=== PATIENT | female | born 1945 | race Caucasian/White ===

== ENCOUNTER → 2019-09-23 11:04 | Outpatient (BNVA) | payer BC, MEDICARE, SELFPAY | PROVIDERS: Family Provider Nurse Practitioner; Visit Provider Nurse Practitioner | DX: I10 Essential (primary) hypertension (principal); E04.9 Nontoxic goiter, unspecified; E78.2 Mixed hyperlipidemia; Z12.39 Encounter for other screening for malignant neoplasm of breast | CPT/HCPCS: 81000 ==

== ENCOUNTER → 2019-09-25 09:39 | Outpatient (BNVA) | payer BC, MEDICARE, SELFPAY | PROVIDERS: Family Provider Nurse Practitioner; Visit Provider Nurse Practitioner | DX: I10 Essential (primary) hypertension (principal) | CPT/HCPCS: 80053; 80061; 84443 ==

== ENCOUNTER → 2020-04-13 10:43 | Outpatient (BNVA) | payer MEDICARE, OTHER, SELFPAY | PROVIDERS: Family Provider Nurse Practitioner; Visit Provider Nurse Practitioner Family | DX: I10 Essential (primary) hypertension (principal); E78.2 Mixed hyperlipidemia | CPT/HCPCS: 80053; 80061; 84443; 85025 ==

== ENCOUNTER → 2020-11-01 10:02 | Outpatient (BNVA) | payer MEDICARE, OTHER, SELFPAY | PROVIDERS: Family Provider Nurse Practitioner; PCP Nurse Practitioner; Visit Provider Nurse Practitioner | DX: I10 Essential (primary) hypertension (principal); E04.9 Nontoxic goiter, unspecified; E78.2 Mixed hyperlipidemia | CPT/HCPCS: 80053; 80061; 84443; 85025 ==

== ENCOUNTER → 2021-06-08 10:33 | Outpatient (BNVA) | payer MEDICARE, OTHER, SELFPAY | PROVIDERS: Family Provider Nurse Practitioner; PCP Nurse Practitioner; Visit Provider Nurse Practitioner | DX: R06.02 Shortness of breath (principal); I10 Essential (primary) hypertension; E78.2 Mixed hyperlipidemia | CPT/HCPCS: 80053; 80061; 83735; 85025 ==

== ENCOUNTER → 2021-08-04 13:17 | Outpatient (BNVA) | payer MEDICARE, OTHER, SELFPAY | PROVIDERS: Family Provider Nurse Practitioner; PCP Nurse Practitioner; Visit Provider Internal Medicine | DX: R06.02 Shortness of breath (principal); I10 Essential (primary) hypertension; R07.9 Chest pain, unspecified | CPT/HCPCS: 99203; 99204 ==

== ENCOUNTER → 2021-11-03 14:22 | Outpatient (BNVA) | payer MEDICARE, OTHER, SELFPAY | PROVIDERS: Family Provider Nurse Practitioner; PCP Nurse Practitioner; Visit Provider Internal Medicine | DX: R06.02 Shortness of breath (principal); I10 Essential (primary) hypertension; R07.9 Chest pain, unspecified | CPT/HCPCS: 99213; 99214 ==

== ENCOUNTER 2021-11-28 07:10 | Outpatient (CLI) | payer MEDICARE, OTHER, SELFPAY ==
[2021-11-28 08:00] VITALS: BMI 25.6
--- NOTE | 2021-11-28 08:01 | NMCV_ITS ---
NM néstor perf SPECT r/s* [id number] Aretha Hawley Age: 76 Gender: F : 1945 Exam Date: 11/28/2021 08:58 Ordering Phys: Guzman Sheikh M.D ([email or web address]) Technologist: Ismael Waddell Exam Location: [facility] Indications: SHORTNESS OF BREATH STRESS TEST Please see separate stress test report in [facility] for full findings IMAGE PROTOCOL Rest/Stress 1 Lexiscan Day Radiopharmaceutical Dose (mCi) Administration Site Administered by Rest: Tc-99m 10.6 IV Izaiah Harris, OPERATIONS RESEARCH SCIENTIST Sestamibi Stress:Tc-99m 32.5 IV Izaiah Harris OPERATIONS RESEARCH SCIENTIST Sestamibi Rest: 28-Nov-2021 60 Discovery 630 Stress: 28-Nov-2021 30 Discovery 630 0.4mg Lexiscan. Images obtained in supine and prone position. SPECT RESULTS Technical Quality: Excellent Raw Data Analysis: Image Corrections: No attenuation or motion correction applied Summed Stress Score: 0 Summed Rest Score: 0 Summed Difference Score: 0 PERFUSION FINDINGS SPECT images demonstrate homogeneous tracer distribution throughout the myocardium. FUNCTIONAL RESULTS (calculated via Gated SPECT) Stress Image LV EF (%): 75 Stress EDV (mL):75 TID: 1.22 Stress ESV (mL):19 FUNCTIONAL FINDINGS: There is normal left ventricular systolic function. TID ratio is elevated. IMPRESSIONS 1. Normal myocardial perfusion imaging with no evidence of ischemia 2. LV systolic function is normal Guzman Sheikh MD (Electronically Signed) Final Date: 28 November 2021 11:34 S
--- NOTE | 2021-11-28 08:01 | ECG_ITS ---
[facility] Test Date: 2021-11-28 Pat Name: Aretha Hawley Department: Room: Gender: Female Rose Grading Supervisor: Vivian Pineda : 1945 Requested By: Guzman Sheikh Order Number: [id number] Stephania MD: Guzman Sheikh M.D. Interpretive Statements NAME OF STUDY: LEXISCAN SESTAMIBI STRESS TEST INDICATION: [Shortness of Breath] Procedure: At the baseline, the blood pressure was 183/89 mmHg with a heart rate of 67 bpm. The electrocardiogram showed normal sinus rhythm, intraventricular conduction delay. The Lexiscan was infused over a period of 20 seconds. A total of 0.4 mg of Lexiscan was infused. The stress phase was continued for a total of 5 minutes. Heart rate was at the end of stress phase was 85 bpm and a blood pressure of 150/67 mmHg. The EKG at the peak infusion revealed since normal sinus rhythm with no significant ST-T wave changes. Sestamibi was injected 20 seconds after the Lexiscan infusion. Blood pressure at the end of recovery phase was 152/68 mmHg with a heart rate of 83 bpm. Conclusion: 1. Normal EKG response to Lexiscan infusion 2. No Lexiscan induced chest pain or cardiac arrhythmia. 3. Normal blood pressure and heart rate response. 4. Sestamibi/sestamibi perfusion scan pending; see separate report. Electronically Signed On 01-01-2022 21:09:04 CDT by Gzuman Sheikh M.D. [id number]
[2021-11-28] MEDS: regadenoson 0.4 Mg/5 ml Syringe IVP (09:38)
[2021-11-28 09:45] VITALS: BP 152/89; PULSE 84
== END 2021-11-28 07:11 | disposition home or self-care (01) ==
LOC: CDL 07:18
PROVIDERS: PCP Nurse Practitioner; Visit Provider Internal Medicine
DX: R06.02 Shortness of breath (principal)
CPT/HCPCS: 78452; 93017; A9500; J2785

== ENCOUNTER → 2022-01-18 10:07 | Outpatient (BNVA) | payer MEDICARE, OTHER, SELFPAY | PROVIDERS: PCP Nurse Practitioner; Visit Provider Nurse Practitioner | DX: I10 Essential (primary) hypertension (principal) | CPT/HCPCS: 80053; 80061; 84443; 85025 ==

== ENCOUNTER 2022-03-10 08:39 | Outpatient (CLI) | payer MEDICARE, OTHER, SELFPAY ==
--- NOTE | 2022-03-10 09:15 | US_ITS ---
WS: [id number] ULTRASOUND THYROID TECHNIQUE: Ultrasound of the thyroid. CLINICAL INFORMATION: E04.9 - Nontoxic goiter, unspecified COMPARISON: None. FINDINGS: Thyroid: Right and left thyroid lobes are normal in size and echotexture. A few tiny incidental thyro id cysts likely colloid cysts. No suspicious nodules. Right thyroid lobe: 4.3 cm x 1.2 cm x 1.2 cm Left thyroid lobe: 4.3 cm x 1.1 cm x 1.1 cm. Isthmus: 0.2 mm. Cervical lymphadenopathy: None. US/US thyroid [id number] IMPRESSION: 1. Thyroid is normal in size and echotexture. 2. Bilateral small subcentimeter colloid cysts are visualized. No dominant nod ules to target for biopsy. 3. No other suspicious findings.
== END 2022-03-10 08:40 | disposition home or self-care (01) ==
LOC: RAD 08:39
PROVIDERS: PCP Nurse Practitioner; Visit Provider Nurse Practitioner
DX: E04.9 Nontoxic goiter, unspecified (principal)
CPT/HCPCS: 76536

== ENCOUNTER 2022-03-28 12:35 | Emergency (ER) | payer MEDICARE, OTHER, SELFPAY ==
[2022-03-28] VITALS (19 sets, daily range): BP systolic 143–167; BP diastolic 49–90; PULSE 55–65; RESP 14–20; O2SAT 94–98
--- NOTE | 2022-03-28 | CTR_ITS ---
PROCEDURE INFORMATION: Exam: CTA Head With Contrast, Arteriography Exam date and time: 03/28/2022 12:59 PM Age: 76 years old Clinical indication: Speech disturbance; Aphasia TECHNIQUE: Imaging protocol: Computed tomographic angiography of the head with contrast. Exam focused on the arteries. 3D rendering (Not supervised by radiologist): MIP and/or 3D reconstructed images were created by the technologist. Radiation optimization: All CT scans at this facility use at least one of these dose optimization techniques: automated exposure control; mA and/or kV adjustment per patient size (includes targeted exams where dose is matched to clinical indication); or iterative reconstruction. Contrast material: OMNIPAQUE 350; Contrast volume: 95 ml; Contrast route: INTRAVENOUS (IV); COMPARISON: CT head wo con* [id number] 03/28/2022 12:35 PM RADIATION DOSE METRICS: Total DLP (mGy-cm): 338.27 FINDINGS: ANTERIOR CIRCULATION: Right internal carotid artery: Intracranial segment is patent with no significant stenosis. No aneurysm. Right middle cerebral artery: No occlusion or significant stenosis. No aneurysm. Right anterior cerebral artery: No occlusion or significant stenosis. No aneurysm. Left internal carotid artery: Intracranial segment is patent with no significant stenosis. No aneurysm. Left middle cerebral artery: There is occlusion of the M1 segment of the left MCA and poor opacification of reconstituted distal branches.. Left anterior cerebral artery: No occlusion or significant stenosis. No aneurysm. POSTERIOR CIRCULATION: Right vertebral artery: No occlusion or significant stenosis. No aneurysm. Left vertebral artery: No occlusion or significant stenosis. No aneurysm. Basilar artery: No occlusion or significant stenosis. No aneurysm. Right posterior cerebral artery: No occlusion or significant stenosis. No aneurysm. Left posterior cerebral artery: No occlusion or significant stenosis. No aneurysm. Brain: There is loss of barker-white matter differentiation in the left temporoparietal region, consistent with left MCA distribution infarct. Cerebral ventricles: No ventriculomegaly. Bones/joints: There No acute fracture. Soft tissues: Unremarkable. PROCEDURE INFORMATION: Exam: CTA Neck With Contrast Exam date and time: 03/28/2022 12:59 PM Age: 76 years old Clinical indication: Speech disturbance; Aphasia TECHNIQUE: Imaging protocol: Computed tomographic angiography of the neck with contrast. 3D rendering (Not supervised by radiologist): MIP and/or 3D reconstructed images were created by the technologist. Radiation optimization: All CT scans at this facility use at least one of these dose optimization techniques: automated exposure control; mA and/or kV adjustment per patient size (includes targeted exams where dose is matched to clinical indication); or iterative reconstruction. Contrast material: OMNIPAQUE 350; Contrast volume: 95 ml; Contrast route: INTRAVENOUS (IV); COMPARISON: [place] thyroid [id number] 03/10/2022 8:59 AM RADIATION DOSE METRICS: Total DLP (mGy-cm): 338.27 FINDINGS: Right common carotid artery: No stenosis. No dissection or occlusion. Right internal carotid artery: No stenosis of the extracranial segment. No dissection or occlusion. Right external carotid artery: No occlusion or stenosis of the origin. Left common carotid artery: No stenosis. No dissection or occlusion. Left internal carotid artery: No stenosis of the extracranial segment. No dissection or occlusion. Left external carotid artery: No occlusion or stenosis of the origin. Right vertebral artery: No stenosis. No dissection or occlusion. Left vertebral artery: No stenosis. No dissection or occlusion. Soft tissues: Normal. No significant soft tissue swelling. Bones/joints: No acute fracture. Degenerative changes of the spine seen. Lungs: Biapical scarring noted. CT/CT angio headneck* [id number] IMPRESSION: Left MCA distribution infarct with occlusion of the left M1 segment. IMPRESSION: No stenosis or occlusion. REFERENCES: NASCET CRITERIA. The degree of stenosis in the cervical segment of the internal carotid artery is based on NASCET criteria. Normal is no stenosis. Mild is less than 50% stenosis. Moderate is 50-69% stenosis. Severe is 70% to 99% stenosis. Total occlusion is no detectable patent lumen.
--- NOTE | 2022-03-28 12:36 | CTR_ITS ---
PROCEDURE INFORMATION: Exam: CT Head Without Contrast Exam date and time: 03/28/2022 12:35 PM Age: 76 years old Clinical indication: Speech disturbance and other: Aphasia, ; additional info: Stroke, suspect mca TECHNIQUE: Imaging protocol: Computed tomography of the head without contrast. Radiation optimization: All CT scans at this facility use at least one of these dose optimization techniques: automated exposure control; mA and/or kV adjustment per patient size (includes targeted exams where dose is matched to clinical indication); or iterative reconstruction. COMPARISON: [place] thyroid [id number] 03/10/2022 8:59 AM RADIATION DOSE METRICS: Total DLP (mGy-cm): 1102.34 FINDINGS: Brain: Loss of barker-white matter differentiation in the anterior right frontal lobe is suggested. No hemorrhage, mass effect or midline shift. There is foci of decreased attenuation in the periventricular and subcortical white matter, likely representing chronic small vessel ischemic changes. Mild cerebral volume loss is present. No intra-axial or extra-axial fluid collection seen. Cerebral ventricles: No ventriculomegaly. Paranasal sinuses: Visualized sinuses are unremarkable. No fluid levels. Mastoid air cells: Visualized mastoid air cells are well aerated. Bones/joints: Unremarkable. No acute fracture. Soft tissues: Unremarkable. CT/CT head wo con* [id number] IMPRESSION: Loss of barker-white matter differentiation in the anterior right frontal lobe is suggested, concerning for infarct. Clinical correlation is recommended. Further evaluation with brain MRI should be considered in the adequate clinical setting.
--- NOTE | 2022-03-28 12:37 | ECG_ITS ---
[facility] Test Date: 2022-03-28 Pat Name: Aretha Hawley Department: Room: Gender: Female Engineering Project Manager: : 1945 Requested By: Sylvester Encarnacion Order Number: [id number] Cat MD: Guzman Sheikh M.D. Measurements Intervals [place] Rate: 59 P: 84 MT: 238 QRS: -74 QRSD: 145 T: 90 QT: 478 QTc: 475 Interpretive Statements SINUS BRADYCARDIA WITH FIRST DEGREE AV BLOCK LEFT AXIS DEVIATION [QRS AXIS < -30] LEFT BUNDLE BRANCH BLOCK [120+ ms QRS DURATION, 80+ ms Q/S IN V1/V2, 85+ ms R IN I/aVL/V5/V6] No previous ECG available for comparison Electronically Signed On 03-28-2022 17:46:38 MERCHANDISE MANAGER by Guzman Sheikh M.D. [id number]
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
--- NOTE | 2022-03-28 13:31 | PC.PHAR ---
PT UNABLE TO VERIFY AMS/STROKE - MEDICATIONS VERIFIED USING EXTERNAL MED LIST LAST FILLED
[2022-03-28] MEDS: iohexol 350 mg/mL 500 mL Btl (per mL) IV (13:41)
[2022-03-28] MEDS: sodium chloride 0.9% 50 ML 200 ML IV (14:09)
--- NOTE | 2022-03-28 14:55 | PC.NURSE ---
pt last known well was 1148 confirmed by spouse Stroke alert was called 1212 pt arrived and taken straight to CT. CT taken 1231 resulted 1235 TPA was ready and bolus was started at 1247 with infusion started after 1 minute bolus given TPA was initiated in CT during CTA scan pt wt 142 lb 5.8 ML bolus was given over 1 minute. and infusion started at 52.2 ml/hr. 41.9 ml wasted pt was receiving q15 min neuro checks since time of arrival. no signs of improvement as of 1500. Vital signs established by EMS were WNL, blood glucose WNL
[2022-03-28 15:20] LABS: Basophils % 0.3 %; Eosinophils # 0.2 10^3/uL (0.0-0.8); Eosinophils % 2.1 %; Hematocrit 41.8 % (37.0-47.0); Hemoglobin 12.9 g/dL (11.5-15.3); Lymphocytes # 1.2 10^3/uL (0.8-4.8); Lymphocytes % 10.4 %; Mean Corpuscular HGB Conc 30.9 g/dL (30.0-36.0); Mean Corpuscular Hemoglobin 30.6 pg (28.0-34.0); Mean Corpuscular Volume 99.3 fl (81-99); Mean Platelet Volume 12.1 fL (7.4-10.4); Monocytes # 0.7 10^3/uL (0.2-0.9); Monocytes % 6.3 %; Neutrophils # 9.13 10^3/uL (1.8-7.7); Neutrophils % 80.5 %; Nucleated Red Blood Cells % 0 %; Platelet Count 230 10^3/cmm (130-400); Red Blood Count 4.21 10^6/uL (4.1-5.3); Red Cell Distribution Width 13.9 % (12.1-15.1); White Blood Count 11.3 10^3/uL (4.0-10.0)
--- NOTE | 2022-03-28 15:23 | PC.NURSE ---
report called to Amandeep hart RN. report given to [facility]. pt transported [id number]
[2022-03-28 15:41] LABS: INR 1.32 (0.8-1.2); Partial Thromboplastin Time 22.1 SECONDS (23.9-36.7)
[2022-03-28 15:47] LABS: Alanine Aminotransferase 11 U/L (0-33); Albumin Level 4.1 g/dL (3.5-5.2); Alkaline Phosphatase 94 U/L (35-105); Blood Urea Nitrogen 14 mg/dL (8-23); Calcium 9.1 mg/dL (8.5-10.5); Carbon Dioxide 22 mmol/L (22-29); Chloride 105 mmol/L (98-107); Globulin 2.6 g/dL (1.3-4.6); Glucose 82 mg/dL (65-115); Osmolality Calculated 288 mOsm/kg (285-295); Sodium 139 mmol/L (136-145); Total Protein 6.7 g/dL (6.6-8.7)
[2022-03-28 16:06] LABS: Anion Gap 16.6 (5-19); Aspartate Amino Transferase 23 U/L (0-32); Potassium 4.6 mmol/L (3.5-5.1)
== END 2022-03-28 15:25 | disposition short-term general hospital (02) ==
PROVIDERS: Emergency Provider Emergency Medicine; PCP Nurse Practitioner
DX: R13.0 Aphagia (principal); I63.512 Cerebral infarction due to unspecified occlusion or stenosis of left middle cerebral artery; R29.720 NIHSS score 20
CPT/HCPCS: 70450; 70496; 70498; 80053; 85025; 85610; 85730; 93005; 96365; 99285; J2997; Q9967

== ENCOUNTER 2022-05-16 20:36 | Emergency (ER) | payer MEDICARE, OTHER, SELFPAY ==
--- NOTE | 2022-05-16 20:40 | XRR_ITS ---
PROCEDURE INFORMATION: Exam: XR Chest Exam date and time: 05/16/2022 9:04 PM Age: 76 years old Clinical indication: Pain; Chest pressure; Additional info: Cp TECHNIQUE: Imaging protocol: Radiologic exam of the chest. Views: 1 view. COMPARISON: CT angio headneck* [id number] 03/28/2022 12:59 PM FINDINGS: Lungs: No consolidation. Pleural spaces: No pleural effusion. No pneumothorax. Heart/Mediastinum: Cardiomegaly. Bones/joints: Visualized osseous structures are intact. XR/XR chest 1V portable [id number] IMPRESSION: Cardiomegaly, otherwise no acute findings.
[2022-05-16 20:46] VITALS: BP 138/87; PULSE 84; RESP 25; TEMP 36.4; O2SAT 94; BMI 29.2
--- NOTE | 2022-05-16 20:54 | W.ED.GENADLT ---
HPI - General Adult General: Chief complaint: General Medical Stated complaint: afib with rvr Time Seen by Provider: 05/16/22 20:40 Source: patient and EMS Mode of arrival: EMS Limitations: altered mental status History of Present Illness: 76-year-old female with a history of a stroke she is currently bedbound nonverbal she does have a history of A-fib with RVR per long-term patient was tachycardic into the 130s she had had a Cardizem evening dose yet EMS arrived they did give her 8 mg of Cardizem IV her heart rate is improved is currently in the 90s patient is nonverbal has no complaints here. Review of Systems General: Reports: ROS unobtainable due to mental status PFSH ED PFSH: Medical History (Updated 05/16/22 @ 22:15 by Yulisa Schwarz MD) Environmental and seasonal allergies Essential (primary) hypertension Mixed hyperlipidemia Surgical History History of cholecystectomy History of dilatation and curettage History of tonsillectomy History of tubal ligation Family History Mother Stroke Other Heart disease Hypertension Social History Smoking and tobacco status: never smoked Second hand smoke exposure: No Smoking risk assessment/counseling performed?: No Alcohol intake: never Desire information about alcohol rehabilitation?: No Counseling given: No Desire information about substance/drug rehabilitation?: No Counseling given: No Adopted: No Caregiver/support person: No Lives independently: Yes Household members: spouse Housing: House Marital status: service: No Pets and animals: No History of recent travel: No Current gender identity: Female Physical Exam Const: COMMON NORMALS: negative for patient oriented x3 HENMT: COMMON NORMALS: normocephalic and atraumatic HEAD & SCALP: normocephalic and atraumatic Eye: COMMON NORMALS: Equal, round and reactive pupils present and EOMs intact bilaterally PUPIL: Yes Equal, round and reactive pupils present Neck/C-Spine: COMMON NORMALS: full ROM and supple Chest: COMMONS NORMALS: normal inspection of the chest and normal palpation of entire chest wall Resp: COMMON NORMALS: normal respiratory effort, No retractions, No use of accessory muscles and clear to auscultation bilaterally AUSCULTATION: clear to auscultation bilaterally Cardio: COMMON NORMALS: regular rate and No murmurs present (Cardio) RATE: regular rate RHYTHM: abnormal rhythm irregularly irregular GI: COMMON NORMALS: Normal to inspection, nondistended, normoactive bowel sounds present, Soft to palpation, non-tender and no masses PALPATION: Yes Soft to palpation Extremity: COMMON NORMALS: normal to inspection Neuro: COMMON NORMALS: negative for patient oriented x3 and negative for moves all extremities Psych: COMMON NORMALS: cooperative; negative for mental status grossly normal Skin: COMMON NORMALS: no rashes or lesions noted and no wounds GENERAL SKIN EXAM: no rashes or lesions noted Course Vital Signs: Vital signs: Vital Signs Temperature 97.6 F 05/16/22 20:46 Pulse Rate 80 05/16/22 22:30 Respiratory Rate 16 05/16/22 22:30 Blood Pressure 129/65 05/16/22 22:30 Pulse Oximetry 98 05/16/22 22:30 Oxygen Delivery Me thod 05/16/22 22:07 MDM - General Adult Medical Decision Making Patient presents with A-fib with RVR from the long-term heart rate has been controlled here she has been in the 70s and 80s blood work is normal she is stable for discharge back to the long-term at this time. Lab Data 05/16/22 20:50 05/16/22 20:50 Radiology Impressions Chest X-Ray 05/16/22 20:40 IMPRESSION: Cardiomegaly, otherwise no acute findings. Laboratory Results WBC 15.5 10^3/uL (4.0-10.0) H 05/16/22 20:50 RBC 4.65 10^6/uL (4.1-5.3) 05/16/22 20:50 Hgb 14.0 g/dL (11.5-15.3) 05/16/22 20:50 Hct 43.6 % (37.0-47.0) 05/16/22 20:50 MCV 93.8 fl (81-99) 05/16/22 20:50 MCH 30.1 pg (28.0-34.0) 05/16/22 20:50 MCHC 32.1 g/dL (30.0-36.0) 05/16/22 20:50 RDW 14.6 % (12.1-15.1) 05/16/22 20:50 Plt Count 503 10^3/cmm (130-400) H 05/16/22 20:50 MPV 11.7 fL (7.4-10.4) H 05/16/22 20:50 Neut % (Auto) 74.7 % 05/16/22 20:50 Lymph % (Auto) 17.0 % 05/16/22 20:50 [place] % (Auto) 6.4 % 05/16/22 20:50 Eos % (Auto) 1.1 % 05/16/22 20:50 Baso % (Auto) 0.3 % 05/16/22 20:50 Neut # (Auto) 11.58 10^3/uL (1.8-7.7) H 05/16/22 20:50 Lymph # (Auto) 2.6 10^3/uL (0.8-4.8) 05/16/22 20:50 [place] # (Auto) 1.0 10^3/uL (0.2-0.9) H 05/16/22 20:50 Eos # (Auto) 0.2 10^3/uL (0.0-0.8) 05/16/22 20:50 Baso # (Auto) 0.1 10^3/uL (0.0-0.1) 05/16/22 20:50 Nucleated RBC % (auto) 0 % 05/16/22 20:50 Nucleated RBCs # 0.0 /100WBC 05/16/22 20:50 Sodium 135 mmol/L (136-145) L 05/16/22 20:50 Potassium 4.3 mmol/L (3.5-5.1) 05/16/22 20:50 Chloride 99 mmol/L (98-107) 05/16/22 20:50 Carbon Dioxide 22 mmol/L (22-29) 05/16/22 20:50 Anion Gap 18.3 (5-19) 05/16/22 20:50 BUN 21 mg/dL (8-23) 05/16/22 20:50 Creatinine 0.4 mg/dL (0.5-0.9) L 05/16/22 20:50 GFR Calculation Not Reportable 05/16/22 20:50 Glucose 144 mg/dL (65-115) H 05/16/22 20:50 Calculated Osmolality 286 mOsm/kg (285-295) 05/16/22 20:50 Calcium 9.4 mg/dL (8.5-10.5) 05/16/22 20:50 Total Bilirubin 0.6 mg/dL (0.15-1.2) 05/16/22 20:50 AST 30 U/L (0-32) 05/16/22 20:50 ALT 33 U/L (0-33) 05/16/22 20:50 Alkaline Phosphatase 131 U/L (35-105) H 05/16/22 20:50 Total Protein 7.8 g/dL (6.6-8.7) 05/16/22 20:50 Albumin 3.7 g/dL (3.5-5.2) 05/16/22 20:50 Globulin 4.1 g/dL (1.3-4.6) 05/16/22 20:50 EKG Data EKG 1: I personally reviewed and interpreted this EKG as follows: EKG interpretation date: 05/16/22 EKG interpretation time: 21:01 Interpretation: afib hr [address] elevation qrs 140 qtc 427 Computer generated interpretation: Chest X-Ray 05/16/22 20:40 IMPRESSION: Cardiomegaly, otherwise no acute findings. Discharge Plan Discharge Patient Disposition: Home Clinical Impression: Atrial fibrillation Condition: Stable Prescriptions: No Action mupirocin 2 % ointment 1 applic TOPICAL TID Qty: 22 0RF aspirin [Adult Low Dose Aspirin] 81 mg tablet,delayed release (DR/EC) 81 mg PO .weekly nitroglycerin 0.4 mg tablet, sublingual 0.4 mg sublingual Q5M PRN (Reason: chest pain) Qty: 25 2RF Rx Instructions: do not exceed 3 doses per episode metoprolol succinate 25 mg tablet extended release 24 hr 25 mg PO DAILY 90 Days Qty: 90 1RF simvastatin 40 mg tablet 40 mg PO DAILY Qty: 90 1RF valsartan [Diovan] 40 mg tablet 40 mg PO DAILY Qty: 90 3RF Discharge Orders: Discharge ED (Routine); Ordered 05/16/22 Ordered By: Yulisa Schwarz Referrals: Maria Del Carmen Douglas, DIALS SUPERVISOR-C [Primary Care Provider] - Discharge Diet: Advance as tolerated Discharge Activity: Resume usual activity Patient Instructions: A-fib (Atrial Fibrillation) (ED) Coding Level of Care Code ED Industrial Chemicals Supervisor for Hermelindo Koehler
[2022-05-16 20:57] LABS: Basophils # 0.1 10^3/uL (0.0-0.1); Basophils % 0.3 %; Eosinophils # 0.2 10^3/uL (0.0-0.8); Eosinophils % 1.1 %; Hematocrit 43.6 % (37.0-47.0); Lymphocytes # 2.6 10^3/uL (0.8-4.8); Mean Corpuscular HGB Conc 32.1 g/dL (30.0-36.0); Mean Corpuscular Hemoglobin 30.1 pg (28.0-34.0); Mean Corpuscular Volume 93.8 fl (81-99); Mean Platelet Volume 11.7 fL (7.4-10.4); Monocytes % 6.4 %; Neutrophils # 11.58 10^3/uL (1.8-7.7); Neutrophils % 74.7 %; Nucleated Red Blood Cells % 0 %; Platelet Count 503 10^3/cmm (130-400); Red Blood Count 4.65 10^6/uL (4.1-5.3); Red Cell Distribution Width 14.6 % (12.1-15.1); White Blood Count 15.5 10^3/uL (4.0-10.0)
--- NOTE | 2022-05-16 21:01 | ECG_ITS ---
[facility] Test Date: 2022-05-16 Pat Name: Aretha Hawley Department: Room: Gender: Female Social Media Strategist: : 1945 Requested By: Yulisa Schwarz Order Number: [id number] Stephania MD: Guzman Sheikh M.D. Measurements Intervals [place] Rate: 95 P: 119 AR: 200 QRS: -61 QRSD: 140 T: 87 QT: 374 QTc: 472 Interpretive Statements SINUS RHYTHM WITH FREQUENT SUPRAVENTRICULAR PREMATURE COMPLEXES LEFT AXIS DEVIATION [QRS AXIS < -30] LEFT BUNDLE BRANCH BLOCK [120+ ms QRS DURATION, 80+ ms Q/S IN V1/V2, 85+ ms R IN I/aVL/V5/V6] Compared to ECG 03/28/2022 13:36:58 Sinus bradycardia no longer present First degree AV block no longer present Electronically Signed On 05-16-2022 22:46:03 BUSHING AND BROACH OPERATOR by Guzman Sheikh M.D. [id number]
[2022-05-16 21:23] LABS: Alanine Aminotransferase 33 U/L (0-33); Albumin Level 3.7 g/dL (3.5-5.2); Potassium 4.3 mmol/L (3.5-5.1)
[2022-05-16] MEDS: dilTIAZem 30 mg Tablet PO (21:25)
[2022-05-16 21:30] VITALS: BP 140/67; PULSE 101; RESP 16; O2SAT 98
[2022-05-16 21:40] LABS: Alkaline Phosphatase 131 U/L (35-105); Anion Gap 18.3 (5-19); Aspartate Amino Transferase 30 U/L (0-32); Blood Urea Nitrogen 21 mg/dL (8-23); Calcium 9.4 mg/dL (8.5-10.5); Carbon Dioxide 22 mmol/L (22-29); Chloride 99 mmol/L (98-107); Globulin 4.1 g/dL (1.3-4.6); Glucose 144 mg/dL (65-115); Osmolality Calculated 286 mOsm/kg (285-295); Sodium 135 mmol/L (136-145); Total Bilirubin 0.6 mg/dL (0.15-1.2); Total Protein 7.8 g/dL (6.6-8.7)
[2022-05-16 21:41] LABS: Creatinine Clr Calc Pharmacy 55.8072
[2022-05-16 22:00] VITALS: BP 152/71; PULSE 105; RESP 16; O2SAT 95
[2022-05-16] MEDS: dilTIAZem 5 mg/mL SDV 5 mL 10 MG IVP (22:03)
[2022-05-16 22:07] VITALS: BP 152/71; PULSE 81; RESP 16; O2SAT 98
[2022-05-16 22:30] VITALS: BP 129/65; PULSE 80; RESP 16; O2SAT 98
== END 2022-05-16 22:50 | disposition home or self-care (01) ==
PROVIDERS: Emergency Provider Emergency Medicine; PCP Nurse Practitioner
DX: I48.91 Unspecified atrial fibrillation (principal); Z79.82 Long term (current) use of aspirin; I10 Essential (primary) hypertension; E78.2 Mixed hyperlipidemia
CPT/HCPCS: 36415; 71045; 80053; 85025; 93005; 96374; 99285; J3490

== ENCOUNTER → 2022-06-30 10:00 | Outpatient (BNVA) | payer MEDICARE, OTHER, SELFPAY | PROVIDERS: PCP Nurse Practitioner; Visit Provider Nurse Practitioner Family | DX: I48.91 Unspecified atrial fibrillation (principal); I10 Essential (primary) hypertension; Z79.01 Long term (current) use of anticoagulants | CPT/HCPCS: 93005; 99214 ==

== ENCOUNTER 2022-07-09 17:40 | Emergency (ER) | payer MEDICARE, OTHER, SELFPAY ==
[2022-07-09 17:55] VITALS: BP 156/95; PULSE 137; TEMP 36.6; O2SAT 97
--- NOTE | 2022-07-09 18:24 | PC.NURSE ---
pt resting in bed, unable to answer orientation questions or hold conversation. site where G-tube was, does not appear reddened, swollen, or warm to touch. pt bowel sounds are present. lung sounds are clear
--- NOTE | 2022-07-09 19:25 | ED_ITS ---
HPI - General Adult General: Chief complaint: General Medical Stated complaint: FEEDING TUBE OUT Time Seen by Provider: 07/09/22 17:58 History of Present Illness: 76-year-old female presents from shelter after her gastrostomy tube was traumatically pulled out while turning the pa tient bleeding is controlled. She has minimal pain. No other complaints. Onset (ago): hour(s) Location: abdomen Radiation: non-radiation Severity: mild Quality: other Pain Consistency: other Relieving factors: other Exacerbating factors: other Associated symptoms: Deny dyspnea, fevers/chills or vomiting Review of Systems Resp: Denies: dyspnea GI: Denies: vomiting PFSH ED PFSH: Medical History Atrial fibrillation Environmental and seasonal allergies Essential (primary) hypertension Mixed hyperlipidemia Surgical History History of cholecystectomy History of dilatation and curettage History of tonsillectomy History of tubal ligation Family History Mother Stroke Other Heart disease Hypertension Social History Smoking and tobacco status: never smoked Second hand smoke exposure: No Smoking risk assessment/counseling performed?: No Alcohol intake: never Desire information about alcohol rehabilitation?: No Counseling given: No Desire information about substance/drug rehabilitation?: No Counseling given: No Adopted: No Caregiver/support person: No Lives independently: Yes Household members: spouse Housing: House Marital status: service: No Pets and animals: No Current gender identity: Female Physical Exam Const: COMMON NORMALS: no acute distress HENMT: COMMON NORMALS: normocephalic and atraumatic HEAD & SCALP: normocephalic and atraumatic Eye: COMMON NORMALS: EOMs intact bilaterally Chest: CHEST: Yes Symmetrical chest wall rise Resp: COMMON NORMALS: normal respiratory effort, No use of accessory muscles and clear to auscultation bilaterally AUSCULTATION: clear to auscultation bilaterally Cardio: COMMON NORMALS: regular rate RATE: regular rate GI: COMMON NORMALS: Soft to palpation and non-tender PALPATION: Yes Soft to palpation OTHER: G-tube site bleeding controlled. Small abrasion. No leakage of contents. Course Vital Signs: Vital signs: Vital Signs Temperature 97.9 F 07/09/22 17:55 Pulse Rate 102 H 07/09/22 20:08 Respiratory Rate 18 07/09/22 20:08 Blood Pressure 138/100 07/09/22 20:08 Pulse Oximetry 92 07/09/22 20:08 Oxygen Delivery Me thod 07/09/22 17:55 MDM - General Adult Medical Decision Making Gastrostomy tube was replaced with a 20 Syrian tube. It flushes easily. There is no pain with flushing. No complication. Discharge Plan Discharge Patient Disposition: Home Clinical Impression: Problem with gastrostomy tube Condition: Stable Prescriptions: No Action apixaban 5 mg tablet 5 mg PO BID famotidine 20 mg tablet 20 mg PO BID bisacodyl 10 mg suppository 10 mg MO DAILY PRN Fleet Enema 19-7 gram/118 mL enema 118 ml MO DAILY PRN magnesium hydroxide [Milk of Magnesia] 400 mg/5 mL suspension 15 ml PO DAILY PRN nystatin 100,000 unit/gram cream 1 applic topical BID acetaminophen [Tylenol] 325 mg capsule 650 mg PO BID PRN fluconazole 150 mg tablet 150 mg PO DAILY PRN amiodarone 200 mg tablet 200 mg PO DAILY Qty: 90 1RF Rx Instructions: 400mg BID for 7 days, then 400mg daily for 7 days, then 200mg daily Discharge Orders: Discharge ED (Routine); Ordered 07/09/22 Ordered By: Joni Rucker Referrals: Maria Del Carmen Douglas, FLAME BRAZING MACHINE OPERATOR-C [Primary Care Provider] - Patient Instructions: Opioid Safety, Pain Management Activity Restrictions/Additional Instructions: Gastrostomy tube has been replaced and is working appropriately. Return for any problems. Coding Level of Care Code ED Pipe Fitter Helper for Hermelindo Koehler
--- NOTE | 2022-07-09 19:44 | PC.NURSE ---
Called report to GIOVANI Sebastian at [facility].
[2022-07-09 20:08] VITALS: BP 138/100; PULSE 102; RESP 18; O2SAT 92
== END 2022-07-09 20:10 | disposition home or self-care (01) ==
PROVIDERS: Emergency Provider Emergency Medicine; PCP Nurse Practitioner
DX: K94.20 Gastrostomy complication, unspecified (principal); I10 Essential (primary) hypertension; E78.2 Mixed hyperlipidemia
CPT/HCPCS: 99282

== ENCOUNTER → 2022-07-13 10:58 | Outpatient (BNVA) | payer MEDICARE, OTHER, SELFPAY | PROVIDERS: PCP Nurse Practitioner; Visit Provider Internal Medicine | DX: I48.91 Unspecified atrial fibrillation (principal); R94.31 Abnormal electrocardiogram [ECG] [EKG]; I45.89 Other specified conduction disorders | CPT/HCPCS: 93005 ==

== ENCOUNTER 2022-07-19 18:57 | Outpatient (CLI) | payer MEDICARE, OTHER, SELFPAY ==
[2022-07-19 19:12] LABS: Basophils % 0.1 %; Eosinophils # 0.1 10^3/uL (0.0-0.8); Eosinophils % 0.3 %; Hematocrit 39.3 % (37.0-47.0); Hemoglobin 12.9 g/dL (11.5-15.3); Lymphocytes # 1.6 10^3/uL (0.8-4.8); Lymphocytes % 10.5 %; Mean Corpuscular HGB Conc 32.8 g/dL (30.0-36.0); Mean Corpuscular Hemoglobin 29.7 pg (28.0-34.0); Mean Corpuscular Volume 90.6 fl (81-99); Mean Platelet Volume 11.8 fL (7.4-10.4); Monocytes # 0.8 10^3/uL (0.2-0.9); Monocytes % 5.2 %; Neutrophils # 12.43 10^3/uL (1.8-7.7); Neutrophils % 83.4 %; Nucleated Red Blood Cells % 0 %; Platelet Count 388 10^3/cmm (130-400); Red Blood Count 4.34 10^6/uL (4.1-5.3); Red Cell Distribution Width 15.2 % (12.1-15.1); White Blood Count 14.9 10^3/uL (4.0-10.0)
[2022-07-19 19:32] LABS: Add Urine Microscopic? YES; Bilirubin Urine Neg (Negative); Blood Urine 3+ (Negative); Glucose Urine UA Norm (Normal); Ketones Urine Negative (Negative); Leukocyte Esterase Urine 2+ (Negative); Nitrate Urine Positive (Negative); Protein Urine 1+ (Negative); Specific Gravity, Urine 1.015 (1.005-1.030); Sulfosalicylic Acid Urine Positive (Negative); Urine Appearance Hazy (CLEAR); Urine Color Yellow (Yellow); Urobilinogen Urine Neg (Negative); pH Urine 8 (5-7)
[2022-07-19 19:41] LABS: RBC Urine 50-80 /hpf (0-2); Squamous Epithelial Cell Urine 0-4 /hpf (0-5); WBC Urine 55-80 /hpf (0-5)
[2022-07-19 19:42] LABS: Add Urine Culture? Yes; Amorphous Sediment Urine 1+ /hpf; Bacteria Urine 3+ /hpf; Mucus Urine 2+ /hpf
[2022-07-19 19:58] LABS: Alanine Aminotransferase 10 U/L (0-33); Albumin Level 3.6 g/dL (3.5-5.2); Alkaline Phosphatase 94 U/L (35-105); Blood Urea Nitrogen 10 mg/dL (8-23); Calcium 9.1 mg/dL (8.5-10.5); Carbon Dioxide 23 mmol/L (22-29); Chloride 107 mmol/L (98-107); Globulin 2.7 g/dL (1.3-4.6); Glucose 96 mg/dL (65-115); Osmolality Calculated 291 mOsm/kg (285-295); Sodium 141 mmol/L (136-145); Total Bilirubin 0.5 mg/dL (0.15-1.2); Total Protein 6.3 g/dL (6.6-8.7)
[2022-07-19 20:22] LABS: Anion Gap 15.1 (5-19); Aspartate Amino Transferase 20 U/L (0-32); Potassium 4.1 mmol/L (3.5-5.1)
== END 2022-07-19 18:58 | disposition home or self-care (01) ==
LOC: LAB 18:59
PROVIDERS: PCP Nurse Practitioner; Visit Provider Internal Medicine
DX: Z01.89 Encounter for other specified special examinations (principal)
CPT/HCPCS: 80053; 81001; 85025; 87077; 87086; 87186

== ENCOUNTER → 2022-07-31 13:37 | Outpatient (BNVA) | payer MEDICARE, OTHER, SELFPAY | PROVIDERS: PCP Nurse Practitioner; Visit Provider Nurse Practitioner Family | DX: I48.91 Unspecified atrial fibrillation (principal); I10 Essential (primary) hypertension; Z79.01 Long term (current) use of anticoagulants | CPT/HCPCS: 93005; 99214 ==

== ENCOUNTER → 2022-09-12 10:51 | Outpatient (BNVA) | payer MEDICARE, OTHER, SELFPAY | PROVIDERS: PCP Internal Medicine; Visit Provider Surgery | DX: I63.512 Cerebral infarction due to unspecified occlusion or stenosis of left middle cerebral artery (principal) | CPT/HCPCS: 96372; 99203 ==

== ENCOUNTER → 2022-10-31 15:14 | Outpatient (BNVA) | payer MEDICARE, OTHER, SELFPAY | PROVIDERS: PCP Internal Medicine; Visit Provider Internal Medicine | DX: I48.91 Unspecified atrial fibrillation (principal); R06.02 Shortness of breath; I10 Essential (primary) hypertension; R07.9 Chest pain, unspecified; Z86.73 Personal history of transient ischemic attack (TIA), and cerebral infarction without residual deficits; Z79.01 Long term (current) use of anticoagulants | CPT/HCPCS: 99214 ==

== ENCOUNTER 2022-12-17 16:30 | Inpatient (IN) | payer MEDICARE, OTHER, SELFPAY ==
[2022-12-17] VITALS (8 sets, daily range): BP systolic 147–222; BP diastolic 58–123; PULSE 68–135; RESP 16–24; TEMP 36.6–36.9; O2SAT 94–98
--- NOTE | 2022-12-17 16:33 | XRR_ITS ---
PROCEDURE INFORMATION: Exam: XR Right Hip Exam date and time: 12/17/2022 5:03 PM Age: 77 years old Clinical indication: Injury or trauma; Fall; Blunt trauma (contusions or hematomas); Right; Hip TECHNIQUE: Imaging protocol: Radiologic exam of the right hip. Views: 2 or 3 views hip with pelvis when performed. COMPARISON: US pelv w/transvag [id number] 03/31/2016 8:37 AM FINDINGS: Bones/joints: There is and overriding and angulated right subcapital femur fracture. No dislocation. No additional acute fracture. Soft tissues: Unremarkable. XR/XR hip RT 2-3V wo/w pel* [id number] IMPRESSION: There is and overriding and angulated right subcapital femur fracture.
--- NOTE | 2022-12-17 16:33 | XRR_ITS ---
PROCEDURE INFORMATION: Exam: XR Chest Exam date and time: 12/17/2022 5:00 PM Age: 77 years old Clinical indication: Injury or trauma; Fall; Blunt trauma (contusions or hematomas) TECHNIQUE: Imaging protocol: Radiologic exam of the chest. Views: 1 view. COMPARISON: CR (CHEST, ) 05/16/2022 9:04 PM FINDINGS: Lungs: Unremarkable. No consolidation. Pleural spaces: Unremarkable. No pleural effusion. No pneumothorax. Heart/Mediastinum: Unchanged cardiomegaly. Bones/joints: No acute abnormality. XR/XR chest 1V portable [id number] IMPRESSION: No acute findings.
--- NOTE | 2022-12-17 16:43 | CTR_ITS ---
PROCEDURE INFORMATION: Exam: CT Head Without Contrast Exam date and time: 12/17/2022 4:49 PM Age: 77 years old Clinical indication: Injury or trauma; Fall; Blunt trauma (contusions or hematomas); Additional info: Fell, hit head TECHNIQUE: Imaging protocol: Computed tomography of the head without contrast. Radiation optimization: All CT scans at this facility use at least one of these dose optimization techniques: automated exposure control; mA and/or kV adjustment per patient size (includes targeted exams where dose is matched to clinical indication); or iterative reconstruction. REPORTING DATA: Count of CT and Cardiac NM exams in prior 12 months: This patient has received 2 known CTs and 0 known cardiac nuclear medicine studies in the 12 months prior to the current study. COMPARISON: CT head wo con* [id number] 03/28/2022 12:35 PM RADIATION DOSE METRICS: Total DLP (mGy-cm): 981.41 FINDINGS: Brain: There is hypodensity in the left frontal santiago radiata extending to the basal ganglia and subinsular region as well as the left temporal operculum. Within this region of hypodensity there is some small regions of hypodensity for example on series 2, image 29 suspicious for petechial hemorrhage. There is no significant mass effect present or midline shift. Cerebral ventricles: The left frontal horn of the lateral ventricle has mild ex vacuo expansion. No significant ventriculomegaly. Paranasal sinuses: Scattered paranasal sinus mucosal thickening, without air-fluid level present. Mastoid air cells: Visualized mastoid air cells are well aerated. Bones/joints: Chronic appearing left nasal bone fractures. No acute fracture. Soft tissues: Unremarkable. CT/CT head wo con* [id number] IMPRESSION: New region of hypodensity is seen in the left frontal santiago radiata extending to the basal ganglia and subinsular region suspicious for subacute ischemia. There is regions of hyperdensity in this region which may be petechial hemorrhages or possibly calcification/laminar necrosis. Recommend MRI brain correlation.
--- NOTE | 2022-12-17 16:43 | CTR_ITS ---
PROCEDURE INFORMATION: Exam: CT Cervical Spine Without Contrast Exam date and time: 12/17/2022 4:49 PM Age: 77 years old Clinical indication: Injury or trauma; Fall; Blunt trauma; Additional info: Hit head, cannot clear c spine TECHNIQUE: Imaging protocol: Computed tomography of the cervical spine without contrast. Radiation optimization: All CT scans at this facility use at least one of these dose optimization techniques: automated exposure control; mA and/or kV adjustment per patient size (includes targeted exams where dose is matched to clinical indication); or iterative reconstruction. REPORTING DATA: Count of CT and Cardiac NM exams in prior 12 months: This patient has received 2 known CTs and 0 known cardiac nuclear medicine studies in the 12 months prior to the current study. COMPARISON: CT angio headneck* [id number] 03/28/2022 12:59 PM RADIATION DOSE METRICS: Total DLP (mGy-cm): 441.5 FINDINGS: Bones/joints: Near anatomic alignment. No acute fracture. Multilevel degenerative changes are present. Lungs: Biapical lung nodular scarring is unchanged. Soft tissues: Unremarkable. CT/CT cervical spin wo con* [id number] IMPRESSION: No acute osseous injury.
--- NOTE | 2022-12-17 16:43 | XRR_ITS ---
PROCEDURE INFORMATION: Exam: XR Right Femur Exam date and time: 12/17/2022 5:04 PM Age: 77 years old Clinical indication: Injury or trauma; Fall; Blunt trauma; Hip; Right TECHNIQUE: Imaging protocol: Radiologic exam of the right femur. Views: 2 views. COMPARISON: CR XR hip RT 2-3V wo/w pel* [id number] 12/17/2022 5:03 PM FINDINGS: Bones/joints: There is a angulated right subcapital femur fracture. There is osteopenia. Moderate to severe degenerative changes are noted in the right hip and knee. No additional acute fracture. No knee joint effusion. No dislocation. Soft tissues: Unremarkable. XR/XR femur RT min 2V* [id number] IMPRESSION: There is a angulated right subcapital femur fracture.
--- NOTE | 2022-12-17 16:43 | ECG_ITS ---
[facility] Test Date: 2022-12-17 Pat Name: Aretha Hawley Department: Room: Gender: Female Vending Machine Host/Hostess: : 1945 Requested By: Ollie Philippe Order Number: [id number] Stephania MD: Dong Victoria M.D. Measurements Intervals [place] Rate: 79 P: 100 DC: 200 QRS: -75 QRSD: 160 T: 96 QT: 433 QTc: 497 Interpretive Statements SINUS RHYTHM LEFT AXIS DEVIATION [QRS AXIS < -30] LEFT BUNDLE BRANCH BLOCK [120+ ms QRS DURATION, 80+ ms Q/S IN V1/V2, 85+ ms R IN I/aVL/V5/V6] Compared to ECG 05/16/2022 21:01:58 No significant changes Electronically Signed On 12-18-2022 16:00:36 CDT by Dong Victoria M.D. [id number]
--- NOTE | 2022-12-17 17:21 | W.ED.FALL ---
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 She resides in LTC facility. She is typically nonambulatory by report. She had an unwitnessed fall and was found on the ground. She complains of severe pain from her right hip to her right knee. History is difficult because of expressive aphasia. She is able to answer yes/no questions. She says she did hit her head. She is on apixaban. She answered no when asked whether she had loss of consciousness or dizziness. Review of Systems General: Reports: ROS unobtainable due to medical condition (expressive aphasia and severe pain) PFS ED PFSH: Medical History Atrial fibrillation Environmental and seasonal allergies Essential (primary) hypertension Mixed hyperlipidemia Surgical History History of cholecystectomy History of dilatation and curettage History of tonsillectomy History of tubal ligation Family History Mother Stroke Other Heart disease Hypertension Physical Exam Const: COMMON NORMALS: no limitations, alert and well nourished EXAM LIMITATIONS: no altered mental status HENMT: COMMON NORMALS: normocephalic, atraumatic and external ears normal HEAD & SCALP: normocephalic and atraumatic EXTERNAL EAR: Yes external ears normal MOUTH: no muffled voice Eye: COMMON NORMALS: EOMs intact bilaterally, conjunctivae normal and no scleral icterus CONJUNCTIVA: Yes conjunctivae normal Neck/C-Spine: COMMON NORMALS: no JVD GENERAL: Yes normal visual inspection and Yes trachea midline Chest: CHEST: Yes Symmetrical chest wall rise, No crepitus, No localized rib tenderness with anteroposterior compression, No tenderness, No abrasion and No Ecchymosis present Resp: COMMON NORMALS: normal respiratory effort, No use of accessory muscles and clear to auscultation bilaterally AUSCULTATION: clear to auscultation bilaterally Cardio: COMMON NORMALS: no JVD RATE: tachycardic RHYTHM: abnormal rhythm GI: COMMON NORMALS: Soft to palpation and non-tender PALPATION: Yes Soft to palpation and No Guarding due to palpation present (GI) Extremity: NARRATIVE EXTREMITY EXAM: Right arm has increased tone and has been affected by her stroke. She has minimal use of it. Minimal range of motion of the right upper extremity. No trauma noted. I did as much range of motion as possible and palpated the bones and she did not have any tenderness. Left upper extremity exam was unremarkable. Left lower extremity exam was unremarkable. Pelvis is stable with AP pressure. There is tenderness over the right hip. There is pain with range of motion of the right hip. The right lower extremity is shortened and rotated. There does not seem to be any pain with isolated range of motion of the right knee. Examination below the right knee was unremarkable. Cap refill in the feet is normal and the skin is warm and well-perfused. Neuro: COMMON NORMALS: moves all extremities, no focal motor deficits and no sensory deficits noted SENSORIUM/ORIENTATION: Yes alert SPEECH: speech normal Psych: COMMON NORMALS: mental status grossly normal, Normal thought process present, cooperative, normal affect and speech normal SPEECH: Yes normal speech THOUGHT PROCESS: Normal thought process present Skin: COMMON NORMALS: no rashes or lesions noted, turgor normal and no jaundice GENERAL SKIN EXAM: no rashes or lesions noted and turgor normal Course Vital Signs: Vital signs: Vital Signs Temperature 97.8 F 12/17/22 16:31 Pulse Rate 96 12/17/22 17:41 Respiratory Rate 18 12/17/22 17:43 Blood Pressure 189/84 12/17/22 17:41 Pulse Oximetry 95 12/17/22 17:43 Oxygen Delivery Me thod Room Air 12/17/22 17:41 MDM - Fall Medical Decision Making 1. Suspected right hip fracture. X-ray of the pelvis, hip, femur will be obtained. 2. Reported head injury. No external stigmata of injury on examination. Given that she is elderly, on Eliquis, and has a communication deficit we will proceed with CT scan of the head and cervical spine, as I cannot clear it. 3. Given such a high probability of right hip fracture and going to obtain labs, urine analysis, and have a Todd catheter placed. Additionally, patient has tachycardia on arrival. This is probably related to pain. I will order half a milligram of Dilaudid. EKG obtained after pain medication shows a sinus rhythm, rate 79, first-degree AV block, left axis deviation, left bundle branch block, no excessive ST discordance. Patient has a subcapital right hip fracture with angulation. No fracture of the femur. CT scan of the head was obtained. I spoke to the radiologist. He found some comparison films and did an addendum. He explained that he favors chronic changes from the previous stroke. MRI would be reasonable at some point but does not need to be done emergently. Discussed case with Dr. Tobar, orthopedic surgery. Confirmed that the patient's last anticoagulation was just before 8 AM this morning. It was 15 mg of Xarelto. Patient found to have a urinary tract infection. This may have been the impetus for her to get up and fall. She is allergic to sulfa drugs and cephalosporins. Fosfomycin does not appear to be available for order. I hesitate to put her on ciprofloxacin at her age. We will discuss antibiotic treatment with hospitalist prior to initiation. Patient has a Todd catheter given the right hip fracture. The UTI was present prior to placement of the Todd. Patient will be admitted to the hospitalist team. Lab Data 12/17/22 17:31 12/17/22 17:31 Radiology Impressions Chest X-Ray 12/17/22 16:33 IMPRESSION: No acute findings. Hip/Pelvis X-Ray 12/17/22 16:33 IMPRESSION: There is and overriding and angulated right subcapital femur fracture. Cervical Spine CT 12/17/22 16:43 IMPRESSION: No acute osseous injury. Femur X-Ray 12/17/22 16:43 IMPRESSION: There is a angulated right subcapital femur fracture. Head CT 12/17/22 16:43 IMPRESSION: New region of hypodensity is seen in the left frontal santiago radiata extending to the basal ganglia and subinsular region suspicious for subacute ischemia. There is regions of hyperdensity in this region which may be petechial hemorrhages or possibly calcification/laminar necrosis. Recommend MRI brain correlation. ADDENDUM: 12/17/221812 ADDENDUM: The hypodensity in the left MCA territory is consistent with chronic encephalomalacia given the comparison M1 segment occlusion on the CTA from 03/28/2022. The regions of high density in this region are favored to be calcification or laminar necrosis rather than hemorrhage given the chronicity of the infarct. Further characterization can be performed with a MRI brain for follow up. Findings were discussed with DAVI Love at 12/17/2022 6:10 PM CDT. Knee X-Ray 12/17/22 17:47 IMPRESSION: No acute findings. Pelvis X-Ray 12/17/22 17:47 IMPRESSION: Angulated right femoral neck fracture with mild displacement again seen. No pelvic fracture identified. Laboratory Results WBC 8.70 10^3/uL (3.29-11.43) 12/17/22 17: RBC 4.24 10^6/uL (3.85-5.65) 12/17/22 17: Hgb 13.40 g/dL (11.27-16.99) 12/17/22 17: Hct 41.7 % (36-47) 12/17/22 17:31 MCV 98.3 fl (85-98) H 12/17/22 17: MCH 31.6 pg (27-33) 12/17/22 17: MCHC 32.1 g/dL (30-55) 12/17/22 17: RDW 15.3 % (12.1-15.1) H 12/17/22 17: Plt Count 283 10^3/cmm (157-399) 12/17/22 17:31 MPV 11.8 fL (7.4-10.4) H 12/17/22 17:31 Neut % (Auto) 73.1 % 12/17/22 17: Lymph % (Auto) 19.7 % 12/17/22 17: [place] % (Auto) 5.4 % 12/17/22 17:31 Eos % (Auto) 1.0 % 12/17/22 17: Baso % (Auto) 0.3 % 12/17/22 17: Neut # (Auto) 6.36 10^3/uL (1.8-7.7) 12/17/22 17: Lymph # (Auto) 1.7 10^3/uL (0.8-4.8) 12/17/22 17: [place] # (Auto) 0.5 10^3/uL (0.2-0.9) 12/17/22 17:31 Eos # (Auto) 0.1 10^3/uL (0.0-0.8) 12/17/22 17:31 Baso # (Auto) 0.0 10^3/uL (0.0-0.1) 12/17/22 17:31 Nucleated RBC % (auto) 0 % 12/17/22 17:31 Nucleated RBCs # 0.0 /100WBC 12/17/22 17:31 Sodium 142 mmol/L (136-145) 12/17/22 17:31 Potassium 4.0 mmol/L (3.5-5.1) 12/17/22 17:31 Chloride 104 mmol/L (98-107) 12/17/22 17:31 Carbon Dioxide 24 mmol/L (22-29) 12/17/22 17:31 Anion Gap 18.0 (5-19) 12/17/22 17:31 BUN 12 mg/dL (8-23) 12/17/22 17:31 Creatinine 0.5 mg/dL (0.5-0.9) 12/17/22 17:31 GFR Calculation Not Reportable 12/17/22 17:31 Glucose 121 mg/dL (65-115) H 12/17/22 17:31 Calculated Osmolality 295 mOsm/kg (285-295) 12/17/22 17:31 Calcium 9.1 mg/dL (8.5-10.5) 12/17/22 17:31 Total Bilirubin 0.6 mg/dL (0.15-1.2) 12/17/22 17:31 AST 18 U/L (0-32) 12/17/22 17:31 ALT 12 U/L (0-33) 12/17/22 17:31 Alkaline Phosphatase 93 U/L (35-105) 12/17/22 17:31 Total Protein 7.2 g/dL (6.6-8.7) 12/17/22 17:31 Albumin 4.4 g/dL (3.5-5.2) 12/17/22 17:31 Globulin 2.8 g/dL (1.3-4.6) 12/17/22 17:31 Urine Color Yellow (Yellow) 12/17/22 18:00 Urine Appearance Hazy (CLEAR) A 12/17/22 18:00 Urine pH 5 (5-7) 12/17/22 18:00 Ur Specific [place] 1.020 (1.005-1.030) 12/17/22 18:00 Urine Protein Trace (Negative) 12/17/22 18:00 Urine Glucose (UA) Norm (Normal) 12/17/22 18:00 Urine Ketones 1+ (Negative) H 12/17/22 18:00 Urine Blood 2+ (Negative) H 12/17/22 18:00 Urine Nitrate Positive (Negative) H 12/17/22 18:00 Urine Bilirubin Neg (Negative) 12/17/22 18:00 Urine Urobilinogen 1 mg/dL (Negative) H 12/17/22 18:00 Ur Leukocyte Esterase Trace (Negative) H 12/17/22 18:00 Urine RBC 0-4 /hpf (0-2) H 12/17/22 18:00 Urine WBC 0-4 /hpf (0-5) H 12/17/22 18:00 Ur Squamous Epith Cells Rare /hpf (0-5) 12/17/22 18:00 Amorphous Sediment Not Reportable 12/17/22 18:00 Urine Bacteria 4+ /hpf (NONE) H 12/17/22 18:00 Urine Mucus 1+ /hpf 12/17/22 18:00 Discharge Plan Discharge Patient Disposition: Admitted As Inpatient Clinical Impression: Subcapital fracture of right hip, Anticoagulated by anticoagulation treatment Condition: Stable Coding Level of Care Code ED Scientific Diver for Hermelindo Koehler
[2022-12-17 17:37] LABS: Basophils % 0.3 %; Eosinophils # 0.1 10^3/uL (0.0-0.8); Hematocrit 41.7 % (36-47); Lymphocytes # 1.7 10^3/uL (0.8-4.8); Lymphocytes % 19.7 %; Mean Corpuscular HGB Conc 32.1 g/dL (30-55); Mean Corpuscular Hemoglobin 31.6 pg (27-33); Mean Corpuscular Volume 98.3 fl (85-98); Mean Platelet Volume 11.8 fL (7.4-10.4); Monocytes # 0.5 10^3/uL (0.2-0.9); Monocytes % 5.4 %; Neutrophils # 6.36 10^3/uL (1.8-7.7); Neutrophils % 73.1 %; Nucleated Red Blood Cells % 0 %; Platelet Count 283 10^3/cmm (157-399); Red Blood Count 4.24 10^6/uL (3.85-5.65); Red Cell Distribution Width 15.3 % (12.1-15.1)
[2022-12-17] MEDS: ondansetron 2 mg/ML SDV 2 mL 4 MG IVP (17:38)
[2022-12-17] MEDS: HYDROmorphone 1 mg/mL INJ 1 mL 0.5 MG IVP (17:43)
--- NOTE | 2022-12-17 17:47 | XRR_ITS ---
PROCEDURE INFORMATION: Exam: XR Pelvis Exam date and time: 12/17/2022 6:03 PM Age: 77 years old Clinical indication: Injury or trauma; Blunt trauma (contusions or hematomas); Right; Prior surgery; Surgery date: 6+ months; Surgery type: Pessary. Tubal; Patient HX: Fall with RT hip fracture. Pre op planning. ; Additional info: Requested by orthopedic surgeon prior to surgery TECHNIQUE: Imaging protocol: Radiologic exam of the pelvis. Views: 1 or 2 view. COMPARISON: CR XR hip RT 2-3V wo/w pel* [id number] 12/17/2022 5:03 PM FINDINGS: Bones/joints: Angulated right femoral neck fracture with mild displacement again seen. No pelvic fracture identified. Soft tissues: Unremarkable. XR/XR pelvis 1-2V* [id number] IMPRESSION: Angulated right femoral neck fracture with mild displacement again seen. No pelvic fracture identified.
--- NOTE | 2022-12-17 17:47 | XRR_ITS ---
PROCEDURE INFORMATION: Exam: XR Right Knee Exam date and time: 12/17/2022 6:03 PM Age: 77 years old Clinical indication: Injury or trauma; Blunt trauma; Knee; Right; Patient HX: Fall with RT hip fracture. Pre op planning. ; Additional info: Requested by orthopedic surgeon prior to surgery TECHNIQUE: Imaging protocol: Radiologic exam of the right knee. Views: 3 views. 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 Small knee joint effusion. No visible fracture. Soft tissues: Normal. XR/XR knee RT 3V* [id number] IMPRESSION: No acute findings.
[2022-12-17 17:57] LABS: Alanine Aminotransferase 12 U/L (0-33); Albumin Level 4.4 g/dL (3.5-5.2); Alkaline Phosphatase 93 U/L (35-105); Aspartate Amino Transferase 18 U/L (0-32); Blood Urea Nitrogen 12 mg/dL (8-23); Calcium 9.1 mg/dL (8.5-10.5); Carbon Dioxide 24 mmol/L (22-29); Chloride 104 mmol/L (98-107); Creatinine Clr Calc Pharmacy 48.3568; Globulin 2.8 g/dL (1.3-4.6); Glucose 121 mg/dL (65-115); Osmolality Calculated 295 mOsm/kg (285-295); Sodium 142 mmol/L (136-145); Total Bilirubin 0.6 mg/dL (0.15-1.2); Total Protein 7.2 g/dL (6.6-8.7)
[2022-12-17 18:30] LABS: Blood Urine 2+ (Negative); Glucose Urine UA Norm (Normal); Ketones Urine 1+ (Negative); Nitrate Urine Positive (Negative); Protein Urine Trace (Negative); Urine Appearance Hazy (CLEAR); Urine Color Yellow (Yellow); pH Urine 5 (5-7)
[2022-12-17 18:31] LABS: Add Urine Microscopic? YES; Bilirubin Urine Neg (Negative); Leukocyte Esterase Urine Trace (Negative); Urobilinogen Urine 1 mg/dL (Negative)
[2022-12-17 18:33] LABS: RBC Urine 0-4 /hpf (0-2)
[2022-12-17 18:34] LABS: Bacteria Urine 4+ /hpf; Mucus Urine 1+ /hpf; Squamous Epithelial Cell Urine RARE /hpf (0-5); WBC Urine 0-4 /hpf (0-5)
[2022-12-17 18:35] LABS: Add Urine Culture? Yes
--- NOTE | 2022-12-17 21:05 | PM.HP ---
Providers/Chief Complaint Admitting Physician: Chio Jackson MD Primary Care Provider: Servando Logan DO Chief Complaint: RIGHT HIP PAIN S/P FALL History of Present Illness Aretha Hawley is a 77 year old female with right-sided hemiplegia and hemiparesis expressive aphasia dysphagia atrial fibrillation on Xarelto hypertension neuromuscular dysfunction of the bladder GERD was sent in from the long-term care facility for an unwitnessed fall this afternoon. She is bedbound but as per the ER physician she was found on the floor of the facility by the nursing staff and was noted to have right leg shortening and external rotation. she also reported to have right hip pain, but there is no history of fever cold cough nausea vomiting urinary or bowel complaints. Review of Systems Narrative: As per HPI Medications/Allergies Home Medications Medication Instructions Recorded Confirmed Last Taken Type acetaminophen 325 mg capsule 650 mg PO BID PRN 06/30/22 11/20/22 Unknown History (Tylenol) amiodarone 200 mg tablet 200 mg PO DAILY #90 tabs 06/30/22 11/20/22 Unknown Rx apixaban 5 mg tablet 5 mg PO BID 06/30/22 11/20/22 Unknown History bisacodyl 10 mg rectal suppository 10 mg CA DAILY PRN 06/30/22 11/20/22 Unknown History famotidine 20 mg tablet 20 mg PO BID 06/30/22 11/20/22 Unknown History magnesium hydroxide 400 mg/5 mL 15 ml PO DAILY PRN 06/30/22 11/20/22 Unknown History oral suspension (Milk of Magnesia) nystatin 100,000 unit/gram topical 1 applic topical BID 06/30/22 11/20/22 Unknown History cream sodium phosphates 19 gram-7 118 ml CA DAILY PRN 06/30/22 11/20/22 Unknown History gram/118 mL enema (Fleet Enema) diltiazem HCl 30 mg tablet 30 mg PO TID #180 tabs 07/13/22 11/20/22 Unknown Rx losartan 25 mg tablet 25 mg PO DAILY #90 tabs 10/31/22 11/20/22 Unknown Rx rivaroxaban 15 mg tablet (Xarelto) 15 mg PO DAILY 10/31/22 11/20/22 Unknown History Allergies Allergy/AdvReac Type Severity Reaction Status Date / Time Cephalosporins Allergy trouble Verified 11/20/22 08:08 breathing Iodinated Contrast Media Allergy ALGY-Rash Verified 11/20/22 08:08 Sulfa (Sulfonamide Allergy Unknown Verified 11/20/22 08:08 Antibiotics) PFSH Acute PFSH: Medical History Atrial fibrillation Environmental and seasonal allergies Essential (primary) hypertension Mixed hyperlipidemia Surgical History History of cholecystectomy History of dilatation and curettage History of tonsillectomy History of tubal ligation Family History Mother Stroke Other Heart disease Hypertension Vitals/I&O/Wt Last Vital Signs Temp 97.8 F 12/17/22 16:31 Pulse 105 H 12/17/22 20:53 Resp 24 H 12/17/22 20:53 BP 222/123 12/17/22 20:53 Pulse Ox 97 12/17/22 20:53 O2 Del Method Nasal Cannula 12/17/22 19:10 O2 Flow Rate 2 12/17/22 19:10 Weight last 48 hrs Weight 54.885 kg Physical Exam Narrative: She is alert awake oriented x3, slurred speech but able to understand and answer the questions Chest clear to auscultation bilaterally Cardiovascular normal heart sounds irregular rhythm Abdomen soft nontender nondistended normal bowel sounds Extremities right hip tenderness present restriction of movements seen. Trace bilateral pitting edema present Urinary Catheter Management: Todd: Cath Placed During This Visit: yes Reason for Continuing Indwelling Catheter: Required Immobilization for Trauma or Surgery or Anesthesia Urinary Catheter Date of Insertion: 12/17/22 Urinary Catheter Time of Insertion: 17:55 Data 12/17/22 17:31 12/17/22 17:31 CXR: Radiologist's impression: No acute findings CT Head: Radiologist's impression: MPRESSION: New region of hypodensity is seen in the left frontal santiago radiata extending to the basal ganglia and subinsular region suspicious for subacute ischemia. There is regions of hyperdensity in this region which may be petechial hemorrhages or possibly calcification/laminar necrosis. Recommend MRI brain correlation. ? As per the ER physician radiologist called him again saying he is old changes and does not recommend any MRI to be done at this point Xray Ortho: Radiologist's impression: X-ray right hip IMPRESSION: There is and overriding and angulated right subcapital femur fracture. X-ray pelvis IMPRESSION: Angulated right femoral neck fracture with mild displacement again seen. No pelvic fracture identified. X-ray right knee No acute findings. Ct cervical spine No acute osseous findings ? ? EKG 1: My Interpretation: Normal sinus rhythm Left axis deviation LBBB old Other data: Labs reviewed and acceptable except UA which is consistent with UTI. A&P Assessment and plan (1) Subcapital fracture of right hip: (2) UTI (urinary tract infection): Plan 77-year-old female with history of right hemiplegia with hemiparesis, atrial fibrillation on Xarelto had an unwitnessed fall and was found on the floor by the staff in the nursing facility and found to have positive UA in the ER and right femur fracture. Fall likely secondary to altered mental status and UTI Ortho aware of the patient when she is n.p.o. since midnight for probable surgery in a.m. Altered mental status resolved. Will give IV fluids normal saline at 50 mill per hour IV levofloxacin 500 mg daily first dose now Intermittent compression stockings for DVT prophylaxis. In view of surgery in a.m. will hold Xarelto for now IV Pepcid 20 mg every 12 hours for stress ulcer prophylaxis Will discuss with son Jonh Hawley about advanced directives. She is full code for now. Attestations Medical Necessity Statement*: She needs continued hospitalization for more than 2 midnights for corrective surgery for right femur fracture and postop recovery, IV antibiotics for UTI Time Spent in Patient Care: 30 minutes Coding Level of Care Code Acute Code for g Fwd Diagnoses Subcapital fracture of right hip S72.011A UTI (urinary tract infection) N39.0 Time Spent (min) 30
--- NOTE | 2022-12-17 21:14 | P.CONIM_ITS ---
Patient was seen and examined also reviewed and agree with PAs assessment and plan. Patient has a displaced subcapital femoral neck fracture. Reviewed patient's HPI and agree. Patient is a poor historian reviewing of her records states that she did take anticoagulant this morning however would not recommend delaying patient's surgery any longer we will recommend surgical intervention tomorrow for right hip hemiarthroplasty. Examination right lower extremity is shortened and externally rotated she has a positive logroll examination she does have a residual history of strokes that is persistent affected to the right upper and lower extremities she does have a significantly weakened dorsiflexion noted on examination. Patient to be n.p.o. at midnight. Plan for right hip Delbert cemented through posterior approach tomorrow. Patient does verbalize understanding and agrees with plan. Son also present in the room. They understand the risk benefits complication alternatives with surgery and in order for pain control as well as earlier mobilization would recommend surgical in tervention. Risk of surgery include not limited to make a better make it worse injury to nerves vessels or tendons blood clot, heart attack, stroke, on the table. Understanding risk of surgery patient family agree to proceed with surgical intervention tomorrow. Mirza Tobar DO Providers/Reason For Consult Consulting Physician/Specialty*: Dr. Tobar Reason for Consult*: Right subcapital femur fracture Requesting Physician: DAVE-Dr. Philippe Attending Physician: Chio Jackson MD Primary Care Provider: Servando Logan DO History of Present Illness History of Present Illness Aretha Hawley is a 77 year old female that has right hip pain after fall today. She had an unwitnessed fall and was found on the ground. She has a medical history of multiple past CVAs with chronic right-sided neurological deficits mostly involving her right upper extremity. She also has a history of hypertension, hyperlipidemia and A-fib. Denies any past surgeries of her hip or legs bilaterally. She resides in a long-term care facility and says she sometimes can ambulate with a walker and assistance. She has some expressive aphasia as well. Patient is unsure on what caused her fall. Patient takes Eliquis daily and long-term care facility said her last dose of Eliquis was this morning. Review of Systems General: Reports: 10 or more systems reviewed and unremarkable except in HPI and below Musc: Reports: joint pain (Right hip) Neuro: Reports: weakness in extremities (Chronic right upper extremity neurodeficit) and other (Expressive aphasia) Medications/Allergies Home Medications Medication Instructions Recorded Confirmed Last Taken Type acetaminophen 325 mg capsule 650 mg PO BID PRN 06/30/22 11/20/22 Unknown History (Tylenol) amiodarone 200 mg tablet 200 mg PO DAILY #90 tabs 06/30/22 11/20/22 Unknown Rx apixaban 5 mg tablet 5 mg PO BID 06/30/22 11/20/22 Unknown History bisacodyl 10 mg rectal suppository 10 mg [place] DAILY PRN 06/30/22 11/20/22 Unknown History famotidine 20 mg tablet 20 mg PO BID 06/30/22 11/20/22 Unknown History magnesium hydroxide 400 mg/5 mL 15 ml PO DAILY PRN 06/30/22 11/20/22 Unknown History oral suspension (Milk of Magnesia) nystatin 100,000 unit/gram topical 1 applic topical BID 06/30/22 11/20/22 Unknown History cream sodium phosphates 19 gram-7 118 ml [place] DAILY PRN 06/30/22 11/20/22 Unknown History gram/118 mL enema (Fleet Enema) diltiazem HCl 30 mg tablet 30 mg PO TID #180 tabs 07/13/22 11/20/22 Unknown Rx losartan 25 mg tablet 25 mg PO DAILY #90 tabs 10/31/22 11/20/22 Unknown Rx rivaroxaban 15 mg tablet (Xarelto) 15 mg PO DAILY 10/31/22 11/20/22 Unknown History Allergies Allergy/AdvReac Type Severity Reaction Status Date / Time Cephalosporins Allergy trouble Verified 11/20/22 08:08 breathing Iodinated Contrast Media Allergy ALGY-Rash Verified 11/20/22 08:08 Sulfa (Sulfonamide Allergy Unknown Verified 11/20/22 08:08 Antibiotics) PFSH Acute PFSH: Medical History Atrial fibrillation Environmental and seasonal allergies Essential (primary) hypertension Mixed hyperlipidemia Surgical History History of cholecystectomy History of dilatation and curettage History of tonsillectomy History of tubal ligation Family History Mother Stroke Other Heart disease Hypertension Vitals/I&O/Wt Last Vital Signs Temp 97.8 F 12/17/22 16:31 Pulse 105 H 12/17/22 20:53 Resp 24 H 12/17/22 20:53 BP 222/123 12/17/22 20:53 Pulse Ox 97 12/17/22 20:53 O2 Del Method Nasal Cannula 12/17/22 19:10 O2 Flow Rate 2 12/17/22 19:10 Weight last 48 hrs Weight 121 lb Physical Exam Const: COMMON NORMALS: alert Resp: COMMON NORMALS: normal respiratory effort EFFORT & INSPECTION: No respiratory distress Extremity: NARRATIVE EXTREMITY EXAM: Right hip?tenderness to palpation of greater trochanter of femur. Patient's right leg is shortened, but not externally rotated. Patient can dorsiflex and plantarflex foot and wiggle toes. Her toes are warm and well-perfused she has normal cap refill under 2 seconds. Sensation to foot intact. unable to perform right straight leg raise due to pain. Pedal pulse 2+ Upper extremities bilaterally-upper extremities showed no obvious deformity. She had full range of motion in his left arm and no tenderness to palpation of left shoulder. She was nontender to palpation of right shoulder but had limited range of motion and weakness which is due to previous stroke. Left hip?no obvious deformity and nontender to palpation Neuro: SENSORIUM/ORIENTATION: Yes alert OTHER: Chronic residual right upper extremity and right lower extremity weakness Urinary Catheter Management: Todd: Cath Placed During This Visit: yes Reason for Continuing Indwelling Catheter: Required Immobilization for Trauma or Surgery or Anesthesia Urinary Catheter Date of Insertion: 12/17/22 Urinary Catheter Time of Insertion: 17:55 Data 12/17/22 17:31 12/17/22 17:31 Xray Ortho: Radiologist's impression: Femur X-Ray? 12/17/22 16:43 IMPRESSION: There is a angulated right subcapital femur fracture. Hip/Pelvis X-Ray? 12/17/22 16:33 IMPRESSION: There is and overriding and angulated right subcapital femur fracture. A&P Assessment and plan (1) Subcapital fracture of right hip: Plan Plan: -Hospitalist on board for medical management -Labs and imaging reviewed -Nonweightbearing -N.p.o. after midnight -DVT prophylaxis -Hold Eliquis until surgery -Pain control -Patient will go to the OR tomorrow for right hip hemiarthroplasty Coding Level of Care Code Acute Code for Chg Fwd Diagnoses Subcapital fracture of right hip S72.011A
[2022-12-17] MEDS: famotidine 20 mg/2 mL INJ IVP (21:58)
[2022-12-17] MEDS: sodium chloride 0.9% 1,000 ML 50 ML IV (22:03)
[2022-12-17] MEDS: levofloxacin-dextrose 5 % 500 MG/100 ML PREMIX 100 MG IV (22:05)
[2022-12-17] MEDS: dilTIAZem 30 mg Tablet PO (22:08)
[2022-12-18] VITALS (11 sets, daily range): BP systolic 133–171; BP diastolic 67–86; PULSE 64–73; RESP 12–20; TEMP 36.1–36.8; O2SAT 94–99
[2022-12-18] MEDS: morphine 4 mg/mL SDV 1 mL IVP ×2 (00:16→09:24)
[2022-12-18 04:55] LABS: Basophils % 0.2 %; Eosinophils % 0.1 %; Hematocrit 35.3 % (36-47); Lymphocytes # 1.1 10^3/uL (0.8-4.8); Lymphocytes % 13.3 %; Mean Corpuscular Hemoglobin 31.2 pg (27-33); Mean Corpuscular Volume 97.5 fl (85-98); Mean Platelet Volume 12.1 fL (7.4-10.4); Monocytes # 0.6 10^3/uL (0.2-0.9); Monocytes % 7.3 %; Neutrophils # 6.41 10^3/uL (1.8-7.7); Neutrophils % 78.9 %; Nucleated Red Blood Cells % 0 %; Platelet Count 233 10^3/cmm (157-399); Red Blood Count 3.62 10^6/uL (3.85-5.65); Red Cell Distribution Width 15.3 % (12.1-15.1); White Blood Count 8.13 10^3/uL (3.29-11.43)
[2022-12-18 05:09] LABS: Alanine Aminotransferase 13 U/L (0-33); Albumin Level 3.7 g/dL (3.5-5.2); Alkaline Phosphatase 87 U/L (35-105); Anion Gap 10.1 (5-19); Aspartate Amino Transferase 23 U/L (0-32); Blood Urea Nitrogen 10 mg/dL (8-23); Calcium 8.6 mg/dL (8.5-10.5); Carbon Dioxide 29 mmol/L (22-29); Chloride 106 mmol/L (98-107); Globulin 2.2 g/dL (1.3-4.6); Glucose 98 mg/dL (65-115); Magnesium 1.9 mg/dL (1.7-2.3); Osmolality Calculated 291 mOsm/kg (285-295); Potassium 4.1 mmol/L (3.5-5.1); Sodium 141 mmol/L (136-145); Total Bilirubin 0.8 mg/dL (0.15-1.2); Total Protein 5.9 g/dL (6.6-8.7)
[2022-12-18 05:10] LABS: Creatinine Clr Calc Pharmacy 48.3568
--- NOTE | 2022-12-18 07:38 | PC.PHAR ---
pt is from formerly [facility] [phone]-called [facility] phone line is busy will keep trying to danii mar and tar from [facility]
--- NOTE | 2022-12-18 10:26 | P.PN_ITS ---
Subjective Subjective: Aretha is a 77-year-old white female nursing facility resident who presented with an unwitnessed fall, sustaining a right hip fracture. She was admitted last night, and plans to have surgery today. [facility] relate to me that she is normally mentally aware, but has some word finding difficulty secondary to her stroke. She was able to ambulate in a modified walker, but has significant paralysis on her right side. Her diet is not modified. Medications: Reviewed: Yes Vitals/I&O/Wt Last Vital Signs Temp 98.2 F 12/18/22 08:00 Pulse 71 12/18/22 08:00 Resp 18 12/18/22 09:24 BP 157/69 12/18/22 08:00 Pulse Ox 98 12/18/22 08:00 O2 Del Method Room Air 12/18/22 03:19 O2 Flow Rate 1.5 12/18/22 00:00 12/17/22 12/18/22 12/18/22 22:59 06:59 14:59 Intake Total 100 / 100 Output Total 300 / 300 150 / 450 Balance -300 / -300 -50 / -350 Weight last 48 hrs Weight 54.885 kg Physical Exam Narrative: Will nextGeneral exam demonstrates a white female, complaining of pain but able to carry on a conversation. is in the room. On cardiovascular regular rate and rhythm without murmur Lungs clear Abdomen is soft, no obvious organomegaly exam deferred, Todd noted Extremities no cyanosis clubbing or edema. Right leg shortened Neuro: Right hemiparesis upper extremity affected greater than lower, with slight right facial droop. Urinary Catheter Management: Todd: Cath Placed During This Visit: yes Reason for Continuing Indwelling Catheter: Required Immobilization for Trauma or Surgery or Anesthesia Urinary Catheter Date of Insertion: 12/17/22 Urinary Catheter Time of Insertion: 17:55 Data 12/18/22 04:05 12/18/22 04:05 Micro: Microbiology 12/17/22 18:00 Urine Culture - Preliminary Urine,Clean Catch Gram Negative Rods A&P Assessment and plan (1) Subcapital fracture of right hip: Patient presents with fracture of the right hip, possibly from a mechanical fall at the nursing facility. Surgical repair is expected today N.p.o. currently Early mobilization, therapy following surgery. CBC, CMP tomorrow. Monitor for postoperative anemia, electrolyte abnormalities following surgery (2) UTI (urinary tract infection): Continue levofloxacin Await urine culture. Currently growing gram-negative rods. (3) CVA (cerebral vascular accident): Patient with history of CVA. Resume of her rivaroxaban postoperative (4) Atrial fibrillation: Continue amiodarone and diltiazem Resume rivaroxaban postoperative Telemetry Plan Multiple other medical problems as outlined in past medical history Rivaroxaban will suffice for DVT prophylaxis when resumed postoperatively SCDs will be placed Overall plan will be placement back to nursing facility following surgical recovery Attestations Medical Necessity Statement*: Needs continued hospitalization for definitive treatment of her hip fracture Diagnoses Subcapital fracture of right hip S72.011A UTI (urinary tract infection) N39.0 CVA (cerebral vascular accident) I63.9 Atrial fibrillation I48.91 Time Spent (min) 21
[2022-12-18] MEDS: sodium chloride 0.9% 1,000 ML 30 ML IV (10:54)
[2022-12-18] MEDS: ketorolac 30 mg/mL INJ IVP (10:57)
[2022-12-18] MEDS: acetaminophen 1,000 MG/100 ML PIGGYBACK 400 MG IV (10:57)
[2022-12-18] MEDS: vancomycin 1,000 MG in sodium chloride 0.9% 250 ML 250 MG IV (11:08)
--- NOTE | 2022-12-18 11:09 | ANES.PREANE2 ---
Pre-Anesthetic Assessment Height/Weight: Height 1.57 m Weight 54.885 kg Temp Pulse Resp BP Pulse Ox O2 Del Method O2 Flow Rate 98.2 F 71 18 157/69 98 Room Air 1.5 12/18/22 08:00 12/18/22 08:00 12/18/22 09:24 12/18/22 08:00 12/18/22 08:00 12/18/22 03:19 12/18/22 00:00 Preop Diagnosis: Right femoral neck fracture Operation Date: 12/18/22 10:25 Proposed Procedures p Hemiarthroplasty Hip(Right) - Mirza Tobar DO Familial anesthetic complications: none Was Beta Dada taken within 24 hours: N/A Was Clonidine taken within 24 hours: N/A Last intake: Intake Last Liquid Date 12/17/22 Last Liquid Time 23:55 Social No alcohol and No tobacco Exam alert, oriented x 3, clear to auscultation bilaterally and regular rate & rhythm Airway Submandibular: within normal limits Cervical ROM: within normal limits Mallampati: Class II Dentition: chipped CV/HEM Atrial Fibrillation and Hypertension Conclusion: 1.? Normal EKG response to Lexiscan infusion 2.? No Lexiscan induced chest pain or cardiac arrhythmia. 3.? Normal blood pressure and heart rate response. 4.? Sestamibi/sestamibi perfusion scan pending; see separate report. Electronically Signed On 01-01-2022 21:09:04 CDT by Guzman Portillo Cerebrovascular Accident (Right hemiplegia) and Deficit Anesthetic Plan ASA status: 3 Anesthesia: General Medications/Allergies Home Medications Medication Instructions Recorded Confirmed Last Taken Type bisacodyl 10 mg rectal suppository 10 mg NH DAILY PRN Constipation 06/30/22 12/18/22 Unknown History famotidine 20 mg tablet 20 mg PO BID 06/30/22 12/18/22 Unknown History magnesium hydroxide 400 mg/5 mL 15 ml PO DAILY PRN if no bm in 3 06/30/22 12/18/22 Unknown History oral suspension (Milk of Magnesia) days nystatin 100,000 unit/gram topical 1 applic topical BID PRN to fabio 06/30/22 12/18/22 Unknown History cream area sodium phosphates 19 gram-7 118 ml NH DAILY PRN Constipation 06/30/22 12/18/22 Unknown History gram/118 mL enema (Fleet Enema) diltiazem HCl 30 mg tablet 30 mg PO TID #180 tabs 07/13/22 12/18/22 Unknown Rx rivaroxaban 15 mg tablet (Xarelto) 15 mg PO DAILY@10/31/22 12/18/22 Unknown History acetaminophen 325 mg tablet 650 mg PO BID 12/18/22 12/18/22 Unknown History (Tylenol) amiodarone 100 mg tablet 100 mg PO DAILY@12/18/22 12/18/22 Unknown History bisacodyl 5 mg tablet 10 mg PO DAILY PRN if no bm in 3 12/18/22 12/18/22 Unknown History days hydrocodone 5 mg-acetaminophen 325 1 tab PO Q6H PRN Pain 12/18/22 12/18/22 Unknown History mg tablet Allergies Allergy/AdvReac Type Severity Reaction Status Date / Time Cephalosporins Allergy trouble Verified 11/20/22 08:08 breathing Iodinated Contrast Media Allergy ALGY-Rash Verified 12/18/22 09:37 Sulfa (Sulfonamide Allergy Unknown Verified 12/18/22 09:37 Antibiotics) Current Medications Generic Name Dose Route Start Last Admin Trade Name Freq PRN Reason Stop Dose Admin Diltiazem HCl 30 mg 12/17/22 21:00 12/18/22 09:19 Diltiazem 30 Mg Tablet PO Not Given TID YVONNE Famotidine 20 mg 12/17/22 21:00 12/17/22 21:58 Famotidine 20 Mg/2 Ml Inj IVP 20 mg Q12H YVONNE Administration Sodium Chloride 1,000 mls @ 50 mls/hr 12/17/22 21:00 12/17/22 22:03 Sodium Chloride 0.9% IV 50 mls/hr .Q20H YVONNE Administration Levofloxacin/Dextrose 500 mg in 100 mls @ 100 mls/hr 12/17/22 21:30 12/17/22 23:28 Levaquin-D5w IV Infused Q24H YVONNE Infusion Protocol Sodium Chloride 1,000 mls @ 30 mls/hr 12/18/22 10:30 12/18/22 10:54 Sodium Chloride 0.9% IV 12/19/22 10:29 30 mls/hr .Q24H YVONNE Administration Losartan Potassium 25 mg 12/18/22 09:00 12/18/22 09:19 Losartan 50 Mg Tablet PO Not Given DAILY YVONNE Morphine Sulfate 4 mg 12/17/22 20:15 12/18/22 09:24 Morphine 4 Mg/Ml Sdv 1 Ml IVP 4 mg Q4H PRN Administration SEVERE PAIN PFSH Anesthesia Medical History Atrial fibrillation Environmental and seasonal allergies Essential (primary) hypertension Mixed hyperlipidemia Surgical History History of cholecystectomy History of dilatation and curettage History of tonsillectomy History of tubal ligation Family History Mother Stroke Other Heart disease Hypertension Data Anesthesia 12/18/22 04:05 12/18/22 04:05 Short CBC 12/17/22 12/18/22 Range/Units 17:31 04:05 WBC 8.70 8.13 (3.29-11.43) 10^3/uL Hgb 13.40 11.30 (11.27-16.99) g/dL Hct 41.7 35.3 L (36-47) % MCV 98.3 H 97.5 (85-98) fl Plt Count 283 233 (157-399) 10^3/cmm Neut % (Auto) 73.1 78.9 % Neut # (Auto) 6.36 6.41 (1.8-7.7) 10^3/uL BMP 12/17/22 12/18/22 17:31 04:05 Sodium 142 141 Potassium 4.0 4.1 Chloride 104 106 Carbon Dioxide 24 29 BUN 12 10 Creatinine 0.5 0.4 L Glucose 121 H 98 Calcium 9.1 8.6 Liver Function 12/17/22 12/18/22 Range/Units 17:31 04:05 Total Bilirubin 0.6 0.8 (0.15-1.2) mg/dL AST 18 23 (0-32) U/L ALT 12 13 (0-33) U/L Alkaline Phosphatase 93 87 (35-105) U/L Albumin 4.4 3.7 (3.5-5.2) g/dL Urine 12/17/22 Range/Units 18:00 Urine Color Yellow (Yellow) Urine Appearance Hazy A (CLEAR) Urine pH 5 (5-7) Ur Specific Lucas 1.020 (1.005-1.030) Urine Protein Trace (Negative) Urine Glucose (UA) Norm (Normal) Urine Ketones 1+ H (Negative) Urine Nitrate Positive H (Negative) Urine Bilirubin Neg (Negative) Ur Leukocyte Esterase Trace H (Negative) Urine RBC 0-4 H (0-2) /hpf Urine WBC 0-4 H (0-5) /hpf Blood Bank 12/18/22 06:50 Blood Type A Positive Rho(D) Type Positive Antibody Screen Negative Microbiology 12/17/22 18:00 Urine Culture - Preliminary Urine,Clean Catch Gram Negative Rods Cardiac Studies: Sestamibi Stress Test (Cardiology) 11/28/21
--- NOTE | 2022-12-18 11:11 | W.PM.OPSUD ---
Surgery/Procedure H&P Update DATE OF PROCEDURE: December 18, 2022 DATE H&P PERFORMED: 12/17/22 CHANGES TO PREVIOUS DOCUMENTATION: None. Patient has no change in HPI from consult note yesterday. Spoke with son who is understands and agrees her diagnosis and treatment recommendations at this point time patient has a right displaced femoral neck fracture recommend a right hip hemiarthroplasty. She and her son understand the ins and outs of procedure risk benefits complication alternatives with surgery and through shared decision making with son he agrees that we will proceed with surgical intervention of her right hip hemiarthroplasty all questions answered. PREOP DIAGNOSIS: Right femoral neck fracture PRIMARY INDICATION FOR PROCEDURE: Right displaced femoral neck fracture PLANNED PROCEDURE: Operation Date: 12/18/22 10:25 Proposed Procedures p Hemiarthroplasty Hip(Right) - Mirza Tobar DO
[2022-12-18] MEDS: tranexamic acid 1,000 mg/10mL SDV 1000 MG IV (15:15)
[2022-12-18] MEDS: vancomycin 1,000 MG SDV 1000 MG XX (16:10)
--- NOTE | 2022-12-18 16:30 | XR_ITS ---
WS: [id number] Exam: XR hip RT 2-3V wo/w pel* [id number] Date/Time of Exam: 12/18/2022 4:32 PM Reason For Exam: postop hip rosa Right-sided hemiprosthesis has been placed. Alignment appears satisfactory. Postoperative changes in the adjacent soft tissues. Lateral surgical skin clips are noted. IMPRESSION: 1. RIGHT hip prosthesis in satisfactory position.
--- NOTE | 2022-12-18 16:34 | PM.OP2 ---
Brief Operative Note Date of procedure: 12/18/22 Pre-op diagnosis: Right displaced femoral neck fracture Post-op diagnosis: same Procedure Done: Right hip hemiarthroplasty Surgeon: Mirza Tobar Estimated blood loss (mL): 100 Complications: none Post-op Plan: Hospitalist on board for medical management Patient may weight-bear as tolerated to the operative lower extremity Posterior hip precautions (avoid excess excessive hip flexion past 90 degrees and internal rotation) Take DVT prophylaxis Pain control Ice as needed for pain and swelling Leave Silverlon bandage dressing on for 7 days after that may remove, rinse incision with warm soapy water/shower pat dry keep clean dry and intact and redress with a clean dry dressing. No baths or soap Follow-up in the orthopedic office in 2 weeks from date of surgery Contact the office for any questions or concerns per (fevers, increased drainage or redness around the incision site etc.) Condition: stable Disposition: PACU Coding Level of Care Code Acute Code for [facility]
--- NOTE | 2022-12-18 16:37 | PM.PACU ---
PACU note Narrative: Patient is a 77-year-old female just underwent a right hip hemiarthroplasty. Pt transferred to PACU in stable condition. Dressing is dry. Toes are warm and well-perfused. normal Cap refill under 2 seconds. Unable to do any further exam or assessment due to residual effects of anesthesia. Exam: somnolent, arousable Disposition: back to floor
--- NOTE | 2022-12-18 17:04 | ANE.PACU2 ---
Inpatient post-anesthesia follow up: Airway intact: Yes Vital signs: Temperature 97 F Pulse Rate 73 Respiratory Rate 16 Blood Pressure 170/75 Pulse Oximetry 94 Oxygen Delivery Me thod Simple Mask Oxygen Flow Rate 6 Fraction of Inspir ed Oxygen Hydration adequate: Yes Nausea and vomiting: No Pain level: 3 Mental status: Baseline
--- NOTE | 2022-12-18 18:49 | PM.OP ---
Operative Report Date of procedure: December 18, 2022 Surgeon: Mirza Tobar DO Procedure: Preoperative diagnosis: Right displaced femoral neck fracture Post-op diagnosis: Same Procedure done: Right hip?hemiarthroplasty, cemented Implants: [place] Accolade C 127 degree femoral stem size 3 Bipolar head 45 mm Femoral head -4 mm offset 8mm distal cement spacer Surgeon: Mirza Tobar DO Estimated blood loss: 100 mL IV fluids: 650 mL Urine output: See anesthesia record Complications: None Findings: See operative report Condition: stable Disposition: floor Brief History: Patient was seen in the emergency department and subsequently admitted after fall.? Patient sustained a right displaced femoral neck fracture.? Patient was subsequently admitted by the hospitalist team for medical management and preoperative clearance and optimization and the orthopedic surgery team was consulted for evaluation and treatment recommendations.? At that point time discussed with patient? treatment options.? We talked about nonoperative versus operative intervention talked about the risk benefits complication alternatives to surgical nonsurgical treatment options.? Risks of surgery were discussed and she and son understands and agrees to proceed with procedure.? At this point time would recommend a right hip?hemiarthroplasty.? This will offer patient pain control as well as early weightbearing.? Patient was medically optimized and cleared by the primary team she was then taken to the OR.? Patient understands risk benefits complication alternatives with surgical nonsurgical treatment options.? At this point time patient and son elects to proceed with right hip?hemiarthroplasty.? All questions answered.? Patient understands agrees with current plan.? All questions answered. Procedure: Patient seen evaluated the preoperative holding area.? Consent was reviewed and signed with patient.? ?Pt was seen evaluated by the anesthesia department.? Once cleared for surgery patient patient was taken back to the operative suite.? Patient was then transported onto the OR table.? pt underwent anesthesia per the anesthesia department.? Once appropriately anesthetized patient was then positioned in lateral decubitus position with the right hip up.? Patient was placed on a pegboard appropriately secured to the bed all bony prominences well-padded.? Next the right lower extremity was then prepped and draped in sterile orthopedic fashion.? Final timeout performed.? Patient received appropriate preoperative antibiotics. A standard posterolateral approach was then made over the lateral aspect of the hip.? Sharp scalpel incision was made through skin and subcutaneous tissue I then utilized a Negro elevator to mobilize over the fascia.? The fascia was then split longitudinally with electrocautery.? Next a bursectomy was then performed.? I then placed Hohmann underneath the abductors.? The hip was placed under tension with internal rotation.? I then utilizing electrocautery performed a full-thickness release of the short external rotators and capsule in 1 full thick sleeve for lateral repair.? This was then taken down to the lesser trochanter.? Immediately on capsulotomy hematoma was noticed and displaced femoral neck fracture appreciated.? I then placed a Hohmann above and below the neck.? I then utilized an oscillating saw to freshen the cut this was roughly half of a fingerbreadth above the lesser as patient did fracture slightly lower on the neck.? Once this was performed this access was removed with rongeur.? ?I then utilized a corkscrew to remove the head.? This was then subsequently sized and measured to be a 45 mm head size.? I then thoroughly irrigated the acetabulum.? A Hohmann was placed anteriorly and thorough inspection of the acetabulum no significant arthritic changes were noted.? I then utilized a rongeur and Bovie to remove the pulvinar.? Once this was performed I then subsequently took my trial 45 mm head and trialed this which had excellent fit and appropriate suction fit noted.? This was then subsequently removed. Once this was performed I irrigated the socket, and made sure this was clear of any debris rapt retractor was placed over the anterior wall of the acetabulum. The pulmonary was then excised with electrocautery and rongeur. And then turned my attention towards the femoral preparation.? I utilized Bovie and rongeur to remove the soft tissue off of the saddle.? Once this was done a box osteotome followed by a canal finder and? lateralizing rattail rasp was used to appropriately lateralized in the canal.? Next I then subsequently broached to a size 3 Accolade C. Miguel femoral stem which had appropriate fixation.? I was able to trial with this and this appeared to be appropriate length with ability to add slight offset if needed once cemented.? Once this was done I then removed the size 3 femoral stem and then subsequently proceeded with standard cementation technique.? Cement was mixed on the back table the final implant was opened and appropriately measurement on distal cement plug to accommodate the cement mantle and femoral stem.? This was set and impacted, however during impaction it was found this was going to be too tight as patient did have a very tight canal unfortunately the fenestrated and small cement plug would not fit this was subsequently removed the cement was let to get slightly hard and determined this would need to be placed without a cement restrictor distally. Next I utilized the cement brush thoroughly irrigated the canal and then dry the canal tampon.? Once cement was appropriately mixed and ready for cementation informed anesthesia and they optimize patient's oxygenation cement was then impacted using cement gun and then was subsequently pressurized.?? The femoral stem size3 was then impacted in place with appropriate anteversion and held into place and all excess cement was removed and allowed to cure once cured I then trialed a standard size head which at that point there was which had excellent leg lengths as well as appropriate shuck, and excellent stability in all planes of motion with no evidence of instability.? At this point this was determined to being my final femoral head size.? This was subsequently dislocated the trial head was then removed the final implant of bipolar head 45 mm with a -4 mm offset was then opened.? The trunnion was then cleaned and dried and this was impacted in place with excellent fixation.? I then reduced the hip this had excellent stability and appropriate leg lengths.? The wound bed was then thoroughly irrigated.? I then utilizing #5 Ethibond suture performed my repair of the capsule and short external rotators through bone tunnels.? ?Wound bed was then thoroughly irrigated,1 gram vanco powder placed in wound bed.? IT band was closed with strata fix suture and the deep subcutaneous and subcutaneous layers were closed with 0 strata fix and 2-0 strata fix.? Skin was then closed reapproximated with freddie.? Silverlon dressing applied.? Patient placed in abduction pillow posterior hip precautions.? pt? was awakened from anesthesia and taken to PACU in stable condition Disposition: Patient taken to PACU in stable condition will receive appropriate discharge directions as well as pain medication DVT prophylaxis postoperatively.? Patient? will return to the floor postoperatively.? Patient will be weightbearing as tolerated to the right lower extremity.? Posterior hip precautions. Abduction pillow in place.? DVT prophylaxis, pain medication, postoperative antibiotics and TXA.? Patient will work with PT/OT and discharge services for discharge planning.? Patient understands agrees with current plan.? All questions answered.? ?patient will? see me in the office in 2 weeks.
[2022-12-18] MEDS: nystatin cream 30 gm 1 APPLIC TOPICAL (18:59)
[2022-12-18] MEDS: mupirocin oint 22 gm 1 APPLIC NASAL (18:59)
[2022-12-18] MEDS: iron polysaccharide complex 150 mg Capsule PO (19:00)
[2022-12-18] MEDS: calcium carb-vit d 600mg/400unit 1 Tablet 1 EACH PO (19:00)
[2022-12-18] MEDS: docusate sodium 100 mg Capsule PO (19:00)
[2022-12-18] MEDS: chlorhexidine gluconate 0.12% Btl 473 mL 30 ML MUCOUS MEM ×2 (19:00→20:50)
[2022-12-18] MEDS: dilTIAZem 30 mg Tablet PO (20:49)
[2022-12-18] MEDS: famotidine 20 mg/2 mL INJ IVP (20:50)
[2022-12-18] MEDS: levofloxacin-dextrose 5 % 500 MG/100 ML PREMIX 100 MG IV (20:50)
[2022-12-19] VITALS (8 sets, daily range): BP systolic 104–151; BP diastolic 63–76; PULSE 65–83; RESP 12–18; TEMP 36.6–37.5; O2SAT 90–99
[2022-12-19 06:12] LABS: Basophils % 0.3 %; Eosinophils # 0.1 10^3/uL (0.0-0.8); Eosinophils % 1.3 %; Hematocrit 34.3 % (36-47); Lymphocytes # 0.8 10^3/uL (0.8-4.8); Lymphocytes % 8.9 %; Mean Corpuscular HGB Conc 32.4 g/dL (30-55); Mean Corpuscular Hemoglobin 32.1 pg (27-33); Mean Corpuscular Volume 99.1 fl (85-98); Mean Platelet Volume 12.4 fL (7.4-10.4); Monocytes # 0.6 10^3/uL (0.2-0.9); Neutrophils # 7.73 10^3/uL (1.8-7.7); Neutrophils % 83.1 %; Nucleated Red Blood Cells % 0 %; Platelet Count 203 10^3/cmm (157-399); Red Blood Count 3.46 10^6/uL (3.85-5.65); Red Cell Distribution Width 15.7 % (12.1-15.1); White Blood Count 9.31 10^3/uL (3.29-11.43)
[2022-12-19 06:29] LABS: Anion Gap 11.9 (5-19); Blood Urea Nitrogen 13 mg/dL (8-23); Calcium 8.9 mg/dL (8.5-10.5); Carbon Dioxide 27 mmol/L (22-29); Chloride 106 mmol/L (98-107); Creatinine Clr Calc Pharmacy 48.3568; Glucose 89 mg/dL (65-115); Osmolality Calculated 292 mOsm/kg (285-295); Potassium 3.9 mmol/L (3.5-5.1); Sodium 141 mmol/L (136-145)
--- NOTE | 2022-12-19 08:26 | P.PN_ITS ---
Patient seen and examined in addition to CRYS. Agree with PADeliciaC's assessment and plan. Patient continued to progress with therapy. We will follow patient on an additional day. Son at bedside. All questions answered. No other issues overnight. Mirza Tobar DO Subjective Subjective: Patient is a 77-year-old female that is 1 day postop right hip hemiarthroplasty. No acute events overnight. Poor historian secondary to anesthesia. Vitals/I&O/Wt Last Vital Signs Temp 98.2 F 12/19/22 08:00 Pulse 83 12/19/22 08:00 Resp 18 12/19/22 08:00 BP 136/69 12/19/22 08:00 Pulse Ox 92 12/19/22 08:00 O2 Del Method Nasal Cannula 12/19/22 08:00 O2 Flow Rate 2 12/19/22 00:00 12/18/22 12/19/22 12/19/22 22:59 06:59 14:59 Intake Total 1311 / 1661 Output Total 200 / 200 100 / 300 Balance 1111 / 1461 -100 / 1361 Weight last 48 hrs Weight 121 lb Physical Exam Const: COMMON NORMALS: alert Resp: COMMON NORMALS: normal respiratory effort EFFORT & INSPECTION: No respiratory distress Extremity: NARRATIVE EXTREMITY EXAM: Right hip?dressing is dry and intact. Patient can dorsiflex and plantarflex foot and wiggle toes. Her toes are warm and well-perfused she has normal cap refill under 2 seconds. Pedal pulse 2+. Rest of exam is limited due to patient's mental status. Neuro: SENSORIUM/ORIENTATION: Yes alert OTHER: Chronic residual right upper extremity and right lower extremity weakness Urinary Catheter Management: Todd: Cath Placed During This Visit: yes Reason for Continuing Indwelling Catheter: Perioperative Use in Selected Surgeries Urinary Catheter Date of Insertion: 12/17/22 Urinary Catheter Time of Insertion: 17:55 Data 12/19/22 05:41 12/19/22 05:41 Micro: Microbiology 12/17/22 18:00 Urine Culture - Preliminary Urine,Clean Catch Gram Negative Rods Xray Ortho: Radiologist's impression: [id number] [address] XRay Report Signed Patient: Aretha Hawley Unit #: [id number] : 1945 Age/Sex: 77 / F ADM Date: 12/17/22 [facility]: [facility] Room/Bed: 270-[address]: Rashid Varela MD Ordering Provider/Ordering MD: Mirza Tobar Date of Service: 12/18/22 Procedure(s): XR hip RT 2-3V wo/w pel* [id number] Accession Number(s): [id number] Report Number: [id number] WS: [id number] Exam: XR hip RT 2-3V wo/w pel* [id number] Date/Time of Exam: 12/18/2022 4:32 PM Reason For Exam: postop hip rosa Right-sided hemiprosthesis has been placed. Alignment appears satisfactory. Postoperative changes in the adjacent soft tissues. Lateral surgical skin clips are noted. IMPRESSION: 1. RIGHT hip prosthesis in satisfactory position. Dictated By: Abdulaziz Powell DO Signed By: Abdulaziz Powell DO Signed Date/Time: 12/19/22826 DD/ 5 A&P Assessment and plan (1) Subcapital fracture of right hip: (2) Status post hip hemiarthroplasty: Plan Plan: Status 1 day post op Right hip hemiarthroplasty -Hospitalist on board for medical management -Labs and imaging reviewed -Weightbearing as tolerated. -Posterior hip precautions -DVT prophylaxis -Restart Blood thinner -Pain control -PT/OT Attestations Medical Necessity Statement*: Ongoing care for right hip hemiarthroplasty Coding Level of Care Code Acute Code for [facility] Fwd Diagnoses Subcapital fracture of right hip S72.011A Status post hip hemiarthroplasty Z96.649
[2022-12-19] MEDS: mupirocin oint 22 gm 1 APPLIC NASAL ×2 (08:35→17:08)
[2022-12-19] MEDS: multivitamin therapeutic Tablet 1 TAB PO (08:36)
[2022-12-19] MEDS: nystatin cream 30 gm 1 APPLIC TOPICAL ×2 (08:36→17:08)
[2022-12-19] MEDS: HYDROcodone-acetaminophen 5-325 mg Tablet 1 TAB PO ×2 (08:36→17:10)
[2022-12-19] MEDS: dilTIAZem 30 mg Tablet PO ×3 (08:36→20:48)
[2022-12-19] MEDS: amiodarone 200 mg Tablet 100 MG PO (08:36)
[2022-12-19] MEDS: iron polysaccharide complex 150 mg Capsule PO ×2 (08:36→17:08)
[2022-12-19] MEDS: calcium carb-vit d 600mg/400unit 1 Tablet 1 EACH PO ×2 (08:37→17:08)
[2022-12-19] MEDS: docusate sodium 100 mg Capsule PO ×2 (08:37→17:08)
[2022-12-19] MEDS: losartan 50 mg Tablet 25 MG PO (08:37)
--- NOTE | 2022-12-19 09:13 | PM.PN ---
Subjective Subjective: Aretha is alert and communicative this morning. She denies any severe pain. Her hip fracture was repaired late afternoon. Medications: Reviewed: Yes Vitals/I&O/Wt Last Vital Signs Temp 98.2 F 12/19/22 08:00 Pulse 83 12/19/22 08:00 Resp 18 12/19/22 08:00 BP 136/69 12/19/22 08:37 Pulse Ox 92 12/19/22 08:00 O2 Del Method Nasal Cannula 12/19/22 08:00 O2 Flow Rate 2 12/19/22 00:00 12/18/22 12/19/22 12/19/22 22:59 06:59 14:59 Intake Total 1311 / 1661 120 / 120 Output Total 200 / 200 100 / 300 Balance 1111 / 1461 -100 / 1361 120 / 120 Weight last 48 hrs Weight 54.885 kg Physical Exam Narrative: General exam no distress Neck supple Cardiovascular regular rate and rhythm Lungs clear Abdomen is soft, no obvious organomegaly Extremities no cyanosis clubbing or edema. Dressing right hip clean and dry. Can wiggle toes on right Neuro: Right hemiparesis upper extremity affected greater than lower, with slight right facial droop. Urinary Catheter Management: Todd: Cath Placed During This Visit: yes Reason for Continuing Indwelling Catheter: Perioperative Use in Selected Surgeries Urinary Catheter Date of Insertion: 12/17/22 Urinary Catheter Time of Insertion: 17:55 Data 12/19/22 05:41 12/19/22 05:41 Micro: Microbiology 12/17/22 18:00 Urine Culture - Preliminary Urine,Clean Catch Gram Negative Rods A&P Assessment and plan (1) Subcapital fracture of right hip: Patient presents with fracture of the right hip, possibly from a mechanical fall at the nursing facility. ORIF performed December 18 No evidence of severe postoperative anemia Therapy evaluation today Exploring whether inpatient rehabilitation is a possibility CBC will be repeated tomorrow to monitor for postoperative anemia Resume her Xarelto today. Discussed with surgeon. Discontinue fluids today BMP tomorrow (2) UTI (urinary tract infection): Continue levofloxacin Await urine culture. Currently growing gram-negative rods. (3) CVA (cerebral vascular accident): Patient with history of CVA. Resume rivaroxaban today (4) Atrial fibrillation: Continue amiodarone and diltiazem Resume rivaroxaban Continue telemetry Plan Multiple other medical problems as outlined in past medical history Rivaroxaban, SCDs for DVT prophylaxis Exploring possibility of inpatient Attestations Medical Necessity Statement*: Please continue hospitalization for close monitoring following hip fracture surgery, monitoring for postoperative anemia, reinitiation of rivaroxaban, continue antibiotic for UTI awaiting culture Diagnoses Subcapital fracture of right hip S72.011A UTI (urinary tract infection) N39.0 CVA (cerebral vascular accident) I63.9 Atrial fibrillation I48.91 Time Spent (min) 22
[2022-12-19] MEDS: famotidine 20 mg/2 mL INJ IVP ×2 (11:25→20:48)
[2022-12-19] MEDS: rivaroxaban 10 mg Tablet 15 MG PO (11:25)
[2022-12-19] MEDS: meropenem 1,000 MG in sodium chloride 0.9% (plus) 50 ML 100 MG IV ×2 (14:37→23:15)
[2022-12-19] MEDS: vancomycin 1,000 MG in sodium chloride 0.9% 250 ML 250 MG IV (15:20)
[2022-12-19] MEDS: sodium chloride 0.9% 1,000 ML 50 ML IV (15:22)
[2022-12-19] MEDS: chlorhexidine gluconate 0.12% Btl 473 mL 30 ML MUCOUS MEM (20:48)
[2022-12-20] MEDS: HYDROcodone-acetaminophen 5-325 mg Tablet 1 TAB PO ×2 (03:25→09:39)
[2022-12-20 03:47] VITALS: BP 155/70; PULSE 78; RESP 16; TEMP 37.2; O2SAT 93
[2022-12-20 05:36] LABS: Basophils % 0.3 %; Eosinophils # 0.2 10^3/uL (0.0-0.8); Eosinophils % 2.4 %; Hematocrit 28.9 % (36-47); Lymphocytes # 0.7 10^3/uL (0.8-4.8); Lymphocytes % 9.4 %; Mean Corpuscular HGB Conc 32.5 g/dL (30-55); Mean Corpuscular Hemoglobin 32.3 pg (27-33); Mean Corpuscular Volume 99.3 fl (85-98); Mean Platelet Volume 12.4 fL (7.4-10.4); Monocytes # 0.5 10^3/uL (0.2-0.9); Monocytes % 6.4 %; Neutrophils # 5.68 10^3/uL (1.8-7.7); Neutrophils % 81.2 %; Nucleated Red Blood Cells % 0 %; Platelet Count 181 10^3/cmm (157-399); Red Blood Count 2.91 10^6/uL (3.85-5.65); Red Cell Distribution Width 15.4 % (12.1-15.1)
[2022-12-20] MEDS: meropenem 1,000 MG in sodium chloride 0.9% (plus) 50 ML 100 MG IV (05:44)
[2022-12-20 05:56] LABS: Anion Gap 10.7 (5-19); Blood Urea Nitrogen 15 mg/dL (8-23); Calcium 8.5 mg/dL (8.5-10.5); Carbon Dioxide 27 mmol/L (22-29); Chloride 107 mmol/L (98-107); Glucose 95 mg/dL (65-115); Osmolality Calculated 293 mOsm/kg (285-295); Potassium 3.7 mmol/L (3.5-5.1); Sodium 141 mmol/L (136-145)
[2022-12-20 05:57] LABS: Creatinine Clr Calc Pharmacy 48.3568
[2022-12-20 07:39] VITALS: BP 120/64; PULSE 69; RESP 16; TEMP 36.5; O2SAT 96
--- NOTE | 2022-12-20 09:11 | PM.DCS ---
Discharge Providers Date of Admission: 12/17/22 20:43 Date of Discharge: December 20, 2022 Attending Provider at Admission: Chio Jackson MD Attending Provider at Discharge: Rashid Varela MD Primary Care Provider: Servando Logan DO Diagnoses at Discharge Discharge Diagnosis (1) Subcapital fracture of right hip: Status: Acute (2) Status post hip hemiarthroplasty: Status: Acute Reason for Visit Reason for Visit: RIGHT HIP PAIN S/P FALL Hospital Course Hospital Course Aretha is a 77-year-old white female with history of CVA March 28 he was residing at a senior living. She came in with history of unwitnessed fall, and sustained a hip fracture on the right. She was evaluated and taken to the OR for repair on December 18, and right hemiarthroplasty of the hip was performed without difficulty or complication. Postprocedure she did well. She did have minimal drop in her hemoglobin consistent with acute postoperative blood loss anemia. By December 20 it was thought she was stable enough to be discharged to inpatient rehabilitation. Discharge hemoglobin was 9.4. Discharge neurologic exam was unchanged from admission, with right upper extremity paresis, right lower extremity partial paresis, slight right facial droop, some word finding difficulty but overall alert and oriented. This exam is also unchanged from her baseline at the nursing facility. She was given an opportunity to ask questions, and agreed with the plan. She was diagnosed with an ESBL UTI while in the hospital, present on admission, and received meropenem for 2 days and was transitioned to ertapenem at discharge. There was plans to give her 10 days of IV treatment overall, so 8 more days of ertapenem. Physical Exam Narrative: General exam no distress Neck is supple Cardiovascular regular rate and rhythm with a 2/6 systolic murmur Lungs clear Abdomen is soft Extremities no cyanosis clubbing or edema. Right hip fracture repair site dressing clean and dry, no significant bruising. Urinary Catheter Management: Todd: Cath Placed During This Visit: yes, but has since been removed by the nurse Reason for Continuing Indwelling Catheter: Decision to DC Catheter Urinary Catheter Date of Insertion: 12/17/22 Urinary Catheter Time of Insertion: 17:55 Date Urinary Catheter Removed: 12/19/22 Time Urinary Catheter Discontinued: 14:51 Discharge Data Studies Completed and Pending Completed Studies During Hospitalization Category Date Time Status CT cervical spin wo con* [id number] Stat Cat Scan 12/17/22 16:[address] head wo con* [id number] Stat Cat Scan 12/17/22 16:43 Completed CXRP [XR chest 1V portable [id number]] Stat Exams 12/17/22 16:33 Completed XR femur RT min 2V* [id number] Stat Exams 12/17/22 16:43 Completed XR hip RT 2-3V wo/w pel* [id number] Routine Exams 12/18/22 16:30 Completed XR hip RT 2-3V wo/w pel* [id number] Stat Exams 12/17/22 16:33 Completed XR knee RT 3V* [id number] Stat Exams 12/17/22 17:47 Completed XR pelvis 1-2V* [id number] Stat Exams 12/17/22 17:47 Completed Radiology Impressions Chest X-Ray 12/17/22 16:33 IMPRESSION: No acute findings. Cervical Spine CT 12/17/22 16:43 IMPRESSION: No acute osseous injury. Femur X-Ray 12/17/22 16:43 IMPRESSION: There is a angulated right subcapital femur fracture. Head CT 12/17/22 16:43 IMPRESSION: New region of hypodensity is seen in the left frontal santiago radiata extending to the basal ganglia and subinsular region suspicious for subacute ischemia. There is regions of hyperdensity in this region which may be petechial hemorrhages or possibly calcification/laminar necrosis. Recommend MRI brain correlation. ADDENDUM: 12/17/221812 ADDENDUM: The hypodensity in the left MCA territory is consistent with chronic encephalomalacia given the comparison M1 segment occlusion on the CTA from 03/28/2022. The regions of high density in this region are favored to be calcification or laminar necrosis rather than hemorrhage given the chronicity of the infarct. Further characterization can be performed with a MRI brain for follow up. Findings were discussed with DAVI Love at 12/17/2022 6:10 PM CDT. Knee X-Ray 12/17/22 17:47 IMPRESSION: No acute findings. Pelvis X-Ray 12/17/22 17:47 IMPRESSION: Angulated right femoral neck fracture with mild displacement again seen. No pelvic fracture identified. Laboratory Results WBC 7.00 10^3/uL (3.29-11.43) 12/20/22 05:09 RBC 2.91 10^6/uL (3.85-5.65) L 12/20/22 05:09 Hgb 9.40 g/dL (11.27-16.99) L 12/20/22 05:09 Hct 28.9 % (36-47) L 12/20/22 05:09 MCV 99.3 fl (85-98) H 12/20/22 05:09 MCH 32.3 pg (27-33) 12/20/22 05:09 MCHC 32.5 g/dL (30-55) 12/20/22 05:09 RDW 15.4 % (12.1-15.1) H 12/20/22 05:09 Plt Count 181 10^3/cmm (157-399) 12/20/22 05:09 MPV 12.4 fL (7.4-10.4) H 12/20/22 05:09 Neut % (Auto) 81.2 % 12/20/22 05:09 Lymph % (Auto) 9.4 % 12/20/22 05:09 [place] % (Auto) 6.4 % 12/20/22 05:09 Eos % (Auto) 2.4 % 12/20/22 05:09 Baso % (Auto) 0.3 % 12/20/22 05:09 Neut # (Auto) 5.68 10^3/uL (1.8-7.7) 12/20/22 05:09 Lymph # (Auto) 0.7 10^3/uL (0.8-4.8) L 12/20/22 05:09 [place] # (Auto) 0.5 10^3/uL (0.2-0.9) 12/20/22 05:09 Eos # (Auto) 0.2 10^3/uL (0.0-0.8) 12/20/22 05:09 Baso # (Auto) 0.0 10^3/uL (0.0-0.1) 12/20/22 05:09 Nucleated RBC % (auto) 0 % 12/20/22 05:09 Nucleated RBCs # 0.0 /100WBC 12/20/22 05:09 Sodium 141 mmol/L (136-145) 12/20/22 05:09 Potassium 3.7 mmol/L (3.5-5.1) 12/20/22 05:09 Chloride 107 mmol/L (98-107) 12/20/22 05:09 Carbon Dioxide 27 mmol/L (22-29) 12/20/22 05:09 Anion Gap 10.7 (5-19) 12/20/22 05:09 BUN 15 mg/dL (8-23) 12/20/22 05:09 Creatinine 0.4 mg/dL (0.5-0.9) L 12/20/22 05:09 GFR Calculation Not Reportable 12/20/22 05:09 Glucose 95 mg/dL (65-115) 12/20/22 05:09 Calculated Osmolality 293 mOsm/kg (285-295) 12/20/22 05:09 Calcium 8.5 mg/dL (8.5-10.5) 12/20/22 05:09 Magnesium 1.9 mg/dL (1.7-2.3) 12/18/22 04:05 Total Bilirubin 0.8 mg/dL (0.15-1.2) 12/18/22 04:05 AST 23 U/L (0-32) 12/18/22 04:05 ALT 13 U/L (0-33) 12/18/22 04:05 Alkaline Phosphatase 87 U/L (35-105) 12/18/22 04:05 Total Protein 5.9 g/dL (6.6-8.7) L 12/18/22 04:05 Albumin 3.7 g/dL (3.5-5.2) 12/18/22 04:05 Globulin 2.2 g/dL (1.3-4.6) 12/18/22 04:05 Urine Color Yellow (Yellow) 12/17/22 18:00 Urine Appearance Hazy (CLEAR) A 12/17/22 18:00 Urine pH 5 (5-7) 12/17/22 18:00 Ur Specific [place] 1.020 (1.005-1.030) 12/17/22 18:00 Urine Protein Trace (Negative) 12/17/22 18:00 Urine Glucose (UA) Norm (Normal) 12/17/22 18:00 Urine Ketones 1+ (Negative) H 12/17/22 18:00 Urine Blood 2+ (Negative) H 12/17/22 18:00 Urine Nitrate Positive (Negative) H 12/17/22 18:00 Urine Bilirubin Neg (Negative) 12/17/22 18:00 Urine Urobilinogen 1 mg/dL (Negative) H 12/17/22 18:00 Ur Leukocyte Esterase Trace (Negative) H 12/17/22 18:00 Urine RBC 0-4 /hpf (0-2) H 12/17/22 18:00 Urine WBC 0-4 /hpf (0-5) H 12/17/22 18:00 Ur Squamous Epith Cells Rare /hpf (0-5) 12/17/22 18:00 Amorphous Sediment Not Reportable 12/17/22 18:00 Urine Bacteria 4+ /hpf (NONE) H 12/17/22 18:00 Urine Mucus 1+ /hpf 12/17/22 18:00 Blood Type A Positive 12/18/22 06:50 Rho(D) Type Positive 12/18/22 06:50 Antibody Screen Negative 12/18/22 06:50 Vitals Last Vital Signs Temp 97.7 F 12/20/22 07:39 Pulse 69 12/20/22 07:39 Resp 16 12/20/22 07:39 BP 120/64 12/20/22 07:39 Pulse Ox 96 12/20/22 07:39 O2 Del Method Room Air 12/20/22 03:47 O2 Flow Rate 2 12/19/22 20:00 Discharge Plan Discharge Patient Disposition: Xfer Inpatient Rehab Fac Condition: Stable Prescriptions: New tramadol 50 mg Tablet 50 mg PO Q4H PRN (Reason: Mild Pain) Qty: 1 0RF oxycodone 5 mg Tablet 5 mg PO Q6H PRN (Reason: Mod to severe pain , 2nd line) Qty: 1 0RF docusate sodium 100 mg Capsule 100 mg PO BID Qty: 60 0RF ertapenem 1 gram recon soln 1 g IV DAILY 8 Days Qty: 8 0RF Continued Xarelto 15 mg tablet 15 mg PO DAILY@08 Rx Instructions: must administer with evening meal famotidine 20 mg tablet 20 mg PO BID bisacodyl 10 mg suppository 10 mg SD DAILY PRN (Reason: Constipation) Rx Instructions: give rectally if no results from mom Fleet Enema 19-7 gram/118 mL enema 118 ml SD DAILY PRN (Reason: Constipation) Rx Instructions: give fleets if no results from mom and dulcolax magnesium hydroxide [Milk of Magnesia] 400 mg/5 mL suspension 15 ml PO DAILY PRN (Reason: if no bm in 3 days) nystatin 100,000 unit/gram cream 1 applic topical BID PRN (Reason: to fabio area) diltiazem HCl 30 mg tablet 30 mg PO TID Qty: 180 2RF Tylenol 325 mg Tablet 650 mg PO BID Almyra 5-325 mg Tablet 1 tab PO Q6H PRN (Reason: Pain) amiodarone 100 mg Tablet 100 mg PO DAILY@08 Discontinued bisacodyl 5 mg Tablet 10 mg PO DAILY PRN (Reason: if no bm in 3 days) Discharge Orders: Discharge Order (Routine); Ordered 12/20/22 Ordered By: Rashid Varela Referrals: Mirza Tobar DO [Physician] - 01/02/23 8:30 am Servando Logan DO [Primary Care Provider] - Discharge Diet: Advance as tolerated and Usual diet Discharge Activity: Limit activity as instructed Activity Restrictions/Additional Instructions: Orthopedic discharge instructions: Patient may weight-bear as tolerated to the operative lower extremity Posterior hip precautions (avoid excess excessive hip flexion past 90 degrees and internal rotation) Take DVT prophylaxis (blood thinner) as prescribed (i.e. eliquis) Take pain medication as prescribed Take antinausea medication as needed Supplement with Citracal vitamin D for bone health and healing Ice as needed for pain and swelling Leave Silverlon bandage dressing on for 7 days after that may remove, rinse incision with warm soapy water/shower pat dry keep clean dry and intact and redress with a clean dry dressing. No baths or soap Follow-up in the orthopedic office in 2 weeks from date of surgery Contact the office for any questions or concerns per (fevers, increased drainage or redness around the incision site etc.) Discharged to inpatient rehabilitation. Further follow-up plans as arranged by them on discharge, other than the orthopedic follow-up as noted above. Discharge Attestations Time Spent in Discharge Care*: greater than 30 min Quality Metrics Clinical Quality Measures [ No reported AMI, CVA or VTE this stay] Coding Level of Care Code 77660 Total time (in minutes) for Discharge: 34 Diagnoses Subcapital fracture of right hip S72.011A Status post hip hemiarthroplasty Z96.649
[2022-12-20] MEDS: amiodarone 200 mg Tablet 100 MG PO (09:26)
[2022-12-20] MEDS: iron polysaccharide complex 150 mg Capsule PO (09:27)
[2022-12-20] MEDS: calcium carb-vit d 600mg/400unit 1 Tablet 1 EACH PO (09:27)
[2022-12-20] MEDS: multivitamin therapeutic Tablet 1 TAB PO (09:27)
[2022-12-20 09:28] VITALS: BP 120/64
[2022-12-20] MEDS: losartan 50 mg Tablet 25 MG PO (09:28)
[2022-12-20] MEDS: docusate sodium 100 mg Capsule PO (09:28)
[2022-12-20] MEDS: rivaroxaban 10 mg Tablet 15 MG PO (09:29)
[2022-12-20] MEDS: dilTIAZem 30 mg Tablet PO (09:29)
[2022-12-20] MEDS: famotidine 20 mg/2 mL INJ IVP (09:32)
[2022-12-20] MEDS: nystatin cream 30 gm 1 APPLIC TOPICAL (09:38)
[2022-12-20] MEDS: chlorhexidine gluconate 0.12% Btl 473 mL 30 ML MUCOUS MEM (09:38)
[2022-12-20] MEDS: mupirocin oint 22 gm 1 APPLIC NASAL (09:39)
[2022-12-20] MEDS: ertapenem 1,000 MG in sodium chloride 0.9% (plus) 100 ML 200 MG IV (09:43)
--- NOTE | 2022-12-20 11:21 | PC.NURSE ---
This nurse called report to [facility] at [facility]. Nayeli requested that pt be transferred with IV in the left AC due to pt receiving IV antibiotics at their facility for the next week. First dose of ertopenem has been given today. Discharge pending transport.
--- NOTE | 2022-12-20 11:40 | PC.SOCIAL ---
IMM Update pg 2 of IMM updated and reviewed w/ patient. Copy provided and copy dated, initialed and placed in chart.
[2022-12-20 12:00] VITALS: BP 118/70; PULSE 89; RESP 18; TEMP 36.6; O2SAT 95
[2022-12-20 12:31] VITALS: PULSE 93; RESP 14; O2SAT 92
--- NOTE | 2022-12-20 12:43 | PC.SOCIAL ---
IMM Update pg 2 of IMM updated and reviewed w/ patient. Copy provided and copy dated, initialed and placed in chart.
== END 2022-12-20 13:24 | DRG 522 ==
LOC: ER 18:39 → MEDSURG 20:44
PROVIDERS: Student in an Organized Health Care Education/Training Program; Admitting Provider Internal Medicine; Emergency Provider Emergency Medicine; PCP Internal Medicine; Visit Provider Internal Medicine
PROC: 0SRR0J9 Replacement of Right Hip Joint, Femoral Surface with Synthetic Substitute, Cemented, Open Approach (ICD-10-PCS; CPT 27125; principal; 2022-12-18 09:40)
DX: S72.011A Unspecified intracapsular fracture of right femur, initial encounter for closed fracture (principal); N39.0 Urinary tract infection, site not specified; I69.951 Hemiplegia and hemiparesis following unspecified cerebrovascular disease affecting right dominant side; D62 Acute posthemorrhagic anemia; W18.30XA Fall on same level, unspecified, initial encounter; Y92.129 Unspecified place in nursing home as the place of occurrence of the external cause; B96.20 Unspecified Escherichia coli [E. coli] as the cause of diseases classified elsewhere; I69.992 Facial weakness following unspecified cerebrovascular disease; I69.920 Aphasia following unspecified cerebrovascular disease; Z79.01 Long term (current) use of anticoagulants; Z79.891 Long term (current) use of opiate analgesic; I48.91 Unspecified atrial fibrillation; K21.9 Gastro-esophageal reflux disease without esophagitis; Z74.01 Bed confinement status; I10 Essential (primary) hypertension; E78.2 Mixed hyperlipidemia
CPT/HCPCS: 36415; 51702; 51798; 70450; 71045; 72125; 72170; 73502; 73552; 73562; 80048; 80053; 81001; 83735; 85025; 86850; 86900; 87077; 87086; 87186; 93005; 96361; 96374; 96375; 97110; 97116; 97162; 97530; 99285; C1776; J0131; J1170; J1335; J1885; J1956; J2185; J2270; J2405; J2704; J3010; J3370; J3490; J7030; J7050; L3924

== ENCOUNTER → 2023-01-18 09:55 | Outpatient (BNVA) | payer MEDICARE, OTHER, SELFPAY | PROVIDERS: PCP Internal Medicine; Visit Provider Physician Assistant | DX: Z96.641 Presence of right artificial hip joint | CPT/HCPCS: 73502; 99024 ==

== ENCOUNTER → 2023-01-22 08:58 | Outpatient (BNVA) | payer MEDICARE, OTHER, SELFPAY | PROVIDERS: PCP Internal Medicine; Visit Provider Nurse Practitioner Family | DX: I10 Essential (primary) hypertension (principal); I48.91 Unspecified atrial fibrillation; Z86.73 Personal history of transient ischemic attack (TIA), and cerebral infarction without residual deficits; Z79.01 Long term (current) use of anticoagulants | CPT/HCPCS: 99214 ==

== ENCOUNTER → 2023-04-05 09:30 | Outpatient (BNVA) | payer MEDICARE, OTHER, SELFPAY | PROVIDERS: PCP Internal Medicine; Visit Provider Physician Assistant | DX: Z96.641 Presence of right artificial hip joint (principal) | CPT/HCPCS: 73502; 99213 ==

== ENCOUNTER → 2023-04-24 10:30 | Outpatient (BNVA) | payer MEDICARE, OTHER, MEDICAID, SELFPAY | PROVIDERS: PCP Internal Medicine; Visit Provider Physician Assistant | DX: M17.11 Unilateral primary osteoarthritis, right knee | CPT/HCPCS: 20610; 73562; 99213; J3301 ==

== ENCOUNTER 2023-04-25 14:33 | Inpatient (IN) | payer MEDICARE, OTHER, MEDICAID, SELFPAY ==
[2023-04-25 14:37] VITALS: BP 116/69; PULSE 72; RESP 18; TEMP 37; O2SAT 98; BMI 21.7
--- NOTE | 2023-04-25 14:39 | ECG_ITS ---
[facility] Test Date: 2023-04-25 Pat Name: Aretha Hawley Department: Room: Gender: Female [employer] Matcher: : 1945 Requested By: Yulisa Schwarz Order Number: [id number] Stephania MD: Guzman Sheikh M.D. Measurements Intervals [place] Rate: 82 P: 0 WI: 0 QRS: -62 QRSD: 158 T: 91 QT: 421 QTc: 492 Interpretive Statements ATRIAL FIBRILLATION LEFT AXIS DEVIATION [QRS AXIS < -30] LEFT BUNDLE BRANCH BLOCK [120+ ms QRS DURATION, 80+ ms Q/S IN V1/V2, 85+ ms R IN I/aVL/V5/V6 Compared to ECG 12/17/2022 17:22:54 Sinus rhythm no longer present Electronically Signed On 04-26-2023 11:06:29 ENVIR[employer]MENTAL PROTECTION OFFICER by Guzman Sheikh M.D. [email or web address]
--- NOTE | 2023-04-25 14:43 | XR_ITS ---
WS: [id number] Exam: XR chest 1V portable [id number] Date/Time of Exam: 04/25/2023 2:45 PM Reason For Exam: sob Comparison 12/17/2022. The lungs are clear and fully expanded. Cardiac enlargement slightly increased since previous study. No pleural effusions. Bony structures are intact. The mediastinum is normal in contour. IMPRESSION: 1. No acute cardiopulmonary finding. 2. Cardiac enlargement which has increased slightly since the prior study.
--- NOTE | 2023-04-25 14:43 | CTR_ITS ---
PROCEDURE INFORMATION: Exam: CT Head Without Contrast Exam date and time: 04/25/2023 3:52 PM Age: 77 years old Clinical indication: Altered mental status/memory loss; Additional info: Right side weakness TECHNIQUE: Imaging protocol: Computed tomography of the head without contrast. Radiation optimization: All CT scans at this facility use at least one of these dose optimization techniques: automated exposure control; mA and/or kV adjustment per patient size (includes targeted exams where dose is matched to clinical indication); or iterative reconstruction. COMPARISON: CT head wo con* [id number] 12/17/2022 4:49 PM RADIATION DOSE METRICS: Total DLP (mGy-cm): 1050 FINDINGS: Brain: Encephalomalacia in the left basal ganglia and temporal lobe. There are mild periventricular and subcortical lucencies consistent with chronic microvascular ischemic changes.The barker-white differentiation is maintained. No hemorrhage. No edema. Cerebral ventricles: No ventriculomegaly. Paranasal sinuses: Visualized sinuses are unremarkable. No fluid levels. Mastoid air cells: Visualized mastoid air cells are well aerated. Bones/joints: Unremarkable. No acute fracture. Soft tissues: Unremarkable. CT/CT head wo con* [id number] IMPRESSION: No acute intracranial abnormality. Chronic microvascular ischemic changes.
--- NOTE | 2023-04-25 14:55 | ED_ITS ---
HPI - Weakness 2 General: Chief complaint: Weakness Stated complaint: Stroke like Symptoms Time Seen by Provider: 04/25/23 14:36 Source: patient and EMS Mode of arrival: EMS Limitations: no limitations History of Present Illness: 77-year-old female has a history of stro ke in the past that caused right-sided deficits she is here from the retirement states that she typically is able to ambulate and has some strength in her right leg. Her son and EMS retirement noticed today she is slurring her speech much more than normal and she is not able to move her right leg or ambulate at all. Her last known normal was yesterday. Denies any fever denies any falls denies any head injury. Associated symptoms: Denies chest pain, chills, fever(s), headache(s), nausea or vomiting Review of Systems 2 Const: Denies: fever(s), chills, body aches or change in appetite Eyes: Denies: blurry vision or eye discomfort ENMT: Denies: throat pain or dental pain Card: Denies: chest pain Resp: Denies: dyspnea GI: Denies: abdominal pain, nausea, vomiting or diarrhea Musc: Denies: neck pain or back pain Skin/Breast: Denies: rash Neuro: Reports: weakness in extremities and Slurred speech present; Denies: headache(s) PFSH ED 2 PFSH: Medical History Subcapital fracture of right hip Atrial fibrillation Essential (primary) hypertension Environmental and seasonal allergies Mixed hyperlipidemia Surgical History History of cholecystectomy History of dilatation and curettage History of tubal ligation History of tonsillectomy Family History Mother Stroke Other Heart disease Hypertension Physical Exam 2 Const: COMMON NORMALS: patient oriented x3 HENMT: COMMON NORMALS: normocephalic and atraumatic HEAD & SCALP: n ormocephalic and atraumatic Eye: COMMON NORMALS: Equal, round and reactive pupils present and EOMs intact bilaterally PUPIL: Yes Equal, round and reactive pupils present Neck/C-Spine: COMMON NORMALS: full ROM and supple Chest: COMMONS NORMALS: normal inspection of the chest and normal palpation of entire chest wall Resp: COMMON NORMALS: normal respiratory effort, No retractions, No use of accessory muscles and clear to auscultation bilaterally AUSCULTATION: clear to auscultation bilaterally Cardio: COMMON NORMALS: regular rate, regular rhythm and No murmurs present (Cardio) RATE: regular rate RHYTHM: regular rhythm GI: COMMON NORMALS: Normal to inspection, nondistended, normoactive bowel sounds present, Soft to palpation, non-tender and no masses PALPATION: Yes Soft to palpation Extremity: COMMON NORMALS: normal to inspection and full ROM Neuro: COMMON NORMALS: patient oriented x3 OTHER: Right-sided weakness to arm and leg she does have slurred speech some word finding difficulty Psych: COMMON NORMALS: mental status grossly normal, Normal thought process present and cooperative THOUGHT PROCESS: Normal thought process present Skin: COMMON NORMALS: no rashes or lesions noted and no wounds GENERAL SKIN EXAM: no rashes or lesions noted Course 2 Vital Signs: Vital signs: Vital Signs Temperature 98.6 F 04/25/23 14:37 Pulse Rate 67 04/25/23 15:10 Respiratory Rate 18 04/25/23 15:10 Blood Pressure 125/55 04/25/23 15:10 Pulse Oximetry 96 04/25/23 15:10 Oxygen Delivery Me thod Room Air 04/25/23 15:10 MDM - Weakness Medical Decision Making Patient presents here with right-sided weakness slurred speech the possible stroke she has had an old stroke her last known normal was yesterday she is not a tPA candidate. She also has a UTI could be exacerbating her symptoms spoke to the hospitalist and will admit at this time. Medical Records I reviewed the patient's medical records. Lab Data 04/25/23 14:40 04/25/23 14:[address] 04/25/23 14:43 IMPRESSION: No acute intracranial abnormality. Chronic microvascular ischemic changes. Laboratory Results WBC 8.11 10^3/uL (3.29-11.43) 04/25/23 14:40 RBC 4.88 10^6/uL (3.85-5.65) 04/25/23 14:40 Hgb 14.40 g/dL (11.27-16.99) 04/25/23 14:40 Hct 44.4 % (36-47) 04/25/23 14:40 MCV 91.0 fl (85-98) 04/25/23 14:40 MCH 29.5 pg (27-33) 04/25/23 14:40 MCHC 32.4 g/dL (30-55) 04/25/23 14:40 RDW 15.6 % (12.1-15.1) H 04/25/23 14:40 Plt Count 351 10^3/cmm (157-399) 04/25/23 14:40 MPV 12.8 fL (7.4-10.4) H 04/25/23 14:40 Neut % (Auto) 84.8 % 04/25/23 14:40 Lymph % (Auto) 10.7 % 04/25/23 14:40 [place] % (Auto) 4.2 % 04/25/23 14:40 Eos % (Auto) 0.0 % 04/25/23 14:40 Baso % (Auto) 0.1 % 04/25/23 14:40 Neut # (Auto) 6.87 10^3/uL (1.8-7.7) 04/25/23 14:40 Lymph # (Auto) 0.9 10^3/uL (0.8-4.8) 04/25/23 14:40 [place] # (Auto) 0.3 10^3/uL (0.2-0.9) 04/25/23 14:40 Eos # (Auto) 0.0 10^3/uL (0.0-0.8) 04/25/23 14:40 Baso # (Auto) 0.0 10^3/uL (0.0-0.1) 04/25/23 14:40 Nucleated RBC % (auto) 0 % 04/25/23 14:40 Nucleated RBCs # 0.0 /100WBC 04/25/23 14:40 PT 17.80 SECONDS (12.1-14.9) H 04/25/23 14:40 INR 1.42 (0.8-1.2) H 04/25/23 14:40 Sodium 139 mmol/L (136-145) 04/25/23 14:40 Potassium 4.6 mmol/L (3.5-5.1) 04/25/23 14:40 Chloride 101 mmol/L (98-107) 04/25/23 14:40 Carbon Dioxide 27 mmol/L (22-29) 04/25/23 14:40 Anion Gap 15.6 (5-19) 04/25/23 14:40 BUN 19 mg/dL (8-23) 04/25/23 14:40 Creatinine 0.4 mg/dL (0.5-0.9) L 04/25/23 14:40 GFR Calculation Not Reportable 04/25/23 14:40 Glucose 118 mg/dL (65-115) H 04/25/23 14:40 Calculated Osmolality 291 mOsm/kg (285-295) 04/25/23 14:40 Calcium 10.8 mg/dL (8.5-10.5) H 04/25/23 14:40 Magnesium 2.1 mg/dL (1.7-2.3) 04/25/23 14:40 Total Bilirubin 0.4 mg/dL (0.15-1.2) 04/25/23 14:40 AST 17 U/L (0-32) 04/25/23 14:40 ALT 12 U/L (0-33) 04/25/23 14:40 Alkaline Phosphatase 130 U/L (35-105) H 04/25/23 14:40 Troponin T Baseline 10 ng/L (0-10) 04/25/23 14:40 Total Protein 7.8 g/dL (6.6-8.7) 04/25/23 14:40 Albumin 4.5 g/dL (3.5-5.2) 04/25/23 14:40 Globulin 3.3 g/dL (1.3-4.6) 04/25/23 14:40 TSH 0.91 uIU/mL (0.27-4.20) 04/25/23 14:40 Urine Color Yellow (Yellow) 04/25/23 16:18 Urine Appearance Hazy (CLEAR) A 04/25/23 16:18 Urine pH 5 (5-7) 04/25/23 16:18 Ur Specific [place] 1.015 (1.005-1.030) 04/25/23 16:18 Urine Protein Neg (Negative) 04/25/23 16:18 Urine Glucose (UA) Norm (Normal) 04/25/23 16:18 Urine Ketones Negative (Negative) 04/25/23 16:18 Urine Blood Neg (Negative) 04/25/23 16:18 Urine Nitrate Positive (Negative) H 04/25/23 16:18 Urine Bilirubin Neg (Negative) 04/25/23 16:18 Urine Urobilinogen Norm mg/dL (Negative) 04/25/23 16:18 Ur Leukocyte Esterase Negative (Negative) 04/25/23 16:18 Urine RBC 0-4 /hpf (0-2) H 04/25/23 16:18 Urine WBC 10-15 /hpf (0-5) H 04/25/23 16:18 Ur Squamous Epith Cells 5-10 /hpf (0-5) H 04/25/23 16:18 Amorphous Sediment Not Reportable 04/25/23 16:18 Urine Bacteria 4+ /hpf (NONE) H 04/25/23 16:18 Urine Mucus 1+ /hpf 04/25/23 16:18 All radiology interpretation(s) finalized by discharge EKG Data EKG 1: I personally reviewed and interpreted this EKG as follows: EKG interpretation date: 04/25/23 EKG interpretation time: 14:39 Interpretation: afib hr [address] or t wave abnormalities qrs 158 qtc 459 Discharge Plan Discharge Patient Disposition: Admitted As Inpatient Clinical Impression: CVA (cerebral vascular accident), UTI (urinary tract infection) Condition: Stable Prescriptions: No Action Xarelto 15 mg tablet 15 mg PO DAILY@19 Rx Instructions: must administer with evening meal baclofen 5 mg tablet 2.5 mg PO Q8H famotidine 20 mg tablet 20 mg PO BID bisacodyl 10 mg suppository 10 mg KS DAILY PRN (Reason: Constipation) Rx Instructions: give rectally if no results from mom Fleet Enema 19-7 gram/118 mL enema 118 ml KS DAILY PRN (Reason: Constipation) Rx Instructions: give fleets if no results from mom and dulcolax magnesium hydroxide [Milk of Magnesia] 400 mg/5 mL suspension 15 ml PO DAILY PRN (Reason: if no bm in 3 days) ascorbic acid (vitamin C) 500 mg capsule 500 mg PO DAILY@08 cyanocobalamin (vitamin B-12) 1,000 mcg capsule 1,000 mcg PO DAILY@08 ergocalciferol (vitamin D2) 1,250 mcg (50,000 unit) capsule 1,250 mcg PO Q7D Rx Instructions: on mon ferrous sulfate 325 mg (65 mg iron) tablet 325 mg PO DAILY@08 losartan 25 mg tablet 25 mg PO DAILY Senna-S 8.6-50 mg Tablet 1 tab PO BID Tylenol Ex Str Rapid Release 500 mg Tablet 1,000 mg PO Q6H PRN (Reason: Pain) diltiazem HCl 120 mg capsule,extended release 24hr 120 mg PO DAILY@08 bisacodyl 5 mg Tablet,Delayed Release (Dr/Ec) 10 mg PO DAILY PRN (Reason: if no bm in 3 days) hydrocodone-acetaminophen 5-325 mg Tablet 1 tab PO Q8H PRN (Reason: Pain) amiodarone 100 mg Tablet 100 mg PO DAILY@08 Referrals: Servando Logan DO [Primary Care Provider] - Coding Level of Care Code ED Public Stenographer for Hermelindo Koehler NIH stroke score NIHSS Level Of Consciousness - 1a: 0 Level Of Consciousness Questions - 1b: Both Correct Level Of Consciousness Commands - 1c: Both Correct Best Gaze - 2: Normal Visual Uriarte - 3: No Visual Loss Facial Palsy - 4: Minor Paralysis Motor Arm Right - 5: No Movement Motor Arm Left - 5: No Drift Motor Leg Right - 6: No Movement Motor Leg Left - 6: No Drift Limb Ataxia - 7: Absent Sensory - 8: Mild To Moderate Loss Best Language - 9: Mild/Moderate Aphasia Dysarthia - 10: Mild/Moderate Dysarthia Extinction And Inattention - 11: 0 Score Total Score: 12
[2023-04-25 14:56] LABS: Basophils % 0.1 %; Hematocrit 44.4 % (36-47); Lymphocytes # 0.9 10^3/uL (0.8-4.8); Lymphocytes % 10.7 %; Mean Corpuscular HGB Conc 32.4 g/dL (30-55); Mean Corpuscular Hemoglobin 29.5 pg (27-33); Mean Platelet Volume 12.8 fL (7.4-10.4); Monocytes # 0.3 10^3/uL (0.2-0.9); Monocytes % 4.2 %; Neutrophils # 6.87 10^3/uL (1.8-7.7); Neutrophils % 84.8 %; Nucleated Red Blood Cells % 0 %; Platelet Count 351 10^3/cmm (157-399); Red Blood Count 4.88 10^6/uL (3.85-5.65); Red Cell Distribution Width 15.6 % (12.1-15.1); White Blood Count 8.11 10^3/uL (3.29-11.43)
[2023-04-25 15:10] VITALS: BP 125/55; PULSE 67; RESP 18; O2SAT 96
[2023-04-25 15:17] LABS: INR 1.42 (0.8-1.2)
--- NOTE | 2023-04-25 15:27 | PC.PHAR ---
pt is from [facility] [phone]-annita evans at [facility] states she will fax mar and tar-mar and tar sent with pt was missing pages
[2023-04-25 15:28] LABS: Troponin(5th) Baseline 10 ng/L (0-10)
[2023-04-25 15:47] LABS: Alanine Aminotransferase 12 U/L (0-33); Albumin Level 4.5 g/dL (3.5-5.2); Alkaline Phosphatase 130 U/L (35-105); Anion Gap 15.6 (5-19); Aspartate Amino Transferase 17 U/L (0-32); Blood Urea Nitrogen 19 mg/dL (8-23); Calcium 10.8 mg/dL (8.5-10.5); Carbon Dioxide 27 mmol/L (22-29); Chloride 101 mmol/L (98-107); Globulin 3.3 g/dL (1.3-4.6); Glucose 118 mg/dL (65-115); Magnesium 2.1 mg/dL (1.7-2.3); Osmolality Calculated 291 mOsm/kg (285-295); Potassium 4.6 mmol/L (3.5-5.1); Sodium 139 mmol/L (136-145); Thyroid Stimulating Hormone 0.91 uIU/mL (0.27-4.20); Total Bilirubin 0.4 mg/dL (0.15-1.2); Total Protein 7.8 g/dL (6.6-8.7)
--- NOTE | 2023-04-25 16:43 | ECG_ITS ---
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 Measurements Intervals [place] Rate: 66 P: 84 NJ: 243 QRS: -62 QRSD: 157 T: 103 QT: 449 QTc: 471 Interpretive Statements SINUS RHYTHM WITH FIRST DEGREE AV BLOCK LEFT AXIS DEVIATION [QRS AXIS < -30] LEFT BUNDLE BRANCH BLOCK [120+ ms QRS DURATION, 80+ ms Q/S IN V1/V2, 85+ ms R IN I/aVL/V5/V6] Compared to ECG 04/25/2023 14:39:57 First degree AV block now present Atrial fibrillation no longer present Electronically Signed On 04-26-2023 11:08:00 MINI SHIFTER by Guzman Sheikh M.D. [id number]
[2023-04-25 16:45] LABS: Add Urine Microscopic? YES; Bilirubin Urine Neg (Negative); Blood Urine Neg (Negative); Glucose Urine UA Norm (Normal); Ketones Urine Negative (Negative); Leukocyte Esterase Urine Negative (Negative); Nitrate Urine Positive (Negative); Protein Urine Neg (Negative); Specific Gravity, Urine 1.015 (1.005-1.030); Urine Appearance Hazy (CLEAR); Urine Color Yellow (Yellow); Urobilinogen Urine Norm (Negative); pH Urine 5 (5-7)
[2023-04-25 16:52] LABS: Add Urine Culture? Yes; Bacteria Urine 4+ /hpf; Mucus Urine 1+ /hpf; RBC Urine 0-4 /hpf (0-2)
[2023-04-25] MEDS: levofloxacin-dextrose 5 % 750 MG/150 ML PREMIX 100 MG IV (17:20)
--- NOTE | 2023-04-25 17:57 | P.HP_ITS ---
Providers/Chief Complaint 2 Primary Care Provider: Servando Logan DO Chief Complaint: Stroke like Symptoms History of Present Illness Aretha Hawley is a 77 year old female patient came from group home, full code, previous history of right-sided weakness from old stroke, presented today for left-sided weakness jaw pain which is radiating all the way down to her left leg, she is not able to move her left side at all, as per the son who is at the bedside after Dr. Tobar's appointment patient was doing fine she was able to use fork to feed herself when he dropped her off at the group home, today when he went to see her patient was not able to move her left side at all, he was experiencing word finding difficulty more than usual, at baseline she uses a wheelchair and a walker, uses her left side to feed herself, at baseline she does get word fine difficulty on and off, patient did not experience nausea, vomiting or chest pain. In the ER she was diagnosed with UTI Left-sided weakness She has received antibiotics, I will do serial troponin along echo will request MRI of the temporomandibular joint along MRI head Patient was not able to tell me her date of , she could not tell me name of the president, however she was able to tell me name of her son and she knew she was in the hospital She is not able to lift her bilateral lower extremities against gravity She is able to move her left arm to some extent Able to answer simple questions Review of Systems 2 Const: Denies: fever(s) Eyes: Denies: change in vision ENMT: Denies: throat pain Card: Denies: chest pain Resp: Denies: dyspnea GI: Denies: abdominal pain : Denies: flank pain Musc: Denies: neck pain Medications/Allergies Home Medications Medication Instructions Recorded Confirmed Last Taken Type bisacodyl 10 mg rectal suppository 10 mg RI DAILY PRN Constipation 06/30/22 04/25/23 Unknown History famotidine 20 mg tablet 20 mg PO BID 06/30/22 04/25/23 04/25/23 06:24 History magnesium hydroxide 400 mg/5 mL 15 ml PO DAILY PRN if no bm in 3 06/30/22 04/25/23 Unknown History oral suspension (Milk of Magnesia) days sodium phosphates 19 gram-7 118 ml RI DAILY PRN Constipation 06/30/22 04/25/23 Unknown History gram/118 mL enema (Fleet Enema) rivaroxaban 15 mg tablet (Xarelto) 15 mg PO DAILY@10/31/22 04/25/23 04/24/23 History amiodarone 100 mg tablet 100 mg PO DAILY@12/18/22 04/25/23 04/25/23 History hydrocodone 5 mg-acetaminophen 325 1 tab PO Q8H PRN Pain 12/18/22 04/25/23 04/25/23 12:41 History mg tablet ascorbic acid (vitamin C) 500 mg 500 mg PO DAILY@01/18/23 04/25/23 04/25/23 History capsule cyanocobalamin (vitamin B-12) 1,000 mcg PO DAILY@01/18/23 04/25/23 04/25/23 History 1,000 mcg capsule ergocalciferol (vitamin D2) 1,250 1,250 mcg PO Q7D 01/18/23 04/25/23 04/23/23 History mcg (50,000 unit) capsule ferrous sulfate 325 mg (65 mg 325 mg PO DAILY@01/18/23 04/25/23 04/25/23 History iron) tablet baclofen 5 mg tablet 2.5 mg PO Q8H 04/05/23 04/25/23 04/25/23 History losartan 25 mg tablet 25 mg PO DAILY 04/24/23 04/25/23 04/25/23 History acetaminophen 500 mg tablet 1,000 mg PO Q6H PRN Pain 04/25/23 04/25/23 Unknown History bisacodyl 5 mg tablet,delayed 10 mg PO DAILY PRN if no bm in 3 04/25/23 04/25/23 Unknown History release days diltiazem HCl 120 mg 120 mg PO DAILY@04/25/23 04/25/23 04/25/23 History capsule,extended release 24 hr sennosides 8.6 mg-docusate sodium 1 tab PO BID hold if loose stools 04/25/23 04/25/23 04/25/23 History 50 mg tablet (Senna-S) Allergies Allergy/AdvReac Type Severity Reaction Status Date / Time Cephalosporins Allergy trouble Verified 04/24/23 10:40 breathing Iodinated Contrast Media Allergy ALGY-Rash Verified 04/24/23 10:40 Sulfa (Sulfonamide Allergy Unknown Verified 04/24/23 10:40 Antibiotics) PFSH Acute 2 PFSH: Medical History Subcapital fracture of right hip Atrial fibrillation Essential (primary) hypertension Environmental and seasonal allergies Mixed hyperlipidemia Surgical History History of cholecystectomy History of dilatation and curettage History of tubal ligation History of tonsillectomy Family History Mother Stroke Other Heart disease Hypertension Vitals/I&O/Wt Last Vital Signs Temp 98.6 F 04/25/23 14:37 Pulse 67 04/25/23 15:10 Resp 18 04/25/23 15:10 BP 125/55 04/25/23 15:10 Pulse Ox 96 04/25/23 15:10 O2 Del Method Room Air 04/25/23 15:10 Weight last 48 hrs Weight 53.977 kg Physical Exam 2 Narrative: Chronic right-sided weakness Patient is able to move left upper extremity to some extent Answering questions which are simple yes and no Not able to tell me her date of or name of the present Knows the name of her son who is at the bedside Cannot lift her lower extremities bilaterally against gravity Pupils are symmetrical Dry mucous membranes Dysarthria present Word finding difficulty A-fib with RVR Normotensive Clinically looks dehydrated Left-sided facial weakness Variable S1-S2 Currently on room air Data 04/25/23 14:40 04/25/23 14:40 A&P Assessment and plan (1) Essential (primary) hypertension: (2) Atrial fibrillation: (3) Anticoagulated by anticoagulation treatment: (4) Enlarged thyroid: (5) UTI (urinary tract infection): (6) Left acute arterial ischemic stroke, MCA (middle cerebral artery): (7) CVA (cerebral vascular accident): (8) Left-sided weakness: (9) Jaw pain: Plan Jaw pain Left-sided weakness Will request head MRI to rule out acute CVA Patient is on Xarelto not a tPA candidate Continue AV andressa blocking agent along antihypertensive regimen Will also request MRI of the temporomandibular joint to rule out avascular necrosis of TMJ Patient is stating that she is not able to chew food I will request PT, speech evaluation, OT Considering left-sided pain and jaw pain I will also rule out ACS, serial troponin and EKG along echo Patient is full code . Diet DVT prophylaxis covered due to anticoagulating agent UTI: Start meropenem considering history of ESBL Son at the bedside: Updated Patient will most likely return to group home once workup has been completed Patient unable to provide much detail most of the information taken from the son who is at the bedside Spoke with Dr. Rodriguez Review of previous records revealed patient had diagnosis of stroke last March she had her hip fracture intervention done December 18 with right hemiarthroplasty she has history of ESBL UTI Attestations 2 Medical Necessity Statement*: Anticipating less than 2 midnights for workup of CVA Diagnoses Essential (primary) hypertension I10 Atrial fibrillation I48.91 Anticoagulated by anticoagulation treatment Z79.01 Enlarged thyroid E04.9 UTI (urinary tract infection) N39.0 Left acute arterial ischemic stroke, MCA (middle cerebral artery) I63.512 CVA (cerebral vascular accident) I63.9 Left-sided weakness R53.1 Jaw pain R68.84
[2023-04-25 18:01] VITALS: BP 139/53; PULSE 69; RESP 16; O2SAT 97
[2023-04-25 18:06] LABS: Troponin 5 2HR 9.89 ng/L (0-10); Troponin 5 2HR Delta -0.11 ABS# (0-10)
--- NOTE | 2023-04-25 18:34 | USCV_ITS ---
Aretha Hawley Age: 77 Gender: F : 1945 Exam Date: 04/25/2023 21:43 Ordering Phys: Estefania Astudillo MD Technologist: JAVON [place] [facility] [place] UA. Patient is unresponsive in 251-2. BP: 139 / 53 HR: 49 Rhythm: Sinus Technical Quality: Adequate MEASUREMENTS (Male / Female) Normal Values 2D ECHO LV Diastolic Diameter PLAX 3.7 cm 4.2 - 5.9 / 3.9 - 5.3 cm LV Systolic Diameter PLAX 2.1 cm IVS Diastolic Thickness 1.1 cm 0.6 - 1.0 / 0.6 - 0.9 cm IVS Systolic Thickness 1.4 cm LVPW Diastolic Thickness 1.4 cm 0.6 - 1.0 / 0.6 - 0.9 cm LVPW Systolic Thickness 1.7 cm LVOT Diameter 1.8 cm LV Ejection Fraction 2D Teich 73.8 % LV Ejection Fraction MOD 2C 61.5 % LV Ejection Fraction 2C AL 60.5 % LA Diameter 3.1 cm LA Width 3.6 cm LA Height 5.7 cm RA Width 3.8 cm RA Height 4.8 cm Aorta at Sinotubular Diameter 3.1 cm IVC Diameter 0.9 cm M-MODE Aortic Annulus Diameter 2.9 cm LA Ao Ratio MM 1.2 MV E Point Septal Separation 0.3 cm DOPPLER AV Peak Velocity 171.0 cm/s LVOT Peak Velocity 87.0 cm/s AV Area Cont Eq vti 1.3 cm squared AV Area Cont Eq pk 1.2 cm squared MV Peak Velocity 94.0 cm/s MV Area PHT 3.0 cm squared Mitral E to A Ratio 1.6 MV E' Velocity 43.5 cm/s Mitral E to MV E' Ratio 8.7 Mitral E to LV E' Lateral Ratio 9.4 Mitral E to LV E' Septal Ratio 8.3 TR Peak Velocity 263.0 cm/s TR Peak Gradient 27.7 mmHg TV Peak E Velocity 34.0 cm/s Right Atrial Pressure 5.0 mmHg Pulmonary Artery Systolic Pressu 32.7 mmHg PV Peak Velocity 113.0 cm/s RV Acceleration Time 0.1 s RV Ejection Time 0.4 s RV AcT/ET 0.1 FINDINGS Left Ventricle Left ventricle is normal in size. LV systolic function is normal with EF of 55-60%. No regional wall motion abnormalities Right Ventricle Normal in size and function Right Atrium Normal in size Left Atrium Dilated Mitral Valve Structurally normal mitral valve. Mild mitral regurgitation. Aortic Valve Structurally normal aortic valve. Mild aortic regurgitation. No significant stenosis. Tricuspid Valve Mild tricuspid regurgitation. Pulmonary artery systolic pressure is normal Pulmonic Valve Mild pulmonic regurgitation. Pericardium Normal Aorta Normal in size IVC Apepars to be normal CONCLUSIONS LV systolic function is normal with EF of 55-60% Left atrium dilation Mild mitral regurgitation Mild aortic regurgitation Mild tricuspid regurgitation Mild pulmonic regurgitation. No comparison studies are available. Guzman Sheikh MD (Electronically Signed) Final Date: 26 April 2023 12:23 S
--- NOTE | 2023-04-25 19:05 | PC.NURSE ---
report called to Sonali on Med-Surg. no further questions at this time
[2023-04-25 19:14] VITALS: BP 139/53; PULSE 69; RESP 16; O2SAT 97
[2023-04-25 20:00] VITALS: BP 114/56; PULSE 64; RESP 17; TEMP 36.4; O2SAT 96
[2023-04-25] MEDS: meropenem 500 MG in sodium chloride 0.9% (plus) 50 ML 100 MG IV (20:02)
[2023-04-25] MEDS: sodium chloride 0.9% 1,000 ML 30 ML IV (20:02)
[2023-04-25 20:55] LABS: Troponin 5 6HR 10.03 ng/L (0-10); Troponin 5 6HR Delta 0.03 ng/L (0-12)
[2023-04-25 21:40] LABS: Glucose Point of Care 121 mg/dL (70-110)
[2023-04-26] VITALS (8 sets, daily range): BP systolic 115–153; BP diastolic 65–75; PULSE 62–72; RESP 15–17; TEMP 36.4–36.7; O2SAT 92–96; BMI 21.7
[2023-04-26 00:59] LABS: Troponin 5 6HR 10.96 ng/L (0-10); Troponin 5 6HR Delta 0.96 ng/L (0-12)
[2023-04-26 01:58] LABS: Glucose Point of Care 119 mg/dL (70-110)
[2023-04-26] MEDS: meropenem 500 MG in sodium chloride 0.9% (plus) 50 ML 100 MG IV ×3 (03:23→22:27)
[2023-04-26 05:30] LABS: Hematocrit 38.8 % (36-47); Lymphocytes # 0.7 10^3/uL (0.8-4.8); Lymphocytes % 11.2 %; Mean Corpuscular HGB Conc 31.2 g/dL (30-55); Mean Corpuscular Hemoglobin 29.7 pg (27-33); Mean Corpuscular Volume 95.3 fl (85-98); Mean Platelet Volume 12.9 fL (7.4-10.4); Monocytes # 0.4 10^3/uL (0.2-0.9); Monocytes % 6.9 %; Neutrophils # 4.73 10^3/uL (1.8-7.7); Neutrophils % 81.7 %; Nucleated Red Blood Cells % 0 %; Platelet Count 250 10^3/cmm (157-399); Red Blood Count 4.07 10^6/uL (3.85-5.65); Red Cell Distribution Width 15.9 % (12.1-15.1); White Blood Count 5.79 10^3/uL (3.29-11.43)
[2023-04-26 05:51] LABS: Blood Urea Nitrogen 20 mg/dL (8-23); Calcium 9.3 mg/dL (8.5-10.5); Carbon Dioxide 23 mmol/L (22-29); Chloride 107 mmol/L (98-107); Glucose 95 mg/dL (65-115); Magnesium 2.1 mg/dL (1.7-2.3); Osmolality Calculated 290 mOsm/kg (285-295); Sodium 139 mmol/L (136-145)
[2023-04-26 05:53] LABS: Anion Gap 13.4 (5-19); Potassium 4.4 mmol/L (3.5-5.1)
[2023-04-26 06:51] LABS: Glucose Point of Care 101 mg/dL (70-110)
--- NOTE | 2023-04-26 09:41 | CT_ITS ---
WS: [id number] CT FACIAL BONES HISTORY: JAw pain TECHNIQUE: Images obtained from the supraorbital location through the mandible. Soft tissue and bone windows are reviewed. Coronal and sagittal reformats have also been submitted. DLP: 601.[address] scans at [facility] use at least one of these dose optimization techniques: automated e xposure control; mA and/or kV adjustment per patient size (includes targeted exams where dose is matc hed to clinical indication); or iterative reconstruction. COMPARISON: None available. No acute fracture or dislocation involving the mandible. There is no bone or soft tissue destruction. There is no mass identified. There is narrowing of the LEFT temporomandibular joint with a small ero deidre involving the head of the mandibular condyle on the LEFT. Additional irregularity involving the roof of the glenoid fossa. Very slight erosion involving the cortical surface of the RIGHT mandibular head but not as advanced as on the LEFT. There is no soft tissue along the internal or external auditory canals. Mastoid air cells are clear. Visualized sinuses are clear. Encephalomalacia noted in the LEFT basal ganglia with ex vacuo dilatati on of the lateral ventricle from a prior infarct. Degenerative disc disease in the upper cervical spi ne. IMPRESSION: 1. 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 Erosions involving the head of the L EFT mandibular condyle with cortical irregularity involving the roof of the glenoid. 2. No fracture. 3. Minimal erosive changes involving the RIGHT mandibular condyle head.
--- NOTE | 2023-04-26 10:05 | P.PN_ITS ---
Subjective 2 Subjective: Patient was working with PT this morning Awaiting MRI head and CT scan of temporomandibular joint Echo report is pending No events overnight Discontinue IV fluids Continue p.o. diet Negative delta troponin Vitals/I&O/Wt Last Vital Signs Temp 97.6 F 04/26/23 07:08 Pulse 68 04/26/23 07:08 Resp 15 04/26/23 07:08 BP 150/70 04/26/23 07:08 Pulse Ox 96 04/26/23 09:32 O2 Del Method Room Air 04/26/23 09:32 04/25/23 04/26/23 04/26/23 22:59 06:59 14:59 Intake Total 200 / 200 50 / 250 240 / 240 Balance 200 / 200 50 / 250 240 / 240 Weight last 48 hrs Weight 56.501 kg Weight 53.977 kg Weight 53.977 kg Physical Exam 2 Narrative: Awake and alert Fatigued and lethargic Right-sided chronic weakness Patient is able to work with PT, still has moderate to severe weakness of left arm and leg Dysarthria still present Patient able to answer simple questions She is not obtunded Able to comprehend questions Currently on room air S1, S2 Data 04/26/23 04:47 04/26/23 04:47 A&P Assessment and plan (1) Essential (primary) hypertension: (2) Atrial fibrillation: (3) Jaw pain: (4) UTI (urinary tract infection): (5) Left acute arterial ischemic stroke, MCA (middle cerebral artery): (6) CVA (cerebral vascular accident): Plan I would continue meropenem for considering ESBL UTI history MRI head and CT scan of temporomandibular joint pending Echo report is pending After chest pain Troponins with negative delta Discharge later today versus tomorrow She may resume PT at the alf OT and speech evaluation pending Continue p.o. diet History of A-fib continue amiodarone and Xarelto Attestations 2 Medical Necessity Statement*: Discharge later today versus tomorrow Diagnoses Essential (primary) hypertension I10 Atrial fibrillation I48.91 Jaw pain R68.84 UTI (urinary tract infection) N39.0 Left acute arterial ischemic stroke, MCA (middle cerebral artery) I63.512 CVA (cerebral vascular accident) I63.9
[2023-04-26] MEDS: losartan 50 mg Tablet 25 MG PO (10:07)
[2023-04-26] MEDS: dilTIAZem ER (24HR) 120 mg Capsule PO (10:07)
[2023-04-26] MEDS: amiodarone 200 mg Tablet 100 MG PO (10:07)
--- NOTE | 2023-04-26 10:15 | MR_ITS ---
WS: [id number] MRI HEAD WITHOUT CONTRAST TECHNIQUE: Sagittal T1, T2 axial, T2 axial FLAIR, axial and coronal T1 images, axial susceptibility w eighted imaging, axial diffusion weighted images, and coronal T2 images were obtained. CLINICAL INFORMATION: cva COMPARISON: CT 04/25/2023 FINDINGS: Focal area of restricted diffusion within the RIGHT santiago radiata extending into the posterior limb RIGHT internal capsule compatible with acute ischemia. This measures approximately 9 x 5 mm. Mild ass ociated edema. No significant mass effect or midline shift. No other foci of restricted diffusion. Large chronic infarct in the LEFT santiago radiata extending into the LEFT basal ganglia and inferior L EFT frontal lobe with associated encephalomalacia and gliosis. Associated hemosiderin. Ex vacuo dilat ation LEFT lateral ventricle. Additional small chronic infarcts in the LEFT parietal lobe. Tiny lacun ar infarcts in the RIGHT basal ganglia and RIGHT midbrain. Small vessel changes in the kevin. Normal posterior fossa. Normal vascular flow voids at the skull base. No extra-axial fluid collection s. Paranasal sinuses well aerated. Normal posterior nasopharynx. Normal parapharyngeal fat. Paranasal sinuses are well aerated. Mastoid air cells are well aerated. Normal posterior nasopharynx. Normal o ptic chiasm and pituitary infundibulum. IMPRESSION: 1. Acute ischemia in the RIGHT santiago radiata extending into the RIGHT posterior limb internal capsu le measuring 9 x 5 mm. No significant mass effect or midline shift. 2. Large chronic infarct in the LEFT santiago radiata extending into the LEFT basal ganglia and inferi or LEFT frontal lobe with encephalomalacia and gliosis. Associated hemosiderin. 3. Numerous chronic lacunar infarcts described above. 4. Moderate small vessel changes with moderate parenchymal volume loss. 5. No other acute findings. Notified Estefania Astudillo MD at 04/26/2023 11:13 AM.
[2023-04-26 10:31] LABS: Erythrocyte Sedimentation Rate 13 mm/hr (0-15)
[2023-04-26] MEDS: rivaroxaban 10 mg Tablet 15 MG PO (18:23)
[2023-04-27] VITALS: BP 127/66; PULSE 62; RESP 16; TEMP 36.5; O2SAT 95
[2023-04-27 00:49] LABS: Glucose Point of Care 112 mg/dL (70-110)
[2023-04-27 04:00] VITALS: BP 143/64; PULSE 64; RESP 17; TEMP 36.6; O2SAT 95
[2023-04-27] MEDS: meropenem 500 MG in sodium chloride 0.9% (plus) 50 ML 100 MG IV ×2 (04:05→12:50)
[2023-04-27 05:00] VITALS: BMI 22.1
[2023-04-27 05:03] LABS: Hematocrit 37.4 % (36-47); Lymphocytes # 0.8 10^3/uL (0.8-4.8); Lymphocytes % 12.8 %; Mean Corpuscular HGB Conc 32.1 g/dL (30-55); Mean Corpuscular Hemoglobin 29.6 pg (27-33); Mean Corpuscular Volume 92.1 fl (85-98); Mean Platelet Volume 12.9 fL (7.4-10.4); Monocytes # 0.4 10^3/uL (0.2-0.9); Monocytes % 6.1 %; Neutrophils # 5.04 10^3/uL (1.8-7.7); Neutrophils % 80.8 %; Nucleated Red Blood Cells % 0 %; Platelet Count 255 10^3/cmm (157-399); Red Blood Count 4.06 10^6/uL (3.85-5.65); Red Cell Distribution Width 15.9 % (12.1-15.1); White Blood Count 6.24 10^3/uL (3.29-11.43)
[2023-04-27 05:26] LABS: Anion Gap 11.2 (5-19); Blood Urea Nitrogen 17 mg/dL (8-23); Calcium 9.3 mg/dL (8.5-10.5); Carbon Dioxide 26 mmol/L (22-29); Chloride 108 mmol/L (98-107); Glucose 104 mg/dL (65-115); Osmolality Calculated 294 mOsm/kg (285-295); Potassium 4.2 mmol/L (3.5-5.1); Sodium 141 mmol/L (136-145)
[2023-04-27 07:40] LABS: Glucose Point of Care 100 mg/dL (70-110)
[2023-04-27 07:59] VITALS: BP 134/71; PULSE 58; RESP 16; TEMP 36.7; O2SAT 95
[2023-04-27 08:11] VITALS: BP 134/71
[2023-04-27] MEDS: amiodarone 200 mg Tablet 100 MG PO (08:11)
[2023-04-27] MEDS: losartan 50 mg Tablet 25 MG PO (08:11)
[2023-04-27] MEDS: dilTIAZem ER (24HR) 120 mg Capsule PO (08:11)
[2023-04-27 10:44] LABS: Glucose Point of Care 94 mg/dL (70-110)
--- NOTE | 2023-04-27 10:54 | P.DS_ITS ---
Discharge Providers Date of Admission: 04/26/23 17:01 Date of Discharge: April 27, 2023 Attending Provider at Admission: Estefania Astudillo MD Attending Provider at Discharge: Estefania Astudillo MD Primary Care Provider: Servando Logan DO Diagnoses at Discharge Discharge Diagnosis (1) Essential (primary) hypertension: Status: Chronic (2) Atrial fibrillation: Status: Acute (3) Jaw pain: Status: Acute (4) UTI (urinary tract infection): Status: Acute (5) Left acute arterial ischemic stroke, MCA (middle cerebral artery): Status: Acute (6) CVA (cerebral vascular accident): Status: Acute Reason for Visit Reason for Visit: Stroke like Symptoms Hospital Course Hospital Course *Female who was admitted for management of evaluation of her new onset of left sided weakness, she has old infarct with right-sided weakness she was able to use her left hand to eat this has changed recently, that was the reason for her to get evaluated in the ER, she was also diagnosed with UTI with E. coli she has history of ESBL she was kept on meropenem during hospitalization E. coli urine culture is sensitive to cephalosporins and nitrofurantoin it is not ESBL she has been treated with IV antibiotics in the past I will give her Macrobid at discharge, she remained afebrile no significant leukocytosis, troponin did not show significant delta, echo unremarkable, she was complaining of left jaw pain which is likely neuropathic in nature MRI did show infarct which correlates with her symptoms, family does know that neck stroke could take away her ability to eat on her own which could be detrimental to take her life, she has been Full code by the son who is medical DPOA She will be discharged back to her facility She is on dysphagia level 6 diet soft and bite-size Please note she is already on amiodarone diltiazem and Xarelto for her history of A-fib She is only able to answer simple questions Physical Exam Narrative: Awake and alert Left-sided weakness Old right-sided weakness Able to eat dysphagia diet Able to answer simple questions Currently on room air Hemodynamically stable Discharge Data Studies Completed and Pending Completed Studies During Hospitalization Category Date Time Status CT facial bones wo con* [id number] Urgent Cat Scan 04/26/23 09:[address] head wo con* [id number] Stat Cat Scan 04/25/23 14:43 Completed XR chest 1V portable [id number] Stat Exams 04/25/23 14:43 Completed MR head wo con* [id number] Routine MRI 04/26/23 10:15 Completed CV. echo complete* [id number] Routine Ultrasound 04/25/23 18:34 Completed Radiology Impressions Head CT 04/25/23 14:43 IMPRESSION: No acute intracranial abnormality. Chronic microvascular ischemic changes. Laboratory Results WBC 6.24 10^3/uL (3.29-11.43) 04/27/23 04:10 RBC 4.06 10^6/uL (3.85-5.65) 04/27/23 04:10 Hgb 12.00 g/dL (11.27-16.99) 04/27/23 04:10 Hct 37.4 % (36-47) 04/27/23 04:10 MCV 92.1 fl (85-98) 04/27/23 04:10 MCH 29.6 pg (27-33) 04/27/23 04:10 MCHC 32.1 g/dL (30-55) 04/27/23 04:10 RDW 15.9 % (12.1-15.1) H 04/27/23 04:10 Plt Count 255 10^3/cmm (157-399) 04/27/23 04:10 MPV 12.9 fL (7.4-10.4) H 04/27/23 04:10 Neut % (Auto) 80.8 % 04/27/23 04:10 Lymph % (Auto) 12.8 % 04/27/23 04:10 [place] % (Auto) 6.1 % 04/27/23 04:10 Eos % (Auto) 0.0 % 04/27/23 04:10 Baso % (Auto) 0.0 % 04/27/23 04:10 Neut # (Auto) 5.04 10^3/uL (1.8-7.7) 04/27/23 04:10 Lymph # (Auto) 0.8 10^3/uL (0.8-4.8) 04/27/23 04:10 [place] # (Auto) 0.4 10^3/uL (0.2-0.9) 04/27/23 04:10 Eos # (Auto) 0.0 10^3/uL (0.0-0.8) 04/27/23 04:10 Baso # (Auto) 0.0 10^3/uL (0.0-0.1) 04/27/23 04:10 Nucleated RBC % (auto) 0 % 04/27/23 04:10 Nucleated RBCs # 0.0 /100WBC 04/27/23 04:10 ESR 13 mm/hr (0-15) 04/26/23 04:47 PT 17.80 SECONDS (12.1-14.9) H 04/25/23 14:40 INR 1.42 (0.8-1.2) H 04/25/23 14:40 Sodium 141 mmol/L (136-145) 04/27/23 04:10 Potassium 4.2 mmol/L (3.5-5.1) 04/27/23 04:10 Chloride 108 mmol/L (98-107) H 04/27/23 04:10 Carbon Dioxide 26 mmol/L (22-29) 04/27/23 04:10 Anion Gap 11.2 (5-19) 04/27/23 04:10 BUN 17 mg/dL (8-23) 04/27/23 04:10 Creatinine 0.4 mg/dL (0.5-0.9) L 04/27/23 04:10 GFR Calculation Not Reportable 04/27/23 04:10 Glucose 104 mg/dL (65-115) 04/27/23 04:10 POC Glucose 94 mg/dL (70-110) 04/27/23 10:31 Calculated Osmolality 294 mOsm/kg (285-295) 04/27/23 04:10 Calcium 9.3 mg/dL (8.5-10.5) 04/27/23 04:10 Magnesium 2.1 mg/dL (1.7-2.3) 04/26/23 04:47 Total Bilirubin 0.4 mg/dL (0.15-1.2) 04/25/23 14:40 AST 17 U/L (0-32) 04/25/23 14:40 ALT 12 U/L (0-33) 04/25/23 14:40 Alkaline Phosphatase 130 U/L (35-105) H 04/25/23 14:40 Troponin T Baseline 10 ng/L (0-10) 04/25/23 14:40 Troponin T 120 Minute 9.89 ng/L (0-10) 04/25/23 17:06 Delta Troponin T -0.11 ABS# (0-10) L 04/25/23 17:06 Troponin T Hi Sens 6Hr 10.96 ng/L (0-10) H 04/26/23 00:38 Troponin T Hi Sens 6Hr Delta 0.96 ng/L (0-12) 04/26/23 00:38 Total Protein 7.8 g/dL (6.6-8.7) 04/25/23 14:40 Albumin 4.5 g/dL (3.5-5.2) 04/25/23 14:40 Globulin 3.3 g/dL (1.3-4.6) 04/25/23 14:40 TSH 0.91 uIU/mL (0.27-4.20) 04/25/23 14:40 Urine Color Yellow (Yellow) 04/25/23 16:18 Urine Appearance Hazy (CLEAR) A 04/25/23 16:18 Urine pH 5 (5-7) 04/25/23 16:18 Ur Specific Free Soil 1.015 (1.005-1.030) 04/25/23 16:18 Urine Protein Neg (Negative) 04/25/23 16:18 Urine Glucose (UA) Norm (Normal) 04/25/23 16:18 Urine Ketones Negative (Negative) 04/25/23 16:18 Urine Blood Neg (Negative) 04/25/23 16:18 Urine Nitrate Positive (Negative) H 04/25/23 16:18 Urine Bilirubin Neg (Negative) 04/25/23 16:18 Urine Urobilinogen Norm mg/dL (Negative) 04/25/23 16:18 Ur Leukocyte Esterase Negative (Negative) 04/25/23 16:18 Urine RBC 0-4 /hpf (0-2) H 04/25/23 16:18 Urine WBC 10-15 /hpf (0-5) H 04/25/23 16:18 Ur Squamous Epith Cells 5-10 /hpf (0-5) H 04/25/23 16:18 Amorphous Sediment Not Reportable 04/25/23 16:18 Urine Bacteria 4+ /hpf (NONE) H 04/25/23 16:18 Urine Mucus 1+ /hpf 04/25/23 16:18 Vitals Last Vital Signs Temp 98.0 F 04/27/23 07:59 Pulse 58 L 04/27/23 07:59 Resp 16 04/27/23 07:59 BP 134/71 04/27/23 08:11 Pulse Ox 95 04/27/23 07:59 O2 Del Method Room Air 04/27/23 07:59 Discharge Plan Discharge Patient Disposition: Xfer SNF Condition: Stable Prescriptions: New nitrofurantoin macrocrystal 100 mg capsule 100 mg PO BID 7 Days Qty: 14 0RF Rx Instructions: must administer with a meal/food Continued Xarelto 15 mg tablet 15 mg PO DAILY@19 Rx Instructions: must administer with evening meal baclofen 5 mg tablet 2.5 mg PO Q8H famotidine 20 mg tablet 20 mg PO BID bisacodyl 10 mg suppository 10 mg [place] DAILY PRN (Reason: Constipation) Rx Instructions: give rectally if no results from mom Fleet Enema 19-7 gram/118 mL enema 118 ml [place] DAILY PRN (Reason: Constipation) Rx Instructions: give fleets if no results from mom and dulcolax magnesium hydroxide [Milk of Magnesia] 400 mg/5 mL suspension 15 ml PO DAILY PRN (Reason: if no bm in 3 days) ascorbic acid (vitamin C) 500 mg capsule 500 mg PO DAILY@08 cyanocobalamin (vitamin B-12) 1,000 mcg capsule 1,000 mcg PO DAILY@08 ergocalciferol (vitamin D2) 1,250 mcg (50,000 unit) capsule 1,250 mcg PO Q7D Rx Instructions: on sun ferrous sulfate 325 mg (65 mg iron) tablet 325 mg PO DAILY@08 losartan 25 mg tablet 25 mg PO DAILY Senna-S 8.6-50 mg Tablet 1 tab PO BID Tylenol Ex Str Rapid Release 500 mg Tablet 1,000 mg PO Q6H PRN (Reason: Pain) diltiazem HCl 120 mg capsule,extended release 24hr 120 mg PO DAILY@08 bisacodyl 5 mg Tablet,Delayed Release (Dr/Ec) 10 mg PO DAILY PRN (Reason: if no bm in 3 days) hydrocodone-acetaminophen 5-325 mg Tablet 1 tab PO Q8H PRN (Reason: Pain) amiodarone 100 mg Tablet 100 mg PO DAILY@08 Discharge Orders: Discharge Order (Routine); Ordered 04/27/23 Ordered By: Estefania Astudillo Referrals: [facility] [Outside] Servando Logan DO [Primary Care Provider] - Discharge Diet: Cardiac Patient Instructions: Opioid Safety Discharge Attestations Time Spent in Discharge Care*: greater than 30 min Quality Metrics Clinical Quality Measures [ No reported AMI, CVA or VTE this stay] Coding Level of Care Code Acute Code for Chg Fwd Diagnoses Essential (primary) hypertension I10 Atrial fibrillation I48.91 Jaw pain R68.84 UTI (urinary tract infection) N39.0 Left acute arterial ischemic stroke, MCA (middle cerebral artery) I63.512 CVA (cerebral vascular accident) I63.9
[2023-04-27 11:41] VITALS: BP 152/66; PULSE 66; RESP 17; O2SAT 95
[2023-04-27 16:39] VITALS: BP 152/66; PULSE 66; RESP 17; O2SAT 95
[2023-04-28 02:03] LABS: SARS Covid-2 Antigen negative (Negative)
== END 2023-04-27 16:00 | disposition skilled nursing facility (03) | DRG 65 ==
LOC: ER 17:09 → MEDSURG 04-26 00:38
PROVIDERS: Admitting Provider Internal Medicine; Emergency Provider Emergency Medicine; PCP Internal Medicine; Visit Provider Internal Medicine
DX: I63.512 Cerebral infarction due to unspecified occlusion or stenosis of left middle cerebral artery (principal); G81.94 Hemiplegia, unspecified affecting left nondominant side; N39.0 Urinary tract infection, site not specified; I69.351 Hemiplegia and hemiparesis following cerebral infarction affecting right dominant side; R47.81 Slurred speech; B96.20 Unspecified Escherichia coli [E. coli] as the cause of diseases classified elsewhere; I48.91 Unspecified atrial fibrillation; Z79.01 Long term (current) use of anticoagulants; I10 Essential (primary) hypertension; E78.2 Mixed hyperlipidemia; G62.9 Polyneuropathy, unspecified; R68.84 Jaw pain
CPT/HCPCS: 20610; 36415; 36416; 70450; 70486; 70551; 71045; 73562; 80048; 80053; 81001; 82962; 83735; 84443; 84484; 85025; 85610; 85651; 87077; 87086; 87186; 87426; 92523; 92610; 93005; 93306; 97162; 97166; 97530; 97535; 99213; G0378; J1956; J2185; J3301; J7030

== ENCOUNTER → 2023-05-08 14:13 | Outpatient (BNVA) | payer MEDICARE, OTHER, MEDICAID, SELFPAY | PROVIDERS: PCP Internal Medicine; Visit Provider Internal Medicine | DX: R06.02 Shortness of breath (principal); I10 Essential (primary) hypertension; R07.9 Chest pain, unspecified; I48.91 Unspecified atrial fibrillation; Z86.73 Personal history of transient ischemic attack (TIA), and cerebral infarction without residual deficits | CPT/HCPCS: 99214 ==

== ENCOUNTER → 2023-07-24 14:20 | Outpatient (BNVA) | payer MEDICARE, OTHER, MEDICAID, SELFPAY | PROVIDERS: PCP Internal Medicine; Visit Provider Internal Medicine | DX: R06.02 Shortness of breath (principal); I10 Essential (primary) hypertension; R07.9 Chest pain, unspecified; I48.91 Unspecified atrial fibrillation; Z86.73 Personal history of transient ischemic attack (TIA), and cerebral infarction without residual deficits; Z79.01 Long term (current) use of anticoagulants | CPT/HCPCS: 99214 ==

== ENCOUNTER → 2023-11-07 13:04 | Outpatient (BNVA) | payer MEDICARE, OTHER, MEDICAID, SELFPAY | PROVIDERS: PCP Internal Medicine; Visit Provider Internal Medicine | DX: R06.02 Shortness of breath (principal); I10 Essential (primary) hypertension; R07.9 Chest pain, unspecified; I48.91 Unspecified atrial fibrillation; Z86.73 Personal history of transient ischemic attack (TIA), and cerebral infarction without residual deficits | CPT/HCPCS: 99214 ==

== ENCOUNTER 2023-12-01 12:23 | Emergency (ER) | payer MEDICARE, OTHER, MEDICAID, SELFPAY ==
[2023-12-01] VITALS (7 sets, daily range): BP systolic 139–166; BP diastolic 57–70; PULSE 61–78; RESP 18; TEMP 36.7; O2SAT 95–98
--- NOTE | 2023-12-01 12:32 | CTR_ITS ---
PROCEDURE INFORMATION: Exam: CT Maxillofacial With Contrast; Mandible Exam date and time: 12/01/2023 1:48 PM Age: 78 years old Clinical indication: Mass, lump, or swelling; Mouth; Additional info: Dental infection TECHNIQUE: Imaging protocol: Computed tomography maxillofacial with intravenous contrast. Exam focused on the mandible. Radiation optimization: All CT scans at this facility use at least one of these dose optimization techniques: automated exposure control; mA and/or kV adjustment per patient size (includes targeted exams where dose is matched to clinical indication); or iterative reconstruction. Contrast material: OMNIPAQUE 350; Contrast volume: 80 ml; Contrast route: INTRAVENOUS (IV); COMPARISON: CT facial bones wo con* [id number] 04/26/2023 10:29 AM RADIATION DOSE METRICS: Total DLP (mGy-cm): 482.2 FINDINGS: Bones: Mild curvature of the cervical spine convex to the right. There is mild degenerative disease at the anterior C1-C2 articulation. Posterior osteophyte disc complex at C3-C4, C4-C5 and C5-C6 with mild bony canal stenosis. Paranasal sinuses: Mild mucosal disease of the left sphenoid sinus and right maxillary sinus. Soft tissues: Mild soft swelling of the right cheek. CT/CT facial bones w con [id number] IMPRESSION: No soft tissue abscess.
--- NOTE | 2023-12-01 12:32 | CTR_ITS ---
PROCEDURE INFORMATION: Exam: CT Head Without Contrast Exam date and time: 12/01/2023 1:48 PM Age: 78 years old Clinical indication: Altered mental status/memory loss; Confusion or disorientation; Additional info: AMS, facial weakness TECHNIQUE: Imaging protocol: Computed tomography of the head without contrast. Radiation optimization: All CT scans at this facility use at least one of these dose optimization techniques: automated exposure control; mA and/or kV adjustment per patient size (includes targeted exams where dose is matched to clinical indication); or iterative reconstruction. COMPARISON: MR head wo con* [id number] 04/26/2023 10:39 AM RADIATION DOSE METRICS: Total DLP (mGy-cm): 1117.4 FINDINGS: Brain: Chronic encephalomalacia of the right periventricular white matter. Redemonstrated the chronic infarct in the left coronary radiata extending into the left basal ganglia and inferior left frontal lobe with encephalomalacia and calcifications. No recent infarct, intracranial bleed or mass effect. Cerebral ventricles: No ventriculomegaly. Paranasal sinuses: Mild mucosal disease of the right maxillary sinus and left sphenoid sinus. Mastoid air cells: Visualized mastoid air cells are well aerated. Bones: Unremarkable. No acute fracture. Soft tissues: Unremarkable. CT/CT head wo con* [id number] IMPRESSION: No large territorial infarct or intracranial bleed.
[2023-12-01 13:04] LABS: Basophils % 0.1 %; Eosinophils # 0.1 10^3/uL (0.0-0.8); Eosinophils % 1.4 %; Hematocrit 39.4 % (36-47); Lymphocytes # 1.2 10^3/uL (0.8-4.8); Lymphocytes % 17.3 %; Mean Corpuscular HGB Conc 32.5 g/dL (30-55); Mean Corpuscular Hemoglobin 32.4 pg (27-33); Mean Corpuscular Volume 99.7 fl (85-98); Mean Platelet Volume 12.5 fL (7.4-10.4); Monocytes # 0.6 10^3/uL (0.2-0.9); Monocytes % 8.5 %; Neutrophils # 5.14 10^3/uL (1.8-7.7); Neutrophils % 72.6 %; Nucleated Red Blood Cells % 0 %; Platelet Count 244 10^3/cmm (157-399); Red Blood Count 3.95 10^6/uL (3.85-5.65); Red Cell Distribution Width 14.1 % (12.1-15.1); White Blood Count 7.09 10^3/uL (3.29-11.43)
--- NOTE | 2023-12-01 13:22 | W.ED.GENADLT ---
HPI - General Adult General: Chief complaint: General Medical Stated complaint: right facial swelling; AMS Time Seen by Provider: 12/01/23 12:27 History of Present Illness: 78-year-old presents to the emergency room from residential. She has a history of dementia she has previously had multiple strokes she has permanent right-sided deficits show her previous stroke. Staff reports she is worsened from her baseline. She is difficult time remembering her son's name. She denies any chest pain (with her dementia uncertain of veracity) she does have some swelling on right side of her face. No recent falls or trauma. Last known well was around 630 last night. Associated symptoms: Deny chest pain, dyspnea or rash Related Data Home Medications Medication Instructions Recorded Confirmed bisacodyl 10 mg rectal suppository 10 mg UT DAILY PRN Constipation 06/30/22 07/24/23 famotidine 20 mg tablet 20 mg PO BID 06/30/22 11/07/23 magnesium hydroxide 400 mg/5 mL 15 ml PO DAILY PRN if no bm in 3 06/30/22 11/07/23 oral suspension (Milk of Magnesia) days sodium phosphates 19 gram-7 118 ml UT DAILY PRN Constipation 06/30/22 11/07/23 gram/118 mL enema (Fleet Enema) rivaroxaban 15 mg tablet (Xarelto) 15 mg PO DAILY@10/31/22 11/07/23 amiodarone 100 mg tablet 100 mg PO DAILY@12/18/22 11/07/23 hydrocodone 5 mg-acetaminophen 325 1 tab PO Q8H PRN Pain 12/18/22 07/24/23 mg tablet ascorbic acid (vitamin C) 500 mg 500 mg PO DAILY@01/18/23 11/07/23 capsule cyanocobalamin (vitamin B-12) 1,000 mcg PO DAILY@01/18/23 11/07/23 1,000 mcg capsule ergocalciferol (vitamin D2) 1,250 1,250 mcg PO Q7D 01/18/23 11/07/23 mcg (50,000 unit) capsule ferrous sulfate 325 mg (65 mg 325 mg PO DAILY@01/18/23 11/07/23 iron) tablet baclofen 5 mg tablet 2.5 mg PO Q8H 04/05/23 11/07/23 acetaminophen 500 mg tablet 1,000 mg PO Q6H PRN Pain 04/25/23 11/07/23 bisacodyl 5 mg tablet,delayed 10 mg PO DAILY PRN if no bm in 3 04/25/23 11/07/23 release days diltiazem HCl 120 mg 120 mg PO DAILY@08 04/25/23 11/07/23 capsule,extended release 24 hr sennosides 8.6 mg-docusate sodium 1 tab PO BID hold if loose stools 04/25/23 11/07/23 50 mg tablet (Senna-S) meloxicam 7.5 mg tablet 7.5 mg PO DAILY 11/07/23 11/07/23 Previous Rx's Medication Instructions Recorded atorvastatin 20 mg tablet 20 mg PO DAILY #90 tabs 05/08/23 losartan 50 mg tablet 75 mg (1.5 x 50 mg) PO DAILY #135 11/07/23 tabs Allergies Allergy/AdvReac Type Severity Reaction Status Date / Time Cephalosporins Allergy trouble Verified 11/07/23 13:19 breathing Iodinated Contrast Media Allergy ALGY-Rash Verified 11/07/23 13:19 Sulfa (Sulfonamide Allergy Unknown Verified 11/07/23 13:19 Antibiotics) Review of Systems General: Reports: Other (Denies all questions in regard to review of systems, has underlying dementi) Const: Denies: fever(s) or chills Card: Denies: chest pain Resp: Denies: dyspnea GI: Denies: abdominal pain : Denies: dysuria, urinary frequency or urinary urgency Musc: Denies: neck pain or back pain Skin/Breast: Denies: rash PFSH ED PFSH: Medical History Jaw pain Left-sided weakness UTI (urinary tract infection) Anticoagulated by anticoagulation treatment CVA (cerebral vascular accident) Left acute arterial ischemic stroke, MCA (middle cerebral artery) Enlarged thyroid Subcapital fracture of right hip Atrial fibrillation Essential (primary) hypertension Environmental and seasonal allergies Mixed hyperlipidemia Surgical History History of cholecystectomy History of dilatation and curettage History of tubal ligation History of tonsillectomy Family History Mother Stroke Other Heart disease Hypertension Social History Smoking and tobacco/nicotine status: never used tobacco/nicotine Physical Exam Const: COMMON NORMALS: no acute distress GENERAL APPEARANCE: cooperative and comfortable ORIENTATION/CONSCIOUSNESS: Yes awake HENMT: COMMON NORMALS: normocephalic and hearing grossly normal bilaterally HEAD & SCALP: normocephalic OTHER: Right facial swelling no palpable masses. Slight of food debris at the gumline but no swelling. No cervical lymphadenopathy Resp: COMMON NORMALS: normal respiratory effort, No retractions, No use of accessory muscles and clear to auscultation bilaterally AUSCULTATION: clear to auscultation bilaterally Cardio: COMMON NORMALS: regular rate, regular rhythm and No murmurs present (Cardio) RATE: regular rate RHYTHM: regular rhythm GI: COMMON NORMALS: Soft to palpation and No hepatosplenomegaly present AUSCULTATION: Yes normoactive bowel sounds PALPATION: Yes Soft to palpation, No Tenderness to palpation present (GI), No Guarding due to palpation present (GI) and Yes No hepatosplenomegaly present Extremity: COMMON NORMALS: normal to inspection, capillary refill normal, no clubbing, cyanosis or edema, no calf tenderness and no pedal edema Skin: COMMON NORMALS: no rashes or lesions noted GENERAL SKIN EXAM: no rashes or lesions noted Course Vital Signs: Vital signs: Vital Signs Temperature 98.0 F 12/01/23 12:24 Pulse Rate 61 12/01/23 15:30 Respiratory Rate 18 12/01/23 13:39 Blood Pressure 152/63 12/01/23 15:30 Pulse Oximetry 95 12/01/23 15:30 Oxygen Delivery Me thod Room Air 12/01/23 14:00 [facility] - General Adult Medical Decision Making Patient seen and evaluated for chief complaint of some left-sided facial swelling we did do a CT of the face with contrast there is no abscess or abnormality noted not finding specific with exam either. CT of the head was negative. Discussed Dr. Mccarthy at this time call. Her last known well is nearly 20 hours ago. She is outside the window for any interventions with thrombolytics. Patient is difficult to score because of her previous CVA. Discussed with the family. They do not wish to pursue any further they recognize that there really are not significant treatment options available. She is not a candidate for thrombectomy either. Will discharge patient back to the residential with continued previous care. Other labs unremarkable. Lab Data 12/01/23 12:55 12/01/23 12:[address] 12/01/23 12:32 IMPRESSION: No soft tissue abscess. Head CT 12/01/23 12:32 IMPRESSION: No large territorial infarct or intracranial bleed. Laboratory Results WBC 7.09 10^3/uL (3.29-11.43) 12/01/23 12:55 RBC 3.95 10^6/uL (3.85-5.65) 12/01/23 12:55 Hgb 12.80 g/dL (11.27-16.99) 12/01/23 12:55 Hct 39.4 % (36-47) 12/01/23 12:55 MCV 99.7 fl (85-98) H 12/01/23 12:55 MCH 32.4 pg (27-33) 12/01/23 12:55 MCHC 32.5 g/dL (30-55) 12/01/23 12:55 RDW 14.1 % (12.1-15.1) 12/01/23 12:55 Plt Count 244 10^3/cmm (157-399) 12/01/23 12:55 MPV 12.5 fL (7.4-10.4) H 12/01/23 12:55 Neut % (Auto) 72.6 % 12/01/23 12:55 Lymph % (Auto) 17.3 % 12/01/23 12:55 [place] % (Auto) 8.5 % 12/01/23 12:55 Eos % (Auto) 1.4 % 12/01/23 12:55 Baso % (Auto) 0.1 % 12/01/23 12:55 Neut # (Auto) 5.14 10^3/uL (1.8-7.7) 12/01/23 12:55 Lymph # (Auto) 1.2 10^3/uL (0.8-4.8) 12/01/23 12:55 [place] # (Auto) 0.6 10^3/uL (0.2-0.9) 12/01/23 12:55 Eos # (Auto) 0.1 10^3/uL (0.0-0.8) 12/01/23 12:55 Baso # (Auto) 0.0 10^3/uL (0.0-0.1) 12/01/23 12:55 Nucleated RBC % (auto) 0 % 12/01/23 12:55 Nucleated RBCs # 0.0 /100WBC 12/01/23 12:55 Sodium 145 mmol/L (136-145) 12/01/23 12:55 Potassium 3.7 mmol/L (3.5-5.1) 12/01/23 12:55 Chloride 107 mmol/L (98-107) 12/01/23 12:55 Carbon Dioxide 28 mmol/L (22-29) 12/01/23 12:55 Anion Gap 13.7 (5-19) 12/01/23 12:55 BUN 13 mg/dL (8-23) 12/01/23 12:55 Creatinine 0.5 mg/dL (0.5-0.9) 12/01/23 12:55 GFR Calculation Not Reportable 12/01/23 12:55 Glucose 106 mg/dL (65-115) 12/01/23 12:55 Calculated Osmolality 301 mOsm/kg (285-295) H 12/01/23 12:55 Calcium 9.6 mg/dL (8.5-10.5) 12/01/23 12:55 Total Bilirubin 0.6 mg/dL (0.15-1.2) 12/01/23 12:55 AST 15 U/L (0-32) 12/01/23 12:55 ALT 11 U/L (0-33) 12/01/23 12:55 Alkaline Phosphatase 114 U/L (35-105) H 12/01/23 12:55 Total Protein 7.2 g/dL (6.6-8.7) 12/01/23 12:55 Albumin 4.3 g/dL (3.5-5.2) 12/01/23 12:55 Globulin 2.9 g/dL (1.3-4.6) 12/01/23 12:55 Urine Color Yellow (Yellow) 12/01/23 12:55 Urine Appearance Clear (CLEAR) 12/01/23 12:55 Urine pH 7.0 (5-7) 12/01/23 12:55 Ur Specific [place] 1.004 (1.005-1.030) L 12/01/23 12:55 Urine Protein Negative (Negative) 12/01/23 12:55 Urine Glucose (UA) Negative (Normal) 12/01/23 12:55 Urine Ketones Negative (Negative) 12/01/23 12:55 Urine Blood Negative (Negative) 12/01/23 12:55 Urine Nitrate Negative (Negative) 12/01/23 12:55 Urine Bilirubin Negative (Negative) 12/01/23 12:55 Urine Urobilinogen 0.2 mg/dL (Negative) 12/01/23 12:55 Ur Leukocyte Esterase Trace (Negative) A 12/01/23 12:55 Urine RBC 0-2 /hpf (0-2) 12/01/23 12:55 Urine WBC 0-5 /hpf (0-5) 12/01/23 12:55 Ur Squamous Epith Cells 0-5 /hpf (0-5) 12/01/23 12:55 Amorphous Sediment Not Reportable 12/01/23 12:55 Urine Bacteria 4+ /hpf (NONE) H 12/01/23 12:55 Hyaline Casts 0-4 /lpf H 12/01/23 12:55 All radiology interpretation(s) finalized by discharge Discharge Plan Discharge Patient Disposition: Home Clinical Impression: Dementia, Hx of completed stroke Condition: Stable Prescriptions: No Action Xarelto 15 mg tablet 15 mg PO DAILY@19 Rx Instructions: must administer with evening meal atorvastatin 20 mg tablet 20 mg PO DAILY Qty: 90 3RF baclofen 5 mg tablet 2.5 mg PO Q8H meloxicam 7.5 mg tablet 7.5 mg PO DAILY losartan 50 mg tablet 75 mg PO DAILY Qty: 135 3RF famotidine 20 mg tablet 20 mg PO BID bisacodyl 10 mg suppository 10 mg UT DAILY PRN (Reason: Constipation) Rx Instructions: give rectally if no results from mom Fleet Enema 19-7 gram/118 mL enema 118 ml UT DAILY PRN (Reason: Constipation) Rx Instructions: give fleets if no results from mom and dulcolax magnesium hydroxide [Milk of Magnesia] 400 mg/5 mL suspension 15 ml PO DAILY PRN (Reason: if no bm in 3 days) ascorbic acid (vitamin C) 500 mg capsule 500 mg PO DAILY@08 cyanocobalamin (vitamin B-12) 1,000 mcg capsule 1,000 mcg PO DAILY@08 ergocalciferol (vitamin D2) 1,250 mcg (50,000 unit) capsule 1,250 mcg PO Q7D Rx Instructions: on mon ferrous sulfate 325 mg (65 mg iron) tablet 325 mg PO DAILY@08 Senna-S 8.6-50 mg Tablet 1 tab PO BID acetaminophen 500 mg Tablet 1,000 mg PO Q6H PRN (Reason: Pain) diltiazem HCl 120 mg capsule,extended release 24hr 120 mg PO DAILY@08 bisacodyl 5 mg Tablet,Delayed Release (Dr/Ec) 10 mg PO DAILY PRN (Reason: if no bm in 3 days) hydrocodone-acetaminophen 5-325 mg Tablet 1 tab PO Q8H PRN (Reason: Pain) amiodarone 100 mg Tablet 100 mg PO DAILY@08 Discharge Orders: Discharge ED (Routine); Ordered 12/01/23 Ordered By: Alexi Kohli Referrals: Servando Logan, [Primary Care Provider] - Discharge Diet: Usual diet Discharge Activity: Resume usual activity Patient Instructions: Opioid Safety, Pain Management Activity Restrictions/Additional Instructions: Thank you for choosing [facility] for your healthcare needs today. It is very important that you follow up as instructed or that you return to the Emergency Department should you have concerns or if your condition changes or worsens in any way. You are seen in the emergency room for possible stroke. CT did not show anything and we did discuss your case with the on-call neurologist do not recommend any further evaluation. Recommend return to the emergency room continuing routine care continue rehab. Coding Level of Care Code ED [facility] Supervisor for Hermelindo Koehler
[2023-12-01 13:24] LABS: Alanine Aminotransferase 11 U/L (0-33); Albumin Level 4.3 g/dL (3.5-5.2); Alkaline Phosphatase 114 U/L (35-105); Anion Gap 13.7 (5-19); Aspartate Amino Transferase 15 U/L (0-32); Blood Urea Nitrogen 13 mg/dL (8-23); Calcium 9.6 mg/dL (8.5-10.5); Carbon Dioxide 28 mmol/L (22-29); Chloride 107 mmol/L (98-107); Globulin 2.9 g/dL (1.3-4.6); Glucose 106 mg/dL (65-115); Osmolality Calculated 301 mOsm/kg (285-295); Potassium 3.7 mmol/L (3.5-5.1); Sodium 145 mmol/L (136-145); Total Bilirubin 0.6 mg/dL (0.15-1.2); Total Protein 7.2 g/dL (6.6-8.7)
[2023-12-01] MEDS: diphenhydrAMINE 50 mg/mL SDV 1mL 25 MG IVP (13:36)
[2023-12-01] MEDS: methylPREDNISolone sod succ 40 mg/mL INJ IVP (13:36)
[2023-12-01] MEDS: iohexol 350 mg/mL 500 mL Btl (per mL) IV (13:54)
[2023-12-01 15:25] LABS: Charge for UA Resulting for Rev
[2023-12-01 15:28] LABS: Bilirubin Urine Negative (Negative); Blood Urine Negative (Negative); Glucose Urine UA Negative (Normal); Ketones Urine Negative (Negative); Leukocyte Esterase Urine Trace (Negative); Nitrate Urine Negative (Negative); Protein Urine Negative (Negative); Specific Gravity, Urine 1.004 (1.005-1.030); Urine Appearance Clear (CLEAR); Urine Color Yellow (Yellow); Urobilinogen Urine 0.2 mg/dL (Negative)
[2023-12-01 15:30] LABS: Bacteria Urine 4+ /hpf; Hyaline Casts Urine 0-4 /lpf; RBC Urine 0-2 /hpf (0-2); Squamous Epithelial Cell Urine 0-5 /hpf (0-5); WBC Urine 0-5 /hpf (0-5)
--- NOTE | 2023-12-01 16:45 | PC.NURSE ---
pt educated on transfer process back to [place]. Ride has been set up. PT denied any further needs at this time
--- NOTE | 2023-12-01 17:30 | PC.NURSE ---
report called to thais at [facility].
--- NOTE | 2023-12-01 18:17 | PC.NURSE ---
Offered PT food and drink. pt requested coffee, denies food at this time. denies other needs
--- NOTE | 2023-12-01 18:35 | PC.NURSE ---
arrived and stated if there is anyway this patient can sit in a wheelchair we will refuse transport. pt has been waiting for transport multiple hours in er bed. contacted and informed them PT has dementia and we are unable to put her in a taxi, pt also has severe right side deficits from previous stroke and very limited ROM and strength. This nurse does not feel PT is appropriate for wheelchair placement and taxi transfer
== END 2023-12-01 18:52 | disposition home or self-care (01) ==
PROVIDERS: Emergency Provider Family Medicine; PCP Internal Medicine
DX: F03.90 Unspecified dementia, unspecified severity, without behavioral disturbance, psychotic disturbance, mood disturbance, and anxiety (principal); Z86.73 Personal history of transient ischemic attack (TIA), and cerebral infarction without residual deficits; I10 Essential (primary) hypertension; E78.2 Mixed hyperlipidemia
CPT/HCPCS: 70450; 70487; 80053; 81003; 81015; 85025; 87040; 96374; 96375; 99285; J1200; J2919; Q9967

== ENCOUNTER → 2024-03-05 08:55 | Outpatient (BNVA) | payer MEDICARE, MEDICAID, SELFPAY | PROVIDERS: PCP Internal Medicine; Visit Provider Nurse Practitioner Women's Health | DX: N95.0 Postmenopausal bleeding (principal); L90.0 Lichen sclerosus et atrophicus; N39.0 Urinary tract infection, site not specified | CPT/HCPCS: 81000; 87086 ==

== ENCOUNTER → 2024-05-14 15:05 | Outpatient (BNVA) | payer MEDICARE, OTHER, MEDICAID, SELFPAY | PROVIDERS: PCP Internal Medicine; Visit Provider Internal Medicine | DX: R06.02 Shortness of breath (principal); I10 Essential (primary) hypertension; R07.9 Chest pain, unspecified; I48.91 Unspecified atrial fibrillation; Z86.73 Personal history of transient ischemic attack (TIA), and cerebral infarction without residual deficits | CPT/HCPCS: 99214 ==

== ENCOUNTER 2024-11-12 15:11 | Emergency (ER) | payer MEDICARE, OTHER, MEDICAID, SELFPAY ==
[2024-11-12] VITALS (7 sets, daily range): BP systolic 115–161; BP diastolic 48–80; PULSE 56–73; RESP 16; TEMP 36.8; O2SAT 93–98; BMI 21.9
--- NOTE | 2024-11-12 15:18 | W.ED.GENADLT ---
Documented by User: Alexi Kohli DO 11/13/24 06:03 HPI - General Adult General: Chief complaint: Vaginal Bleeding Stated complaint: VAG BLEEDING Time Seen by Provider: 11/12/24 15:15 History of Present Illness: 79-year-old female presents emergency room with vaginal bleeding times last 3 weeks. 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 No other reported difficulties. Her vital signs are stable. She has a history of atrial fibrillation and is on Xarelto. Associated symptoms: Deny chest pain, dyspnea or rash Related Data Home Medications ?Medication ?Instructions ?Recorded ?Confirmed famotidine 20 mg tablet 20 mg PO BID 06/30/22 06/03/24 magnesium hydroxide 400 mg/5 mL 15 ml PO DAILY PRN if no bm in 3 06/30/22 06/03/24 oral suspension (Milk of Magnesia) days sodium phosphates 19 gram-7 118 ml ID DAILY PRN Constipation 06/30/22 06/03/24 gram/118 mL enema (Fleet Enema) rivaroxaban 15 mg tablet (Xarelto) 15 mg PO DAILY@10/31/22 06/03/24 amiodarone 100 mg tablet 100 mg PO DAILY@12/18/22 06/03/24 cyanocobalamin (vitamin B-12) 1,000 mcg PO DAILY@01/18/23 06/03/24 1,000 mcg capsule ergocalciferol (vitamin D2) 1,250 1,250 mcg PO Q7D 01/18/23 06/03/24 mcg (50,000 unit) capsule baclofen 5 mg tablet 2.5 mg PO Q8H 04/05/23 06/03/24 acetaminophen 500 mg tablet 1,000 mg PO Q6H PRN Pain 04/25/23 06/03/24 bisacodyl 5 mg tablet,delayed 10 mg PO DAILY PRN if no bm in 3 04/25/23 06/03/24 release days diltiazem HCl 120 mg 120 mg PO DAILY@04/25/23 06/03/24 capsule,extended release 24 hr sennosides 8.6 mg-docusate sodium 1 tab PO BID hold if loose stools 04/25/23 06/03/24 50 mg tablet (Senna-S) meloxicam 7.5 mg tablet 7.5 mg PO DAILY 11/07/23 06/03/24 calcium carbonate (Tums) 200 mg PO ONCE 03/05/24 06/03/24 Previous Rx's ?Medication ?Instructions ?Recorded atorvastatin 20 mg tablet 20 mg PO DAILY #90 tabs 05/08/23 losartan 50 mg tablet 75 mg (1.5 x 50 mg) PO DAILY #135 11/07/23 tabs nitrofurantoin 100 mg PO DAILY #60 caps 03/05/24 monohydrate/macrocrystals 100 mg capsule (Macrobid) Allergies Allergy/AdvReac Type Severity Reaction Status Date / Time Cephalosporins Allergy trouble Verified 06/03/24 08:02 breathing Iodinated Contrast Media Allergy ALGY-Rash Verified 06/03/24 08:02 Sulfa (Sulfonamide Allergy Unknown Verified 06/03/24 08:02 Antibiotics) Review of Systems Const: Denies: fever(s) or chills Card: Denies: chest pain Resp: Denies: dyspnea GI: Denies: abdominal pain : Denies: dysuria, urinary frequency or urinary urgency Musc: Denies: neck pain or back pain Skin/Breast: Denies: rash PFSH ED PFSH: Medical History Jaw pain Left-sided weakness UTI (urinary tract infection) Anticoagulated by anticoagulation treatment CVA (cerebral vascular accident) Left acute arterial ischemic stroke, MCA (middle cerebral artery) Enlarged thyroid Subcapital fracture of right hip Atrial fibrillation Essential (primary) hypertension Environmental and seasonal allergies Mixed hyperlipidemia Surgical History H/O: hysterectomy History of cholecystectomy History of dilatation and curettage History of tubal ligation History of tonsillectomy Family History Mother Stroke Other Heart disease Hypertension Social History Smoking and tobacco/nicotine status: never used tobacco/nicotine Physical Exam Const: ORIENTATION/CONSCIOUSNESS: Yes awake HENMT: COMMON NORMALS: normocephalic, atraumatic and hearing grossly normal bilaterally HEAD & SCALP: normocephalic and atraumatic Resp: COMMON NORMALS: normal respiratory effort, No retractions, No use of accessory muscles and clear to auscultation bilaterally AUSCULTATION: clear to auscultation bilaterally Cardio: COMMON NORMALS: regular rate, regular rhythm and No murmurs present (Cardio) RATE: regular rate RHYTHM: regular rhythm GI: COMMON NORMALS: Soft to palpation and No hepatosplenomegaly present AUSCULTATION: Yes normoactive bowel sounds PALPATION: Yes Soft to palpation, No Tenderness to palpation present (GI), No Guarding due to palpation present (GI) and Yes No hepatosplenomegaly present : OTHER: On exam grossly there does not appear to be any blood coming from the vaginal vault there is blood from the urinary meatus. Appears to be a hematoma at the ureteral meatus Extremity: COMMON NORMALS: normal to inspection, capillary refill normal, no clubbing, cyanosis or edema, no calf tenderness and no pedal edema Skin: COMMON NORMALS: no rashes or lesions noted GENERAL SKIN EXAM: no rashes or lesions noted Course Vital Signs: Vital signs: Vital Signs Temperature 98.3 F 11/12/24 15:15 Pulse Rate 63 11/12/24 21:20 Respiratory Rate 16 11/12/24 15:15 Blood Pressure 135/52 11/12/24 21:20 Pulse Oximetry 95 11/12/24 21:20 Oxygen Delivery Me thod Room Air 11/12/24 15:15 MDM - General Adult Medical Decision Making Old history as stated patient had has had hysterectomy. long-term reporting vaginal bleeding x 3 weeks. Ultrasound appears to have cervix but confirms hysterectomy. CT shows retained urine. On gross exam vaginal introitus blood seems to be coming more from the urinary meatus rather than vaginal source. CT confirms patient has had hysterectomy. Care signed out to Dr. Castrejon at change of shift. See final notes for diagnosis and disposition. Urine output only 100 after Todd. Urine is nonbloody. On vulvar exam there is like a hematoma at the meatus also some blood in the vaginal vault. Unsure if the source is cervix versus this hematoma at the meatus as patient resists any invasive exam. Lab Data 11/12/24 15:51 11/12/24 15:51 Radiology Impressions Pelvic/Transvag US 11/12/24 16:01 IMPRESSION: 1. No acute findings. 2. Nonvisualized ovaries. 3. Hysterectomy with possible retained cervix. With a history of vaginal bleeding, direct visualization of the cervix is recommended. Pelvis CT 11/12/24 16:50 IMPRESSION: 1. No acute findings. 2. Hysterectomy with probable retained cervix. 3. Nonvisualized ovaries. Correlation with prior surgical history. Laboratory Results WBC 8.14 10^3/uL (3.29-11.43) 11/12/24 15:51 RBC 3.62 10^6/uL (3.85-5.65) L 11/12/24 15:51 Hgb 11.50 g/dL (11.27-16.99) 11/12/24 15:51 Hct 36.4 % (36-47) 11/12/24 15:51 MCV 100.6 fl (85-98) H 11/12/24 15:51 MCH 31.8 pg (27-33) 11/12/24 15:51 MCHC 31.6 g/dL (30-55) 11/12/24 15:51 RDW 14.0 % (12.1-15.1) 11/12/24 15:51 Plt Count 318 10^3/cmm (157-399) 11/12/24 15:51 MPV 11.9 fL (7.4-10.4) H 11/12/24 15:51 Neut % (Auto) 68.5 % 11/12/24 15:51 Lymph % (Auto) 21.1 % 11/12/24 15:51 [place] % (Auto) 8.2 % 11/12/24 15:51 Eos % (Auto) 1.6 % 11/12/24 15:51 Baso % (Auto) 0.2 % 11/12/24 15:51 Neut # (Auto) 5.57 10^3/uL (1.8-7.7) 11/12/24 15:51 Lymph # (Auto) 1.7 10^3/uL (0.8-4.8) 11/12/24 15:51 [place] # (Auto) 0.7 10^3/uL (0.2-0.9) 11/12/24 15:51 Eos # (Auto) 0.1 10^3/uL (0.0-0.8) 11/12/24 15:51 Baso # (Auto) 0.0 10^3/uL (0.0-0.1) 11/12/24 15:51 Nucleated RBC % (auto) 0 % 11/12/24 15:51 Nucleated RBCs # 0.0 /100WBC 11/12/24 15:51 Sodium 138 mmol/L (136-145) 11/12/24 15:51 Potassium 4.1 mmol/L (3.5-5.1) 11/12/24 15:51 Chloride 103 mmol/L (98-107) 11/12/24 15:51 Carbon Dioxide 25 mmol/L (22-29) 11/12/24 15:51 Anion Gap 14.1 (5-19) 11/12/24 15:51 BUN 17 mg/dL (8-23) 11/12/24 15:51 Creatinine 0.5 mg/dL (0.5-0.9) 11/12/24 15:51 GFR Calculation Not Reportable 11/12/24 15:51 Glucose 101 mg/dL (65-115) 11/12/24 15:51 Calculated Osmolality 288 mOsm/kg (285-295) 11/12/24 15:51 Calcium 9.2 mg/dL (8.5-10.5) 11/12/24 15:51 Total Bilirubin 0.4 mg/dL (0.15-1.2) 11/12/24 15:51 AST 19 U/L (0-32) 11/12/24 15:51 ALT 14 U/L (0-33) 11/12/24 15:51 Alkaline Phosphatase 91 U/L (35-105) 11/12/24 15:51 Total Protein 6.6 g/dL (6.6-8.7) 11/12/24 15:51 Albumin 4.0 g/dL (3.5-5.2) 11/12/24 15:51 Globulin 2.6 g/dL (1.3-4.6) 11/12/24 15:51 Urine Color Yellow (Yellow) 11/12/24 16:50 Urine Appearance Clear (CLEAR) 11/12/24 16:50 Urine pH 5.0 (5-7) 11/12/24 16:50 Ur Specific [place] 1.012 (1.005-1.030) 11/12/24 16:50 Urine Protein Negative (Negative) 11/12/24 16:50 Urine Glucose (UA) Negative (Normal) 11/12/24 16:50 Urine Ketones Negative (Negative) 11/12/24 16:50 Urine Blood Non-haemolysed trace (Negative) 11/12/24 16:50 Urine Nitrate Positive (Negative) A 11/12/24 16:50 Urine Bilirubin Negative (Negative) 11/12/24 16:50 Urine Urobilinogen 1.0 mg/dL (Negative) 11/12/24 16:50 Ur Leukocyte Esterase Trace (Negative) A 11/12/24 16:50 Urine RBC 0-2 /hpf (0-2) 11/12/24 16:50 Urine WBC 0-5 /hpf (0-5) 11/12/24 16:50 Ur Squamous Epith Cells 0-5 /hpf (0-5) 11/12/24 16:50 Amorphous Sediment Not Reportable 11/12/24 16:50 Urine Bacteria 1+ /hpf (NONE) H 11/12/24 16:50 Hyaline Casts 1.21 /lpf 11/12/24 16:50 Discharge Plan Discharge Patient Disposition: Home Clinical Impression: Vulvar bleeding, Urethral bleeding Condition: Stable Prescriptions: No Action Xarelto 15 mg tablet 15 mg PO DAILY@19 Rx Instructions: must administer with evening meal atorvastatin 20 mg tablet 20 mg PO DAILY Qty: 90 3RF baclofen 5 mg tablet 2.5 mg PO Q8H meloxicam 7.5 mg tablet 7.5 mg PO DAILY losartan 50 mg tablet 75 mg PO DAILY Qty: 135 3RF calcium carbonate [Tums] 200 mg calcium (500 mg) tablet,chewable 200 mg PO ONCE nitrofurantoin monohyd/m-cryst [Macrobid] 100 mg capsule 100 mg PO DAILY Qty: 60 1RF Rx Instructions: must administer with a meal/food famotidine 20 mg tablet 20 mg PO BID Fleet Enema 19-7 gram/118 mL enema 118 ml ID DAILY PRN (Reason: Constipation) Rx Instructions: give fleets if no results from mom and dulcolax magnesium hydroxide [Milk of Magnesia] 400 mg/5 mL suspension 15 ml PO DAILY PRN (Reason: if no bm in 3 days) cyanocobalamin (vitamin B-12) 1,000 mcg capsule 1,000 mcg PO DAILY@08 ergocalciferol (vitamin D2) 1,250 mcg (50,000 unit) capsule 1,250 mcg PO Q7D Rx Instructions: on mon Senna-S 8.6-50 mg Tablet 1 tab PO BID acetaminophen 500 mg Tablet 1,000 mg PO Q6H PRN (Reason: Pain) diltiazem HCl 120 mg capsule,extended release 24hr 120 mg PO DAILY@08 bisacodyl 5 mg Tablet,Delayed Release (Dr/Ec) 10 mg PO DAILY PRN (Reason: if no bm in 3 days) amiodarone 100 mg Tablet 100 mg PO DAILY@08 Discharge Orders: Discharge ED (Routine); Ordered 11/12/24 Ordered By: Dariusz Castrejon Referrals: Vinnie Ramirez MD [Physician, PLAYER SERVICES REPRESENTATIVE] Referral Note: bleeding increased last 3 days Clinical Impression: Vulvar bleeding Servando Logan DO [Primary Care Provider, Internal Medicine] Patient Instructions: Patient Portal & Shey Instructions Activity Restrictions/Additional Instructions: Use feminine pads or diapers, follow-up with NATURAL RESOURCES PROFESSOR as soon as possible. I am unsure who your NATURAL RESOURCES PROFESSOR is so I placed a referral into Dr. Ramirez. You can also call the clinic and notify them of need for sooner evaluation. Print Language: Sammarinese Coding Level of Care Code ED Medical Laboratory Technical Officer for [facility] F[facility] Documented by User: Dariusz Castrejon MD 11/12/24 20:22 HPI - General Adult General: Chief complaint: Vaginal Bleeding Stated complaint: VAG BLEEDING Time Seen by Provider: 11/12/24 15:15 Related Data Home Medications ?Medication ?Instructions ?Recorded ?Confirmed famotidine 20 mg tablet 20 mg PO BID 06/30/22 06/03/24 magnesium hydroxide 400 mg/5 mL 15 ml PO DAILY PRN if no bm in 3 06/30/22 06/03/24 oral suspension (Milk of Magnesia) days sodium phosphates 19 gram-7 118 ml ID DAILY PRN Constipation 03/24/23 02/25/25 gram/118 mL enema (Fleet Enema) rivaroxaban 15 mg tablet (Xarelto) 15 mg PO DAILY@19 10/31/22 06/03/24 amiodarone 100 mg tablet 100 mg PO DAILY@08 12/18/22 06/03/24 cyanocobalamin (vitamin B-12) 1,000 mcg PO DAILY@08 01/18/23 06/03/24 1,000 mcg capsule ergocalciferol (vitamin D2) 1,250 1,250 mcg PO Q7D 01/18/23 06/03/24 mcg (50,000 unit) capsule baclofen 5 mg tablet 2.5 mg PO Q8H 04/05/23 06/03/24 acetaminophen 500 mg tablet 1,000 mg PO Q6H PRN Pain 04/25/23 06/03/24 bisacodyl 5 mg tablet,delayed 10 mg PO DAILY PRN if no bm in 3 04/25/23 06/03/24 release days diltiazem HCl 120 mg 120 mg PO DAILY@04/25/23 06/03/24 capsule,extended release 24 hr sennosides 8.6 mg-docusate sodium 1 tab PO BID hold if loose stools 04/25/23 06/03/24 50 mg tablet (Senna-S) meloxicam 7.5 mg tablet 7.5 mg PO DAILY 11/07/23 06/03/24 calcium carbonate (Tums) 200 mg PO ONCE 03/05/24 06/03/24 Previous Rx's ?Medication ?Instructions ?Recorded atorvastatin 20 mg tablet 20 mg PO DAILY #90 tabs 05/08/23 losartan 50 mg tablet 75 mg (1.5 x 50 mg) PO DAILY #135 11/07/23 tabs nitrofurantoin 100 mg PO DAILY #60 caps 03/05/24 monohydrate/macrocrystals 100 mg capsule (Macrobid) Allergies Allergy/AdvReac Type Severity Reaction Status Date / Time Cephalosporins Allergy trouble Verified 06/03/24 08:02 breathing Iodinated Contrast Media Allergy ALGY-Rash Verified 06/03/24 08:02 Sulfa (Sulfonamide Allergy Unknown Verified 06/03/24 08:02 Antibiotics) PFS ED PFSH: Medical History Jaw pain Left-sided weakness UTI (urinary tract infection) Anticoagulated by anticoagulation treatment CVA (cerebral vascular accident) Left acute arterial ischemic stroke, MCA (middle cerebral artery) Enlarged thyroid Subcapital fracture of right hip Atrial fibrillation Essential (primary) hypertension Environmental and seasonal allergies Mixed hyperlipidemia Surgical History H/O: hysterectomy History of cholecystectomy History of dilatation and curettage History of tubal ligation History of tonsillectomy Family History Mother Stroke Other Heart disease Hypertension Social History Smoking and tobacco/nicotine status: never used tobacco/nicotine Course Vital Signs: Vital signs: Vital Signs Temperature 98.3 F 11/12/24 15:15 Pulse Rate 63 11/12/24 21:20 Respiratory Rate 16 11/12/24 15:15 Blood Pressure 135/52 11/12/24 21:20 Pulse Oximetry 95 11/12/24 21:20 Oxygen Delivery Me thod Room Air 11/12/24 15:15 MDM - General Adult Medical Decision Making CT shows retained urine. On gross exam vaginal introitus blood seems to be coming more from the urinary meatus rather than vaginal source. CT confirms patient has had hysterectomy. Care signed out to Dr. Castrejon at change of shift. See final notes for diagnosis and disposition. Urine output only 100 after Todd. Urine is nonbloody. On vulvar exam there is like a hematoma at the meatus also some blood in the vaginal vault. Unsure if the source is cervix versus this hematoma at the meatus as patient resists any invasive exam. Medical Records I reviewed the patient's medical records. Lab Data I reviewed the patient's lab results. 11/12/24 15:51 11/12/24 15:51 Radiology Impressions Pelvic/Transvag US 11/12/24 16:01 IMPRESSION: 1. No acute findings. 2. Nonvisualized ovaries. 3. Hysterectomy with possible retained cervix. With a history of vaginal bleeding, direct visualization of the cervix is recommended. Pelvis CT 11/12/24 16:50 IMPRESSION: 1. No acute findings. 2. Hysterectomy with probable retained cervix. 3. Nonvisualized ovaries. Correlation with prior surgical history. Laboratory Results WBC 8.14 10^3/uL (3.29-11.43) 11/12/24 15:51 RBC 3.62 10^6/uL (3.85-5.65) L 11/12/24 15:51 Hgb 11.50 g/dL (11.27-16.99) 11/12/24 15:51 Hct 36.4 % (36-47) 11/12/24 15:51 MCV 100.6 fl (85-98) H 11/12/24 15:51 MCH 31.8 pg (27-33) 11/12/24 15:51 MCHC 31.6 g/dL (30-55) 11/12/24 15:51 RDW 14.0 % (12.1-15.1) 11/12/24 15:51 Plt Count 318 10^3/cmm (157-399) 11/12/24 15:51 MPV 11.9 fL (7.4-10.4) H 11/12/24 15:51 Neut % (Auto) 68.5 % 11/12/24 15:51 Lymph % (Auto) 21.1 % 11/12/24 15:51 [place] % (Auto) 8.2 % 11/12/24 15:51 Eos % (Auto) 1.6 % 11/12/24 15:51 Baso % (Auto) 0.2 % 11/12/24 15:51 Neut # (Auto) 5.57 10^3/uL (1.8-7.7) 11/12/24 15:51 Lymph # (Auto) 1.7 10^3/uL (0.8-4.8) 11/12/24 15:51 [place] # (Auto) 0.7 10^3/uL (0.2-0.9) 11/12/24 15:51 Eos # (Auto) 0.1 10^3/uL (0.0-0.8) 11/12/24 15:51 Baso # (Auto) 0.0 10^3/uL (0.0-0.1) 11/12/24 15:51 Nucleated RBC % (auto) 0 % 11/12/24 15:51 Nucleated RBCs # 0.0 /100WBC 11/12/24 15:51 Sodium 138 mmol/L (136-145) 11/12/24 15:51 Potassium 4.1 mmol/L (3.5-5.1) 11/12/24 15:51 Chloride 103 mmol/L (98-107) 11/12/24 15:51 Carbon Dioxide 25 mmol/L (22-29) 11/12/24 15:51 Anion Gap 14.1 (5-19) 11/12/24 15:51 BUN 17 mg/dL (8-23) 11/12/24 15:51 Creatinine 0.5 mg/dL (0.5-0.9) 11/12/24 15:51 GFR Calculation Not Reportable 11/12/24 15:51 Glucose 101 mg/dL (65-115) 11/12/24 15:51 Calculated Osmolality 288 mOsm/kg (285-295) 11/12/24 15:51 Calcium 9.2 mg/dL (8.5-10.5) 11/12/24 15:51 Total Bilirubin 0.4 mg/dL (0.15-1.2) 11/12/24 15:51 AST 19 U/L (0-32) 11/12/24 15:51 ALT 14 U/L (0-33) 11/12/24 15:51 Alkaline Phosphatase 91 U/L (35-105) 11/12/24 15:51 Total Protein 6.6 g/dL (6.6-8.7) 11/12/24 15:51 Albumin 4.0 g/dL (3.5-5.2) 11/12/24 15:51 Globulin 2.6 g/dL (1.3-4.6) 11/12/24 15:51 Urine Color Yellow (Yellow) 11/12/24 16:50 Urine Appearance Clear (CLEAR) 11/12/24 16:50 Urine pH 5.0 (5-7) 11/12/24 16:50 Ur Specific [place] 1.012 (1.005-1.030) 11/12/24 16:50 Urine Protein Negative (Negative) 11/12/24 16:50 Urine Glucose (UA) Negative (Normal) 11/12/24 16:50 Urine Ketones Negative (Negative) 11/12/24 16:50 Urine Blood Non-haemolysed trace (Negative) 11/12/24 16:50 Urine Nitrate Positive (Negative) A 11/12/24 16:50 Urine Bilirubin Negative (Negative) 11/12/24 16:50 Urine Urobilinogen 1.0 mg/dL (Negative) 11/12/24 16:50 Ur Leukocyte Esterase Trace (Negative) A 11/12/24 16:50 Urine RBC 0-2 /hpf (0-2) 11/12/24 16:50 Urine WBC 0-5 /hpf (0-5) 11/12/24 16:50 Ur Squamous Epith Cells 0-5 /hpf (0-5) 11/12/24 16:50 Amorphous Sediment Not Reportable 11/12/24 16:50 Urine Bacteria 1+ /hpf (NONE) H 11/12/24 16:50 Hyaline Casts 1.21 /lpf 11/12/24 16:50 All radiology interpretation(s) finalized by discharge Discharge Plan Discharge Patient Disposition: Home Clinical Impression: Vulvar bleeding, Urethral bleeding Condition: Stable Prescriptions: No Action Xarelto 15 mg tablet 15 mg PO DAILY@19 Rx Instructions: must administer with evening meal atorvastatin 20 mg tablet 20 mg PO DAILY Qty: 90 3RF baclofen 5 mg tablet 2.5 mg PO Q8H meloxicam 7.5 mg tablet 7.5 mg PO DAILY losartan 50 mg tablet 75 mg PO DAILY Qty: 135 3RF calcium carbonate [Tums] 200 mg calcium (500 mg) tablet,chewable 200 mg PO ONCE nitrofurantoin monohyd/m-cryst [Macrobid] 100 mg capsule 100 mg PO DAILY Qty: 60 1RF Rx Instructions: must administer with a meal/food famotidine 20 mg tablet 20 mg PO BID Fleet Enema 19-7 gram/118 mL enema 118 ml ID DAILY PRN (Reason: Constipation) Rx Instructions: give fleets if no results from mom and dulcolax magnesium hydroxide [Milk of Magnesia] 400 mg/5 mL suspension 15 ml PO DAILY PRN (Reason: if no bm in 3 days) cyanocobalamin (vitamin B-12) 1,000 mcg capsule 1,000 mcg PO DAILY@08 ergocalciferol (vitamin D2) 1,250 mcg (50,000 unit) capsule 1,250 mcg PO Q7D Rx Instructions: on sun Senna-S 8.6-50 mg Tablet 1 tab PO BID acetaminophen 500 mg Tablet 1,000 mg PO Q6H PRN (Reason: Pain) diltiazem HCl 120 mg capsule,extended release 24hr 120 mg PO DAILY@08 bisacodyl 5 mg Tablet,Delayed Release (Dr/Ec) 10 mg PO DAILY PRN (Reason: if no bm in 3 days) amiodarone 100 mg Tablet 100 mg PO DAILY@08 Discharge Orders: Discharge ED (Routine); Ordered 11/12/24 Ordered By: Dariusz Castrejon Referrals: Vinnie Ramirez MD [Physician, PLAYER SERVICES REPRESENTATIVE] Referral Note: bleeding increased last 3 days Clinical Impression: Vulvar bleeding Servando Logan DO [Primary Care Provider, Internal Medicine] Patient Instructions: Patient Portal & Shey Instructions Activity Restrictions/Additional Instructions: Use feminine pads or diapers, follow-up with NATURAL RESOURCES PROFESSOR as soon as possible. I am unsure who your NATURAL RESOURCES PROFESSOR is so I placed a referral into Dr. Ramirez. You can also call the clinic and notify them of need for sooner evaluation. Print Language: Sammarinese Coding Level of Care Code ED Medical Laboratory Technical Officer for Hermel[facility] Koehler
--- OUTSIDE RECORDS SUMMARY | 2024-11-12 15:26 | XMS_ITS | Continuity of Care Document ---
Author Organization [facility] ([facility]) Address [address] [place] [address] Insurance Providers Payer Plan Claims Address Claims Phone Policy Number Group Number Relation Employer Guarantor Name Guarantor Guarantor Address Guarantor Phone GENER IC PAYOR [id number] Self Aretha Hawley [address] [place] [address] MEDIC ARE tel:[phone] Self Aretha Hawley [address] [place] [address] [place] are [address], [place] [address] tel:[phone] Self Aretha Hawley [address] [place] [address] Problems Condition ICD9 code ICD10 code SNOMED code Start Date End Date S tatus 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 04/27/2023 Active Dysphagia following cerebral infarction I69.391 04/25/2022 Activ e 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.351 04/25/2022 Active History of falling Z91.81 01/04/2023 Ac tive Cerebral edema G93.6 04/25/2022 Active Dysphagia, oropharyngeal phase R13.12 04/26/2022 Active Depression, unspecified F32.A 03/08/2023 Active Other chronic pain G89.29 04/19/2023 Ac tive Unilateral primary osteoarthritis, right knee M17.11 06/07/2023 Active Other muscle spasm M62.838 02/01/2023 Ac tive 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/2023 Active Lichen sclerosus et atrophicus L90.0 03/05/2024 Active Presence of right artificial hip joint Z96.641 01/04/2023 Acti ve Constipation, unspecified K59.00 02/01/2023 Active Personal history of urinary (tract) infections Z87.440 02/01/2023 Active Do not resuscitate Z66 12/02/2023 Ac tive 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 04/25/2022 Activ e Unspecified atrial fibrillation I48.91 04/25/2022 Active group home (current) use of anticoagulants Z79.01 05/19/2022 Active Essential (primary) hypertension I10 04/25/2022 Active Neuromuscular dysfunction of bladder, unspecified N31.9 05/09/2022 A ctive Vitamin D deficiency, unspecified E55.9 02/01/2023 Active Deficiency of other specified B group vitamins E53.8 02/01/2023 Active Gastro-esophageal reflux disease without esophagitis K21.9 07/11/2022 Active Results Test Value / Unit Interpretation Reference Ran ge COVID-19 Test Viral Antigen null flavor [null] See note NEG COVID-19 Test Viral Antigen COVID-19 Test Viral Antigen null flavor [null] See note NEG COVID-19 Test Viral Antigen COVID-19 Test Viral Antigen null flavor [null] See note NEG COVID-19 Test Viral Antigen COVID-19 Test Viral Antigen null flavor [null] See note NEG COVID-19 Test Viral Antigen COVID-19 Test Viral Antigen null flavor [null] See note NEG COVID-19 Test Viral Antigen COVID-19 Test Viral Antigen null flavor [null] See note NEG COVID-19 Test Viral Antigen Allergies, adverse reactions, alerts Substance Reaction Date Status Type CT contrast 04/25/2022 Non Drug Sulfa (Sulfonamide Antibiotics) 04/25/2022 Non Drug Immunizations Vaccine Route Date Status COVID-19 Vaccine Unassigned Route of Administration Completed COVID-19 Vaccine Unassigned Route of Administration Completed COVID-19 Vaccine Unassigned Route of Administration Completed COVID-19 Vaccine Unassigned Route of Administration Refused COVID-19 Vaccine Unassigned Route of Administration Refused COVID-19 Vaccine Unassigned Route of Administration Refused Influenza Vaccine Unassigned Route of Administration 1 Refused Influenza Vaccine Unassigned Route of Administration 1 Refused Pneumococcal Vaccine Unassigned Route of Administratio n 02/01/2023 Completed Medications Medication Instructions Route Dosage Frequency Start Date Stop Date Indications Status acetaminophen 500 mg tablet (acetaminophen) 2, oral, Every 6 Hours - PRN, Clinical Indication: pain oral 1.0 6.0 h 2022 Active amiodarone 100 mg tablet (amiodarone) 1, oral, Once A Day oral 1.0 1.0 d 2022 Active atorvastatin 20 mg tablet (atorvastatin) 1, oral, Once A Day oral 1.0 1.0 d 2023 Active baclofen 5 mg tablet (baclofen) 1/2 tab, oral, Three Times A Day oral 1.0 8.0 h 2023 Active bisacodyl 5 mg tablet,delayed release (DR/EC) (bisacodyl) 2, oral, As Needed, Give 2 tabs PO if no BM in 3 days oral 1.0 1.0 d 2022 Active clobetasol 0.05 % cream (clobetasol) as directed, topical, Twice A Day, apply to affected area bid x12 weeks then two times weekly topical 1.0 12.0 h 05/14 Active cyanocobalamin (vitamin B-12) 1,000 mcg tablet (cyanocobalamin (vitamin B-12)) 1, oral, Once A Day oral 1.0 1.0 d 2022 Active diltiazem HCl 120 mg capsule,extended release 24 hr (diltiazem HCl) 1, oral, Once A Day oral 1.0 1.0 d 2022 Active Dulcolax (bisacodyl) (bisacodyl) 10 mg suppository (Dulcolax (bisacodyl) (bisacodyl)) 1 suppository, rectal, Once A Day - PRN, Give rectally if no results from MOM rectal 1.0 1.0 d 2022 Active ergocalciferol (vitamin D2) 1,250 mcg (50,000 unit) capsule (ergocalciferol (vitamin D2)) 1, oral, Once a Day on Sun oral 1.0 1.0 d 2022 Active famotidine 20 mg tablet (famotidine) 1 tab, oral, Twice A Day - PRN oral 1.0 12.0 h 2023 Active Fleet Enema (sodium phosphates) 19-7 gram/118 mL enema (Fleet Enema (sodium phosphates)) 1 application, rectal, Once A Day - PRN, Give fleets if no results from MOM and Dulcolax rectal 1.0 1.0 d 2022 Active losartan 100 mg tablet (losartan) 1, oral, Once A Day oral 1.0 1.0 d 05/12 Active Macrobid (nitrofurantoin monohyd/m-cryst) 100 mg capsule (Macrobid (nitrofurantoin monohyd/m-cryst) ) 1 cap, oral, Once A Day, Clinical Indication: UTI Prevention oral 1.0 1.0 d 05/10 Active meloxicam 7.5 mg tablet (meloxicam) 1, oral, Once A Day oral 1.0 1.0 d 2023 Active Milk of Magnesia (magnesium hydroxide) 400 mg/5 mL suspension (Milk of Magnesia (magnesium hydroxide)) 15 ml per tube, oral, Once A Day - PRN, if no BM in 3 daysDO NOT GIVE TO RENAL PATIENTS--GO TO DULCOLAX ORDERS oral 1.0 1.0 d 2022 Active sennosides-docus ate sodium 8.6-50 mg tablet (sennosides-docu sate sodium) 1, oral, Twice A Day, Hold if loose stools oral 1.0 12.0 h 2022 Active Tums (calcium carbonate) 200 mg calcium (500 mg) tablet,chewable (Tums (calcium carbonate)) 2 tabs, oral, Once A Day - PRN, give 2 tums daily oral 1.0 1.0 d 2023 Active Xarelto (rivaroxaban) 15 mg tablet (Xarelto (rivaroxaban)) 1 tab, oral, Once A Day oral 1.0 1.0 d 2022 Unspecified atrial fibrillation Active amoxicillin-pot clavulanate 875-125 mg tablet (amoxicillin-pot clavulanate) 1, oral, Twice A Day, uti oral 1.0 12.0 h 03/16 Active clobetasol 0.05 % cream (clobetasol) as directed, topical, Twice A Day, apply to affected area bid x12 weeks topical 1.0 12.0 h 03/05 Active famotidine 20 mg tablet (famotidine) 1 tab per tube, oral, Twice A Day oral 1.0 12.0 h 02/25 Active Tums (calcium carbonate) 200 mg calcium (500 mg) tablet,chewable (Tums (calcium carbonate)) 2 tabs, oral, Once A Day, give 2 tums daily oral 1.0 1.0 d 02/25 Active losartan 50 mg tablet (losartan) 1, oral, Once A Day oral 1.0 1.0 d 2024 Active clobetasol 0.05 % cream (clobetasol) as directed, topical, Once A Day on Sun, Sun, apply to vagina area two times weekly topical 1.0 1.0 d 06/20 Active clobetasol 0.05 % cream (clobetasol) as directed, topical, Every Shift, apply to vagina area q shift and at least an hour prior to applying nystain ointment topical 1.0 8.0 h 06/20 Active nystatin 100,000 unit/gram cream (nystatin) as directed, topical, Every Shift, Apply to red areas of groin at least an hour after applying clobetasol cream topical 1.0 8.0 h 2024 Active Vital Signs Date Vital Result Comment 03/18/2024 08:11 AM Heart Rate 65 /min 03/17/2024 08:35 AM Heart Rate 78 /min 03/16/2024 07:55 AM Heart Rate 72 /min 03/15/2024 08:12 AM Heart Rate 70 /min 03/14/2024 08:42 AM Heart Rate 76 /min 03/13/2024 07:20 AM Heart Rate 72 /min 03/12/2024 10:13 AM Temperature 98.7 [degF] Oxygen Saturation 98 % Respiratory Rate 17 /min Heart Rate 70 /min Blood Pressure Systolic 121 mm[Hg] Blood Pressure Diastolic 73 mm[Hg] 03/12/2024 08:29 AM Heart Rate 70 /min 03/11/2024 08:13 AM Heart Rate 52 /min 03/10/2024 09:20 AM Heart Rate 53 /min 03/09/2024 03:00 PM Body Weight 108.8 [lb_av] Body Mass Index 19.9 kg/m2 03/05/2024 09:59 AM Temperature 97.5 [degF] Oxygen Saturation 98 % Respiratory Rate 14 /min Blood Pressure Systolic 153 mm[Hg] Blood Pressure Diastolic 84 mm[Hg] 02/27/2024 09:03 AM Temperature 96.9 [degF] Oxygen Saturation 97 % Respiratory Rate 16 /min Blood Pressure Systolic 121 mm[Hg] Blood Pressure Diastolic 63 mm[Hg] 02/20/2024 09:12 AM Temperature 97.8 [degF] Oxygen Saturation 98 % Respiratory Rate 19 /min Blood Pressure Systolic 146 mm[Hg] Blood Pressure Diastolic 85 mm[Hg] 02/13/2024 10:26 AM Temperature 97.9 [degF] Oxygen Saturation 97 % Respiratory Rate 17 /min Blood Pressure Systolic 130 mm[Hg] Blood Pressure Diastolic 70 mm[Hg] 02/08/2024 12:35 PM Body Weight 110.2 [lb_av] Body Mass Index 20.15 kg/m2 02/06/2024 11:10 AM Temperature 97.8 [degF] Oxygen Saturation 99 % Respiratory Rate 16 /min Blood Pressure Systolic 144 mm[Hg] Blood Pressure Diastolic 74 mm[Hg] 01/30/2024 07:48 AM Temperature 97.6 [degF] Oxygen Saturation 96 % Respiratory Rate 18 /min Blood Pressure Systolic 145 mm[Hg] Blood Pressure Diastolic 69 mm[Hg] 01/23/2024 09:26 AM Temperature 97.5 [degF] Oxygen Saturation 100 % Respiratory Rate 16 /min Blood Pressure Systolic 163 mm[Hg] Blood Pressure Diastolic 85 mm[Hg] 01/17/2024 09:09 PM Temperature 97.8 [degF] Oxygen Saturation 97 % Respiratory Rate 16 /min 01/16/2024 10:13 AM Temperature 98.5 [degF] Oxygen Saturation 96 % Respiratory Rate 16 /min Blood Pressure Systolic 156 mm[Hg] Blood Pressure Diastolic 87 mm[Hg] 01/09/2024 08:35 AM Blood Pressure Systolic 179 mm[Hg] Blood Pressure Diastolic 84 mm[Hg] 01/08/2024 10:51 AM Body Weight 111 [lb_av] Body Mass Index 20.3 kg/m2 04/25/2022 08:23 PM Body Height 62 [in_us] 03/19/2024 09:13 AM Heart Rate 69 /min 03/19/2024 07:44 PM Body Weight 106.6 [lb_av] Body Mass Index 19.5 kg/m2 03/21/2024 10:48 AM Heart Rate 71 /min 03/20/2024 07:58 AM Heart Rate 68 /min 03/22/2024 12:46 PM Heart Rate 67 /min 03/23/2024 11:33 AM Heart Rate 62 /min 03/24/2024 09:50 AM Heart Rate 64 /min 03/26/2024 07:59 AM Heart Rate 67 /min 03/25/2024 08:02 AM Heart Rate 66 /min 03/27/2024 08:41 AM Heart Rate 69 /min 03/26/2024 11:10 AM Body Weight 105 [lb_av] Body Mass Index 19.2 kg/m2 03/26/2024 10:56 AM Temperature 98.3 [degF] Oxygen Saturation 97 % Respiratory Rate 16 /min Heart Rate 67 /min Blood Pressure Systolic 136 mm[Hg] Blood Pressure Diastolic 60 mm[Hg] 03/28/2024 10:06 AM Heart Rate 66 /min 03/29/2024 07:10 AM Heart Rate 70 /min 03/30/2024 08:44 AM Heart Rate 76 /min 03/31/2024 08:30 AM Heart Rate 72 /min 04/01/2024 09:02 AM Heart Rate 68 /min 04/02/2024 08:42 AM Temperature 97.8 [degF] Oxygen Saturation 95 % Respiratory Rate 20 /min Heart Rate 61 /min Blood Pressure Systolic 123 mm[Hg] Blood Pressure Diastolic 54 mm[Hg] 04/02/2024 07:57 AM Heart Rate 61 /min 04/03/2024 07:38 AM Heart Rate 70 /min 04/04/2024 10:27 AM Heart Rate 60 /min 04/05/2024 10:51 AM Heart Rate 60 /min 04/06/2024 09:43 AM Heart Rate 65 /min 04/07/2024 09:03 AM Heart Rate 61 /min 04/08/2024 07:30 AM Heart Rate 64 /min 04/09/2024 12:36 PM Body Weight 108 [lb_av] Body Mass Index 19.75 kg/m2 04/09/2024 09:39 AM Temperature 98.3 [degF] Oxygen Saturation 97 % Respiratory Rate 17 /min Heart Rate 66 /min Blood Pressure Systolic 123 mm[Hg] Blood Pressure Diastolic 73 mm[Hg] 04/09/2024 08:01 AM Heart Rate 66 /min 04/10/2024 08:36 AM Heart Rate 70 /min 04/11/2024 09:22 AM Heart Rate 62 /min 04/12/2024 08:08 AM Heart Rate 68 /min 04/13/2024 09:23 AM Heart Rate 70 /min 04/14/2024 07:58 AM Heart Rate 62 /min 04/15/2024 08:03 AM Heart Rate 66 /min 04/16/2024 09:27 AM Body Weight 206 [lb_av] Body Mass Index 37.67 kg/m2 04/16/2024 09:18 AM Temperature 97.5 [degF] Oxygen Saturation 98 % Respiratory Rate 20 /min Heart Rate 60 /min Blood Pressure Systolic 117 mm[Hg] Blood Pressure Diastolic 64 mm[Hg] 04/16/2024 08:06 AM Heart Rate 60 /min 04/17/2024 09:29 AM Heart Rate 65 /min 04/18/2024 09:15 AM Heart Rate 68 /min 04/19/2024 07:31 AM Heart Rate 64 /min 04/20/2024 08:29 AM Heart Rate 63 /min 04/21/2024 07:38 AM Heart Rate 73 /min 04/22/2024 07:44 AM Heart Rate 62 /min 04/23/2024 09:47 AM Body Weight 105.2 [lb_av] Body Mass Index 19.24 kg/m2 04/23/2024 09:31 AM Temperature 96.9 [degF] Oxygen Saturation 97 % Respiratory Rate 14 /min Heart Rate 58 /min Blood Pressure Systolic 112 mm[Hg] Blood Pressure Diastolic 96 mm[Hg] 04/24/2024 09:14 AM Heart Rate 61 /min 04/25/2024 08:47 AM Heart Rate 66 /min 04/26/2024 08:13 AM Heart Rate 68 /min 04/27/2024 08:20 AM Heart Rate 52 /min 04/28/2024 08:25 AM Heart Rate 94 /min 04/29/2024 07:37 AM Heart Rate 74 /min 04/30/2024 03:23 PM Body Weight 105.8 [lb_av] Body Mass Index 19.35 kg/m2 04/30/2024 09:53 AM Temperature 98 [degF] Oxygen Saturation 98 % Respiratory Rate 17 /min Heart Rate 62 /min Blood Pressure Systolic 125 mm[Hg] Blood Pressure Diastolic 66 mm[Hg] 04/30/2024 07:10 AM Heart Rate 66 /min 05/01/2024 07:36 AM Heart Rate 77 /min 05/02/2024 07:39 AM Heart Rate 69 /min 05/03/2024 08:59 AM Heart Rate 65 /min 05/04/2024 12:45 PM Heart Rate 62 /min 05/05/2024 08:45 AM Heart Rate 55 /min 05/06/2024 12:32 PM Heart Rate 64 /min 05/07/2024 02:26 PM Temperature 97.3 [degF] Oxygen Saturation 99 % Respiratory Rate 16 /min Heart Rate 59 /min Blood Pressure Systolic 100 mm[Hg] Blood Pressure Diastolic 56 mm[Hg] 05/07/2024 11:06 AM Body Weight 106 [lb_av] Body Mass Index 19.39 kg/m2 05/07/2024 11:05 AM Heart Rate 59 /min 05/08/2024 08:04 AM Heart Rate 66 /min 05/09/2024 08:37 AM Heart Rate 70 /min 05/10/2024 02:30 PM Body Weight 105.4 [lb_av] Body Mass Index 19.28 kg/m2 05/10/2024 08:07 AM Heart Rate 70 /min 05/11/2024 08:48 AM Heart Rate 77 /min 05/12/2024 08:51 AM Heart Rate 66 /min 05/13/2024 07:58 AM Heart Rate 60 /min 05/14/2024 07:52 AM Heart Rate 68 /min 05/14/2024 05:03 PM Temperature 98.6 [degF] Oxygen Saturation 99 % Respiratory Rate 18 /min Heart Rate 67 /min Blood Pressure Systolic 136 mm[Hg] Blood Pressure Diastolic 75 mm[Hg] 05/15/2024 07:23 AM Heart Rate 70 /min 05/16/2024 08:10 AM Heart Rate 73 /min 05/17/2024 09:00 AM Heart Rate 83 /min 05/18/2024 09:40 AM Heart Rate 59 /min 05/19/2024 07:30 AM Heart Rate 64 /min 05/20/2024 07:39 AM Heart Rate 64 /min 05/21/2024 11:15 AM Body Weight 106.8 [lb_av] Body Mass Index 19.53 kg/m2 05/21/2024 08:28 AM Temperature 96.9 [degF] Oxygen Saturation 100 % Respiratory Rate 16 /min Heart Rate 63 /min Blood Pressure Systolic 139 mm[Hg] Blood Pressure Diastolic 77 mm[Hg] 05/21/2024 08:27 AM Heart Rate 63 /min 05/22/2024 08:51 AM Heart Rate 62 /min 05/23/2024 08:30 AM Heart Rate 73 /min 05/24/2024 06:48 AM Heart Rate 75 /min 05/25/2024 07:50 AM Heart Rate 70 /min 05/26/2024 07:50 AM Heart Rate 64 /min 05/27/2024 07:58 AM Heart Rate 66 /min 05/28/2024 10:07 AM Body Weight 106.8 [lb_av] Body Mass Index 19.53 kg/m2 05/28/2024 09:41 AM Temperature 98.6 [degF] Oxygen Saturation 97 % Respiratory Rate 16 /min Heart Rate 58 /min Blood Pressure Systolic 145 mm[Hg] Blood Pressure Diastolic 90 mm[Hg] 05/28/2024 07:32 AM Heart Rate 58 /min 05/29/2024 07:00 AM Heart Rate 67 /min 05/30/2024 09:34 AM Heart Rate 64 /min 05/31/2024 01:41 PM Heart Rate 62 /min 06/01/2024 08:14 AM Heart Rate 78 /min 06/02/2024 08:07 AM Heart Rate 70 /min 06/04/2024 09:54 AM Temperature 97.2 [degF] Oxygen Saturation 100 % Respiratory Rate 14 /min Heart Rate 50 /min Blood Pressure Systolic 134 mm[Hg] Blood Pressure Diastolic 80 mm[Hg] 06/04/2024 09:03 AM Body Weight 107.2 [lb_av] Body Mass Index 19.6 kg/m2 06/04/2024 08:13 AM Heart Rate 68 /min 06/05/2024 07:57 AM Heart Rate 67 /min 06/06/2024 08:37 AM Heart Rate 69 /min 06/07/2024 10:48 AM Body Weight 107 [lb_av] Body Mass Index 19.57 kg/m2 06/07/2024 09:25 AM Heart Rate 70 /min 06/08/2024 10:30 AM Heart Rate 66 /min 06/09/2024 07:35 AM Heart Rate 72 /min 06/10/2024 08:46 AM Heart Rate 60 /min 06/11/2024 11:16 AM Temperature 98.3 [degF] Oxygen Saturation 98 % Respiratory Rate 16 /min Heart Rate 60 /min Blood Pressure Systolic 107 mm[Hg] Blood Pressure Diastolic 56 mm[Hg] 06/11/2024 08:15 AM Heart Rate 68 /min 06/12/2024 07:42 AM Heart Rate 68 /min 06/13/2024 09:10 AM Heart Rate 68 /min 06/14/2024 11:46 AM Heart Rate 72 /min 06/15/2024 08:19 AM Heart Rate 61 /min 06/16/2024 07:50 AM Heart Rate 66 /min 06/17/2024 09:12 AM Heart Rate 66 /min 06/18/2024 08:11 AM Temperature 97 [degF] Oxygen Saturation 100 % Respiratory Rate 16 /min Heart Rate 63 /min Blood Pressure Systolic 153 mm[Hg] Blood Pressure Diastolic 85 mm[Hg] 06/18/2024 07:42 AM Heart Rate 63 /min 06/19/2024 07:06 AM Heart Rate 74 /min 06/20/2024 08:47 AM Heart Rate 72 /min 06/21/2024 07:42 AM Heart Rate 68 /min 06/22/2024 08:26 AM Heart Rate 65 /min 06/23/2024 07:34 AM Heart Rate 67 /min 06/24/2024 08:02 AM Heart Rate 72 /min 06/25/2024 08:48 AM Heart Rate 59 /min 06/25/2024 10:33 AM Temperature 98 [degF] Oxygen Saturation 94 % Respiratory Rate 20 /min Heart Rate 59 /min Blood Pressure Systolic 136 mm[Hg] Blood Pressure Diastolic 60 mm[Hg] 06/26/2024 08:33 AM Heart Rate 64 /min 06/27/2024 08:40 AM Heart Rate 66 /min 06/28/2024 07:22 AM Heart Rate 70 /min 06/29/2024 07:49 AM Heart Rate 62 /min 06/30/2024 07:23 AM Heart Rate 67 /min 07/01/2024 08:38 AM Heart Rate 67 /min 07/02/2024 09:58 AM Temperature 98 [degF] Oxygen Saturation 94 % Respiratory Rate 19 /min Heart Rate 64 /min Blood Pressure Systolic 120 mm[Hg] Blood Pressure Diastolic 64 mm[Hg] 07/03/2024 09:38 AM Heart Rate 72 /min 07/04/2024 09:26 AM Heart Rate 75 /min 07/05/2024 08:04 AM Heart Rate 75 /min 07/06/2024 09:23 AM Heart Rate 81 /min 07/07/2024 10:37 AM Heart Rate 68 /min 07/08/2024 05:20 PM Body Weight 107 [lb_av] Body Mass Index 19.57 kg/m2 07/08/2024 10:32 AM Heart Rate 61 /min 07/09/2024 07:50 AM Heart Rate 61 /min 07/09/2024 10:23 AM Temperature 98.2 [degF] Oxygen Saturation 96 % Respiratory Rate 16 /min Heart Rate 64 /min Blood Pressure Systolic 130 mm[Hg] Blood Pressure Diastolic 63 mm[Hg] 07/10/2024 09:31 AM Heart Rate 86 /min 07/11/2024 10:17 AM Heart Rate 70 /min 07/12/2024 08:26 AM Heart Rate 68 /min 07/13/2024 07:36 AM Heart Rate 57 /min 07/14/2024 08:23 AM Heart Rate 64 /min 07/15/2024 07:12 AM Heart Rate 63 /min 07/16/2024 08:57 AM Temperature 98.2 [degF] Oxygen Saturation 97 % Respiratory Rate 18 /min Heart Rate 64 /min Blood Pressure Systolic 140 mm[Hg] Blood Pressure Diastolic 76 mm[Hg] 07/17/2024 08:45 AM Heart Rate 67 /min 07/18/2024 08:23 AM Heart Rate 64 /min 07/19/2024 08:18 AM Heart Rate 65 /min 07/20/2024 08:28 AM Heart Rate 61 /min 07/21/2024 08:15 AM Heart Rate 74 /min 07/22/2024 12:30 PM Heart Rate 70 /min 07/23/2024 06:58 AM Heart Rate 72 /min 07/23/2024 11:13 AM Blood Pressure Systolic 136 mm[Hg] Blood Pressure Diastolic 71 mm[Hg] 07/23/2024 11:12 AM Temperature 98 [degF] Oxygen Saturation 98 % Respiratory Rate 16 /min 07/24/2024 09:12 AM Heart Rate 70 /min 07/25/2024 08:06 AM Heart Rate 68 /min 07/26/2024 07:52 AM Heart Rate 56 /min 07/27/2024 08:46 AM Heart Rate 68 /min 07/28/2024 07:39 AM Heart Rate 71 /min 07/29/2024 07:43 AM Heart Rate 74 /min 07/30/2024 08:05 AM Heart Rate 70 /min 07/30/2024 12:54 PM Temperature 97.7 [degF] Respiratory Rate 18 /min 07/31/2024 08:24 AM Heart Rate 64 /min 08/01/2024 08:05 AM Heart Rate 76 /min 08/02/2024 08:07 AM Heart Rate 80 /min 08/03/2024 08:32 AM Heart Rate 77 /min 08/04/2024 08:00 AM Heart Rate 74 /min 08/05/2024 08:31 AM Heart Rate 72 /min 08/06/2024 08:41 AM Heart Rate 68 /min 08/06/2024 12:37 PM Temperature 96.9 [degF] Oxygen Saturation 97 % Respiratory Rate 16 /min Heart Rate 58 /min Blood Pressure Systolic 129 mm[Hg] Blood Pressure Diastolic 72 mm[Hg] 08/07/2024 09:26 AM Heart Rate 60 /min 08/07/2024 03:06 PM Body Weight 107 [lb_av] Body Mass Index 19.57 kg/m2 08/08/2024 07:43 AM Heart Rate 87 /min 08/09/2024 07:14 AM Heart Rate 60 /min 08/10/2024 06:36 AM Heart Rate 65 /min 08/11/2024 08:00 AM Heart Rate 70 /min Social History No smoking Hx information available Encounters Type CPT Code Date Location Provider Indication s encounter report 04/25/2022 03:50 PM Micaela Fernandezft DO 01 Advance Directives Directive Description Verification Date Supporting Document(s) Resuscitation
--- OUTSIDE RECORDS SUMMARY | 2024-11-12 15:26 | XMS_ITS | Clinical Summary ---
Author Organization [facility] Address [address] [place] [address] Phone Care Team Providers Care Solar Energy Engineer Name Role Phone Unavailable Primary Care Provider Unavailabl e Allergies No known active allergies Medications acetaminophen (TYLENOL) 500 mg tablet Take 2 Tablets (1,000 mg) by mouth every 6 hours as needed for Pain. 01/04/2023 Active magnesium hydroxide (MILK OF MAGNESIA) 400 mg/5 mL suspension Take 30 mL by mouth 1 time daily as needed for Constipation . 01/04/2023 Active oxyCODONE (ROXICODONE) 5 mg tabletIndicatio ns:Closed fracture of neck of right femur, initial encounter (CMS/[facility]) Take 1 Tablet (5 mg) by mouth 3 times daily as needed for Pain, Severe. Max Daily Amount: 15 mg 20 Tablet 01/04/2023 Active amiodarone (CORDARONE) 100 mg Tablet Take 1 Tablet (100 mg) by mouth daily. 30 Tablet 01/04/2023 Active ascorbic acid, vitamin C, (VITAMIN C) 500 mg tablet Take 1 Tablet (500 mg) by mouth daily. 30 Tablet 01/04/2023 Active baclofen (LIORESAL) 5 mg tablet Take 0.5 Tablets (2.5 mg) by mouth every 8 hours. 90 Tablet 01/04/2023 Active cyanocobalamin 1,000 mcg Tablet Take 1 Tablet (1,000 mcg) by mouth daily. 30 Tablet 01/04/2023 Active diltiaZEM (CARDIZEM CD) 120 mg Controlled Delivery 24 hour capsule Take 1 Capsule (120 mg) by mouth daily. 30 Capsule 01/04/2023 Active ergocalciferol (VITAMIN D2) 50,000 unit capsule Take 1 Capsule (50,000 Units) by mouth every 7 days. 4 Capsule 01/09/2023 Active famotidine (PEPCID) 20 mg tablet Take 1 Tablet (20 mg) by mouth 2 times daily. 60 Tablet 01/04/2023 Active ferrous sulfate 325 mg (65 mg iron) tablet Take 1 Tablet (325 mg) by mouth daily. 30 Tablet 01/04/2023 Active rivaroxaban (XARELTO) 15 mg Tablet Take 1 Tablet (15 mg) by mouth daily with supper. 30 Tablet 01/04/2023 Active sennosides-docu sate sodium (SENNA-S) 8.6-50 mg tablet Take 1 Tablet by mouth 2 times daily. Hold for loose stools 60 Tablet 01/04/2023 Active Active Problems Problem Noted Date Diagnosed Date ABLA (acute blood loss anemia) 01/04/2023 Vitamin D deficiency 01/04/2023 Vitamin B12 deficiency (non anemic) 01/04/2023 Closed fracture of neck of right femur after fal l 12/17/22 12/21/2022 Acute postoperative pain of left hip 12/20/2022 S/P Rt hip hemiarthroplasty 12/20/2022 H/O: CVA (cerebrovascular accident), LEFT 2022 A-fib 12/20/2022 Aphasia as late effect of cerebrovascular accide nt (CVA) 12/20/2022 Right hemiparesis 12/20/2022 Spasticity 12/20/2022 Neurogenic bladder 12/20/2022 GERD (gastroesophageal reflux disease) Current use of anticoagulant therapy 12/20/2022 Essential hypertension 12/20/2022 Social History Tobacco Use Types Packs/Day Years Used Date Smoking Tobacco: Unknown Alcohol Use Standard Drinks/Week Comments Never 0 (1 standard drink = 0.6 oz pur e alcohol) Comments Unknown Sex and Gender Information Value Date Recorded Sex Assigned at Not on file Legal Sex Female 11:53 AM CDT Gender Identity Not on file Sexual Orientation Not on file Last Filed Vital Signs Vital Sign Reading Time Taken Comments Blood Pressure 162/80 01/04/2023 9:33 AM CDT was up to the bathroom Pulse 64 01/04/2023 9:33 AM CDT Temperature 36.5 C (97.7 F) 01/04/2023 4:50 AM CDT Respiratory Rate 16 01/04/2023 4:50 AM CDT Oxygen Saturation 98% 01/04/2023 9:3 3 AM CDT Inhaled Oxygen Concentration - - Weight 55.5 kg (122 lb 4.8 oz) 01/03/2023 4:25 AM CDT Height 157.5 cm (5' 2 ) 12/20/2022 3:00 PM CDT Body Mass Index 22.37 12/20/2022 3:00 PM CDT Plan of Treatment Health Maintenance Due Date Last Done Comments DTAP/TDAP/TD VACCINES (1 - Tdap) 1964 PNEUMOCOCCAL VACCINE 50+ YEARS (1 of 1 - PCV) 11/01/18 96 ZOSTER VACCINE (1 of 2) 11/02/1995 OSTEOPOROSIS SCREENING 2010 RSV VACCINE (60+ or ) (1 - 1-dose 75+ series) 2020 INFLUENZA VACCINE (#1) 2024 Insurance MEDICARE PART A AND B GENERIC PAYOR Advance Directives For more information, please contact: [phone] * Full Code (Latest Code Status on File) Date Activated Date Inactivated Comments 12/20/2022 3:55 PM 01/04/2023 4:55 PM
--- OUTSIDE RECORDS SUMMARY | 2024-11-12 15:26 | XMS_ITS ---
Author Organization Unknown Vital Signs BpStanding BpSitting BpSupine Date Temperature HeartRate Weight Hei ght Spo2 Respiration Bmi HeadCircumference FieldCount TimeRecorded NeckCircumferen ce WaistCircumference Pulse 129/72 08/07 00:00 :00 96.9 106,16. 00 5,2 97 16 19.6 00:00 60 122/78 11/03 00:00 :00 97.5 5,2 95 19 00:00 82 137/71 10/13 00:00 :00 97 109,0.0 0 5,2 97 20 19.9 00:00 72 127/71 10/31 00:00 :00 98 113,0.0 0 5,2 98 17 20.7 00:00 80 121/73 03/18 00:00 :00 98.7 108,0.0 0 5,2 98 17 19.8 00:00 65 136/60 06/30 00:00 :00 98 106,16. 00 5,2 94 20 19.6 00:00 67 100/56 05/12 00:00 :00 97.3 105,0.0 0 5,2 99 16 19.2 00:00 66 107/56 06/12 00:00 :00 98.3 106,16. 00 5,2 98 16 19.6 00:00 68
--- OUTSIDE RECORDS SUMMARY | 2024-11-12 15:27 | XMS_ITS | Patient Health Record ---
Author Organization [facility] Address [address] [place] [address] Care Team Providers Care After School Program Teacher Name Role Phone Servando Logan DO Primary Care Provider Yovana Stanton Unavailable [phone] Allergies Allergen (clinical drug ingredient) Drug/Non Drug Allergy documented on EMR Reaction Allergy Type Onset Date Status Iodine CT contrast Drug Allergy Activ e Substance with sulfonamide structure and antibacterial mechanism of action (substance) Sulfa Antibiotics allergy Drug Allergy Active Reason For Referral No Information Medications Medication SIG (Take, Route, Frequency, Duration) Notes Start Date End Date Status dilTIAZem HCl 30 MG Tablet as directed Orally tid Active Eliquis 5 MG Tablet 1 tablet Orally Twic e a day Active Famotidine 20 MG Tablet 1 tablet at bedt mireya as needed Orally Twice a day Active Dulcolax 10 MG Suppository 1 suppository as needed Rectal Once a day Active Nystatin 180850 UNIT/GM Cream 1 application as needed Externally Twice a day Active Amiodarone HCl 200 MG Tablet 1 tablet Orally Once a day A ctive Social History Tobacco Use: Social History Observation Description Date Details (start date - stop date) Never Smoker NA - NA Social History Drugs/Alcohol: Social Info Question Answer Notes Alcohol Screen (Audit-C) Did you have a drink containing alcohol in the past year? No Points 0 Interpretation Negative Drugs Have you used drugs other than those for medical reasons in the past 12 months? No Tobacco Use: Social Info Question Answer Notes xTobacco Use/Smoking Are you a nonsmoker Additional Details Category Social Info Options Details Drugs/Alcohol: Do you smoke marijuana? De nies Do you drink alcohol? No Problems Problem Type SNOMED Code ICD Code Onset Dates Problem Status W/U Status Risk Notes Problem Neurogenic dysfunction of the urinary bladder (847716193) Neuromuscular dysfunction of bladder, unspecified (N31.9) Active confirmed Problem History of cerebrovascular accident without residual deficits (138976477) History of CVA (cerebrovascular accident) (Z86.73) Active confirmed Problem Recurrent urinary tract infection (071006118) Recurrent urinary tract infection (N39.0) Active confirmed Problem Incomplete emptying of bladder (351677390) Incomplete emptying of bladder (R33.9) Active confirmed Plan Of Treatment No Information Insurance Providers Payer Name Payer Address Payer Phone Subscriber Number Group Number Insured Name Patient Relationship to Insured Coverage Start Date Coverage End Date [place] Medicare [address] [place] [phone] [id number] Aretha Hawley Self - patient is the insured [facility] [address] [address] [place] [address] [id number] Aretha Hawley Self - patient is the insured 0 Medical (General) History Medical History History ICD Code hemiplegia CVA Atrial fibrillation hypertension neuromuscular dysfunction of the bladder GERD chronic bladder infections Hospitalization History Reason Date(Month/Year) CVA
--- OUTSIDE RECORDS SUMMARY | 2024-11-12 15:27 | XMS_ITS | Patient Health Record ---
Author Organization [facility] Address [address] [place] [address] Care Team Providers Care Grounds And Nursery Specialist Name Role Phone Servando Logan Primary Care Provider MICHELLE Mcgowan Unavailable [phone] Allergies Allergen (clinical drug ingredient) Drug/Non Drug Allergy documented on EMR Reaction Allergy Type Onset Date Status Iodine CT contrast Drug Allergy Activ e Substance with sulfonamide structure and antibacterial mechanism of action (substance) Sulfa Antibiotics allergy Drug Allergy Active Reason For Referral No Information Medications Medication SIG (Take, Route, Fr equency, Duration) Notes Start Date End Date Status Dulcolax 10 MG 1 suppository as nee ded Rectal Once a day Active Nystatin 128555 UNIT/GM 1 application as needed Externally Twice a day Active Eliquis 5 MG 1 tablet Orally Twice a day Active Famotidine 20 MG 1 tablet at bedtime as needed Orally Twice a day Active Amiodarone HCl 200 MG 1 tablet Orally Once a day Active dilTIAZem HCl 30 MG as directed Orally tid Active Problems Problem Type SNOMED Code ICD Code Onset Dates Problem Status W/U Status Risk Notes Problem Neurogenic dysfunction of the urinary bladder (329482591) Neuromuscular dysfunction of bladder, unspecified (N31.9) Active confirmed Problem Recurrent urinary tract infection (681051277) Recurrent urinary tract infection (N39.0) Active confirmed Problem Incomplete emptying of bladder (164274678) Incomplete emptying of bladder (R33.9) Active confirmed Problem History of cerebrovascular accident without residual deficits (136368587) History of CVA (cerebrovascular accident) (Z86.73) Active confirmed Plan Of Treatment No Information Insurance Providers Payer Name Payer Address Payer Phone Subscriber Number Group Number Insured Name Patient Relationship to Insured Coverage Start Date Coverage End Date [place] Medicare [address] [place]LL [id number] Aretha Hawley Self - patient is the insured [facility] [address] [address] [place] [address] [id number] HawleyAretha Self - patient is the insured 0 Medical (General) History Medical History History ICD Code hemiplegia CVA Atrial fibrillation hypertension neuromuscular dysfunction of the bladder GERD chronic bladder infections Hospitalization History Reason Date(Month/Year) CVA
--- NOTE | 2024-11-12 16:01 | USR_ITS ---
PROCEDURE INFORMATION: Exam: US Pelvis, Complete, Non-Obstetric Exam date and time: 11/12/2024 4:16 PM Age: 79 years old Clinical indication: Other: Bleeding; Prior surgery; Surgery date: 6+ months; Surgery type: PT chart states that she had a hysterectomy; Additional info: Vaginal bleeding TECHNIQUE: Imaging protocol: Transabdominal pelvic nonobstetric ultrasound. Complete exam. Real time ultrasound with image documentation. COMPARISON: CR XR hip RT 2-3V wo/w pel* [id number] 04/05/2023 9:35 AM FINDINGS: Uterus: Not visualized, surgically absent by history. Possible retained cervix. Right ovary/adnexa: Not visualized. Left ovary/adnexa: Not visualized. Intraperitoneal space: No intraperitoneal fluid. Urinary bladder: Distended and unremarkable. US/US pelv w/transvag [id number] IMPRESSION: 1. No acute findings. 2. Nonvisualized ovaries. 3. Hysterectomy with possible retained cervix. With a history of vaginal bleeding, direct visualization of the cervix is recommended.
[2024-11-12 16:25] LABS: Hematocrit 36.4 % (36-47); Hemoglobin 11.50 g/dL (11.27-16.99); Mean Corpuscular HGB Conc 31.6 g/dL (30-55); Mean Corpuscular Hemoglobin 31.8 pg (27-33); Mean Corpuscular Volume 100.6 fl (85-98); Nucleated Red Blood Cells % 0 %; Platelet Count 318 10^3/cmm (157-399); Red Blood Count 3.62 10^6/uL (3.85-5.65); White Blood Count 8.14 10^3/uL (3.29-11.43)
[2024-11-12 16:49] LABS: Alanine Aminotransferase 14 U/L (0-33); Albumin Level 4.0 g/dL (3.5-5.2); Alkaline Phosphatase 91 U/L (35-105); Anion Gap 14.1 (5-19); Aspartate Amino Transferase 19 U/L (0-32); Blood Urea Nitrogen 17 mg/dL (8-23); Calcium 9.2 mg/dL (8.5-10.5); Carbon Dioxide 25 mmol/L (22-29); Chloride 103 mmol/L (98-107); Creatinine Clr Calc Pharmacy 46.6582; Globulin 2.6 g/dL (1.3-4.6); Glucose 101 mg/dL (65-115); Osmolality Calculated 288 mOsm/kg (285-295); Potassium 4.1 mmol/L (3.5-5.1); Sodium 138 mmol/L (136-145); Total Protein 6.6 g/dL (6.6-8.7)
--- NOTE | 2024-11-12 16:50 | CTR_ITS ---
PROCEDURE INFORMATION: Exam: CT Pelvis With Contrast Exam date and time: 11/12/2024 5:37 PM Age: 79 years old Clinical indication: Other: Vaginal bleeding; Limited HX from PT due to dementia/prev stroke; Additional info: Postmenopausal vaginal bleeding TECHNIQUE: Imaging protocol: Computed tomography of the pelvis with contrast. Radiation optimization: All CT scans at this facility use at least one of these dose optimization techniques: automated exposure control; mA and/or kV adjustment per patient size (includes targeted exams where dose is matched to clinical indication); or iterative reconstruction. Contrast material: OMNIPAQUE 350; Contrast volume: 80 ml; Contrast route: INTRAVENOUS (IV); COMPARISON: CR XR hip RT 2-3V wo/w pel* [id number] 04/05/2023 9:35 AM RADIATION DOSE METRICS: Total DLP (mGy-cm): 280 FINDINGS: Intestine: Visualized small and large intestine are unremarkable. Appendix: The appendix is not visualized. No secondary signs of appendicitis. Intraperitoneal space: Unremarkable. No free air. No significant fluid collection. Lymph nodes: Unremarkable. No enlarged lymph nodes. Reproductive: Hysterectomy. Suspected retained cervix. No visible lesion in the region of the cervix or vagina. The ovaries are not definitely visualized. Urinary bladder: Normal. No mass. Bones/joints: Right hip arthroplasty. Degenerative changes in the lumbar spine. No fracture. Surgical scar in the right hip. Soft tissues: Unremarkable. CT/CT pelvis w con* [id number] IMPRESSION: 1. No acute findings. 2. Hysterectomy with probable retained cervix. 3. Nonvisualized ovaries. Correlation with prior surgical history.
[2024-11-12 17:04] LABS: Glucose Urine UA Negative (Normal); Nitrate Urine Positive (Negative); Specific Gravity, Urine 1.012 (1.005-1.030)
[2024-11-12 17:07] LABS: Add Urine Microscopic? YES
[2024-11-12] MEDS: methylPREDNISolone sod succ 40 mg/mL INJ IVP (17:09)
[2024-11-12] MEDS: diphenhydrAMINE 50 mg/mL SDV 1mL 25 MG IVP (17:10)
[2024-11-12 17:15] LABS: UA Slide Review UA Slide Review Perf
[2024-11-12] MEDS: iohexol 350 mg/mL 500 mL Btl (per mL) IV (17:49)
== END 2024-11-12 21:21 | disposition home or self-care (01) ==
PROVIDERS: Family Medicine; Emergency Provider Emergency Medicine; PCP Internal Medicine
DX: N93.9 Abnormal uterine and vaginal bleeding, unspecified (principal); I10 Essential (primary) hypertension; Z86.73 Personal history of transient ischemic attack (TIA), and cerebral infarction without residual deficits
CPT/HCPCS: 36415; 51702; 72193; 76830; 76856; 80053; 81001; 85025; 96374; 96375; 99285; J1200; J2919

== ENCOUNTER → 2024-12-02 15:25 | Outpatient (BNVA) | payer MEDICARE, OTHER, MEDICAID, SELFPAY | PROVIDERS: PCP Internal Medicine; Visit Provider Nurse Practitioner Women's Health | DX: R30.0 Dysuria (principal) | CPT/HCPCS: 87077; 87086; 87184 ==

== ENCOUNTER 2024-12-31 16:19 | Inpatient (IN) | payer MEDICARE, OTHER, MEDICAID, SELFPAY ==
[2024-12-31] VITALS (16 sets, daily range): BP systolic 118–147; BP diastolic 44–87; PULSE 66–87; RESP 16–25; TEMP 36.6–37; O2SAT 92–100; BMI 21.9; BMI 21.0
--- NOTE | 2024-12-31 16:24 | W.ED.RECABL ---
HPI - Recheck/Abnormal Lab/Rx General: Chief Complaint: Recheck/Abnormal Lab/Rx Stated Complaint: low hgb History of Present Illness: 79-year-old female with a history of stroke with residual right sided hemiparesis, atrial fibrillation, hypertension who presents emergency room from intermediate by ambulance with concern for anemia. Labs were drawn and her hemoglobin was down to 7. Per report she has been having rectal bleeding and the source has not been able to be determined after extensive workup. Apparently looking back on notes she has been having vaginal bleeding and is post hysterectomy and postmenopausal and it was thought to be caused by lichen sclerosus. She has been feeling weak and lightheaded. Related Data Home Medications ?Medication ?Instructions ?Recorded ?Confirmed famotidine 20 mg tablet 20 mg PO BID 06/30/22 01/01/25 magnesium hydroxide 400 mg/5 mL 15 ml PO DAILY PRN if no bm in 3 06/30/22 01/01/25 oral suspension (Milk of Magnesia) days sodium phosphates 19 gram-7 118 ml MD DAILY PRN Constipation 06/30/22 01/01/25 gram/118 mL enema (Fleet Enema) amiodarone 100 mg tablet 100 mg PO DAILY@12/18/22 01/01/25 cyanocobalamin (vitamin B-12) 1,000 mcg PO DAILY@01/18/23 01/01/25 1,000 mcg capsule ergocalciferol (vitamin D2) 1,250 1,250 mcg PO Q7D 01/18/23 01/01/25 mcg (50,000 unit) capsule baclofen 5 mg tablet 2.5 mg PO Q8H 04/05/23 01/01/25 acetaminophen 500 mg tablet 1,000 mg PO Q6H PRN Pain 04/25/23 01/01/25 bisacodyl 5 mg tablet,delayed 10 mg PO DAILY PRN if no bm in 04/25/23 01/01/25 release days diltiazem HCl 120 mg 120 mg PO DAILY@04/25/23 01/01/25 capsule,extended release 24 hr sennosides 8.6 mg-docusate sodium 1 tab PO BID hold if loose stools 04/25/23 01/01/25 50 mg tablet (Senna-S) calcium carbonate (Tums) 400 mg PO DAILY PRN Indigestion 03/05/24 01/01/25 bisacodyl 10 mg rectal suppository 10 mg MD DAILY PRN Constipation 01/01/25 01/01/25 (Dulcolax (bisacodyl)) clobetasol 0.05 % topical cream 1 applic topical QID PRN Skin 01/01/25 01/01/25 Irritation cocoa butter-shark liver oil See Rx Instructions .Route .COMPLEX 01/01/25 01/01/25 rectal suppository estradiol 0.01% (0.1 mg/gram) See Rx Instructions .Route .COMPLEX 01/01/25 01/01/25 vaginal cream levofloxacin 500 mg tablet 500 mg PO DAILY 01/01/25 01/01/25 losartan 50 mg tablet 50 mg PO DAILY 01/01/25 01/01/25 nystatin 100,000 unit/gram topical See Rx Instructions .Route .COMPLEX 01/01/25 01/01/25 cream polyethylene glycol 3350 17 17 g PO DAILY 01/01/25 01/01/25 gram/dose oral powder (Miralax) Previous Rx's ?Medication ?Instructions ?Recorded atorvastatin 20 mg tablet 20 mg PO DAILY #90 tabs 05/08/23 Allergies Allergy/AdvReac Type Severity Reaction Status Date / Time Cephalosporins Allergy trouble Verified 12/02/24 15:19 breathing Iodinated Contrast Media Allergy ALGY-Rash Verified 12/02/24 15:19 Sulfa (Sulfonamide Allergy Unknown Verified 12/02/24 15:19 Antibiotics) Review of Systems Narrative: Constitutional symptoms: Negative except as documented in HPI. Skin symptoms: Negative except as documented in HPI. Eye symptoms: Negative except as documented in HPI. ENMT symptoms: Negative except as documented in HPI. Respiratory symptoms: Negative except as documented in HPI. Cardiovascular symptoms: Negative except as documented in HPI. Gastrointestinal symptoms: Negative except as documented in HPI. Genitourinary symptoms: Negative except as documented in HPI. Musculoskeletal symptoms: Negative except as documented in HPI. Neurologic symptoms: Negative except as documented in HPI. Psychiatric symptoms: Negative except as documented in HPI. Endocrine symptoms: Negative except as documented in HPI. [facility] ED PFSH: Medical History (Updated 12/31/24 @ 23:06 by Mitzy Hurtado MD) Jaw pain Left-sided weakness UTI (urinary tract infection) Anticoagulated by anticoagulation treatment CVA (cerebral vascular accident) Left acute arterial ischemic stroke, MCA (middle cerebral artery) Enlarged thyroid Subcapital fracture of right hip Atrial fibrillation Essential (primary) hypertension Environmental and seasonal allergies Mixed hyperlipidemia Surgical History H/O: hysterectomy History of cholecystectomy History of dilatation and curettage History of tubal ligation History of tonsillectomy Family History Mother Stroke Other Heart disease Hypertension Social History Smoking and tobacco/nicotine status: never used tobacco/nicotine Physical Exam Narrative: EXAM NARRATIVE: General: Alert, no acute distress. Skin: Warm, dry. Head: Normocephalic, atraumatic. Neck: Supple, trachea midline. Eye: Extraocular movements are intact. Ears, nose, mouth and throat: mucosa moist. Cardiovascular: Regular, Normal peripheral perfusion. Respiratory: Lungs are clear to auscultation, respirations are non-labored, breath sounds are equal, Symmetrical chest wall expansion. Gastrointestinal: Soft, Nontender, Non distended Musculoskeletal: Normal ROM, no deformity. Neurological: Alert and oriented, right-sided hemiparesis Psychiatric: Cooperative, appropriate mood & affect. Course Vital Signs: Vital signs: Vital Signs Temperature 97.8 F 01/01/25 08:06 Pulse Rate 62 01/01/25 08:06 Respiratory Rate 17 01/01/25 08:06 Blood Pressure 127/67 01/01/25 08:06 Pulse Oximetry 95 01/01/25 08:06 Oxygen Delivery Me thod Room Air 01/01/25 04:00 MDM - Recheck/Abnormal Lab/Rx Medical Decision Making Medical decision making: Differential diagnosis including but not limited to and based on the above HPI, review of systems and physical exam: In this patient from intermediate with chronic bleeding and reports of anemia I will repeat lab work, type and screen and get coags. Orders placed to evaluate differential diagnosis based on the above differential, HPI and physical exam Lab Review: Laboratory results were reviewed and interpreted by myself the emergency room physician. Hemoglobin is significantly down from previous at 6.5. This is a microcytic anemia with MCV of 103. Platelets are up a little at 426. Urinalysis has minimal hematuria. CT of the abdomen pelvis without contrast: Right nephrolithiasis without obstructive uropathy. No other acute disease seen in the abdomen and pelvis. This was reviewed and interpreted by myself the emergency room physician. I also reviewed the radiology report. I reviewed the patient's medical record. Reexamination: I did examine the exterior vaginal vault and urethra. I do not see any masses around or near the urethra. She does appear to have some dried blood in the vaginal vault. Unclear if this is the source. I spoke at length with her son. He says she will have episodes of bleeding and it is usually when she goes to the bathroom to urinate. [facility] reported to him that when she goes to urinate sometimes there will be a pool of blood in the bedpan. No reports of any black tarry stools. He also tells me she has been to urology who did a cystoscopy and said the bladder looked normal. They were going to do a CT scan and so that has been done here. She is allergic to contrast so this was a noncontrast renal study. I attempted transfer to [facility] in [place] at the family's request. Dr. Tomlin the hospitalist on-call there refused transfer. Despite the fact that the patient had been seen by physicians there and the family is requesting transfer. Consultation: I spoke with Dr. Hurtado who is on-call for the hospitalist service. Ultimately she accepted the patient for admission. Assessment and plan: Anemia ?2 units packed red blood cells ordered and started in the emergency room. -I discussed the patient with the hospitalist on-call who is admitting the patient. - Discussed findings and plan with family and patient. Answered any questions. - All laboratory values were reviewed and interpreted personally by myself, the ER physician - All imaging was reviewed and interpreted personally by myself, the ER physician. - Evaluation and treatment of this problem were appropriate in the emergency setting Lab Data 01/01/25 05:14 01/01/25 05:14 Radiology Impressions Abdomen/Pelvis CT 12/31/24 17:25 IMPRESSION: 1. Right nephrolithiasis without obstructive uropathy. 2. No other acute disease in the abdomen or pelvis. 3. Right lung opacity which can be further evaluated with chest radiograph or chest CT. 4. Increased volume of fecal material throughout the colon. ADDENDUM: 12/31/24 9666 Addendum: Findings were discussed with Dr. Hurtado at 12/31/2024 11:53 PM CDT. Laboratory Results WBC 8.48 10^3/uL (3.29-11.43) 12/31/24 16:20 RBC 2.03 10^6/uL (3.85-5.65) L 12/31/24 16:20 Hgb 6.50 g/dL (11.27-16.99) L* 12/31/24 16:20 Hct 20.9 % (36-47) L 12/31/24 16:20 MCV 103.0 fl (85-98) H 12/31/24 16:20 MCH 32.0 pg (27-33) 12/31/24 16:20 MCHC 31.1 g/dL (30-55) 12/31/24 16:20 RDW 14.6 % (12.1-15.1) 12/31/24 16:20 Plt Count 426 10^3/cmm (157-399) H 12/31/24 16:20 MPV 11.1 fL (7.4-10.4) H 12/31/24 16:20 Neut % (Auto) 69.1 % 12/31/24 16:20 Lymph % (Auto) 19.6 % 12/31/24 16:20 [place] % (Auto) 9.1 % 12/31/24 16:20 Eos % (Auto) 1.7 % 12/31/24 16:20 Baso % (Auto) 0.1 % 12/31/24 16:20 Neut # (Auto) 5.87 10^3/uL (1.8-7.7) 12/31/24 16:20 Lymph # (Auto) 1.7 10^3/uL (0.8-4.8) 12/31/24 16:20 [place] # (Auto) 0.8 10^3/uL (0.2-0.9) 12/31/24 16:20 Eos # (Auto) 0.1 10^3/uL (0.0-0.8) 12/31/24 16:20 Baso # (Auto) 0.0 10^3/uL (0.0-0.1) 12/31/24 16:20 Nucleated RBC % (auto) 0 % 12/31/24 16:20 Nucleated RBCs # 0.0 /100WBC 12/31/24 16:20 PT 13.10 SECONDS (12.1-14.9) 12/31/24 16:20 INR 0.93 (0.8-1.2) 12/31/24 16:20 APTT 22.4 SECONDS (23.9-36.7) L 12/31/24 16:20 Sodium 137 mmol/L (136-145) 12/31/24 16:20 Potassium 4.0 mmol/L (3.5-5.1) 12/31/24 16:20 Chloride 103 mmol/L (98-107) 12/31/24 16:20 Carbon Dioxide 25 mmol/L (22-29) 12/31/24 16:20 Anion Gap 13.0 (5-19) 12/31/24 16:20 BUN 14 mg/dL (8-23) 12/31/24 16:20 Creatinine 0.5 mg/dL (0.5-0.9) 12/31/24 16:20 GFR Calculation Not Reportable 12/31/24 16:20 Glucose 99 mg/dL (65-115) 12/31/24 16:20 Calculated Osmolality 285 mOsm/kg (285-295) 12/31/24 16:20 Calcium 8.8 mg/dL (8.5-10.5) 12/31/24 16:20 Total Bilirubin 0.2 mg/dL (0.15-1.2) 12/31/24 16:20 AST 19 U/L (0-32) 12/31/24 16:20 ALT 11 U/L (0-33) 12/31/24 16:20 Alkaline Phosphatase 93 U/L (35-105) 12/31/24 16:20 Total Protein 6.4 g/dL (6.6-8.7) L 12/31/24 16:20 Albumin 3.9 g/dL (3.5-5.2) 12/31/24 16:20 Globulin 2.5 g/dL (1.3-4.6) 12/31/24 16:20 Vitamin B12 > 2000 pg/mL (232-1245) H 12/31/24 16:20 Folate 9.2 ng/mL (4.8-37.3) 12/31/24 16:20 Urine Color Yellow (Yellow) 12/31/24 16:55 Urine Appearance Clear (CLEAR) 12/31/24 16:55 Urine pH 5.5 (5-7) 12/31/24 16:55 Ur Specific [place] 1.019 (1.005-1.030) 12/31/24 16:55 Urine Protein Negative (Negative) 12/31/24 16:55 Urine Glucose (UA) Negative (Normal) 12/31/24 16:55 Urine Ketones Negative (Negative) 12/31/24 16:55 Urine Blood 1+ (Negative) A 12/31/24 16:55 Urine Nitrate Negative (Negative) 12/31/24 16:55 Urine Bilirubin Negative (Negative) 12/31/24 16:55 Urine Urobilinogen 1.0 mg/dL (Negative) 12/31/24 16:55 Ur Leukocyte Esterase Negative (Negative) 12/31/24 16:55 Urine RBC 11-20 /hpf (0-2) H 12/31/24 16:55 Urine WBC 0-5 /hpf (0-5) 12/31/24 16:55 Ur Squamous Epith Cells 0-5 /hpf (0-5) 12/31/24 16:55 Amorphous Sediment Not Reportable 12/31/24 16:55 Urine Bacteria None seen /hpf (NONE) 12/31/24 16:55 Hyaline Casts 0.40 /lpf 12/31/24 16:55 Blood Type A Positive 12/31/24 16:20 Rho(D) Type Rh positive 12/31/24 16:20 Antibody Screen Negative 12/31/24 16:20 Crossmatch See Detail 12/31/24 16:20 All radiology interpretation(s) finalized by discharge Discharge Plan Discharge Patient Disposition: Admitted As Inpatient Admit Provider: Mitzy Hurtado Clinical Impression: Anemia Condition: Stable Coding Level of Care Code ED Staff Training And Development Manager for Hermelindo Koehler
--- OUTSIDE RECORDS SUMMARY | 2024-12-31 16:24 | XMS_ITS | Continuity of Care Document ---
Author Organization [employer] [facility] ([facility]) Address [address] [place] [address] Insurance Providers Payer Plan Claims Address Claims Phone Policy Number Group Number Relation Employer Guarantor Name Guarantor Guarantor Address Guarantor Phone GENER IC PAYOR [id number] Self Aretha Hawley [address] [place] [address] MEDIC ARE tel:[phone] Self Aretha Hawley [address] [place] [address] [place] Medic are [address], [place] [address] tel:[phone] Self Aretha Hawley [address] [place] [address] Problems Condition ICD9 code ICD10 code SNOMED [...] e Unspecified atrial fibrillation I48.91 04/25/2022 Active snf (current) use of anticoagulants Z79.01 05/19/2022 Active Essential (primary) hypertension I10 04/25/2022 Active Neuromuscular dysfunction of bladder, unspecified N31.9 05/09/2022 A ctive Vitamin D deficiency, unspecified E55.9 02/01/2023 Active Deficiency of other specified B group vitamins E53.8 02/01/2023 Active Gastro-esophageal reflux disease without esophagitis K21.9 07/11/2022 Active 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 Refere nce Range COVID-19 Test Viral Antigen null flavor [null] 01/28/2024 05:00 PM See note NEG COVID-19 Test Viral Antigen COVID-19 Test Viral Antigen null flavor [null] 01/21/2024 05:00 PM See note NEG COVID-19 Test Viral Antigen COVID-19 Test Viral Antigen null flavor [null] 01/14/2024 05:00 PM See note NEG COVID-19 Test Viral Antigen COVID-19 Test Viral Antigen null flavor [null] 01/07/2024 05:00 PM See note NEG COVID-19 Test Viral Antigen COVID-19 Test Viral Antigen null flavor [null] 12/31/2023 05:00 PM See note NEG COVID-19 Test Viral Antigen COVID-19 Test Viral Antigen null flavor [null] 12/24/2023 05:00 PM See note NEG COVID-19 Test Viral Antigen [...] Unassigned Route of Administratio n 02/01/2023 Completed COVID-19 Vaccine Unassigned Route of Administration Refused Medications Medication Instructions Route Dosage Frequency Start [...] in 3 days oral 1.0 1.0 d 12/23 Active clobetasol 0.05 % cream (clobetasol) as [...] Once A Day oral 1.0 1.0 d 09/28/ 2023 Active Dulcolax (bisacodyl) (bisacodyl) 10 mg suppository (Dulcolax (bisacodyl) (bisacodyl)) 1 suppository, rectal, Once A Day - PRN, Give rectally if no results from MOM rectal 1.0 1.0 d 2022 Active ergocalciferol (vitamin D2) 1,250 mcg (50,000 unit) capsule (ergocalciferol (vitamin D2)) 1, oral, Once a Day on Mon oral 1.0 1.0 d 2022 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 famotidine 20 mg tablet (famotidine) 1 [...] Once A Day oral 1.0 1.0 d 12/29 Active Milk of Magnesia (magnesium hydroxide) 400 [...] Once A Day oral 1.0 1.0 d 12/25 Unspecified atrial fibrillation Active amoxicillin-pot clavulanate 875-125 [...] cream topical 1.0 8.0 h 2024 Active Miralax (polyethylene glycol 3350) 17 gram/dose powder (Miralax (polyethylene glycol 3350)) 17 gram, oral, Once A Day, Administer 17 gram in 8 oz juice or water daily oral 1.0 1.0 d 2024 Active Preparation H (phenyleph-min oil-petrolatum) 0.25-14-74.9 % ointment (Preparation H (phenyleph-min oil-petrolatum)) as directed, rectal, Every Shift - PRN, Apply as needed for hemorrhoids rectal 1.0 8.0 h 2024 Active cephalexin 500 mg capsule (cephalexin) 1, oral, Twice A Day oral 1.0 12.0 h 12/20 Active Estrace (estradiol) 0.01 % (0.1 mg/gram) cream (Estrace (estradiol)) apply on uretha, vaginal, At Bedtime vaginal 1.0 2024 Active cephalexin 500 mg capsule (cephalexin) 1, oral, Twice A Day oral 1.0 12.0 h 12/22 Active cephalexin 500 mg capsule (cephalexin) 1, oral, Twice A Day oral 1.0 12.0 h 12/19 Active bisacodyl 5 mg tablet,delayed release (DR/EC) (bisacodyl) 2, oral, Once A Day - PRN, Give 2 tabs PO if no BM in 3 days oral 1.0 1.0 d 2024 Active cephalexin 500 mg capsule (cephalexin) 1 cap, oral, Twice A Day oral 1.0 12.0 h 12/30 Active levofloxacin 500 mg tablet (levofloxacin) 1, oral, Once A Day oral 1.0 1.0 d 01/02 Active Vital Signs Date Vital Result Comment 03/18/2024 08:11 AM Heart Rate (8867-4) 65 /min 03/17/2024 08:35 AM Heart Rate (8867-4) 78 /min 03/16/2024 07:55 AM Heart Rate (8867-4) 72 /min 03/15/2024 08:12 AM Heart Rate (8867-4) 70 /min 03/14/2024 08:42 AM Heart Rate (8867-4) 76 /min 03/13/2024 07:20 AM Heart Rate (8867-4) 72 /min 03/12/2024 10:13 AM Temperature (8310-5) 98.7 [degF] Oxygen Saturation (46137-5) 98 % Respiratory Rate (9279-1) 17 /min Heart Rate (8867-4) 70 /min Blood Pressure Systolic (8480-6) 121 mm[Hg] Blood Pressure Diastolic (8462-4) 73 mm[Hg] 03/12/2024 08:29 AM Heart Rate (8867-4) 70 /min 03/11/2024 08:13 AM Heart Rate (8867-4) 52 /min 03/10/2024 09:20 AM Heart Rate (8867-4) 53 /min 03/09/2024 03:00 PM Body Weight (21787-5) 108.8 [lb_av ] Body Mass Index (50759-9) 19.9 kg/m2 03/05/2024 09:59 AM Temperature (8310-5) 97.5 [degF] Oxygen Saturation (66666-2) 98 % Respiratory Rate (9279-1) 14 /min Blood Pressure Systolic (8480-6) 153 mm[Hg] Blood Pressure Diastolic (8462-4) 84 mm[Hg] 02/27/2024 09:03 AM Temperature (8310-5) 96.9 [degF] Oxygen Saturation (86303-2) 97 % Respiratory Rate (9279-1) 16 /min Blood Pressure Systolic (8480-6) 121 mm[Hg] Blood Pressure Diastolic (8462-4) 63 mm[Hg] 02/20/2024 09:12 AM Temperature (8310-5) 97.8 [degF] Oxygen Saturation (42829-4) 98 % Respiratory Rate (9279-1) 19 /min Blood Pressure Systolic (8480-6) 146 mm[Hg] Blood Pressure Diastolic (8462-4) 85 mm[Hg] 02/13/2024 10:26 AM Temperature (8310-5) 97.9 [degF] Oxygen Saturation (62344-6) 97 % Respiratory Rate (9279-1) 17 /min Blood Pressure Systolic (8480-6) 130 mm[Hg] Blood Pressure Diastolic (8462-4) 70 mm[Hg] 02/08/2024 12:35 PM Body Weight (86093-9) 110.2 [lb_av ] Body Mass Index (81198-3) 20.15 kg/m2 02/06/2024 11:10 AM Temperature (8310-5) 97.8 [degF] Oxygen Saturation (16494-3) 99 % Respiratory Rate (9279-1) 16 /min Blood Pressure Systolic (8480-6) 144 mm[Hg] Blood Pressure Diastolic (8462-4) 74 mm[Hg] 01/30/2024 07:48 AM Temperature (8310-5) 97.6 [degF] Oxygen Saturation (75049-6) 96 % Respiratory Rate (9279-1) 18 /min Blood Pressure Systolic (8480-6) 145 mm[Hg] Blood Pressure Diastolic (8462-4) 69 mm[Hg] 01/23/2024 09:26 AM Temperature (8310-5) 97.5 [degF] Oxygen Saturation (00580-7) 100 % Respiratory Rate (9279-1) 16 /min Blood Pressure Systolic (8480-6) 163 mm[Hg] Blood Pressure Diastolic (8462-4) 85 mm[Hg] 01/17/2024 09:09 PM Temperature (8310-5) 97.8 [degF] Oxygen Saturation (25372-3) 97 % Respiratory Rate (9279-1) 16 /min 01/16/2024 10:13 AM Temperature (8310-5) 98.5 [degF] Oxygen Saturation (82667-9) 96 % Respiratory Rate (9279-1) 16 /min Blood Pressure Systolic (8480-6) 156 mm[Hg] Blood Pressure Diastolic (8462-4) 87 mm[Hg] 01/09/2024 08:35 AM Blood Pressure Systolic (8480-6) 1 79 mm[Hg] Blood Pressure Diastolic (8462-4) 84 mm[Hg] 01/08/2024 10:51 AM Body Weight (93566-8) 111 [lb_av] Body Mass Index (35234-5) 20.3 kg/m2 04/25/2022 08:23 PM Body Height (8302-2) 62 [in_us] 03/19/2024 09:13 AM Heart Rate (8867-4) 69 /min 03/19/2024 07:44 PM Body Weight (58686-5) 106.6 [lb_av ] Body Mass Index (11338-2) 19.5 kg/m2 03/21/2024 10:48 AM Heart Rate (8867-4) 71 /min 03/20/2024 07:58 AM Heart Rate (8867-4) 68 /min 03/22/2024 12:46 PM Heart Rate (8867-4) 67 /min 03/23/2024 11:33 AM Heart Rate (8867-4) 62 /min 03/24/2024 09:50 AM Heart Rate (8867-4) 64 /min 03/26/2024 07:59 AM Heart Rate (8867-4) 67 /min 03/25/2024 08:02 AM Heart Rate (8867-4) 66 /min 03/27/2024 08:41 AM Heart Rate (8867-4) 69 /min 03/26/2024 11:10 AM Body Weight (60251-4) 105 [lb_av] Body Mass Index (96745-0) 19.2 kg/m2 03/26/2024 10:56 AM Temperature (8310-5) 98.3 [degF] Oxygen Saturation (40609-3) 97 % Respiratory Rate (9279-1) 16 /min Heart Rate (8867-4) 67 /min Blood Pressure Systolic (8480-6) 136 mm[Hg] Blood Pressure Diastolic (8462-4) 60 mm[Hg] 03/28/2024 10:06 AM Heart Rate (8867-4) 66 /min 03/29/2024 07:10 AM Heart Rate (8867-4) 70 /min 03/30/2024 08:44 AM Heart Rate (8867-4) 76 /min 03/31/2024 08:30 AM Heart Rate (8867-4) 72 /min 04/01/2024 09:02 AM Heart Rate (8867-4) 68 /min 04/02/2024 08:42 AM Temperature (8310-5) 97.8 [degF] Oxygen Saturation (86323-5) 95 % Respiratory Rate (9279-1) 20 /min Heart Rate (8867-4) 61 /min Blood Pressure Systolic (8480-6) 123 mm[Hg] Blood Pressure Diastolic (8462-4) 54 mm[Hg] 04/02/2024 07:57 AM Heart Rate (8867-4) 61 /min 04/03/2024 07:38 AM Heart Rate (8867-4) 70 /min 04/04/2024 10:27 AM Heart Rate (8867-4) 60 /min 04/05/2024 10:51 AM Heart Rate (8867-4) 60 /min 04/06/2024 09:43 AM Heart Rate (8867-4) 65 /min 04/07/2024 09:03 AM Heart Rate (8867-4) 61 /min 04/08/2024 07:30 AM Heart Rate (8867-4) 64 /min 04/09/2024 12:36 PM Body Weight (13601-8) 108 [lb_av] Body Mass Index (35491-4) 19.75 kg/m2 04/09/2024 09:39 AM Temperature (8310-5) 98.3 [degF] Oxygen Saturation (02697-0) 97 % Respiratory Rate (9279-1) 17 /min Heart Rate (8867-4) 66 /min Blood Pressure Systolic (8480-6) 123 mm[Hg] Blood Pressure Diastolic (8462-4) 73 mm[Hg] 04/09/2024 08:01 AM Heart Rate (8867-4) 66 /min 04/10/2024 08:36 AM Heart Rate (8867-4) 70 /min 04/11/2024 09:22 AM Heart Rate (8867-4) 62 /min 04/12/2024 08:08 AM Heart Rate (8867-4) 68 /min 04/13/2024 09:23 AM Heart Rate (8867-4) 70 /min 04/14/2024 07:58 AM Heart Rate (8867-4) 62 /min 04/15/2024 08:03 AM Heart Rate (8867-4) 66 /min 04/16/2024 09:27 AM Body Weight (62799-6) 206 [lb_av] Body Mass Index (43625-5) 37.67 kg/m2 04/16/2024 09:18 AM Temperature (8310-5) 97.5 [degF] Oxygen Saturation (08509-1) 98 % Respiratory Rate (9279-1) 20 /min Heart Rate (8867-4) 60 /min Blood Pressure Systolic (8480-6) 117 mm[Hg] Blood Pressure Diastolic (8462-4) 64 mm[Hg] 04/16/2024 08:06 AM Heart Rate (8867-4) 60 /min 04/17/2024 09:29 AM Heart Rate (8867-4) 65 /min 04/18/2024 09:15 AM Heart Rate (8867-4) 68 /min 04/19/2024 07:31 AM Heart Rate (8867-4) 64 /min 04/20/2024 08:29 AM Heart Rate (8867-4) 63 /min 04/21/2024 07:38 AM Heart Rate (8867-4) 73 /min 04/22/2024 07:44 AM Heart Rate (8867-4) 62 /min 04/23/2024 09:47 AM Body Weight (64428-5) 105.2 [lb_av ] Body Mass Index (14288-6) 19.24 kg/m2 04/23/2024 09:31 AM Temperature (8310-5) 96.9 [degF] Oxygen Saturation (62948-1) 97 % Respiratory Rate (9279-1) 14 /min Heart Rate (8867-4) 58 /min Blood Pressure Systolic (8480-6) 112 mm[Hg] Blood Pressure Diastolic (8462-4) 96 mm[Hg] 04/24/2024 09:14 AM Heart Rate (8867-4) 61 /min 04/25/2024 08:47 AM Heart Rate (8867-4) 66 /min 04/26/2024 08:13 AM Heart Rate (8867-4) 68 /min 04/27/2024 08:20 AM Heart Rate (8867-4) 52 /min 04/28/2024 08:25 AM Heart Rate (8867-4) 94 /min 04/29/2024 07:37 AM Heart Rate (8867-4) 74 /min 04/30/2024 03:23 PM Body Weight (48634-6) 105.8 [lb_av ] Body Mass Index (44505-4) 19.35 kg/m2 04/30/2024 09:53 AM Temperature (8310-5) 98 [degF] Oxygen Saturation (49252-3) 98 % Respiratory Rate (9279-1) 17 /min Heart Rate (8867-4) 62 /min Blood Pressure Systolic (8480-6) 125 mm[Hg] Blood Pressure Diastolic (8462-4) 66 mm[Hg] 04/30/2024 07:10 AM Heart Rate (8867-4) 66 /min 05/01/2024 07:36 AM Heart Rate (8867-4) 77 /min 05/02/2024 07:39 AM Heart Rate (8867-4) 69 /min 05/03/2024 08:59 AM Heart Rate (8867-4) 65 /min 05/04/2024 12:45 PM Heart Rate (8867-4) 62 /min 05/05/2024 08:45 AM Heart Rate (8867-4) 55 /min 05/06/2024 12:32 PM Heart Rate (8867-4) 64 /min 05/07/2024 02:26 PM Temperature (8310-5) 97.3 [degF] Oxygen Saturation (78300-6) 99 % Respiratory Rate (9279-1) 16 /min Heart Rate (8867-4) 59 /min Blood Pressure Systolic (8480-6) 100 mm[Hg] Blood Pressure Diastolic (8462-4) 56 mm[Hg] 05/07/2024 11:06 AM Body Weight (18994-6) 106 [lb_av] Body Mass Index (72524-7) 19.39 kg/m2 05/07/2024 11:05 AM Heart Rate (8867-4) 59 /min 05/08/2024 08:04 AM Heart Rate (8867-4) 66 /min 05/09/2024 08:37 AM Heart Rate (8867-4) 70 /min 05/10/2024 02:30 PM Body Weight (84367-9) 105.4 [lb_av ] Body Mass Index (13500-3) 19.28 kg/m2 05/10/2024 08:07 AM Heart Rate (8867-4) 70 /min 05/11/2024 08:48 AM Heart Rate (8867-4) 77 /min 05/12/2024 08:51 AM Heart Rate (8867-4) 66 /min 05/13/2024 07:58 AM Heart Rate (8867-4) 60 /min 05/14/2024 07:52 AM Heart Rate (8867-4) 68 /min 05/14/2024 05:03 PM Temperature (8310-5) 98.6 [degF] Oxygen Saturation (42938-6) 99 % Respiratory Rate (9279-1) 18 /min Heart Rate (8867-4) 67 /min Blood Pressure Systolic (8480-6) 136 mm[Hg] Blood Pressure Diastolic (8462-4) 75 mm[Hg] 05/15/2024 07:23 AM Heart Rate (8867-4) 70 /min 05/16/2024 08:10 AM Heart Rate (8867-4) 73 /min 05/17/2024 09:00 AM Heart Rate (8867-4) 83 /min 05/18/2024 09:40 AM Heart Rate (8867-4) 59 /min 05/19/2024 07:30 AM Heart Rate (8867-4) 64 /min 05/20/2024 07:39 AM Heart Rate (8867-4) 64 /min 05/21/2024 11:15 AM Body Weight (95060-5) 106.8 [lb_av ] Body Mass Index (05367-0) 19.53 kg/m2 05/21/2024 08:28 AM Temperature (8310-5) 96.9 [degF] Oxygen Saturation (95422-0) 100 % Respiratory Rate (9279-1) 16 /min Heart Rate (8867-4) 63 /min Blood Pressure Systolic (8480-6) 139 mm[Hg] Blood Pressure Diastolic (8462-4) 77 mm[Hg] 05/21/2024 08:27 AM Heart Rate (8867-4) 63 /min 05/22/2024 08:51 AM Heart Rate (8867-4) 62 /min 05/23/2024 08:30 AM Heart Rate (8867-4) 73 /min 05/24/2024 06:48 AM Heart Rate (8867-4) 75 /min 05/25/2024 07:50 AM Heart Rate (8867-4) 70 /min 05/26/2024 07:50 AM Heart Rate (8867-4) 64 /min 05/27/2024 07:58 AM Heart Rate (8867-4) 66 /min 05/28/2024 10:07 AM Body Weight (65143-1) 106.8 [lb_av ] Body Mass Index (95671-2) 19.53 kg/m2 05/28/2024 09:41 AM Temperature (8310-5) 98.6 [degF] Oxygen Saturation (95571-3) 97 % Respiratory Rate (9279-1) 16 /min Heart Rate (8867-4) 58 /min Blood Pressure Systolic (8480-6) 145 mm[Hg] Blood Pressure Diastolic (8462-4) 90 mm[Hg] 05/28/2024 07:32 AM Heart Rate (8867-4) 58 /min 05/29/2024 07:00 AM Heart Rate (8867-4) 67 /min 05/30/2024 09:34 AM Heart Rate (8867-4) 64 /min 05/31/2024 01:41 PM Heart Rate (8867-4) 62 /min 06/01/2024 08:14 AM Heart Rate (8867-4) 78 /min 06/02/2024 08:07 AM Heart Rate (8867-4) 70 /min 06/04/2024 09:54 AM Temperature (8310-5) 97.2 [degF] Oxygen Saturation (50512-7) 100 % Respiratory Rate (9279-1) 14 /min Heart Rate (8867-4) 50 /min Blood Pressure Systolic (8480-6) 134 mm[Hg] Blood Pressure Diastolic (8462-4) 80 mm[Hg] 06/04/2024 09:03 AM Body Weight (12764-9) 107.2 [lb_av ] Body Mass Index (93495-8) 19.6 kg/m2 06/04/2024 08:13 AM Heart Rate (8867-4) 68 /min 06/05/2024 07:57 AM Heart Rate (8867-4) 67 /min 06/06/2024 08:37 AM Heart Rate (8867-4) 69 /min 06/07/2024 10:48 AM Body Weight (74815-4) 107 [lb_av] Body Mass Index (48004-1) 19.57 kg/m2 06/07/2024 09:25 AM Heart Rate (8867-4) 70 /min 06/08/2024 10:30 AM Heart Rate (8867-4) 66 /min 06/09/2024 07:35 AM Heart Rate (8867-4) 72 /min 06/10/2024 08:46 AM Heart Rate (8867-4) 60 /min 06/11/2024 11:16 AM Temperature (8310-5) 98.3 [degF] Oxygen Saturation (21065-7) 98 % Respiratory Rate (9279-1) 16 /min Heart Rate (8867-4) 60 /min Blood Pressure Systolic (8480-6) 107 mm[Hg] Blood Pressure Diastolic (8462-4) 56 mm[Hg] 06/11/2024 08:15 AM Heart Rate (8867-4) 68 /min 06/12/2024 07:42 AM Heart Rate (8867-4) 68 /min 06/13/2024 09:10 AM Heart Rate (8867-4) 68 /min 06/14/2024 11:46 AM Heart Rate (8867-4) 72 /min 06/15/2024 08:19 AM Heart Rate (8867-4) 61 /min 06/16/2024 07:50 AM Heart Rate (8867-4) 66 /min 06/17/2024 09:12 AM Heart Rate (8867-4) 66 /min 06/18/2024 08:11 AM Temperature (8310-5) 97 [degF] Oxygen Saturation (22199-9) 100 % Respiratory Rate (9279-1) 16 /min Heart Rate (8867-4) 63 /min Blood Pressure Systolic (8480-6) 153 mm[Hg] Blood Pressure Diastolic (8462-4) 85 mm[Hg] 06/18/2024 07:42 AM Heart Rate (8867-4) 63 /min 06/19/2024 07:06 AM Heart Rate (8867-4) 74 /min 06/20/2024 08:47 AM Heart Rate (8867-4) 72 /min 06/21/2024 07:42 AM Heart Rate (8867-4) 68 /min 06/22/2024 08:26 AM Heart Rate (8867-4) 65 /min 06/23/2024 07:34 AM Heart Rate (8867-4) 67 /min 06/24/2024 08:02 AM Heart Rate (8867-4) 72 /min 06/25/2024 08:48 AM Heart Rate (8867-4) 59 /min 06/25/2024 10:33 AM Temperature (8310-5) 98 [degF] Oxygen Saturation (45191-2) 94 % Respiratory Rate (9279-1) 20 /min Heart Rate (8867-4) 59 /min Blood Pressure Systolic (8480-6) 136 mm[Hg] Blood Pressure Diastolic (8462-4) 60 mm[Hg] 06/26/2024 08:33 AM Heart Rate (8867-4) 64 /min 06/27/2024 08:40 AM Heart Rate (8867-4) 66 /min 06/28/2024 07:22 AM Heart Rate (8867-4) 70 /min 06/29/2024 07:49 AM Heart Rate (8867-4) 62 /min 06/30/2024 07:23 AM Heart Rate (8867-4) 67 /min 07/01/2024 08:38 AM Heart Rate (8867-4) 67 /min 07/02/2024 09:58 AM Temperature (8310-5) 98 [degF] Oxygen Saturation (77241-6) 94 % Respiratory Rate (9279-1) 19 /min Heart Rate (8867-4) 64 /min Blood Pressure Systolic (8480-6) 120 mm[Hg] Blood Pressure Diastolic (8462-4) 64 mm[Hg] 07/03/2024 09:38 AM Heart Rate (8867-4) 72 /min 07/04/2024 09:26 AM Heart Rate (8867-4) 75 /min 07/05/2024 08:04 AM Heart Rate (8867-4) 75 /min 07/06/2024 09:23 AM Heart Rate (8867-4) 81 /min 07/07/2024 10:37 AM Heart Rate (8867-4) 68 /min 07/08/2024 05:20 PM Body Weight (01749-2) 107 [lb_av] Body Mass Index (81960-2) 19.57 kg/m2 07/08/2024 10:32 AM Heart Rate (8867-4) 61 /min 07/09/2024 07:50 AM Heart Rate (8867-4) 61 /min 07/09/2024 10:23 AM Temperature (8310-5) 98.2 [degF] Oxygen Saturation (80072-6) 96 % Respiratory Rate (9279-1) 16 /min Heart Rate (8867-4) 64 /min Blood Pressure Systolic (8480-6) 130 mm[Hg] Blood Pressure Diastolic (8462-4) 63 mm[Hg] 07/10/2024 09:31 AM Heart Rate (8867-4) 86 /min 07/11/2024 10:17 AM Heart Rate (8867-4) 70 /min 07/12/2024 08:26 AM Heart Rate (8867-4) 68 /min 07/13/2024 07:36 AM Heart Rate (8867-4) 57 /min 07/14/2024 08:23 AM Heart Rate (8867-4) 64 /min 07/15/2024 07:12 AM Heart Rate (8867-4) 63 /min 07/16/2024 08:57 AM Temperature (8310-5) 98.2 [degF] Oxygen Saturation (05731-8) 97 % Respiratory Rate (9279-1) 18 /min Heart Rate (8867-4) 64 /min Blood Pressure Systolic (8480-6) 140 mm[Hg] Blood Pressure Diastolic (8462-4) 76 mm[Hg] 07/17/2024 08:45 AM Heart Rate (8867-4) 67 /min 07/18/2024 08:23 AM Heart Rate (8867-4) 64 /min 07/19/2024 08:18 AM Heart Rate (8867-4) 65 /min 07/20/2024 08:28 AM Heart Rate (8867-4) 61 /min 07/21/2024 08:15 AM Heart Rate (8867-4) 74 /min 07/22/2024 12:30 PM Heart Rate (8867-4) 70 /min 07/23/2024 06:58 AM Heart Rate (8867-4) 72 /min 07/23/2024 11:13 AM Blood Pressure Systolic (8480-6) 1 36 mm[Hg] Blood Pressure Diastolic (8462-4) 71 mm[Hg] 07/23/2024 11:12 AM Temperature (8310-5) 98 [degF] Oxygen Saturation (26620-8) 98 % Respiratory Rate (9279-1) 16 /min 07/24/2024 09:12 AM Heart Rate (8867-4) 70 /min 07/25/2024 08:06 AM Heart Rate (8867-4) 68 /min 07/26/2024 07:52 AM Heart Rate (8867-4) 56 /min 07/27/2024 08:46 AM Heart Rate (8867-4) 68 /min 07/28/2024 07:39 AM Heart Rate (8867-4) 71 /min 07/29/2024 07:43 AM Heart Rate (8867-4) 74 /min 07/30/2024 08:05 AM Heart Rate (8867-4) 70 /min 07/30/2024 12:54 PM Temperature (8310-5) 97.7 [degF] Respiratory Rate (9279-1) 18 /min 07/31/2024 08:24 AM Heart Rate (8867-4) 64 /min 08/01/2024 08:05 AM Heart Rate (8867-4) 76 /min 08/02/2024 08:07 AM Heart Rate (8867-4) 80 /min 08/03/2024 08:32 AM Heart Rate (8867-4) 77 /min 08/04/2024 08:00 AM Heart Rate (8867-4) 74 /min 08/05/2024 08:31 AM Heart Rate (8867-4) 72 /min 08/06/2024 08:41 AM Heart Rate (8867-4) 68 /min 08/06/2024 12:37 PM Temperature (8310-5) 96.9 [degF] Oxygen Saturation (57507-6) 97 % Respiratory Rate (9279-1) 16 /min Heart Rate (8867-4) 58 /min Blood Pressure Systolic (8480-6) 129 mm[Hg] Blood Pressure Diastolic (8462-4) 72 mm[Hg] 08/07/2024 09:26 AM Heart Rate (8867-4) 60 /min 08/07/2024 03:06 PM Body Weight (84225-6) 107 [lb_av] Body Mass Index (53894-2) 19.57 kg/m2 08/08/2024 07:43 AM Heart Rate (8867-4) 87 /min 08/09/2024 07:14 AM Heart Rate (8867-4) 60 /min 08/10/2024 06:36 AM Heart Rate (8867-4) 65 /min 08/11/2024 08:00 AM Heart Rate (8867-4) 70 /min 12/03/2024 01:28 PM Temperature (8310-5) 97.2 [degF] Oxygen Saturation (79278-8) 98 % Respiratory Rate (9279-1) 16 /min Heart Rate (8867-4) 60 /min Blood Pressure Systolic (8480-6) 133 mm[Hg] Blood Pressure Diastolic (8462-4) 71 mm[Hg] 12/05/2024 07:21 AM Heart Rate (8867-4) 62 /min 11/26/2024 10:15 AM Temperature (8310-5) 97.9 [degF] Oxygen Saturation (26013-5) 98 % Respiratory Rate (9279-1) 17 /min Blood Pressure Systolic (8480-6) 134 mm[Hg] Blood Pressure Diastolic (8462-4) 76 mm[Hg] 12/06/2024 06:28 AM Heart Rate (8867-4) 71 /min 12/11/2024 10:05 AM Heart Rate (8867-4) 74 /min 10/14/2024 08:23 PM Temperature (8310-5) 98.2 [degF] Oxygen Saturation (97612-9) 94 % Respiratory Rate (9279-1) 17 /min Blood Pressure Systolic (8480-6) 115 mm[Hg] Blood Pressure Diastolic (8462-4) 75 mm[Hg] 12/12/2024 02:12 PM Heart Rate (8867-4) 65 /min 10/29/2024 10:16 AM Temperature (8310-5) 96.8 [degF] Oxygen Saturation (91397-8) 96 % Respiratory Rate (9279-1) 16 /min Blood Pressure Systolic (8480-6) 110 mm[Hg] Blood Pressure Diastolic (8462-4) 68 mm[Hg] 12/08/2024 08:08 AM Body Weight (85263-5) 111.6 [lb_av ] Body Mass Index (27755-4) 20.41 kg/m2 12/10/2024 03:51 PM Temperature (8310-5) 98 [degF] Oxygen Saturation (56388-9) 99 % Respiratory Rate (9279-1) 18 /min Heart Rate (8867-4) 69 /min Blood Pressure Systolic (8480-6) 135 mm[Hg] Blood Pressure Diastolic (8462-4) 82 mm[Hg] 11/19/2024 02:44 PM Temperature (8310-5) 98 [degF] Oxygen Saturation (07386-5) 99 % Respiratory Rate (9279-1) 18 /min Blood Pressure Systolic (8480-6) 123 mm[Hg] Blood Pressure Diastolic (8462-4) 62 mm[Hg] 12/09/2024 09:22 AM Heart Rate (8867-4) 55 /min 12/04/2024 07:28 AM Heart Rate (8867-4) 68 /min 11/05/2024 11:37 AM Temperature (8310-5) 97 [degF] Oxygen Saturation (78496-9) 96 % Respiratory Rate (9279-1) 17 /min Blood Pressure Systolic (8480-6) 120 mm[Hg] Blood Pressure Diastolic (8462-4) 76 mm[Hg] 10/15/2024 11:34 AM Temperature (8310-5) 96.4 [degF] Oxygen Saturation (13723-8) 98 % Respiratory Rate (9279-1) 18 /min Blood Pressure Systolic (8480-6) 140 mm[Hg] Blood Pressure Diastolic (8462-4) 59 mm[Hg] 11/12/2024 11:19 AM Temperature (8310-5) 97.3 [degF] Oxygen Saturation (73862-2) 99 % Respiratory Rate (9279-1) 17 /min Blood Pressure Systolic (8480-6) 152 mm[Hg] Blood Pressure Diastolic (8462-4) 97 mm[Hg] 11/07/2024 08:10 AM Body Weight (31032-8) 109.8 [lb_av ] Body Mass Index (17173-5) 20.08 kg/m2 10/22/2024 12:12 PM Temperature (8310-5) 97.1 [degF] Oxygen Saturation (11736-7) 98 % Respiratory Rate (9279-1) 17 /min Blood Pressure Systolic (8480-6) 138 mm[Hg] Blood Pressure Diastolic (8462-4) 64 mm[Hg] 12/08/2024 07:09 AM Heart Rate (8867-4) 64 /min 12/07/2024 12:47 PM Heart Rate (8867-4) 68 /min 10/07/2024 05:00 PM Body Weight (58755-3) 109 [lb_av] Body Mass Index (16519-3) 19.93 kg/m2 12/13/2024 08:09 AM Heart Rate (8867-4) 64 /min 12/14/2024 08:19 AM Heart Rate (8867-4) 62 /min 12/15/2024 07:48 AM Heart Rate (8867-4) 66 /min 12/16/2024 09:15 AM Heart Rate (8867-4) 68 /min 12/17/2024 03:29 PM Temperature (8310-5) 98.4 [degF] Oxygen Saturation (66942-6) 99 % Respiratory Rate (9279-1) 18 /min Heart Rate (8867-4) 70 /min Blood Pressure Systolic (8480-6) 138 mm[Hg] Blood Pressure Diastolic (8462-4) 82 mm[Hg] 12/18/2024 08:24 AM Heart Rate (8867-4) 72 /min 12/19/2024 04:03 PM Heart Rate (8867-4) 75 /min 12/20/2024 07:57 AM Heart Rate (8867-4) 78 /min 12/21/2024 07:28 AM Heart Rate (8867-4) 80 /min 12/22/2024 08:13 AM Heart Rate (8867-4) 75 /min 12/23/2024 08:33 AM Heart Rate (8867-4) 78 /min 12/24/2024 09:04 AM Heart Rate (8867-4) 75 /min 12/24/2024 05:46 PM Temperature (8310-5) 97.8 [degF] Oxygen Saturation (64317-2) 99 % Respiratory Rate (9279-1) 20 /min Blood Pressure Systolic (8480-6) 142 mm[Hg] Blood Pressure Diastolic (8462-4) 85 mm[Hg] 12/25/2024 06:48 AM Heart Rate (8867-4) 72 /min 12/26/2024 02:19 PM Heart Rate (8867-4) 75 /min 12/27/2024 09:08 AM Heart Rate (8867-4) 66 /min 12/28/2024 08:31 AM Heart Rate (8867-4) 72 /min 12/29/2024 07:21 AM Heart Rate (8867-4) 76 /min 12/30/2024 07:47 AM Heart Rate (8867-4) 68 /min 12/31/2024 08:38 AM Temperature (8310-5) 97.8 [degF] Oxygen Saturation (24389-3) 97 % Respiratory Rate (9279-1) 16 /min Blood Pressure Systolic (8480-6) 108 mm[Hg] Blood Pressure Diastolic (8462-4) 58 mm[Hg] 12/31/2024 08:37 AM Heart Rate (8867-4) 62 /min Social History No smoking Hx information available Encounters Type CPT Code Date Location Provider Indication s encounter report 04/25/2022 03:50 PM Micaela cannon N Logan DO 01 Advance Directives Directive Description Verification Date Supporting Document(s) Resuscitation
--- OUTSIDE RECORDS SUMMARY | 2024-12-31 16:24 | XMS_ITS | Continuity of Care Document ---
Author Organization [facility] Address [address] [place] [address] Care Team Providers Care Print Designer Name Role Phone Dr. Servando Logan DO Attending Physician Medications Medication Frequency Instructions Diagnosis Start Date End Date Last Administered acetaminophen 500 mg tablet Every 6 Hours - PRN 2, oral, Every 6 Hours - PRN, Clinical Indication: pain 023 05/23/2024 07:03 PM amiodarone 100 mg tablet Once A Day 1, oral, Once A Day 023 12/26/2024 06:32 AM atorvastatin 20 mg tablet Once A Day 1, oral, Once A Day 024 12/25/2024 06:51 PM baclofen 5 mg tablet Three Times A Day /2 tab, oral, Three Times A Day 024 12/26/2024 01:38 PM bisacodyl 5 mg tablet,delayed release (/EC) Once A Day - PRN 2, oral, Once A Day - PRN, Give 2 tabs PO if no BM in 3 days 025 cephalexin 500 mg capsule Twice A Day 1 cap, oral, Twice A Day 025 clobetasol 0.05 % cream Every Shift as directed, topical, Every Shift, apply to vagina area q shift and at least an hour prior to applying nystain ointment 025 12/26/2024 06:32 AM cyanocobalamin (vitamin B-12) 1,000 mcg tablet Once A Day 1, oral, Once A Day 023 12/26/2024 06:32 AM diltiazem HCl 120 mg capsule,extended release 24 hr Once A Day 1, oral, Once A Day 023 12/26/2024 02:20 PM Dulcolax (bisacodyl) (bisacodyl) 10 mg suppository Once A Day - PRN 1 suppository, rectal, Once A Day - PRN, Give rectally if no results from MOM 023 12/18/2024 10:30 PM ergocalciferol (vitamin D2) 1,250 mcg (50,000 unit) capsule Once a Day on Mon 1, oral, Once a Day on Mon 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) 023 12/22/2024 08:14 AM Estrace (estradiol) 0.01 % (0.1 mg/gram) cream At Bedtime apply on uretha, vaginal, At Bedtime 025 12/25/2024 07:45 PM famotidine 20 mg tablet Twice A Day - PRN 1 tab, oral, Twice A Day - PRN 024 12/11/2024 01:48 PM Fleet Enema (sodium phosphates) 19-7 gram/118 mL enema Once A Day - PRN 1 application, rectal, Once A Day - PRN, Give fleets if no results from MOM and Dulcolax 023 12/13/2024 08:05 PM losartan 50 mg tablet Once A Day 1, oral, Once A Day 025 12/26/2024 06:32 AM meloxicam 7.5 mg tablet Once A Day 1, oral, Once A Day 024 12/26/2024 06:32 AM Milk of Magnesia (magnesium hydroxide) 400 mg/5 mL suspension Once A Day - PRN 15 ml per tube, oral, Once A Day - PRN, if no BM in 3 days DO NOT GIVE TO RENAL PATIENTS--GO TO DULCOLAX ORDERS 023 03/15/2024 12:18 PM Miralax (polyethylene glycol 3350) 17 gram/dose powder Once A Day 17 gram, oral, Once A Day, Administer 17 gram in 8 oz juice or water daily 025 12/26/2024 06:32 AM nystatin 100,000 unit/gram cream Every Shift as directed, topical, Every Shift, Apply to red areas of groin at least an hour after applying clobetasol cream 025 12/26/2024 06:32 AM Preparation H (phenyleph-min oil-petrolatum) 0.25-14-74.9 % ointment Every Shift - PRN as directed, rectal, Every Shift - PRN, Apply as needed for hemorrhoids 025 11/06/2024 11:06 AM sennosides-docusa te sodium 8.6-50 mg tablet Twice A Day 1, oral, Twice A Day, Hold if loose stools 023 12/26/2024 06:32 AM Tums (calcium carbonate) 200 mg calcium (500 mg) tablet,chewable Once A Day - PRN 2 tabs, oral, Once A Day - PRN, give 2 tums daily 024 bisacodyl 5 mg tablet,delayed release (DR/EC) As Needed 2, oral, As Needed, Give 2 tabs PO if no BM in 3 days 023 202412/12/2024 02:08 PM cephalexin 500 mg capsule Twice A Day 1, oral, Twice A Day 025 202412/19/2024 06:47 AM cephalexin 500 mg capsule Twice A Day 1, oral, Twice A Day 025 202412/22/2024 06:39 PM Xarelto (rivaroxaban) 15 mg tablet Once A Day 1 tab, oral, Once A Day I48.91 : Unspecified atrial fibrillation 023 202412/25/2024 06:48 AM Problems Code Type Problem ICD Code Effective Date Status ICD-10 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 I69.354 04/27/2023 Active ICD-10 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 04/25/2022 Active ICD-10 Dysphagia following cerebral infarction I69.391 04/25/2022 Active ICD-10 Hemiplegia 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 I69.351 04/25/2022 Active ICD-10 History of falling Z91.81 01/04/2023 Active ICD-10 Cerebral edema G93.6 04/25/2022 Active ICD-10 Unspecified atrial fibrillation I48.91 04/09 Active 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 Z79.0 1 05/19/2022 Active ICD-10 Essential (primary) hypertension I10 Active ICD-10 Other chronic pain G89.29 04/19/2023 Active ICD-10 Unilateral primary o steoarthritis, right knee M17.11 06/07/2023 Active ICD-10 Other muscle spasm M62.838 02/01/2023 Active ICD-10 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) D50.0 01/04/2023 Active ICD-10 Postmenopausal atrophic vaginitis N95.2 Active ICD-10 Vitamin D deficiency, unspecified E55.9 Active ICD-10 Deficiency of other specified B group vitamins E53.8 02/01/2023 Active ICD-10 Lichen sclerosus et atrophicus L90.0 03/05 Active ICD-10 Presence of right artificial hip joint Z96.641 01/04/2023 Active ICD-10 Gastro-esophageal re flux disease without esophagitis K21.9 07/11/2022 Active ICD-10 Constipation, unspecified K59.00 02/01/2023 Active ICD-10 Personal history of urinary (tract) infections Z87.440 02/01/2023 Active ICD-10 Do not resuscitate Z66 12/02/2023 Active Current Allergies and Intolerances Category Substance Type Reaction Severity Begin Date Status Drug allergy CT contrast Allergy 04/25/2022 Acti ve Drug allergy Sulfa (Sulfonamide Antibiotics) Allergy 04/25/2022 Active Vital Signs Height: 62.0 in Date / Time Temperature Pulse (per minute) Respirations (per minute) Systolic BP (mmHg) Diastolic BP (mmHg) O2 Saturation (%) Weight BMI 2024 02:19 PM 75 2024 06:48 AM 72 2024 05:46 PM 97.8 F 20 142 85 99.0 2024 09:04 AM 75 2024 08:33 AM 78 2024 08:13 AM 75 2024 07:28 AM 80 2024 07:57 AM 78 2024 04:03 PM 75 2024 08:24 AM 72 2024 03:29 PM 98.4 F 70 18 138 82 99.0 2024 03:51 PM 98.0 F 18 135 82 99.0 2024 08:08 AM 111.6 lbs 20.4 1 2024 01:28 PM 97.2 F 16 133 71 98.0 2024 10:15 AM 97.9 F 17 134 76 98.0 2024 02:44 PM 98.0 F 18 123 62 99.0 2024 11:19 AM 97.3 F 17 152 97 99.0 2024 08:10 AM 109.8 lbs 20.0 8 2024 11:37 AM 97.0 F 17 120 76 96.0 2024 10:16 AM 96.8 F 16 110 68 96.0 2024 12:12 PM 97.1 F 17 138 64 98.0 2024 05:00 PM 109.0 lbs 19.9 3 Advance Directives Directive Note Do Not Resuscitate (DNR) Insurance Providers Payer Policy type Group Name Group number Policy ID Address Ph one Medicare Part A Medicare Part A [id number] Phone: Fax: Medicare Part B Medicare Part B [id number] Phone: Fax: Coinsurance A - [employer] [id number] Phone: Fax: Coinsurance B - [employer] [id number] Phone: Fax: Medicaid [place] Medicaid (State[place] [id number] Phone: [place]ax[place] [id number] Phone: Fax: Medicaid [place] Medicaid ([place] [id number] Ph one: Fax: Private Private Phone: Fax: Private Interest Private Phone: Fax: Patient Liability Private Phone: Fax: Immunizations Vaccine Fractionating Still Operator Date Status Dose Series Complete COVID-19 Vaccine Moderna 03/29/2021 Completed 3 COVID-19 Vaccine Moderna 08/16/2020 Completed 2 COVID-19 Vaccine Moderna 07/16/2020 Completed 1 COVID-19 Vaccine 11/21/2024 Refused COVID-19 Vaccine 01/03/2024 Refused COVID-19 Vaccine 10/24/2022 Refused COVID-19 Vaccine 10/12/2022 Refused Influenza Vaccine 11/21/2024 Refused Influenza Vaccine 01/17/2024 Refused Influenza Vaccine 01/31/2023 Refused Pneumococcal Vaccine 02/01/2023 Completed RSV Vaccine Pfizer 02/01/2023 Completed Procedures Not available for this record Results Not available for this record Goals Goal Date Will have a BM at least ever y 3 days for 120 days since update/last review AND/OR will not experience any complications r/t to colostomy for 120 days from update/ last review AND/OR Will not experience any GI complications for 120 days since update/last review AND/OR Will remain clean, dry between incontinent episodes thru 120days from update/last review 02/18/2025 Aretha will maintain nutritional status t hru next review 02/18/2025 ADL approaches will meet the resident?s needs to enhance ability, maintain abilities, or provide quality. 02/18/2025 Will have positive responses to activities of my choice weekly through next assessment. 02/18/2025 Advanced directives will be honored as outlined by patient/family on daily basis thru 120days from update/last review 02/18/2025 Will adjust to change in rel ationships and accept support from staff for 120days from update/last review AND/OR Will be at ease interacting with others, expressing preferences daily for 120days from update/last review 02/18/2025 Aretha Will achieve maximal i ndependence with least restrictive side rail use. 02/18/2025 Comfort needs will be met thru 120 days from update/last review. 02/18/2025 Will have no abnormal bleeding within th e next 120 days. 02/18/2025 Patient will have no injuries related to falls 02/18/2025 Resident will express self t hrough use of verbalization with reading and writing 02/18/2025 Resident will maintain curre nt mobility status and range of motion of right hemiplegic side. 02/18/2025 Will have a BM at least ever y 3 days for 120 days since update/last review AND/OR will not experience any complications r/t to colostomy for 120 days from update/ last review AND/OR Will not experience any GI complications for 120 days since update/last review AND/OR Will remain clean, dry between incontinent episodes thru 120days from update/last review 02/18/2025 Encounters Admission Date Discharge Date Description MRN Visit Count 04/25/2022 15:50 LTPAC Admission [id number]
--- OUTSIDE RECORDS SUMMARY | 2024-12-31 16:25 | XMS_ITS | Patient Health Record ---
Author Organization [facility] Address [address] [facility] [place] [address] Care Team Providers Care Automatic Door Mechanic Name Role Phone Servando Logan Primary Care Provider MICHELLE Mcgowan Unavailable [phone] Allergies Allergen (clinical drug ingredient) Drug/Non Drug [...] ded Rectal Once a day Active Nystatin 579639 UNIT/GM 1 application as needed Externally Twice [...] Problem Neurogenic dysfunction of the urinary bladder (999501794) Neuromuscular dysfunction of bladder, unspecified (N31.9) Active confirmed Problem Recurrent urinary tract infection (840119268) Recurrent urinary tract infection (N39.0) Active confirmed Problem Incomplete emptying of bladder (257928826) Incomplete emptying of bladder (R33.9) Active confirmed Problem History of cerebrovascular accident without residual deficits (551758279) History of CVA (cerebrovascular accident) (Z86.73) Active confirmed Plan Of Treatment No Information Insurance Providers Payer Name Payer Address Payer Phone Subscriber Number Group Number Insured Name Patient Relationship to Insured Coverage Start Date Coverage End Date [place] [address] DAYANA TERRELL [id number] Aretha Hawley Self - patient is the insured [facility] [address] [address] [place] [address] [id number] HawleyAretha Self - patient is the insured 0 Medical (General) History Medical History History ICD Code hemiplegia CVA Atrial fibrillation hypertension neuromuscular dysfunction of the bladder GERD chronic bladder infections Hospitalization History Reason Date(Month/Year) CVA
--- OUTSIDE RECORDS SUMMARY | 2024-12-31 16:25 | XMS_ITS | Patient Health Record ---
Author Organization [facility] Address [address] [place] [address] Care Team Providers Care Brake Rider Name Role Phone Servando Logan DO Primary Care Provider Yovana Stanton Unavailable [phone] Allergies Allergen (clinical drug ingredient) Drug/Non Drug [...] needed Rectal Once a day Active Nystatin 847742 UNIT/GM Cream 1 application as needed Externally [...] Problem Neurogenic dysfunction of the urinary bladder (134949138) Neuromuscular dysfunction of bladder, unspecified (N31.9) Active confirmed Problem History of cerebrovascular accident without residual deficits (431853587) History of CVA (cerebrovascular accident) (Z86.73) Active confirmed Problem Recurrent urinary tract infection (168307147) Recurrent urinary tract infection (N39.0) Active confirmed Problem Incomplete emptying of bladder (998634792) Incomplete emptying of bladder (R33.9) Active confirmed Plan Of Treatment No Information Insurance Providers Payer Name Payer Address Payer Phone Subscriber Number Group Number Insured Name Patient Relationship to Insured Coverage Start Date Coverage End Date [place] [address] [place] [phone] [id number] Aretha Hawley Self - patient is the insured [facility] [address] [address] [place] [address] [id number] Aretha Hawley Self - patient is the insured 0 Medical (General) History Medical History History ICD Code hemiplegia CVA Atrial fibrillation hypertension neuromuscular dysfunction of the bladder GERD chronic bladder infections Hospitalization History Reason Date(Month/Year) CVA
[2024-12-31 16:32] LABS: Mean Corpuscular HGB Conc 31.1 g/dL (30-55); Mean Corpuscular Hemoglobin 32.0 pg (27-33); Mean Corpuscular Volume 103.0 fl (85-98); Nucleated Red Blood Cells % 0 %; Platelet Count 426 10^3/cmm (157-399); Red Blood Count 2.03 10^6/uL (3.85-5.65); White Blood Count 8.48 10^3/uL (3.29-11.43)
[2024-12-31 16:47] LABS: Hematocrit 20.9 % (36-47); Hemoglobin 6.50 g/dL (11.27-16.99)
[2024-12-31 16:50] LABS: INR 0.93 (0.8-1.2); Prothrombin Time 13.10 SECONDS (12.1-14.9)
[2024-12-31 16:51] LABS: Partial Thromboplastin Time 22.4 SECONDS (23.9-36.7)
[2024-12-31 16:55] LABS: Alanine Aminotransferase 11 U/L (0-33); Albumin Level 3.9 g/dL (3.5-5.2); Alkaline Phosphatase 93 U/L (35-105); Anion Gap 13.0 (5-19); Aspartate Amino Transferase 19 U/L (0-32); Blood Urea Nitrogen 14 mg/dL (8-23); Calcium 8.8 mg/dL (8.5-10.5); Carbon Dioxide 25 mmol/L (22-29); Chloride 103 mmol/L (98-107); Creatinine Clr Calc Pharmacy 46.6582; Globulin 2.5 g/dL (1.3-4.6); Glucose 99 mg/dL (65-115); Osmolality Calculated 285 mOsm/kg (285-295); Potassium 4.0 mmol/L (3.5-5.1); Sodium 137 mmol/L (136-145); Total Protein 6.4 g/dL (6.6-8.7)
[2024-12-31 17:22] LABS: Glucose Urine UA Negative (Normal); Nitrate Urine Negative (Negative); Specific Gravity, Urine 1.019 (1.005-1.030)
--- NOTE | 2024-12-31 17:25 | CTR_ITS ---
PROCEDURE INFORMATION: Exam: CT Abdomen And Pelvis Without Contrast Exam date and time: 12/31/2024 5:52 PM Age: 79 years old Clinical indication: Other: Anemia; Prior surgery; Surgery date: 6+ months; Surgery type: RT hip; Additional info: Anemia, possible vaginal bleeding or hematuria TECHNIQUE: Imaging protocol: Computed tomography of the abdomen and pelvis without contrast. Radiation optimization: All CT scans at this facility use at least one of these dose optimization techniques: automated exposure control; mA and/or kV adjustment per patient size (includes targeted exams where dose is matched to clinical indication); or iterative reconstruction. COMPARISON: CT pelvis w con* [id number] 11/12/2024 5:37 PM RADIATION DOSE METRICS: Total DLP (mGy-cm): 414.23 FINDINGS: Lungs: 2 cm oval opacity in the right lower lobe could represent incompletely imaged normal pulmonary vessels or a lung mass. Linear bibasilar opacities most consistent with subsegmental atelectasis. Heart: Multichamber cardiac enlargement. Coronary arteries: Coronary artery calcifications are present. Liver: The liver is normal. No mass. Gallbladder and biliary ducts: Post cholecystectomy. There is no evidence of biliary ductal dilation. Pancreas: The pancreas is normal. No mass. Spleen: Several calcified granulomas are present in the spleen. The spleen is normal in size. Adrenal glands: The adrenal glands are normal. Kidneys and ureters: 4 mm calculus in the lower pole of the right kidney. No ureteral calculi. No hydronephrosis. Renal mass is not identified. Stomach and bowel: Fecal material distends the colon. No bowel dilatation. Appendix: Normal appendix. Intraperitoneal space: No free intraperitoneal fluid or gas. Vasculature: Mild ectasia of the upper abdominal aorta to a diameter of 2.8 cm. No aortic aneurysm. Lymph nodes: No lymph node enlargement. Urinary bladder: The bladder is obscured by streak artifact from hip replacements. A single bubble of gas is noted in the bladder lumen. Reproductive: Uterus is unremarkable. No suspicious adnexal lesion seen. Bones/joints: Right hip replacement is noted. No acute osseous abnormality. Soft tissues: Unremarkable. CT/CT kidney stone [id number] IMPRESSION: 1. Right nephrolithiasis without obstructive uropathy. 2. No other acute disease in the abdomen or pelvis. 3. Right lung opacity which can be further evaluated with chest radiograph or chest CT. 4. Increased volume of fecal material throughout the colon.
[2024-12-31 17:56] LABS: UA Slide Review UA Slide Review Perf
[2024-12-31 18:59] LABS: Vitamin B12 > 2000 pg/mL (232-1245)
--- NOTE | 2024-12-31 22:42 | PM.HP ---
Providers/Chief Complaint Admitting Physician: Mitzy Hurtado MD--- patient seen and evaluated and admitted before 12 midnight Primary Care Provider: Servando Logan DO Chief Complaint: low hgb History of Present Illness Aretha Hawley is a 79 year old female with medical history significant for severe with residual right hemiparesis, constipation high blood pressure hyperlipidemia atrial fibrillation for which patient Xarelto had been stopped by the primary care doctor because of ongoing anemia without source of blood loss. Patient is a intermediate resident who presented today from the intermediate with a hemoglobin of 6.5 and this was the reason for patient presentation. Last week Sunday which was only 5 days ago patient hemoglobin was 8. It must be noted that exactly 1 month ago November 30, 2024 patient hemoglobin at that time was 12.80 and today hemoglobin is 6.5 patient had now had a drop of 6.3 g hemoglobin drop within 1 month. And patient had been having blood transfusion in between and losing everything. All the history patient had not been scoped. He was told that at the intermediate the only source of blood that they see is a bright red blood whenever patient goes to the bathroom to void. This was the initial workup direction with having her evaluated by [facility] and they workup that was negative here at [facility] [employer] send the patient to urology. Urologist did cystoscopy that was negative and they recommended CT scan of the abdomen and pelvics to evaluate for any type of mass. Today when patient arrived with worsening anemia, a CT scan of the abdomen and pelvics were done and was negative for any mass or anything that would relate to the GI bleeds. Patient was well-known to [facility] the ED doctor Dr. Carr had called [facility] and they declined her saying that this could be done outpatient. I had reach out for [facility] on the behalf of the emergency room department and they we are eager to take the patient but wanted to speak to the ED doctor Dr. Munoz who declined to speak since he did not know much about the patient since the patient was transferred to him from an outgoing ED attending. Have been consulted to see the patient I have seen the patient and evaluated. Patient is hemodynamically stable on room air pulse oxing at 98 to 100% and vital signs were stable with a blood pressure of 133/50 respiration 26 and pulse rate was 67. Patient is alert awake oriented with no confusion and very pleasant. I have initiated Protonix with an 80 mg IV push and then to continue with 40 mg twice daily. I have also consulted Dr. Isaac the surgeon for upper endoscopy and lower endoscopy looking for sources of this blood loss patient is having acute blood loss anemia Dr. Isaac will be scoping the patient on Sunday meaning in 36 hours- For Sunday morning. Patient is very pleasant denies any complaints. Patient can be fed and then will be n.p.o. after midnight tomorrow to be ready for Sunday procedure. Tomorrow will be used to prep the patient. And this is the instruction from Dr. Isaac Review of Systems Narrative: System review significant for severe anemia of no identifiable source at this time otherwise system review upon 10 organ review were unremarkable. Medications/Allergies Home Medications ?Medication ?Instructions ?Recorded ?Confirmed ?Last Taken ?Type famotidine 20 mg tablet 20 mg PO BID 06/30/22 12/02/24 04/25/23 06:24 History magnesium hydroxide 400 mg/5 mL 15 ml PO DAILY PRN if no bm in 3 06/30/22 12/02/24 Unknown History oral suspension (Milk of Magnesia) days sodium phosphates 19 gram-7 118 ml RI DAILY PRN Constipation 06/30/22 12/02/24 Unknown History gram/118 mL enema (Fleet Enema) rivaroxaban 15 mg tablet (Xarelto) 15 mg PO DAILY@19 10/31/22 12/02/24 04/24/23 History amiodarone 100 mg tablet 100 mg PO DAILY@12/18/22 12/02/24 04/25/23 History cyanocobalamin (vitamin B-12) 1,000 mcg PO DAILY@01/18/23 12/02/24 04/25/23 History 1,000 mcg capsule ergocalciferol (vitamin D2) 1,250 1,250 mcg PO Q7D 01/18/23 12/02/24 04/23/23 History mcg (50,000 unit) capsule baclofen 5 mg tablet 2.5 mg PO Q8H 04/05/23 12/02/24 04/25/23 History acetaminophen 500 mg tablet 1,000 mg PO Q6H PRN Pain 04/25/23 12/02/24 Unknown History bisacodyl 5 mg tablet,delayed 10 mg PO DAILY PRN if no bm in 3 04/25/23 12/02/24 Unknown History release days diltiazem HCl 120 mg 120 mg PO DAILY@08 04/25/23 12/02/24 04/25/23 History capsule,extended release 24 hr sennosides 8.6 mg-docusate sodium 1 tab PO BID hold if loose stools 04/25/23 12/02/24 04/25/23 History 50 mg tablet (Senna-S) atorvastatin 20 mg tablet 20 mg PO DAILY #90 tabs 05/08/23 12/02/24 Unknown Rx losartan 50 mg tablet 75 mg (1.5 x 50 mg) PO DAILY #135 11/07/23 12/02/24 Unknown Rx tabs meloxicam 7.5 mg tablet 7.5 mg PO DAILY 11/07/23 12/02/24 Unknown History calcium carbonate (Tums) 200 mg PO ONCE 03/05/24 12/02/24 Unknown History nitrofurantoin 100 mg PO DAILY #60 caps 03/05/24 12/02/24 Unknown Rx monohydrate/macrocrystals 100 mg capsule (Macrobid) Allergies Allergy/AdvReac Type Severity Reaction Status Date / Time Cephalosporins Allergy trouble Verified 12/02/24 15:19 breathing Iodinated Contrast Media Allergy ALGY-Rash Verified 12/02/24 15:19 Sulfa (Sulfonamide Allergy Unknown Verified 12/02/24 15:19 Antibiotics) PFSH Acute PFSH: Medical History Jaw pain Left-sided weakness UTI (urinary tract infection) Anticoagulated by anticoagulation treatment CVA (cerebral vascular accident) Left acute arterial ischemic stroke, MCA (middle cerebral artery) Enlarged thyroid Subcapital fracture of right hip Atrial fibrillation Essential (primary) hypertension Environmental and seasonal allergies Mixed hyperlipidemia Surgical History H/O: hysterectomy History of cholecystectomy History of dilatation and curettage History of tubal ligation History of tonsillectomy Family History Mother Stroke Other Heart disease Hypertension Social History Smoking and tobacco/nicotine status: never used tobacco/nicotine Vitals/I&O/Wt Last Vital Signs Temp 98.4 F 12/31/24 22:00 Pulse 67 12/31/24 22:00 Resp 20 H 12/31/24 22:00 BP 118/44 12/31/24 22:00 Pulse Ox 97 12/31/24 22:00 O2 Del Method Room Air 12/31/24 20:01 12/31/24 12/31/24 12/31/24 06:59 14:59 22:59 Intake Total 350 / 350 Balance 350 / 350 Weight last 48 hrs Weight 54.431 kg Physical Exam Narrative: General the patient is in no apparent distress. Patient is not ill-appearing or weak appearing. HEENT normocephalic/atraumatic neck neck is supple cardiovascular heart rate is regular lungs are pretty much clear abdomen soft nontender nondistended unremarkable extremities are intact no edema has good pulses neurology has no focality lab studies lab studies reviewed and noted. Data 12/31/24 16:20 12/31/24 16:20 A&P Assessment and plan 1. Acute blood loss anemia: 2. Mass of urethra: 3. 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 Hematuria: Plan: #1 Acute blood loss anemia--- sources not very identifiable at this time - Differential diagnosis *Hematuria-noted in urinalysis, will send urine cytology *History of urethra mass as a problem list in the system --noted -Urology had seen patient in the past and had undergone cystoscopy with negative result *Possible S[employer]ES [employer]ECTIVE loss--- evaluation was negative. Patient had no uterus *Possible GI loss--- patient for scoping 01/02/2025 Current hemoglobin at presentation is 6.5. 2 units of packed red blood cell had been transfused - Follow through with serial H&H -Surgeon had been consulted for walker endoscopy starting from upper GI EGD to further evaluate GI tract - PPI I initiated on this patient - Surgeon consulted is Dr. Isaac who will be scoping the patient on Sunday morning-01/02/2025 - Patient had no abdominal pain no nausea no vomiting no diarrhea no hematemesis - Will feed the patient today - Keep this patient n.p.o. on 01/01/2025, tomorrow after 12 midnight for EGD on 01/02/2025 -Dx high index of suspicion that this is of source, urinalysis showed microscopic hematuria and also dull show positive RBC in the urine. CT of the abdomen and pelvis did not show anything case discussed with the urology that is on tonight. It must be very important that the is intermittent mention of a urethral mass that is a problem list within the system on patient's file - Patient status post 2 units of packed red blood cells at this time - Patient for EGD on 01/02/2025 - Continue Protonix for now #2 Chronic medical history of atrial fibrillation, Xarelto held because of bleeding issues - Rate is controlled #3 History of high blood pressure-will hold this at this time because of bleeding. Patient normotensive #4 History of CVA--- still at risk because of atrial fibrillation history and not on any anticoagulant at the moment PDMP PDMP Reviewed: Not Reviewed Attestations Medical Necessity Statement*: Patient with unclear source of worsening anemia will need at least 2 midnights to care and optimize. Patient meets inpatient admission requiring 2 midnights for optimization of care Coding Level of Care Code 94757 Diagnoses Acute blood loss anemia D62 Mass of urethra N36.8 Acute stroke due to occlusion of left middle cerebral artery I63.512 Hematuria R31.9 Time Spent (min) 60
[2024-12-31] MEDS: pantoprazole 40 mg SDV 80 MG IVP (23:09)
[2025-01-01] VITALS (7 sets, daily range): BP systolic 117–138; BP diastolic 53–67; PULSE 59–79; RESP 16–18; TEMP 36.5–36.8; O2SAT 92–98
[2025-01-01 05:26] LABS: Hematocrit 26.7 % (36-47); Hemoglobin 9.00 g/dL (11.27-16.99); Mean Corpuscular HGB Conc 33.7 g/dL (30-55); Mean Corpuscular Hemoglobin 32.0 pg (27-33); Mean Corpuscular Volume 95.0 fl (85-98); Nucleated Red Blood Cells % 0 %; Platelet Count 301 10^3/cmm (157-399); Red Blood Count 2.81 10^6/uL (3.85-5.65); White Blood Count 5.97 10^3/uL (3.29-11.43)
[2025-01-01 05:42] LABS: Alanine Aminotransferase 10 U/L (0-33); Albumin Level 3.1 g/dL (3.5-5.2); Alkaline Phosphatase 79 U/L (35-105); Anion Gap 11.6 (5-19); Aspartate Amino Transferase 19 U/L (0-32); Blood Urea Nitrogen 9 mg/dL (8-23); Calcium 8.2 mg/dL (8.5-10.5); Carbon Dioxide 24 mmol/L (22-29); Chloride 108 mmol/L (98-107); Creatinine Clr Calc Pharmacy 45.8415; Globulin 1.7 g/dL (1.3-4.6); Glucose 77 mg/dL (65-115); Magnesium 1.9 mg/dL (1.7-2.3); Osmolality Calculated 287 mOsm/kg (285-295); Potassium 3.6 mmol/L (3.5-5.1); Sodium 140 mmol/L (136-145); Total Protein 4.8 g/dL (6.6-8.7)
[2025-01-01] MEDS: pantoprazole 40 mg SDV IVP ×2 (09:16→18:12)
--- NOTE | 2025-01-01 11:42 | PM.PN ---
Subjective Subjective: 79-year-old female with history of stroke has had 9 weeks of recurrent bleeding and drop in hematocrit. She has had a stroke and speech is garbled but her son Jonh Hawley is present at bedside and a good historian. He tells me the problem started about 9 weeks ago with bleeding when the patient voids urine. When she has stools at the [facility] there is no blood but when she voids urine there is intermittently blood but not every time. Patient has had a hysterectomy in vaginal exam has demonstrated no blood. Dr. Echeverria and thought to have a urethral mass and referred to Ludivina Clifton who found a urethral nodule 1 x 1 cm dark purple nodular mass at the urethral opening speculum exam showed at atrophic vaginitis erythematous and tender not able to tolerate full exam but no obvious mass. Ultrasound showed no uterus and no adnexal ovaries found. Bladder was distended and unremarkable by [employer] ultrasound. Jonh states the patient then went to see Dr. Guevara urology and [place] and he did cystoscopy and says he found nothing. He had ordered CT of the kidneys with contrast but this is held up due to the patient having contrast allergy. She is not clear on what the allergy was and Jonh is not sure either. They are not sure if this was difficulty breathing or just a rash. Patient has not had EGD or colonoscopy. There was request by Dr. Laura and Dr. Hurtado to transfer the patient to [facility] but [facility] refused. Ultimately the patient was admitted here with plan for EGD and colonoscopy. Jonh states that he spoke with Dr. Isaac who is agreeable to doing EGD and colonoscopy in the morning but patient Jonh had not made a decision yet. Vitals/I&O/Wt Last Vital Signs Temp 97.8 F 01/01/25 08:06 Pulse 62 01/01/25 08:06 Resp 17 01/01/25 08:06 BP 127/67 01/01/25 08:06 Pulse Ox 95 01/01/25 08:06 O2 Del Method Room Air 01/01/25 04:00 12/31/24 01/01/25 01/01/25 22:59 06:59 14:59 Intake Total 350 / 350 400 / 750 120 / 120 Output Total 400 / 400 Balance 350 / 350 0 / 350 120 / 120 Weight last 48 hrs Weight 52.254 kg Weight 52.163 kg Weight 54.431 kg Physical Exam Narrative: General well-developed well-nourished female in no acute cardiopulmonary stress Speech is garbled. Right arm and right leg decreased mobility. Right hand with contraction and device present in the right hand to alleviate contracture CV regular rate and rhythm with 4/6 systolic ejection murmur best heard at the left sternal border Lungs clear to auscultation bilaterally Abdomen positive bowel tones soft nontender Calves right ankle with edema and Byron wrap in place left ankle no edema Data 01/01/25 05:14 01/01/25 05:14 A&P Assessment and plan 1. Acute blood loss anemia: It is unusual to bleed 6 points from a genitourinary source and not clot off the urethra and cause urinary retention. Additionally intermittent bleeding from the tract with this degree of gross hematuria is unlikely. That said patient is a [facility] and staff note that blood is not coming from the stool output and is with urination only. I do not think this is collected in a hat or bedside commode but I am not sure. I discussed with patient and Jonh options. I recommend placing a Todd catheter because intermittent bleeding should eventually be captured and a Todd catheter if left in for a week as Jonh states there is bleeding every week. We should proceed with EGD and colonoscopy to exclude a GI source which is much more likely for bright red blood per rectum and the usual culprit would be hemorrhoids or diverticular disease. I discussed with Jonh and patient that we could still proceed with contrast CT premedicating with steroids and antihistamines. There would be risk of anaphylaxis and needing intubation but if risks are worth the benefits we could still proceed. Lastly I think the GI tract should be scoped first before we assume that bleeding is from a urologic source as that degree of urologic bleeding is not typical. I spoke with Dr. Isaac on the phone and we agreed to proceed with EGD and colonoscopy in the morning 2. Mass of urethra: This was seen by nurse practitioner Ludivina Clifton and should be visible when Todd was placed later today 3. 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 Hematuria: 11-20 red cells in urine negative for squamous cells and white cells. As above Place Todd PDMP PDMP Reviewed: Not Reviewed Attestations Medical Necessity Statement*: Patient remains in the hospital with urgent EGD and colonoscopy to look for acute blood loss source and will require greater than 2 midnights in the hospital Coding Level of Care Code 45913 Diagnoses Acute blood loss anemia D62 Mass of urethra N36.8 Acute stroke due to occlusion of left middle cerebral artery I63.512 Hematuria R31.9 Time Spent (min) 50
[2025-01-01] MEDS: magnesium citrate Btl 296 mL PO ×2 (12:18→19:57)
[2025-01-01] MEDS: sodium chlor 0.45% +KCl 20 mEq 20 MEQ/1,000 ML BAG 100 MEQ IV (12:18)
--- NOTE | 2025-01-01 12:51 | PM.CONSULT ---
Providers/Reason For Consult Consulting Physician/Specialty*: Dr. Isaac general surgery Reason for Consult*: GI bleed Attending Physician: Britton Christy MD Primary Care Provider: Servando Logan DO History of Present Illness History of Present Illness Aretha Hawley is a 79 year old female whom surgery was consulted to rule out GI bleed. Patient anemic. No hematochezia, no melena. Medications/Allergies Home Medications ?Medication ?Instructions ?Recorded ?Confirmed ?Last Taken ?Type famotidine 20 mg tablet 20 mg PO BID 06/30/22 01/01/25 12/30/24 History magnesium hydroxide 400 mg/5 mL 15 ml PO DAILY PRN if no bm in 3 06/30/22 01/01/25 03/15/24 History oral suspension (Milk of Magnesia) days sodium phosphates 19 gram-7 118 ml CA DAILY PRN Constipation 06/30/22 01/01/25 12/13/24 History gram/118 mL enema (Fleet Enema) amiodarone 100 mg tablet 100 mg PO DAILY@12/18/22 01/01/25 12/31/24 History cyanocobalamin (vitamin B-12) 1,000 mcg PO DAILY@01/18/23 01/01/25 12/31/24 History 1,000 mcg capsule ergocalciferol (vitamin D2) 1,250 1,250 mcg PO Q7D 01/18/23 01/01/25 12/29/24 History mcg (50,000 unit) capsule baclofen 5 mg tablet 2.5 mg PO Q8H 04/05/23 01/01/25 12/31/24 History acetaminophen 500 mg tablet 1,000 mg PO Q6H PRN Pain 04/25/23 01/01/25 05/23/24 History bisacodyl 5 mg tablet,delayed 10 mg PO DAILY PRN if no bm in 04/25/23 01/01/25 Unknown History release days diltiazem HCl 120 mg 120 mg PO DAILY@04/25/23 01/01/25 12/31/24 History capsule,extended release 24 hr sennosides 8.6 mg-docusate sodium 1 tab PO BID hold if loose stools 04/25/23 01/01/25 12/31/24 History 50 mg tablet (Senna-S) atorvastatin 20 mg tablet 20 mg PO DAILY #90 tabs 05/08/23 01/01/25 12/30/24 Rx calcium carbonate (Tums) 400 mg PO DAILY PRN Indigestion 03/05/24 01/01/25 12/31/24 History bisacodyl 10 mg rectal suppository 10 mg CA DAILY PRN Constipation 01/01/25 01/01/25 12/18/24 History (Dulcolax (bisacodyl)) clobetasol 0.05 % topical cream 1 applic topical QID PRN Skin 01/01/25 01/01/25 Unknown History Irritation cocoa butter-shark liver oil See Rx Instructions .Route .COMPLEX 01/01/25 01/01/25 11/06/24 History rectal suppository estradiol 0.01% (0.1 mg/gram) See Rx Instructions .Route .COMPLEX 01/01/25 01/01/25 12/30/24 History vaginal cream levofloxacin 500 mg tablet 500 mg PO DAILY 01/01/25 01/01/25 12/31/24 History losartan 50 mg tablet 50 mg PO DAILY 01/01/25 01/01/25 12/31/24 History nystatin 100,000 unit/gram topical See Rx Instructions .Route .COMPLEX 01/01/25 01/01/25 12/31/24 History cream polyethylene glycol 3350 17 17 g PO DAILY 01/01/25 01/01/25 12/31/24 History gram/dose oral powder (Miralax) Allergies Allergy/AdvReac Type Severity Reaction Status Date / Time Cephalosporins Allergy trouble Verified 12/02/24 15:19 breathing Iodinated Contrast Media Allergy ALGY-Rash Verified 12/02/24 15:19 Sulfa (Sulfonamide Allergy Unknown Verified 12/02/24 15:19 Antibiotics) Current Medications Generic Name Dose Route Start Last Admin Trade Name Freq PRN Reason Stop Dose Admin Potassium Chloride/Sodium Chloride 20 meq in 1,000 mls @ 100 mls/hr 01/01/25 11:45 01/01/25 12:18 Sodium Chlor 0.45% +Kcl 20 Meq IV 100 mls/hr .Q10H YVONNE Administration Pantoprazole Sodium 40 mg 01/01/25 09:00 01/01/25 09:16 Pantoprazole 40 Mg Sdv IVP 40 mg BID YVONNE Administration PFSH Acute PFSH: Medical History (Updated 12/31/24 @ 23:06 by Mitzy Hurtado MD) Jaw pain Left-sided weakness UTI (urinary tract infection) Anticoagulated by anticoagulation treatment CVA (cerebral vascular accident) Left acute arterial ischemic stroke, MCA (middle cerebral artery) Enlarged thyroid Subcapital fracture of right hip Atrial fibrillation Essential (primary) hypertension Environmental and seasonal allergies Mixed hyperlipidemia Surgical History H/O: hysterectomy History of cholecystectomy History of dilatation and curettage History of tubal ligation History of tonsillectomy Family History Mother Stroke Other Heart disease Hypertension Social History Smoking and tobacco/nicotine status: never used tobacco/nicotine Vitals/I&O/Wt Last Vital Signs Temp 97.7 F 01/01/25 12:48 Pulse 63 01/01/25 12:48 Resp 18 01/01/25 12:48 BP 123/53 01/01/25 12:48 Pulse Ox 96 01/01/25 12:48 O2 Del Method Room Air 01/01/25 12:48 12/31/24 01/01/25 01/01/25 22:59 06:59 14:59 Intake Total 350 / 350 400 / 750 120 / 120 Output Total 400 / 400 Balance 350 / 350 0 / 350 120 / 120 Weight last 48 hrs Weight 115 lb 3.2 oz Weight 115 lb Weight 120 lb Physical Exam Narrative: Chest: Unlabored breathing room air. No lymphadenopathy. Heart: Regular rate and rhythm. Abdomen: Soft, nontender, nondistended. No masses or lymphadenopathy. Data 01/01/25 05:14 01/01/25 05:14 A&P Assessment and plan 1. Acute blood loss anemia: Plan: 79-year-old female whom surgery was consulted to rule out GI bleed. I have explained the risks and benefits of a diagnostic EGD with biopsy and the patient agrees to proceed. I have explained the risks and benefits of a diagnostic colonoscopy and the patient agrees to proceed. The patient understands that the risks include viscus perforation, aspiration, medical decompensation and still decides to proceed. Family present. Discussed with hospitalist TANIAP PDMP Reviewed: Not Reviewed Coding Level of Care Code 21447 Diagnoses Acute blood loss anemia D62
[2025-01-02] VITALS (13 sets, daily range): BP systolic 114–149; BP diastolic 56–74; PULSE 55–69; RESP 14–16; TEMP 36.4–37; O2SAT 93–100; BMI 21.0
[2025-01-02] MEDS: sodium chlor 0.45% +KCl 20 mEq 20 MEQ/1,000 ML BAG 100 MEQ IV ×3 (00:35→21:17)
--- NOTE | 2025-01-02 04:03 | PC.NURSE ---
contacted Dr. Hurtado to inform her that patient goes for an EGD at 1500 today, has recieved magnesium citrate overnight, but is still not clear, she advised me to call Dr. Isaac. I contacted Dr. Isaac and he said it is fine we will see how clear she gets.
[2025-01-02] MEDS: pantoprazole 40 mg SDV IVP ×2 (07:50→16:57)
--- NOTE | 2025-01-02 08:40 | P.PN_ITS ---
Subjective 2 Subjective: No hematochezia, no melena Vitals/I&O/Wt Last Vital Signs Temp 97.6 F 01/02/25 07:27 Pulse 58 L 01/02/25 07:27 Resp 16 01/02/25 07:27 BP 149/62 01/02/25 07:27 Pulse Ox 94 01/02/25 07:27 O2 Del Method Room Air 01/02/25 07:27 01/01/25 01/02/25 01/02/25 22:59 06:59 14:59 Intake Total 2480 / 2720 240 / 2960 Output Total 1000 / 1000 850 / 1850 Balance 1480 / 1720 -610 / 1110 Weight last 48 hrs Weight 115 lb Weight 115 lb 3.2 oz Weight 115 lb Weight 120 lb Physical Exam 2 Narrative: Chest: Unlabored breathing room air. No lymphadenopathy. Heart: Regular rate and rhythm. Abdomen: Soft, nontender, nondistended. No masses or lymphadenopathy. Urinary Catheter Management: Todd: Cath Placed During This Visit: yes Reason for Continuing Indwelling Catheter: Other Urinary Catheter Date of Insertion: 01/01/25 Urinary Catheter Time of Insertion: 12:58 Data 01/02/25 09:30 01/02/25 09:30 A&P Assessment and plan 1. Acute blood loss anemia: Plan: 79-year-old female whom surgery was consulted to rule out GI bleed. Discussed risk and benefits and patient agreed to proceed with diagnostic EGD and diagnostic colonoscopy. PDMP PDMP Reviewed: Not Reviewed Attestations 2 Medical Necessity Statement*: N/A Coding Level of Care Code Acute Code for Chg Fwd Diagnoses Acute blood loss anemia D62
[2025-01-02 09:40] LABS: Hematocrit 30.5 % (36-47); Hemoglobin 9.90 g/dL (11.27-16.99); Mean Corpuscular HGB Conc 32.5 g/dL (30-55); Mean Corpuscular Hemoglobin 31.3 pg (27-33); Mean Corpuscular Volume 96.5 fl (85-98); Nucleated Red Blood Cells % 0 %; Platelet Count 351 10^3/cmm (157-399); Red Blood Count 3.16 10^6/uL (3.85-5.65); White Blood Count 7.11 10^3/uL (3.29-11.43)
--- NOTE | 2025-01-02 09:55 | PC.SOCIAL ---
IMM Update pg 2 of IMM Updated and reviewed w/ patient and her son. Copy provided and copy dated, initialed and placed in chart.
[2025-01-02 09:58] LABS: Anion Gap 12.5 (5-19); Blood Urea Nitrogen 7 mg/dL (8-23); Calcium 8.3 mg/dL (8.5-10.5); Carbon Dioxide 24 mmol/L (22-29); Chloride 107 mmol/L (98-107); Creatinine Clr Calc Pharmacy 45.8415; Glucose 72 mg/dL (65-115); Iron 19 ug/dL (37-145); Osmolality Calculated 285 mOsm/kg (285-295); Potassium 4.5 mmol/L (3.5-5.1); Sodium 139 mmol/L (136-145); Total Iron Binding Capacity 250 mcg/dl; Unsaturated Iron Binding 231 ug/dL (112-347)
--- NOTE | 2025-01-02 11:53 | P.PN_ITS ---
Subjective 2 Subjective: 79-year-old female with histor y of stroke has had 9 weeks of recurrent bleeding and drop in hematocrit. Todd was placed yesterday and patient received 2 doses of mag citrate as bowel prep but has only stooled this morning and did not stool yesterday. She has chronic constipation taking Dulcolax MiraLAX and has recent bright red blood in toilet unclear if this is urine or stool but patient and son Jonh have been convinced that it is urine. Colonoscopy canceled this morning due to failed prep Vitals/I&O/Wt Last Vital Signs Temp 98.1 F 01/02/25 11:34 Pulse 60 01/02/25 11:34 Resp 14 01/02/25 11:34 BP 114/56 01/02/25 11:34 Pulse Ox 94 01/02/25 11:34 O2 Del Method Room Air 01/02/25 11:34 01/01/25 01/02/25 01/02/25 22:59 06:59 14:59 Intake Total 2480 / 2720 240 / 2960 1000 / 1000 Output Total 1000 / 1000 850 / 1850 Balance 1480 / 1720 -610 / 1110 1000 / 1000 Weight last 48 hrs Weight 52.163 kg Weight 52.254 kg Weight 52.163 kg Weight 54.431 kg Physical Exam 2 Narrative: General well-developed well-nourished female in no acute cardiopulmonary stress Speech is garbled. Right arm and right leg decreased mobility. Right hand with contraction and device present in the right hand to alleviate contracture CV regular rate and rhythm with 4/6 systolic ejection murmur best heard at the left sternal border Lungs clear to auscultation bilaterally Abdomen positive bowel tones soft nontender no obvious mass Calves right ankle with 2+ edema left side no edema Urinary Catheter Management: Todd: Cath Placed During This Visit: yes Reason for Continuing Indwelling Catheter: Other Urinary Catheter Date of Insertion: 01/01/25 Urinary Catheter Time of Insertion: 12:58 Data 01/02/25 09:30 01/02/25 09:30 A&P Assessment and plan 1. Acute blood loss anemia: It is unusual to bleed 6 points from a genitourinary source and not clot off the urethra and cause urinary retention. Todd placed yesterday no blood in the Todd bag. She is stooled that was not bloody but also not clear enough to proceed with EGD and colonoscopy today Start GoLytely 1500 cc and further monitor for success with prep reschedule EGD and colonoscopy for tomorrow morning if Dr. Isaac agreeable Iron level 19% sat 7.6 2. Mass of urethra: This was seen by nurse practitioner Ludivina Clifton and should be visible when Todd was placed later today 3. 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 Hematuria: 11-20 red cells in urine negative for squamous cells and white cells. As above Place Ot[facility] PDMP PDMP Reviewed: Not Reviewed Attestations 2 Medical Necessity Statement*: Patient with acute on chronic blood loss with iron deficiency anemia monitoring hematocrit and plan for EGD and colonoscopy in the morning to identify source of bleed. She will try greater than 2 midnights in the hospital Coding Level of Care Code 22912 Diagnoses Acute blood loss anemia D62 Mass of urethra N36.8 Acute stroke due to occlusion of left middle cerebral artery I63.512 Hematuria R31.9 Time Spent (min) 35
[2025-01-02] MEDS: iron sucrose 200 MG in sodium chloride 0.9% (100 ml) 100 ML 220 MG IV (13:02)
--- NOTE | 2025-01-02 13:33 | ANES.PREANE2 ---
Pre-Anesthetic Assessment Height/Weight: Height 5 ft 2 in Weight 115 lb Temp Pulse Resp BP Pulse Ox O2 Del Method 98.1 F 60 14 114/56 94 Room Air 01/02/25 11:34 01/02/25 11:34 01/02/25 11:34 01/02/25 11:34 01/02/25 11:34 01/02/25 11:34 Preop Diagnosis: anemia Operation Date: 01/02/25 15:00 Proposed Procedures p EGD(Not Applicable) - Vinnie Isaac MD s Colonoscopy(Not Applicable) - Vinnie Isaac MD Was Beta Dada taken within 24 hours: N/A Was Clonidine taken within 24 hours: N/A Social No alcohol and No tobacco Exam alert Anesthetic Plan ASA status: 3 Anesthesia: MAC Other: No prior issues with anesthesia Patient admitted 12/27/2024 for anemia History of severe right hemiparesis after experiencing a stroke 9 weeks ago. History of hypertension on losartan and amiodarone A-fib On chronic Xarelto which was stopped by PCP Patient reportedly had a bad prep, plan for sigmoidoscopy Labs reviewed from today, hemoglobin 9.9 Plan for MAC anesthesia Medications/Allergies Home Medications ?Medication ?Instructions ?Recorded ?Confirmed ?Last Taken ?Type famotidine 20 mg tablet 20 mg PO BID 06/30/22 01/01/25 12/30/24 History magnesium hydroxide 400 mg/5 mL 15 ml PO DAILY PRN if no bm in 3 06/30/22 01/01/25 03/15/24 History oral suspension (Milk of Magnesia) days sodium phosphates 19 gram-7 118 ml LA DAILY PRN Constipation 06/30/22 01/01/25 12/13/24 History gram/118 mL enema (Fleet Enema) amiodarone 100 mg tablet 100 mg PO DAILY@12/18/22 01/01/25 12/31/24 History cyanocobalamin (vitamin B-12) 1,000 mcg PO DAILY@01/18/23 01/01/25 12/31/24 History 1,000 mcg capsule ergocalciferol (vitamin D2) 1,250 1,250 mcg PO Q7D 01/18/23 01/01/25 12/29/24 History mcg (50,000 unit) capsule baclofen 5 mg tablet 2.5 mg PO Q8H 04/05/23 01/01/25 12/31/24 History acetaminophen 500 mg tablet 1,000 mg PO Q6H PRN Pain 04/25/23 01/01/25 05/23/24 History bisacodyl 5 mg tablet,delayed 10 mg PO DAILY PRN if no bm in 3 04/25/23 01/01/25 Unknown History release days sennosides 8.6 mg-docusate sodium 1 tab PO BID hold if loose stools 04/25/23 01/01/25 12/31/24 History 50 mg tablet (Senna-S) atorvastatin 20 mg tablet 20 mg PO DAILY #90 tabs 05/08/23 01/01/25 12/30/24 Rx calcium carbonate (Tums) 400 mg PO DAILY PRN Indigestion 03/05/24 01/01/25 12/31/24 History clobetasol 0.05 % topical cream 1 applic topical QID PRN Skin 01/01/25 01/01/25 Unknown History Irritation cocoa butter-shark liver oil See Rx Instructions .Route .COMPLEX 01/01/25 01/01/25 11/06/24 History rectal suppository estradiol 0.01% (0.1 mg/gram) See Rx Instructions .Route .COMPLEX 01/01/25 01/01/25 12/30/24 History vaginal cream levofloxacin 500 mg tablet 500 mg PO DAILY 01/01/25 01/01/25 12/31/24 History losartan 50 mg tablet 50 mg PO DAILY 01/01/25 01/01/25 12/31/24 History nystatin 100,000 unit/gram topical See Rx Instructions .Route .COMPLEX 01/01/25 01/01/25 12/31/24 History cream polyethylene glycol 3350 17 17 g PO DAILY 01/01/25 01/01/25 12/31/24 History gram/dose oral powder (Miralax) docusate sodium 250 mg capsule 250 mg PO BID #120 caps 01/02/25 Unknown Rx ([facility]) ferrous sulfate 325 mg (65 mg 325 mg PO DAILY #90 tabs 01/02/25 Unknown Rx iron) tablet (Iron (ferrous sulfate)) pantoprazole 40 mg tablet,delayed 40 mg PO QAM 4 weeks #30 tabs 01/02/25 Unknown Rx release Allergies Allergy/AdvReac Type Severity Reaction Status Date / Time Cephalosporins Allergy trouble Verified 12/02/24 15:19 breathing Iodinated Contrast Media Allergy ALGY-Rash Verified 12/02/24 15:19 Sulfa (Sulfonamide Allergy Unknown Verified 12/02/24 15:19 Antibiotics) Current Medications Generic Name Dose Route Start Last Admin Trade Name Freq PRN Reason Stop Dose Admin Potassium Chloride/Sodium Chloride 20 meq in 1,000 mls @ 100 mls/hr 01/01/25 11:45 01/02/25 10:42 Sodium Chlor 0.45% +Kcl 20 Meq IV 100 mls/hr .Q10H YVONNE Administration Pantoprazole Sodium 40 mg 01/01/25 09:00 01/02/25 07:50 Pantoprazole 40 Mg Sdv IVP 40 mg BID YVONNE Administration PFSH Anesthesia Medical History (Updated 12/31/24 @ 23:06 by Mitzy Hurtdao MD) Jaw pain Left-sided weakness UTI (urinary tract infection) Anticoagulated by anticoagulation treatment CVA (cerebral vascular accident) Left acute arterial ischemic stroke, MCA (middle cerebral artery) Enlarged thyroid Subcapital fracture of right hip Atrial fibrillation Essential (primary) hypertension Environmental and seasonal allergies Mixed hyperlipidemia Surgical History H/O: hysterectomy History of cholecystectomy History of dilatation and curettage History of tubal ligation History of tonsillectomy Family History Mother Stroke Other Heart disease Hypertension Social History Smoking and tobacco/nicotine status: never used tobacco/nicotine Data Anesthesia 01/02/25 09:30 01/02/25 09:30 Short CBC 12/31/24 01/01/25 01/02/25 Range/Units 16:20 05:14 09:30 WBC 8.48 5.97 7.11 (3.29-11.43) 10^3/uL Hgb 6.50 L* 9.00 L D 9.90 L (11.27-16.99) g/dL Hct 20.9 L 26.7 L 30.5 L (36-47) % MCV 103.0 H 95.0 D 96.5 (85-98) fl Plt Count 426 H 301 351 (157-399) 10^3/cmm Neut % (Auto) 69.1 72.3 73.9 % Neut # (Auto) 5.87 4.31 5.25 (1.8-7.7) 10^3/uL BMP 12/31/24 01/01/25 01/02/25 16:20 05:14 09:30 Sodium 137 140 139 Potassium 4.0 3.6 4.5 Chloride 103 108 H 107 Carbon Dioxide BUN 14 9 7 L Creatinine 0.5 0.3 L 0.3 L Glucose 99 77 72 Calcium 8.8 8.2 L 8.3 L Liver Function 12/31/24 01/01/25 Range/Units 16:20 05:14 Total Bilirubin 0.2 2.7 H (0.15-1.2) mg/dL AST 19 19 (0-32) U/L ALT 11 10 (0-33) U/L Alkaline Phosphatase 93 79 (35-105) U/L Albumin 3.9 3.1 L (3.5-5.2) g/dL Urine 12/31/24 Range/Units 16:55 Urine Color Yellow (Yellow) Urine Appearance Clear (CLEAR) Urine pH 5.5 (5-7) Ur Specific [place] 1.019 (1.005-1.030) Urine Protein Negative (Negative) Urine Glucose (UA) Negative (Normal) Urine Ketones Negative (Negative) Urine Nitrate Negative (Negative) Urine Bilirubin Negative (Negative) Ur Leukocyte Esterase Negative (Negative) Urine RBC 11-20 H (0-2) /hpf Urine WBC 0-5 (0-5) /hpf Blood Bank 12/31/24 16:20 Blood Type A Positive Rho(D) Type Rh positive Antibody Screen Negative Coags 12/31/24 16:20 PT 13.10 INR 0.93 APTT 22.4 L Cardiac Studies: Echocardiogram 04/25/23 Sestamibi Stress Test (Cardiology) 11/28/21
--- NOTE | 2025-01-02 15:18 | ANE.PACU2 ---
Inpatient post-anesthesia follow up: Airway intact: Yes Vital signs: Temperature 97.7 F Pulse Rate 62 Respiratory Rate 16 Blood Pressure 144/61 Pulse Oximetry 96 Oxygen Delivery Me thod Room Air Oxygen Flow Rate Fraction of Inspir ed Oxygen Hydration adequate: Yes Nausea and vomiting: No Pain level: 1 Mental status: Baseline
[2025-01-02] MEDS: peg /e-lyte soln 4,000 mL Btl 1500 ML PO (15:25)
[2025-01-02] MEDS: ATORVASTATIN 20 MG TABLET PO (21:17)
[2025-01-03] VITALS (7 sets, daily range): BP systolic 109–151; BP diastolic 53–67; PULSE 59–65; RESP 16–18; TEMP 36.3–36.6; O2SAT 93–97
[2025-01-03] MEDS: sodium chlor 0.45% +KCl 20 mEq 20 MEQ/1,000 ML BAG 100 MEQ IV (05:01)
[2025-01-03] MEDS: pantoprazole 40 mg SDV IVP (09:19)
--- NOTE | 2025-01-03 09:31 | P.PN_ITS ---
Subjective 2 Subjective: No hematochezia, no melena Vitals/I&O/Wt Last Vital Signs Temp 97.4 F L 01/03/25 07:36 Pulse 61 01/03/25 09:19 Resp 16 01/03/25 07:36 BP 143/66 01/03/25 09:19 Pulse Ox 97 01/03/25 07:36 O2 Del Method Room Air 01/03/25 07:36 01/02/25 01/03/25 01/03/25 22:59 06:59 14:59 Intake Total 1000 / 2110 1273.333 / 3383.333 Output Total 1500 / 1500 1350 / 2850 Balance -500 / 610 -76.667 / 533.333 Weight last 48 hrs Weight 115 lb Weight 115 lb Physical Exam 2 Narrative: Chest: Unlabored breathing room air. No lymphadenopathy. Heart: Regular rate and rhythm. Abdomen: Soft, nontender, nondistended. No masses or lymphadenopathy. Urinary Catheter Management: Todd: Cath Placed During This Visit: yes Reason for Continuing Indwelling Catheter: Other Urinary Catheter Date of Insertion: 01/01/25 Urinary Catheter Time of Insertion: 12:58 Data 01/02/25 09:30 01/02/25 09:30 A&P Assessment and plan 1. Acute blood loss anemia: Plan: 79-year-old female whom surgery was consulted to rule out GI bleed. Poor prep but managed to perform a sigmoidoscopy which demonstrated no blood in the rectal vault or sigmoid. EGD did not reveal a bleeding source either. Clinically patient is not having at this time hematochezia or melena. Can follow-up as outpatient for completion colonoscopy. If concerns for GI bleed persist consider CTA abdomen pelvis. This was discussed with the hospitalist. PDMP PDMP Reviewed: Not Reviewed Attestations 2 Medical Necessity Statement*: N/A Coding Level of Care Code 41516 Diagnoses Acute blood loss anemia D62
[2025-01-03] MEDS: iron sucrose 200 MG in sodium chloride 0.9% (100 ml) 100 ML 220 MG IV (10:35)
--- NOTE | 2025-01-03 15:51 | PM.DCS ---
Discharge Providers Date of Admission: 12/31/24 20:46 Date of Discharge: January 03, 2025 Attending Provider at Admission: Mitzy Hurtado MD Attending Provider at Discharge: Britton Christy MD Consults: Omer Isaac MD General Surgery Primary Care Provider: Servando Logan DO Diagnoses at Discharge Discharge Diagnosis 1. Acute blood loss anemia: Reason for Visit Reason for Visit: low hgb Brief History: Aretha Hawley is a 79 year old female with medical history significant for severe with residual right hemiparesis, constipation high blood pressure hyperlipidemia atrial fibrillation for which patient Xarelto had been stopped by the primary care doctor because of ongoing anemia without source of blood loss. Patient is a [facility]it[facility]iary resident who presented today from the penitentiary with a hemoglobin of 6.5 and this was the reason for patient presentation. Last week Sunday which was only 5 days ago patient hemoglobin was 8. It must be noted that exactly 1 month ago November 30, 2024 patient hemoglobin at that time was 12.80 and today hemoglobin is 6.5 patient had now had a drop of 6.3 g hemoglobin drop within 1 month. And patient had been having blood transfusion in between and losing everything. All the history patient had not been scoped. He was told that at the penitentiary the only source of blood that they see is a bright red blood whenever patient goes to the bathroom to void. This was the initial workup direction with having her evaluated by [facility] [employer] [employer] and they workup that was negative here at [facility] [facility] [employer] send the patient to urology. Urologist did cystoscopy that was negative and they recommended CT scan of the abdomen and pelvics to evaluate for any type of mass. Today when patient arrived with worsening anemia, a CT scan of the abdomen and pelvics were done and was negative for any mass or anything that would relate to the GI bleeds. Patient was well-known to [facility] the ED doctor Dr. Carr had called [facility] and they declined her saying that this could be done outpatient. I had reach out for [facility] on the behalf of the emergency room department and they we are eager to take the patient but wanted to speak to the ED doctor Dr. Munoz who declined to speak since he did not know much about the patient since the patient was transferred to him from an outgoing ED attending. Have been consulted to see the patient I have seen the patient and evaluated. Patient is hemodynamically stable on room air pulse oxing at 98 to 100% and vital signs were stable with a blood pressure of 133/50 respiration 26 and pulse rate was 67. Patient is alert awake oriented with no confusion and very pleasant. I have initiated Protonix with an 80 mg IV push and then to continue with 40 mg twice daily. I have also consulted Dr. Isaac the surgeon for upper endoscopy and lower endoscopy looking for sources of this blood loss patient is having acute blood loss anemia Dr. Isaac will be scoping the patient on Sunday meaning in 36 hours- For Sunday morning. Patient is very pleasant denies any complaints. Patient can be fed and then will be n.p.o. after midnight tomorrow to be ready for Sunday procedure. Tomorrow will be used to prep the patient. And this is the instruction from Dr. Isaac Hospital Course Hospital Course Patient admitted the hospital and given 2 units packed red cells. Hemoglobin was 6.5 on admission down from 11.5 on November 12, 2024. With transfusion it dawn to 9. With time and iron infusion it dawn to 9.9 as of 01/02/2025. Patient had no further bleeding. Because the patient's bleeding had occurred with voiding urine in the absence of stooling she was thought to have had a urologic source though cystoscopy by Dr. Guevara was negative. For this reason I had a Todd placed and that has been in during the course of this hospitalization and will go home with the patient catheterized with Todd until the next bleeding source clarifies whether it is GI or in origin. The patient had an EGD and unprepped/poorly prepped sigmoidoscopy by Dr. Isaac. This did not show any sign of upper GI bleeding in the lower scope did not show any blood or old blood. Patient has change in bowel habit with constipation and probable intermittent lower GI bleeding concerning to me for the possibility of a malignancy but also potentially due to diverticular disease. I feel it is likely that the patient will bleed again and ultimately require colonoscopy. I urged Dr. Isaac to proceed inpatient but his perspective is that this can be done outpatient and that without an acutely occurring bleeding we are not likely to find something to intervene upon inpatient I have kept the patient's son Jonh updated on treatment plan throughout this. He also did speak with Dr. Isaac this morning. At this time the plan is to send the patient back to [facility] with Todd in place and monitor for next significant bleeding. At that time it should be clear whether this is or GI and then further investigation can occur at that time Physical Exam Narrative: General well-developed well-nourished female in no acute cardiopulmonary stress Speech is garbled. Right arm and right leg decreased mobility. Right hand with contraction and device present in the right hand to alleviate contracture CV regular rate and rhythm with 4/6 systolic ejection murmur best heard at the left sternal border Lungs clear to auscultation bilaterally Abdomen positive bowel tones soft nontender no obvious mass Calves right ankle with 1+ edema left side no edema Todd is in place with yellow urine Urinary Catheter Management: Todd: Cath Placed During This Visit: yes Reason for Continuing Indwelling Catheter: Other Urinary Catheter Date of Insertion: 01/01/25 Urinary Catheter Time of Insertion: 12:58 Discharge Data Studies Completed and Pending Completed Studies During Hospitalization Category Date Time Status CT kidney stone [id number] Stat Cat Scan 12/31/24 17:25 Completed Radiology Impressions Abdomen/Pelvis CT 12/31/24 17:25 IMPRESSION: 1. Right nephrolithiasis without obstructive uropathy. 2. No other acute disease in the abdomen or pelvis. 3. Right lung opacity which can be further evaluated with chest radiograph or chest CT. 4. Increased volume of fecal material throughout the colon. ADDENDUM: 12/31/24 2646 Addendum: Findings were discussed with Dr. Hurtado at 12/31/2024 11:53 PM CDT. Laboratory Results WBC 7.11 10^3/uL (3.29-11.43) 01/02/25 09:30 RBC 3.16 10^6/uL (3.85-5.65) L 01/02/25 09:30 Hgb 9.90 g/dL (11.27-16.99) L 01/02/25 09:30 Hct 30.5 % (36-47) L 01/02/25 09:30 MCV 96.5 fl (85-98) 01/02/25 09:30 MCH 31.3 pg (27-33) 01/02/25 09:30 MCHC 32.5 g/dL (30-55) 01/02/25 09:30 RDW 16.8 % (12.1-15.1) H 01/02/25 09:30 Plt Count 351 10^3/cmm (157-399) 01/02/25 09:30 MPV 10.6 fL (7.4-10.4) H 01/02/25 09:30 Neut % (Auto) 73.9 % 01/02/25 09:30 Lymph % (Auto) 14.6 % 01/02/25 09:30 Valley % (Auto) 9.1 % 01/02/25 09:30 Eos % (Auto) 1.8 % 01/02/25 09:30 Baso % (Auto) 0.3 % 01/02/25 09:30 Neut # (Auto) 5.25 10^3/uL (1.8-7.7) 01/02/25 09:30 Lymph # (Auto) 1.0 10^3/uL (0.8-4.8) 01/02/25 09:30 Valley # (Auto) 0.7 10^3/uL (0.2-0.9) 01/02/25 09:30 Eos # (Auto) 0.1 10^3/uL (0.0-0.8) 01/02/25 09:30 Baso # (Auto) 0.0 10^3/uL (0.0-0.1) 01/02/25 09:30 Nucleated RBC % (auto) 0 % 01/02/25 09:30 Nucleated RBCs # 0.0 /100WBC 01/02/25 09:30 PT 13.10 SECONDS (12.1-14.9) 12/31/24 16:20 INR 0.93 (0.8-1.2) 12/31/24 16:20 APTT 22.4 SECONDS (23.9-36.7) L 12/31/24 16:20 Sodium 139 mmol/L (136-145) 01/02/25 09:30 Potassium 4.5 mmol/L (3.5-5.1) 01/02/25 09:30 Chloride 107 mmol/L (98-107) 01/02/25 09:30 Carbon Dioxide 24 mmol/L (22-29) 01/02/25 09:30 Anion Gap 12.5 (5-19) 01/02/25 09:30 BUN 7 mg/dL (8-23) L 01/02/25 09:30 Creatinine 0.3 mg/dL (0.5-0.9) L 01/02/25 09:30 GFR Calculation Not Reportable 01/02/25 09:30 Glucose 72 mg/dL (65-115) 01/02/25 09:30 Calculated Osmolality 285 mOsm/kg (285-295) 01/02/25 09:30 Calcium 8.3 mg/dL (8.5-10.5) L 01/02/25 09:30 Phosphorus 3.1 mg/dL (2.5-4.5) 01/01/25 05:14 Magnesium 1.9 mg/dL (1.7-2.3) 01/01/25 05:14 Iron 19 ug/dL (37-145) L 01/02/25 09:30 TIBC 250 mcg/dl 01/02/25 09:30 % Saturation 7.6 % (20-50) L 01/02/25 09:30 Unsat Iron Binding 231 ug/dL (112-347) 01/02/25 09:30 Total Bilirubin 2.7 mg/dL (0.15-1.2) H 01/01/25 05:14 AST 19 U/L (0-32) 01/01/25 05:14 ALT 10 U/L (0-33) 01/01/25 05:14 Alkaline Phosphatase 79 U/L (35-105) 01/01/25 05:14 Total Protein 4.8 g/dL (6.6-8.7) L D 01/01/25 05:14 Albumin 3.1 g/dL (3.5-5.2) L 01/01/25 05:14 Globulin 1.7 g/dL (1.3-4.6) 01/01/25 05:14 Vitamin B12 > 2000 pg/mL (232-1245) H 12/31/24 16:20 Folate 9.2 ng/mL (4.8-37.3) 12/31/24 16:20 Urine Color Yellow (Yellow) 12/31/24 16:55 Urine Appearance Clear (CLEAR) 12/31/24 16:55 Urine pH 5.5 (5-7) 12/31/24 16:55 Ur Specific [place] 1.019 (1.005-1.030) 12/31/24 16:55 Urine Protein Negative (Negative) 12/31/24 16:55 Urine Glucose (UA) Negative (Normal) 12/31/24 16:55 Urine Ketones Negative (Negative) 12/31/24 16:55 Urine Blood 1+ (Negative) A 12/31/24 16:55 Urine Nitrate Negative (Negative) 12/31/24 16:55 Urine Bilirubin Negative (Negative) 12/31/24 16:55 Urine Urobilinogen 1.0 mg/dL (Negative) 12/31/24 16:55 Ur Leukocyte Esterase Negative (Negative) 12/31/24 16:55 Urine RBC 11-20 /hpf (0-2) H 12/31/24 16:55 Urine WBC 0-5 /hpf (0-5) 12/31/24 16:55 Ur Squamous Epith Cells 0-5 /hpf (0-5) 12/31/24 16:55 Amorphous Sediment Not Reportable 12/31/24 16:55 Urine Bacteria None seen /hpf (NONE) 12/31/24 16:55 Hyaline Casts 0.40 /lpf 12/31/24 16:55 Blood Type A Positive 12/31/24 16:20 Rho(D) Type Rh positive 12/31/24 16:20 Antibody Screen Negative 12/31/24 16:20 Crossmatch See Detail 12/31/24 16:20 Vitals Last Vital Signs Temp 97.5 F L 01/03/25 11:37 Pulse 65 01/03/25 11:37 Resp 18 01/03/25 11:37 BP 151/67 01/03/25 11:37 Pulse Ox 94 01/03/25 11:37 O2 Del Method Room Air 01/03/25 11:37 Discharge Plan Discharge Patient Disposition: Xfer SNF Condition: Stable Prescriptions: New docusate sodium [Col-Rite] 250 mg capsule 250 mg PO BID Qty: 120 0RF pantoprazole 40 mg tablet,delayed release (DR/EC) 40 mg PO QAM 28 Days Qty: 30 0RF ferrous sulfate [Iron (ferrous sulfate)] 325 mg (65 mg iron) tablet 325 mg PO DAILY Qty: 90 0RF Continued atorvastatin 20 mg tablet 20 mg PO DAILY Qty: 90 3RF baclofen 5 mg tablet 2.5 mg PO Q8H calcium carbonate [Tums] 200 mg calcium (500 mg) tablet,chewable 400 mg PO DAILY PRN (Reason: Indigestion) famotidine 20 mg tablet 20 mg PO BID Fleet Enema 19-7 gram/118 mL enema 118 ml SD DAILY PRN (Reason: Constipation) Rx Instructions: give fleets if no results from mom and dulcolax magnesium hydroxide [Milk of Magnesia] 400 mg/5 mL suspension 15 ml PO DAILY PRN (Reason: if no bm in 3 days) cyanocobalamin (vitamin B-12) 1,000 mcg capsule 1,000 mcg PO DAILY@08 ergocalciferol (vitamin D2) 1,250 mcg (50,000 unit) capsule 1,250 mcg PO Q7D Rx Instructions: Mondays sennosides-docusate sodium [Senna-S] 8.6-50 mg Tablet 1 tab PO BID acetaminophen 500 mg Tablet 1,000 mg PO Q6H PRN (Reason: Pain) bisacodyl 5 mg Tablet,Delayed Release (Dr/Ec) 10 mg PO DAILY PRN (Reason: if no bm in 3 days) amiodarone 100 mg Tablet 100 mg PO DAILY@08 clobetasol 0.05 % cream 1 applic TOPICAL QID PRN (Reason: Skin Irritation) nystatin 100,000 unit/gram cream See Rx Instructions .ROUTE .COMPLEX Rx Instructions: Apply topically every shift to red areas of groin at least 1 hour after applying clobetasol cream/ cocoa butter-shark liver oil Suppository See Rx Instructions .ROUTE .COMPLEX Rx Instructions: 1 suppository rectally every shift as needed for hemorrhoids. polyethylene glycol 3350 [Miralax] 17 gram/dose Powder 17 g PO DAILY levofloxacin 500 mg tablet 500 mg PO DAILY estradiol 0.01 % (0.1 mg/gram) cream See Rx Instructions .ROUTE .COMPLEX Rx Instructions: Apply on urethra vaginally at bedtime. losartan 50 mg tablet 50 mg PO DAILY Discontinued diltiazem HCl 120 mg capsule,extended release 24hr 120 mg PO DAILY@08 bisacodyl [Dulcolax (bisacodyl)] 10 mg Suppository 10 mg SD DAILY PRN (Reason: Constipation) Discharge Order = DC NOW: Discharge Order (Routine); Ordered 01/03/25 Ordered By: Britton Christy Referrals: [facility] [Outside] Servando Logan DO [Primary Care Provider, Internal Medicine] Discharge Diet: Usual diet Discharge Activity: Resume usual activity Patient Instructions: Iron Supplements (By mouth), Pantoprazole (By mouth), GI Post Discharge Instructions w/ Anesthesia, Opioid Safety, Patient Portal & Shey Instructions Activity Restrictions/Additional Instructions: Leave Todd in until next bleeding episode happens so we can tell if it is urologic and blood goes into the Todd or if this is GI and blood is in the stool and not in the Todd. If this has not occurred in 2 weeks have Todd changed to prevent infection Change Todd every 2 weeks If you have bright red blood per rectum returns to the emergency department to have a CT scan of the abdomen and pelvis with contrast to look for the source of bleeding. Discharge Attestations Time Spent in Discharge Care*: greater than 30 min Time Spent in Smoking Cessation: Patient is not a smoker Quality Metrics Clinical Quality Measures [ No reported AMI, CVA or VTE this stay] Coding Level of Care Code Acute Code for Chg Fwd Diagnoses Acute blood loss anemia D62 Time Spent (min) 45
--- NOTE | 2025-01-03 18:02 | PC.NURSE ---
Called report to Love Calabrese RN at [facility]. Patient went with catheter.
== END 2025-01-03 16:50 | disposition skilled nursing facility (03) | DRG 812 ==
LOC: ER 19:45 → MEDSURG 21:11
PROVIDERS: Student in an Organized Health Care Education/Training Program; Admitting Provider Internal Medicine; Emergency Provider Emergency Medicine; PCP Internal Medicine; Visit Provider Internal Medicine
PROC: 0DJ08ZZ Inspection of Upper Intestinal Tract, Via Natural or Artificial Opening Endoscopic (ICD-10-PCS; principal; 2025-01-02 15:00)
PROC: 0DJD8ZZ Inspection of Lower Intestinal Tract, Via Natural or Artificial Opening Endoscopic (ICD-10-PCS; CPT 45330; 2025-01-02 15:00)
PROC: 0DJ08ZZ Inspection of Upper Intestinal Tract, Via Natural or Artificial Opening Endoscopic (ICD-10-PCS; 2025-01-02 15:00)
DX: D62 Acute posthemorrhagic anemia (principal); K62.5 Hemorrhage of anus and rectum; I69.351 Hemiplegia and hemiparesis following cerebral infarction affecting right dominant side; I10 Essential (primary) hypertension; I48.91 Unspecified atrial fibrillation; E78.2 Mixed hyperlipidemia; N36.9 Urethral disorder, unspecified; K59.09 Other constipation; R31.9 Hematuria, unspecified; Z79.01 Long term (current) use of anticoagulants; Z90.710 Acquired absence of both cervix and uterus; Z79.899 Other long term (current) drug therapy; Z88.2 Allergy status to sulfonamides; Z88.3 Allergy status to other anti-infective agents; Z91.041 Radiographic dye allergy status; Z90.49 Acquired absence of other specified parts of digestive tract
CPT/HCPCS: 36415; 36430; 43239; 45378; 51702; 74176; 80048; 80053; 81001; 82607; 82746; 83540; 83550; 83735; 84100; 85025; 85610; 85730; 86850; 86900; 86920; 96360; 96361; 99285; J1756; J2371; J2470; J3480; J7030; J9999; P9016

== ENCOUNTER 2025-01-05 16:29 | Outpatient (CLI) | payer MEDICARE, OTHER, MEDICAID, SELFPAY ==
--- NOTE | 2025-01-05 16:36 | CT_ITS ---
WS: [id number] CT ABDOMEN AND PELVIS NONCONTRAST HISTORY: MASS OF URETHRA, OTHER SPECIFIED DISORDERS OF URETHRA TECHNIQUE: Imaging performed through the abdomen and pelvis. Coronal and sagittal reformats are submitted. All CT scans at [facility] use at least one of these dose optimization techniques: automated exposure control; mA and/or kV adjustment per patient size (includes targeted exams where dose is matched to clinical indication); or iterative reconstruction. DLP: 251.99 mGy.cm COMPARISON: 12/31/2024, CT 11/12/2024 Lower thorax: Small hiatal hernia. Otherwise negative. Liver: Normal size liver. No mass or bile duct dilatation. Gallbladder: Prior cholecystectomy. Pancreas: Atrophic pancreas. Pancreatic duct is very mildly prominent. Similar to prior studies. No pancreatic head mass identified. Spleen: Normal size with granuloma. Adrenal glands: Normal. No mass. Right kidney: Low normal size kidney. No obstruction. Nonobstructing calcifications in the lower pole. Left kidney: Normal size kidney. Mild dilatation of the LEFT renal pelvis and proximal ureter. Distal ureter is not well visualized. Nonobstructing calcification mid renal cortex. Aorta: Mild atherosclerosis abdominal aorta with no aneurysm. No free fluid, intraperitoneal air or significant lymphadenopathy. GI tract: No GI tract obstruction. Negative appendix. Mild diverticular disease in the distal colon. No acute diverticulitis. Mild fullness at the anorectal junction. New finding since 2006. Area of fullness extends over a length of 3.3 cm and transversely by 3.0 cm. Abdominal wall: Negative. No hernia. Pelvis: There is a large amount of artifact through the pelvis obscuring the soft tissue detail from patient's RIGHT hip arthroplasty. There is a Todd catheter in the urinary bladder. Urinary bladder is not distended. Distal RIGHT ureter is not well visualized. Partial visualization of distal LEFT ureter. 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 The mass is not definitely visualized by CT. The Todd catheter is identified extending through the urethra. Patient is status post hysterectomy. There is a very mild fullness near the anorectal junction. Osseous structures: Osteopenia. Increase in the lumbar lordosis. Prior RIGHT hip arthroplasty. CT/CT kidney stone [id number] IMPRESSION: 1. No renal obstruction. There is very minimal fullness of the LEFT renal pelv is. 2. Distal ureters are obscured by artifact from the RIGHT hip arthroplasty. 3. Todd catheter present in the urinary bladder which is nondistended. 4. There is fullness in the anorectal region extending over a length of 3.3 cm x 3.0 cm. This area would be easily evaluated by a rectal exam for possible tu mor. 5. No urethral mass identified. 6. Prior cholecystectomy. 7. Atherosclerosis aorta. 8. No ascites. No adenopathy identified.
== END 2025-01-05 16:30 | disposition home or self-care (01) ==
LOC: RAD 16:31
PROVIDERS: PCP Internal Medicine; Visit Provider Surgery
DX: N36.9 Urethral disorder, unspecified (principal); K44.9 Diaphragmatic hernia without obstruction or gangrene; Z90.49 Acquired absence of other specified parts of digestive tract; N28.89 Other specified disorders of kidney and ureter; K57.30 Diverticulosis of large intestine without perforation or abscess without bleeding
CPT/HCPCS: 74176

== ENCOUNTER → 2025-02-03 13:47 | Outpatient (BNVA) | payer MEDICARE, OTHER, MEDICAID, SELFPAY | PROVIDERS: PCP Internal Medicine; Visit Provider Surgery | DX: Z12.11 Encounter for screening for malignant neoplasm of colon (principal) | CPT/HCPCS: 99214 ==

== ENCOUNTER 2025-02-19 05:43 | Day surgery (SDC) | payer MEDICARE, OTHER, MEDICAID, SELFPAY ==
[2025-02-19 05:53] VITALS: BP 141/78; PULSE 78; RESP 16; TEMP 36.2; O2SAT 96; BMI 19.9
--- NOTE | 2025-02-19 06:29 | P.HPUD_ITS ---
Surgery/Procedure H&P Update DATE OF PROCEDURE: February 19, 2025 DATE H&P PERFORMED: 02/03/25 H&P UPDATE INFORMATION: I have reviewed H&P completed within last 30 days, I have examined patient prior to procedure, No changes to prior documentation, H&P is in [facility] EMR on date indicated and Risks and benefits of the procedure reviewed PLANNED PROCEDURE: Operation Date: 02/19/25 07:00 Proposed Procedures p Colonoscopy 89286 G0105 D50.0(Not Applicable) - Andres Quintero MD
--- NOTE | 2025-02-19 06:54 | ANES.PREANE2 ---
Pre-Anesthetic Assessment Height/Weight: Height 1.57 m Weight 49.442 kg Temp Pulse Resp BP Pulse Ox O2 Del Method 97.2 F L 78 16 141/78 96 Room Air 02/19/25 05:53 02/19/25 05:53 02/19/25 05:53 02/19/25 05:53 02/19/25 05:53 02/19/25 05:53 Preop Diagnosis: anemia Operation Date: 02/19/25 07:00 Proposed Procedures p Colonoscopy 09067 G0105 D50.0(Not Applicable) - Andres Qiuntero MD Was Beta Dada taken within 24 hours: N/A Was Clonidine taken within 24 hours: N/A Last intake: Intake Last Liquid Date 02/18/25 Last Liquid Time 06:30 Last Solid Date 02/17/25 Last Solid Time 16:30 Social No alcohol and No tobacco Exam alert and oriented x 3 Airway Submandibular: within normal limits Cervical ROM: within normal limits Mallampati: Class II Dentition: full Pulmonary None reported CV/HEM Arrythmia None reported Hepatic None reported GI Gastroesophageal Reflux Disease Metabolic None reported Musc/skel None reported Neuropsych Cerebrovascular Accident (Mar 2022-right side weak and aphasia) Anesthetic Plan ASA status: 3 Anesthesia: MAC Risk of > 500 ml blood loss (7ml/kg in children): No Medications/Allergies Home Medications ?Medication ?Instructions ?Recorded ?Confirmed ?Last Taken ?Type famotidine 20 mg tablet 20 mg PO BID 06/30/22 02/19/25 02/18/25 18:30 History amiodarone 100 mg tablet 100 mg PO DAILY@12/18/22 02/16/25 02/16/25 History cyanocobalamin (vitamin B-12) 1,000 mcg PO DAILY@01/18/23 02/16/25 02/16/25 07:30 History 1,000 mcg capsule baclofen 5 mg tablet 2.5 mg PO Q8H 04/05/23 02/16/25 02/16/25 History acetaminophen 500 mg tablet 1,000 mg PO Q6H PRN Pain 04/25/23 02/16/25 02/16/25 07:30 History sennosides 8.6 mg-docusate sodium 1 tab PO BID hold if loose stools 04/25/23 02/16/25 02/16/25 07:30 History 50 mg tablet (Senna-S) atorvastatin 20 mg tablet 20 mg PO DAILY #90 tabs 05/08/23 02/16/25 02/16/25 Rx calcium carbonate (Tums) 400 mg PO DAILY PRN Indigestion 03/05/24 02/16/25 02/16/25 History estradiol 0.01% (0.1 mg/gram) 0.1 appful vaginal BEDTIME 01/01/25 02/16/25 02/16/25 07:30 History vaginal cream losartan 50 mg tablet 50 mg PO DAILY 01/01/25 02/16/25 02/18/25 06:30 History nystatin 100,000 unit/gram topical See Rx Instructions .Route .COMPLEX 01/01/25 02/16/25 02/15/25 20:00 History cream polyethylene glycol 3350 17 17 g PO DAILY 01/01/25 02/16/25 12/31/24 History gram/dose oral powder (Miralax) ferrous sulfate 325 mg (65 mg 325 mg PO DAILY #90 tabs 01/02/25 02/16/25 02/17/25 06:00 Rx iron) tablet (Iron (ferrous sulfate)) bisacodyl 5 mg tablet,delayed 5 mg PO DAILY #4 tabs 02/03/25 02/16/25 02/16/25 07:30 Rx release (Dulcolax (bisacodyl)) cholecalciferol (vitamin D3) 1,250 1,250 mcg PO DAILY 02/03/25 02/16/25 02/16/25 07:30 History mcg (50,000 unit) capsule clobetasol 0.05 % topical ointment 1 applic topical DAILY 02/03/25 02/16/25 02/16/25 07:30 History docusate sodium 250 mg capsule 250 mg PO DAILY 02/03/25 02/16/25 02/18/25 History magnesium citrate 296 ml PO BID 1 day #592 mL 02/03/25 02/19/25 02/18/25 08:00 Rx polyethylene glycol 3350 17 17 g PO BID 5 days #170 grams 02/03/25 02/16/25 02/16/25 07:30 Rx gram/dose oral powder (Miralax) Allergies Allergy/AdvReac Type Severity Reaction Status Date / Time Cephalosporins Allergy trouble Verified 02/03/25 14:02 breathing Iodinated Contrast Media Allergy ALGY-Rash Verified 02/03/25 14:02 Sulfa (Sulfonamide Allergy Unknown Verified 02/03/25 14:02 Antibiotics) Current Medications Generic Name Dose Route Start Last Admin Trade Name Freq PRN Reason Stop Dose Admin Sodium Chloride 1,000 mls @ 15 mls/hr 02/19/25 05:50 02/19/25 06:15 Sodium Chloride 0.9% IV 02/20/25 05:49 15 mls/hr .Q24H PRN Administration COLONOSCOPY FLUIDS PFSH Anesthesia Medical History Jaw pain Left-sided weakness UTI (urinary tract infection) Anticoagulated by anticoagulation treatment CVA (cerebral vascular accident) Left acute arterial ischemic stroke, MCA (middle cerebral artery) Enlarged thyroid Subcapital fracture of right hip Atrial fibrillation Essential (primary) hypertension Environmental and seasonal allergies Mixed hyperlipidemia Surgical History H/O: hysterectomy History of cholecystectomy History of dilatation and curettage History of tubal ligation History of tonsillectomy Family History Mother Stroke Other Heart disease Hypertension Social History Smoking and tobacco/nicotine status: never used tobacco/nicotine Data Anesthesia Cardiac Studies: Echocardiogram 04/25/23 Sestamibi Stress Test (Cardiology) 11/28/21
[2025-02-19 07:41] VITALS: BP 143/67; PULSE 74; RESP 20; TEMP 36.1; O2SAT 99
[2025-02-19 07:52] VITALS: BP 148/76; PULSE 83; RESP 20; O2SAT 95
[2025-02-19 08:01] VITALS: BP 153/70; PULSE 82; RESP 20; O2SAT 97
--- NOTE | 2025-02-19 08:15 | ANE.PACU2 ---
Inpatient post-anesthesia follow up: Airway intact: Yes Vital signs: Temperature 97.0 F Pulse Rate 82 Respiratory Rate 20 Blood Pressure 153/70 Pulse Oximetry 97 Oxygen Delivery Me thod Room Air Oxygen Flow Rate Fraction of Inspir ed Oxygen Hydration adequate: Yes Nausea and vomiting: No Pain level: 1 Mental status: Baseline
== END 2025-02-19 08:19 ==
PROVIDERS: PCP Internal Medicine; Visit Provider Surgery
PROC: 0DJD8ZZ Inspection of Lower Intestinal Tract, Via Natural or Artificial Opening Endoscopic (ICD-10-PCS; CPT 45378; principal; 2025-02-19 07:00)
DX: Z12.11 Encounter for screening for malignant neoplasm of colon (principal); D12.4 Benign neoplasm of descending colon; Z86.73 Personal history of transient ischemic attack (TIA), and cerebral infarction without residual deficits; I48.91 Unspecified atrial fibrillation; E78.2 Mixed hyperlipidemia; I10 Essential (primary) hypertension; E04.9 Nontoxic goiter, unspecified; D64.9 Anemia, unspecified; K21.9 Gastro-esophageal reflux disease without esophagitis
CPT/HCPCS: 45380; 88305; J2371; J2704; J7030; J9999

== ENCOUNTER 2025-02-23 14:29 | Emergency (ER) | payer MEDICARE, OTHER, MEDICAID, SELFPAY ==
[2025-02-23 14:33] VITALS: BP 151/83; PULSE 73; RESP 17; TEMP 36.7; O2SAT 97; BMI 20.5
--- NOTE | 2025-02-23 14:51 | USCV_ITS ---
Aretha Hawley Age: 79 Gender: F : 1945 Exam Date: 02/23/2025 15:38 Ordering Phys: Arabella Laura MD Technologist: ATUL [place] [facility] [place] Rt calf pain/swelling HISTORY: Lower extremity pain. Lower extremity swelling. PROCEDURES: Venous duplex imaging was performed in only the right lower extremity. The following venous structures were evaluated: common femoral vein, profunda vein, proximal portion of the greater saphenous vein, superficial femoral vein, and the popliteal vein. In addition, the posterior tibial and peroneal trunk were evaluated. Serial compression, augmentation maneuvers, and spectral Doppler flow evaluation were performed. FINDINGS: No evidence of DVT seen in any vessel visualized at this time. CONCLUSIONS No evidence of right lower extremity DVT. Britton Webb MD (Electronically Signed) Final Date: 23 February 2025 16:05 S
[2025-02-23 15:22] LABS: Hematocrit 38.0 % (36-47); Hemoglobin 12.10 g/dL (11.27-16.99); Mean Corpuscular HGB Conc 31.8 g/dL (30-55); Mean Corpuscular Hemoglobin 31.9 pg (27-33); Mean Corpuscular Volume 100.3 fl (85-98); Nucleated Red Blood Cells % 0 %; Platelet Count 315 10^3/cmm (157-399); Red Blood Count 3.79 10^6/uL (3.85-5.65); White Blood Count 5.66 10^3/uL (3.29-11.43)
--- NOTE | 2025-02-23 15:27 | W.ED.EXTPRO ---
HPI - Extremity Problem General: Chief complaint: Extremity Problem,Nontraumatic Stated complaint: R leg swelling Time Seen by Provider: 02/23/25 15:24 History of Present Illness: 79-year-old female with a history of stroke, residual right-sided hemiparesis, atrial fibrillation, hypertension and chronic GI bleeding and anemia who presents to the emergency room from cardiology clinic with concern for swelling in her right leg. Dr. Sheikh called me prior to patient arrival and was concern for DVT in her right leg. Requests lab work and an ultrasound. Patient has no chest pain. No tachycardia. No hypoxemia. Son states she is continue to have GI bleeding and he was unaware that she had been taken off of her blood thinners. Related Data Home Medications ?Medication ?Instructions ?Recorded ?Confirmed famotidine 20 mg tablet 20 mg PO BID 06/30/22 02/23/25 amiodarone 100 mg tablet 100 mg PO DAILY@12/18/22 02/23/25 cyanocobalamin (vitamin B-12) 1,000 mcg PO DAILY@01/18/23 02/23/25 1,000 mcg capsule baclofen 5 mg tablet 2.5 mg PO Q8H 04/05/23 02/23/25 acetaminophen 500 mg tablet 1,000 mg PO Q6H PRN Pain 04/25/23 02/23/25 sennosides 8.6 mg-docusate sodium 1 tab PO BID hold if loose stools 04/25/23 02/23/25 50 mg tablet (Senna-S) calcium carbonate (Tums) 400 mg PO DAILY PRN Indigestion 03/05/24 02/23/25 estradiol 0.01% (0.1 mg/gram) 0.1 appful vaginal BEDTIME 01/01/25 02/23/25 vaginal cream losartan 50 mg tablet 50 mg PO DAILY 01/01/25 02/23/25 nystatin 100,000 unit/gram topical See Rx Instructions .Route .COMPLEX 01/01/25 02/23/25 cream polyethylene glycol 3350 17 17 g PO DAILY 01/01/25 02/23/25 gram/dose oral powder (Miralax) cholecalciferol (vitamin D3) 1,250 1,250 mcg PO DAILY 02/03/25 02/23/25 mcg (50,000 unit) capsule clobetasol 0.05 % topical ointment 1 applic topical DAILY 02/03/25 02/23/25 docusate sodium 250 mg capsule 250 mg PO DAILY 02/03/25 02/23/25 Previous Rx's ?Medication ?Instructions ?Recorded atorvastatin 20 mg tablet 20 mg PO DAILY #90 tabs 05/08/23 ferrous sulfate 325 mg (65 mg 325 mg PO DAILY #90 tabs 01/02/25 iron) tablet (Iron (ferrous sulfate)) bisacodyl 5 mg tablet,delayed 5 mg PO DAILY #4 tabs 02/03/25 release (Dulcolax (bisacodyl)) magnesium citrate 296 ml PO BID 1 day #592 mL 02/03/25 polyethylene glycol 3350 17 17 g PO BID 5 days #170 grams 02/03/25 gram/dose oral powder (Miralax) Allergies Allergy/AdvReac Type Severity Reaction Status Date / Time Cephalosporins Allergy trouble Verified 02/03/25 14:02 breathing Iodinated Contrast Media Allergy ALGY-Rash Verified 02/03/25 14:02 Sulfa (Sulfonamide Allergy Unknown Verified 02/03/25 14:02 Antibiotics) Review of Systems Narrative: Constitutional symptoms: Negative except as documented in HPI. Skin symptoms: Negative except as documented in HPI. Eye symptoms: Negative except as documented in HPI. ENMT symptoms: Negative except as documented in HPI. Respiratory symptoms: Negative except as documented in HPI. Cardiovascular symptoms: Negative except as documented in HPI. Gastrointestinal symptoms: Negative except as documented in HPI. Genitourinary symptoms: Negative except as documented in HPI. Musculoskeletal symptoms: Negative except as documented in HPI. Neurologic symptoms: Negative except as documented in HPI. Psychiatric symptoms: Negative except as documented in HPI. Endocrine symptoms: Negative except as documented in HPI. PFS ED PFSH: Medical History (Updated 02/23/25 @ 15:59 by Arabella Laura MD) Jaw pain Left-sided weakness UTI (urinary tract infection) Anticoagulated by anticoagulation treatment CVA (cerebral vascular accident) Left acute arterial ischemic stroke, MCA (middle cerebral artery) Enlarged thyroid Subcapital fracture of right hip Atrial fibrillation Essential (primary) hypertension Environmental and seasonal allergies Mixed hyperlipidemia Surgical History H/O: hysterectomy History of cholecystectomy History of dilatation and curettage History of tubal ligation History of tonsillectomy Family History Mother Stroke Other Heart disease Hypertension Social History Smoking and tobacco/nicotine status: never used tobacco/nicotine Physical Exam Narrative: EXAM NARRATIVE: General: Alert, no acute distress. Skin: Warm, dry. Head: Normocephalic, atraumatic. Neck: Supple, trachea midline. Eye: Extraocular movements are intact. Ears, nose, mouth and throat: mucosa moist. Cardiovascular: Regular, Normal peripheral perfusion. Does have some swelling in the right leg with a compression stocking. This could be DVT but also could be dependent edema from right sided hemiparesis Respiratory: Lungs are clear to auscultation, respirations are non-labored, breath sounds are equal, Symmetrical chest wall expansion. Gastrointestinal: Soft, Nontender, Non distended Musculoskeletal: Normal ROM, no deformity. Neurological: Alert and oriented, No focal neurological deficit observed. Psychiatric: Cooperative, appropriate mood & affect. Course Vital Signs: Vital signs: Vital Signs Temperature 98.1 F 02/23/25 14:33 Pulse Rate 77 02/23/25 15:41 Respiratory Rate 16 02/23/25 15:41 Blood Pressure 142/74 02/23/25 15:41 Pulse Oximetry 98 02/23/25 15:41 Oxygen Delivery Me thod Room Air 02/23/25 15:41 MDM - Extremity (Nontraumatic) Medical Decision Making Medical decision making Patient's reason for coming to the emergency room: Sent from cardiology clinic with right lower extremity swelling with concern for blood clots. Social determinants: Patient is retired. She has a son who is very involved in her medical care. I reviewed the patient's medical record. 79-year-old female with a history of stroke, residual right-sided hemiparesis, atrial fibrillation, hypertension and chronic GI bleeding and anemia. X admitted her to the hospital fairly recently for GI bleeding. I reviewed the patient's current home meds According to cardiology clinic she has been off of her blood thinners recently. Alternate historians: None Differential diagnosis including but not limited to and based on the above HPI, review of systems and physical exam: for patient with edema: Congestive heart failure. Kidney failure. DVT / Pulmonary embolism. Protein malnutrition. Cirrhosis. Orders placed to evaluate differential diagnosis based on the above differential, HPI and physical exam Lab Review: Laboratory results were reviewed and interpreted by myself the emergency room physician. No leukocytosis. Blood counts are much improved at 12. No renal failure. Ultrasound of the right lower extremity: No DVT. This was reviewed and interpreted by myself the emergency room physician. I also reviewed the radiology report. Assessment of risk: Level of risk: Some high risk patient. Elderly with multiple comorbidities. Including need for anticoagulation but chronic bleeding. Hospitalization considerations: Patient would have had DVT she likely would have needed to be transferred for IVC filter placement. Reexamination: Patient remained stable. No increased work of breathing. No altered mental status. No focal motor deficits. Assessment and plan: Dependent edema History of CVA with right-sided weakness. - Discharged home - Discussed plan with patient and her son. Answered any questions. - Evaluation and treatment of this problem were appropriate in the emergency setting. Lab Data 02/23/25 15:14 02/23/25 15:14 Laboratory Results WBC 5.66 10^3/uL (3.29-11.43) 02/23/25 15:14 RBC 3.79 10^6/uL (3.85-5.65) L 02/23/25 15:14 Hgb 12.10 g/dL (11.27-16.99) 02/23/25 15:14 Hct 38.0 % (36-47) 02/23/25 15:14 MCV 100.3 fl (85-98) H 02/23/25 15:14 MCH 31.9 pg (27-33) 02/23/25 15:14 MCHC 31.8 g/dL (30-55) 02/23/25 15:14 RDW 13.9 % (12.1-15.1) 02/23/25 15:14 Plt Count 315 10^3/cmm (157-399) 02/23/25 15:14 MPV 11.6 fL (7.4-10.4) H 02/23/25 15:14 Neut % (Auto) 66.3 % 02/23/25 15:14 Lymph % (Auto) 21.2 % 02/23/25 15:14 [place] % (Auto) 8.5 % 02/23/25 15:14 Eos % (Auto) 3.4 % 02/23/25 15:14 Baso % (Auto) 0.4 % 02/23/25 15:14 Neut # (Auto) 3.76 10^3/uL (1.8-7.7) 02/23/25 15:14 Lymph # (Auto) 1.2 10^3/uL (0.8-4.8) 02/23/25 15:14 [place] # (Auto) 0.5 10^3/uL (0.2-0.9) 02/23/25 15:14 Eos # (Auto) 0.2 10^3/uL (0.0-0.8) 02/23/25 15:14 Baso # (Auto) 0.0 10^3/uL (0.0-0.1) 02/23/25 15:14 Nucleated RBC % (auto) 0 % 02/23/25 15:14 Nucleated RBCs # 0.0 /100WBC 02/23/25 15:14 PT 13.00 SECONDS (12.1-14.9) 02/23/25 15:14 INR 0.92 (0.8-1.2) 02/23/25 15:14 APTT 26.1 SECONDS (23.9-36.7) 02/23/25 15:14 Sodium 143 mmol/L (136-145) 02/23/25 15:14 Potassium 4.1 mmol/L (3.5-5.1) 02/23/25 15:14 Chloride 105 mmol/L (98-107) 02/23/25 15:14 Carbon Dioxide 29 mmol/L (22-29) 02/23/25 15:14 Anion Gap 13.1 (5-19) 02/23/25 15:14 BUN 8 mg/dL (8-23) 02/23/25 15:14 Creatinine 0.4 mg/dL (0.5-0.9) L 02/23/25 15:14 GFR Calculation Not Reportable 02/23/25 15:14 Glucose 96 mg/dL (65-115) 02/23/25 15:14 Calculated Osmolality 294 mOsm/kg (285-295) 02/23/25 15:14 Calcium 9.2 mg/dL (8.5-10.5) 02/23/25 15:14 Total Bilirubin 0.2 mg/dL (0.15-1.2) 02/23/25 15:14 AST 15 U/L (0-32) 02/23/25 15:14 ALT 10 U/L (0-33) 02/23/25 15:14 Alkaline Phosphatase 104 U/L (35-105) 02/23/25 15:14 NT-Pro-B Natriuret Pep 344 pg/mL (0-450) 02/23/25 15:14 Total Protein 6.6 g/dL (6.6-8.7) 02/23/25 15:14 Albumin 4.0 g/dL (3.5-5.2) 02/23/25 15:14 Globulin 2.6 g/dL (1.3-4.6) 02/23/25 15:14 All radiology interpretation(s) finalized by discharge Discharge Plan Discharge Patient Disposition: Home Clinical Impression: Dependent edema, History of stroke with residual effects Condition: Stable Prescriptions: No Action atorvastatin 20 mg tablet 20 mg PO DAILY Qty: 90 3RF baclofen 5 mg tablet 2.5 mg PO Q8H calcium carbonate [Tums] 200 mg calcium (500 mg) tablet,chewable 400 mg PO DAILY PRN (Reason: Indigestion) clobetasol 0.05 % ointment 1 applic topical DAILY docusate sodium 250 mg capsule 250 mg PO DAILY cholecalciferol (vitamin D3) 1,250 mcg (50,000 unit) capsule 1,250 mcg PO DAILY polyethylene glycol 3350 [Miralax] 17 gram/dose powder 17 g PO BID 5 Days Qty: 170 0RF magnesium citrate Solution 296 ml PO BID 1 Days Qty: 592 0RF Rx Instructions: take one bottle at 12PM and second bottle at 08:00PM the night before colonoscopy bisacodyl [Dulcolax (bisacodyl)] 5 mg tablet,delayed release (DR/EC) 5 mg PO DAILY Qty: 4 0RF Rx Instructions: take 4 tabs at 2:00PM the day before the colonoscopy procedure famotidine 20 mg tablet 20 mg PO BID cyanocobalamin (vitamin B-12) 1,000 mcg capsule 1,000 mcg PO DAILY@08 sennosides-docusate sodium [Senna-S] 8.6-50 mg Tablet 1 tab PO BID acetaminophen 500 mg Tablet 1,000 mg PO Q6H PRN (Reason: Pain) amiodarone 100 mg Tablet 100 mg PO DAILY@08 nystatin 100,000 unit/gram cream See Rx Instructions .ROUTE .COMPLEX Rx Instructions: Apply topically every shift to red areas of groin at least 1 hour after applying clobetasol cream/ polyethylene glycol 3350 [Miralax] 17 gram/dose Powder 17 g PO DAILY estradiol 0.01 % (0.1 mg/gram) cream 0.1 appful vaginal BEDTIME Rx Instructions: Apply on urethra vaginally at bedtime. losartan 50 mg tablet 50 mg PO DAILY ferrous sulfate [Iron (ferrous sulfate)] 325 mg (65 mg iron) tablet 325 mg PO DAILY Qty: 90 0RF Discharge Orders: Discharge ED (Routine); Ordered 02/23/25 Ordered By: Arabella Laura Referrals: Servando Logan DO [Primary Care Provider, Internal Medicine] Discharge Diet: Usual diet Discharge Activity: Increase activity as tolerated Patient Instructions: Dependent Edema, Opioid Safety, Pain Management, Patient Portal & Shye Instructions Activity Restrictions/Additional Instructions: Thank you for choosing [facility] for your healthcare needs today. You have been screened and evaluated and felt safe for discharge. Health conditions do change or evolve sometimes and as such it is important that you follow up with your Primary Doctor to be re checked, 3-5 days is a general good time frame for follow up. You are always welcome to return to the ED for re assessment if your symptoms are worsening or you have new concerns Print Language: Frisian Coding Level of Care Code ED [employer] for Hermelindo Koehler
[2025-02-23 15:41] VITALS: BP 142/74; PULSE 77; RESP 16; O2SAT 98
[2025-02-23 15:43] LABS: INR 0.92 (0.8-1.2); Prothrombin Time 13.00 SECONDS (12.1-14.9)
[2025-02-23 15:44] LABS: Partial Thromboplastin Time 26.1 SECONDS (23.9-36.7)
[2025-02-23 16:00] LABS: Alanine Aminotransferase 10 U/L (0-33); Albumin Level 4.0 g/dL (3.5-5.2); Alkaline Phosphatase 104 U/L (35-105); Anion Gap 13.1 (5-19); Aspartate Amino Transferase 15 U/L (0-32); Blood Urea Nitrogen 8 mg/dL (8-23); Calcium 9.2 mg/dL (8.5-10.5); Carbon Dioxide 29 mmol/L (22-29); Chloride 105 mmol/L (98-107); Globulin 2.6 g/dL (1.3-4.6); Glucose 96 mg/dL (65-115); NT Pro B Type Natriuretic Pept 344 pg/mL (0-450); Osmolality Calculated 294 mOsm/kg (285-295); Potassium 4.1 mmol/L (3.5-5.1); Sodium 143 mmol/L (136-145); Total Protein 6.6 g/dL (6.6-8.7)
[2025-02-23 16:11] VITALS: BP 139/83; PULSE 69; RESP 16; O2SAT 95
== END 2025-02-23 16:12 | disposition home or self-care (01) ==
PROVIDERS: Emergency Provider Emergency Medicine; PCP Internal Medicine
DX: R60.9 Edema, unspecified (principal); Z86.73 Personal history of transient ischemic attack (TIA), and cerebral infarction without residual deficits; I10 Essential (primary) hypertension; E78.2 Mixed hyperlipidemia; R60.0 Localized edema
CPT/HCPCS: 36415; 80053; 83880; 85025; 85610; 85730; 93971; 99215; 99284

== ENCOUNTER → 2025-03-09 12:59 | Outpatient (BNVA) | payer MEDICARE, OTHER, MEDICAID, SELFPAY | PROVIDERS: PCP Internal Medicine; Visit Provider Surgery | DX: Z51.89 Encounter for other specified aftercare (principal); R03.0 Elevated blood-pressure reading, without diagnosis of hypertension | CPT/HCPCS: 99213 ==